=== PATIENT | male | born 1930 | race Caucasian/White ===

== ENCOUNTER 2017-02-07 21:19 | Inpatient (IN) | payer MEDICARE, OTHER ==
[2017-02-07] MEDS ORDERED: Acetaminophen 500 MG TAB PO ONE (22:30)
[2017-02-07] MEDS ORDERED: Guaifenesin DM 10 ML UDC PO ONE (22:31)
[2017-02-07 22:38] LABS: % BASOPHILS 0.2 % (0.0-2.0); % EOSINOPHILS 4.2 % (0.0-5.0); % LYMPHOCYTES 17.1 % (20.0-50.0); % MONOCYTES 4.8 % (2.0-10.0); % NEUTROPHILS 73.7 % (40.0-80.0); HEMATOCRIT 37.6 % (41.0-60); HEMOGLOBIN 12.7 gm/dL (12-16); MEAN CELL VOLUME 88.1 fl (80-99); MEAN CORPUSCULAR HEMOGLOBIN 29.8 pg (27.0-31.0); MEAN CORPUSCULAR HGB CONC 33.8 pg (28.0-36.0); MEAN PLATELET VOLUME 7.7 fl; NEUTROPHILE ABSOLUTE 7.4 Th/cmm (1.8-8.0); PLATELET COUNT 286 Th/cmm (150-400); RED BLOOD COUNT 4.27 Mil/cmm (3.80-5.80)
[2017-02-07] MEDS ORDERED: Piperacillin Sodium/Tazobact 3.375 gm Vial IV ONE (22:38)
[2017-02-07 22:51] LABS: ANION GAP 10.8 (7.0-16.0); BUN - UREA NITROGEN 28 mg/dL (7-25); BUN/CREATININE RATIO 23.3; CALCIUM SERUM 9.8 mg/dL (8.6-10.3); CARBON DIOXIDE 24.8 mEq/L (21.0-31.0); CHLORIDE 103 mEq/L (98-107); CREATININE - SERUM 1.2 mg/dL (0.7-1.3); GLUCOSE 102 mg/dL (70-105); POTASSIUM SERUM 4.6 mEq/L (3.5-5.1); SODIUM SERUM 134 mEq/L (136-145)
[2017-02-07] MEDS ORDERED: Acetaminophen 500 MG TAB ONE (23:05)
[2017-02-07] MEDS ORDERED: Guaifenesin DM 10 ML UDC ONE (23:06)
[2017-02-07 23:10] LABS: URINE BILIRUBIN NEGATIVE (NEGATIVE); URINE BLOOD NEGATIVE (NEGATIVE); URINE GLUCOSE (UA) NEGATIVE (NEGATIVE); URINE KETONE NEGATIVE (NEGATIVE); URINE PROTEIN TRACE mg/dL (NEGATIVE); URINE UROBILINOGEN 0.2 E.U./dL (0.2 - 1.0)
[2017-02-07 23:18] LABS: URINE COLOR YELLOW
[2017-02-07 23:19] LABS: URINE BACTERIA NONE SEEN /hpf (NONE SEEN); URINE EPITHELIAL CELLS NONE SEEN /lpf (FEW); URINE RBC NONE SEEN /hpf (0-5); URINE WBC NONE SEEN /hpf (0-5)
[2017-02-08 00:57] VITALS: BP 137/82
--- NOTE | 2017-02-08 12:23 | Internal Medicine Prog Note ---
Internal Medicine Subjective - Subjective Service Date: 02/08/17 ([id number]) Internal Medicine Objective - Results Result Diagrams: 02/07/17 22:30 02/07/17 22:30 Recent Labs: Laboratory Last Values WBC 10.0 Th/cmm (4.8-10.8) 02/07/17 22:30 RBC 4.27 Mil/cmm (3.80-5.80) 02/07/17 22:30 Hgb 12.7 gm/dL (12-16) 02/07/17 22:30 Hct 37.6 % (41.0-60) L 02/07/17 22:30 MCV 88.1 fl (80-99) 02/07/17 22:30 MCH 29.8 pg (27.0-31.0) 02/07/17 22:30 MCHC Differential 33.8 pg (28.0-36.0) 02/07/17 22:30 RDW 14.0 % (11.5-20.0) 02/07/17 22:30 Plt Count 286 Th/cmm (150-400) 02/07/17 22:30 MPV 7.7 fl 02/07/17 22:30 Neutrophils % 73.7 % (40.0-80.0) 02/07/17 22:30 Lymphocytes % 17.1 % (20.0-50.0) L 02/07/17 22:30 Monocytes % 4.8 % (2.0-10.0) 02/07/17 22:30 Eosinophils % 4.2 % (0.0-5.0) 02/07/17 22: Basophils % 0.2 % (0.0-2.0) 02/07/17 22:30 Sodium 134 mEq/L (136-145) L 02/07/17 22:30 Potassium 4.6 mEq/L (3.5-5.1) 02/07/17 22:30 Chloride 103 mEq/L (98-107) 02/07/17 22:30 Carbon Dioxide 24.8 mEq/L (21.0-31.0) 02/07/17 22:30 Anion Gap 10.8 (7.0-16.0) 02/07/17 22:30 BUN 28 mg/dL (7-25) H 02/07/17 22:30 Creatinine 1.2 mg/dL (0.7-1.3) 02/07/17 22:30 Est GFR ( Amer) TNP 02/07/17 22:30 Est GFR (Non-Af Amer) TNP 02/07/17 22:30 BUN/Creatinine Ratio 23.3 02/07/17 22:30 Glucose 102 mg/dL (70-105) 02/07/17 22:30 Calcium 9.8 mg/dL (8.6-10.3) 02/07/17 22:30 B-Natriuretic Peptide 133.0 pg/mL (5.0-100.0) H 02/07/17 22:30 Urine Source RANDOM 02/07/17 22:30 Urine Color YELLOW 02/07/17 22:30 Urine Clarity CLEAR (CLEAR) 02/07/17 22:30 Urine pH 6.0 (4.6 - 8.0) 02/07/17 22:30 Ur Specific [place] 1.015 (1.005-1.030) 02/07/17 22:30 Urine Protein TRACE mg/dL (NEGATIVE) 02/07/17 22:30 Urine Glucose (UA) NEGATIVE mg/dL (NEGATIVE) 02/07/17 22:30 Urine Ketones NEGATIVE mg/dL (NEGATIVE) 02/07/17 22:30 Urine Blood NEGATIVE (NEGATIVE) 02/07/17 22:30 Urine Nitrate NEGATIVE (NEGATIVE) 02/07/17 22:30 Urine Bilirubin NEGATIVE (NEGATIVE) 02/07/17 22:30 Urine Urobilinogen 0.2 E.U./dL (0.2 - 1.0) 02/07/17 22:30 Ur Leukocyte Esterase NEGATIVE (NEGATIVE) 02/07/17 22:30 Urine RBC NONE SEEN /hpf (0-5) 02/07/17 22:30 Urine WBC NONE SEEN /hpf (0-5) 02/07/17 22:30 Ur Epithelial Cells NONE SEEN /lpf (FEW) 02/07/17 22:30 Urine Bacteria NONE SEEN /hpf (NONE SEEN) 02/07/17 22:30 - Physical Exam Vitals and I&O: Vital Signs Temp 96.9 F 02/08/17 06:43 Pulse 78 02/08/17 06:43 Resp 20 02/08/17 06:43 BP 151/80 02/08/17 06:43 Pulse Ox 98 10/14/17 06:43 Intake & Output 02/07/17 02/08/17 02/08/17 18:59 06:59 18:59 Intake Total 120 Balance 120 Intake: Oral 120 Other: # Voids 1 Active Medications: Current Medications Acetaminophen (Tylenol) 650 mg PO Q6H PRN PRN Reason: Mild Pain/Headache/T above 101 Stop: 04/09/17 01:11 Lorazepam (Ativan) 1 mg PO Q6H PRN; Protocol PRN Reason: Anxiety/Agitation Stop: 04/09/17 01:11 Magnesium Hydroxide (Milk Of Magnesia) 30 ml PO HS PRN PRN Reason: Constipation Stop: 04/09/17 01:11 Temazepam (Restoril) 15 mg PO HS PRN; Protocol PRN Reason: Insomnia Stop: 04/08/17 22:32 Internal Medicine Assmt/Plan - Assessment Assessment: HYPONATREMIA PSYCHOSIS
--- NOTE | 2017-02-08 13:27 | History & Physical ---
ADMIT DATE: 02/08/2017 CHIEF COMPLAINT: Agitation. HISTORY OF PRESENT ILLNESS: This is an 86-year-old male, who is a resident of [facility], was brought here to [facility] for increase of agitation. The patient is now admitted to the Geropsych Unit. PAST MEDICAL HISTORY: Per medical records, the patient has no medical history, just psychosis. PAST SURGICAL HISTORY: None per patient. ALLERGIES: No known allergies. SOCIAL HISTORY: The patient is a skilled nursing resident, requiring 24- hour nursing care. FAMILY HISTORY: Noncontributory. REVIEW OF SYSTEMS: GENERAL: Denies fevers or chills. CARDIOVASCULAR: Denies chest pain. RESPIRATORY: Denies shortness of breath. GASTROINTESTINAL: Denies nausea, vomiting, or abdominal pain. GENITOURINARY: Denies dysuria. All other systems are reviewed by and are negative. PHYSICAL EXAMINATION: GENERAL: The patient is well developed, well nourished, no acute distress. VITAL SIGNS: Temperature 96.9, heart rate 70, blood pressure 151/80, and O2 98%. HEENT: Head; normocephalic and atraumatic. NECK: Supple. No mass. LUNGS: Clear bilaterally. HEART: Regular rate and rhythm. ABDOMEN: Soft and nontender. LABORATORY DATA: WBC 10.0, hemoglobin 12.7, hematocrit 37.6, and platelet of 286. Sodium 134, potassium 4.6, chloride 103, BUN 20, and creatinine 1.2. ASSESSMENT: 1. Psychosis. 2. Hyponatremia. PLAN: The patient will be admitted to the Geropsych Unit. We will continue to follow this patient. JOB# [id number]
--- NOTE | 2017-02-09 01:20 | Psychosocial Evaluation ---
DATE OF SERVICE: 02/08/2017 The patient was seen and evaluated. The patient's chart reviewed. This is initial psychiatric Evaluation. CHIEF COMPLAINT: Agitation. HISTORY OF PRESENT ILLNESS: This 86-year-old male who was brought in here from [facility] for severe agitation and aggressive behavior. Since the admission, the patient was becoming very aggressive, irritable and almost assaulted and required emergent Ativan medication. Today on [id number]-rh-[id number] evaluation, the patient presents a few very irritable, easily agitated, required emergent medications and is unable to give much more information beyond that. He presents very disorganized and psychotic. PAST MEDICAL HISTORY: Unknown. PAST SURGICAL HISTORY: None per patient. ALLERGIES TO MEDICATION: NKDA. SOCIAL HISTORY: Currently lives in a halfway and requires assistance. Denies any alcohol or drug use. Denies illicit drug use. FAMILY PSYCHIATRIC HISTORY: Noncontributory. LEGAL HISTORY: None. PREVIOUS INPATIENT OR OUTPATIENT PSYCHIATRIC HOSPITALIZATIONS: None. CURRENT MEDICATIONS: He is on Ativan 6 hours as needed, Restoril 15 at bedtime right now. He is also on Bactrim and vancomycin. MENTAL STATUS EXAMINATION: Disheveled, malodorous, paranoid, suspicious, aggressive, assaultive, poor insight, judgment and impulse control. PRIMARY DIAGNOSIS: Unspecified psychotic disorder. SECONDARY DIAGNOSES: Rule out neurocognitive impairment, behavior disturbance and psychosis, rule out schizophrenia. Medical diagnosis as noted above. ASSESSMENT AND PLAN: The patient is an 86-year-old male who was brought in here by his daughter, brought in from [place] very agitated and aggressive. He required emergent medications, very poor historian, further collateral baseline information is needed. Due to the patient's still aggressive and psychotic symptoms, we will add a low dose of Seroquel and to be obtained more collateral and baseline information in the medical records from the outside hospital. Labs from the outside hospital, labs from the [facility] have been unremarkable. 1.Admit the patient. 2.We will add Seroquel 12.5 mg p.o. b.i.d. 3.We will obtain more collateral baseline information. 4.We will start both individual and group therapy, ____ milieu and obtain more collateral baseline information. ESTIMATED LENGTH OF STAY: Between 5-10 days. DISCHARGE CRITERIA: The patient demonstrates euthymic mood, no suicidal or homicidal, ideation, good psychiatric followup, and good ldso-ko-dokm interaction. JOB# [id number]
--- NOTE | 2017-02-09 15:02 | Internal Medicine Prog Note ---
Internal Medicine Subjective - Subjective Service Date: 02/09/17 Patient seen and examined:: with staff Patient is:: awake Internal Medicine Objective - Results Result Diagrams: 02/07/17 22:30 02/07/17 22:30 Recent Labs: Laboratory Last Values WBC 10.0 Th/cmm (4.8-10.8) 02/07/17 22:30 RBC 4.27 Mil/cmm (3.80-5.80) 02/07/17 22:30 Hgb 12.7 gm/dL (12-16) 02/07/17 22:30 Hct 37.6 % (41.0-60) L 02/07/17:30 MCV 88.1 fl (80-99) 02/07/17 22: MCH 29.8 pg (27.0-31.0) 02/07/17: MCHC Differential 33.8 pg (28.0-36.0) 02/07/17: RDW 14.0 % (11.5-20.0) 02/07/17: Plt Count 286 Th/cmm (150-400) 02/07/17 22:30 MPV 7.7 fl 02/07/17 22:30 Neutrophils % 73.7 % (40.0-80.0) 02/07/17:30 Lymphocytes % 17.1 % (20.0-50.0) L 02/07/17: Monocytes % 4.8 % (2.0-10.0) 02/07/17: Eosinophils % 4.2 % (0.0-5.0) 02/07/17: Basophils % 0.2 % (0.0-2.0) 02/07/17 22:30 Sodium 134 mEq/L (136-145) L 02/07/17 22:30 Potassium 4.6 mEq/L (3.5-5.1) 02/07/17 22:30 Chloride 103 mEq/L (98-107) 02/07/17 22:30 Carbon Dioxide 24.8 mEq/L (21.0-31.0) 02/07/17 22:30 Anion Gap 10.8 (7.0-16.0) 02/07/17 22:30 BUN 28 mg/dL (7-25) H 10/13/17 22:30 Creatinine 1.2 mg/dL (0.7-1.3) 02/07/17 22:30 Est GFR ( Amer) TNP 02/07/17 22:30 Est GFR (Non-Af Amer) TNP 02/07/17 22:30 BUN/Creatinine Ratio 23.3 02/07/17 22:30 Glucose 102 mg/dL (70-105) 02/07/17 22:30 Calcium 9.8 mg/dL (8.6-10.3) 02/07/17 22:30 B-Natriuretic Peptide 133.0 pg/mL (5.0-100.0) H 02/07/17 22:30 Urine Source RANDOM 02/07/17 22:30 Urine Color YELLOW 02/07/17 22:30 Urine Clarity CLEAR (CLEAR) 02/07/17 22:30 Urine pH 6.0 (4.6 - 8.0) 02/07/17 22:30 Ur Specific [place] 1.015 (1.005-1.030) 02/07/17 22:30 Urine Protein TRACE mg/dL (NEGATIVE) 02/07/17 22:30 Urine Glucose (UA) NEGATIVE mg/dL (NEGATIVE) 02/07/17 22:30 Urine Ketones NEGATIVE mg/dL (NEGATIVE) 02/07/17 22:30 Urine Blood NEGATIVE (NEGATIVE) 02/07/17 22:30 Urine Nitrate NEGATIVE (NEGATIVE) 02/07/17 22:30 Urine Bilirubin NEGATIVE (NEGATIVE) 02/07/17 22:30 Urine Urobilinogen 0.2 E.U./dL (0.2 - 1.0) 02/07/17 22:30 Ur Leukocyte Esterase NEGATIVE (NEGATIVE) 02/07/17 22:30 Urine RBC NONE SEEN /hpf (0-5) 02/07/17 22:30 Urine WBC NONE SEEN /hpf (0-5) 02/07/17 22:30 Ur Epithelial Cells NONE SEEN /lpf (FEW) 02/07/17 22:30 Urine Bacteria NONE SEEN /hpf (NONE SEEN) 02/07/17 22:30 - Physical Exam Vitals and I&O: Vital Signs Temp 98.1 F 02/09/17 06:51 Pulse 85 02/09/17 06:51 Resp 20 02/09/17 06:51 BP 170/85 02/09/17 06:51 Pulse Ox 97 02/09/17 06:51 Intake & Output 02/08/17 02/09/17 02/09/17 18:59 06:59 18:59 Intake Total 900 360 Balance 900 360 Intake: Oral 900 360 Other: # Voids 4 1 # Bowel Movements 1 Active Medications: Current Medications Acetaminophen (Tylenol) 650 mg PO Q6H PRN PRN Reason: Mild Pain/Headache/T above 101 Stop: 04/09/17 01:11 Last Admin: 02/08/17 16:26 Dose: 650 mg Lorazepam (Ativan) 1 mg PO Q6H PRN; Protocol PRN Reason: Anxiety/Agitation Stop: 04/09/17 01:11 Last Admin: 02/09/17 10:00 Dose: 1 mg Magnesium Hydroxide (Milk Of Magnesia) 30 ml PO HS PRN PRN Reason: Constipation Stop: 04/09/17 01:11 Quetiapine Fumarate (Seroquel) 25 mg PO BID MIKI PRN Reason: Protocol Stop: 04/10/17 16:59 Temazepam (Restoril) 15 mg PO HS PRN; Protocol PRN Reason: Insomnia Stop: 04/08/17 22:32 General: alert HEENT: NC/AT, PERRLA Neck: Supple Lungs: CTAB Cardiovascular: RRR, Normal S1, Normal S2, without murmur Abdomen: soft, non-tender, non-distended Extremities: clear Neurological: no change Internal Medicine Assmt/Plan - Assessment Assessment: HYPONATREMIA PSYCHOSIS - Plan Plan: SAFETY PRECAUTIONS A1C/LIPID PANEL IN AM CONTINUE CURRENT PLAN OF CARE
--- NOTE | 2017-02-09 20:16 | Progress Notes ---
DATE: 02/09/2017 SUBJECTIVE: The patient was seen and evaluated. The patient's chart was reviewed. OBJECTIVE: VITAL SIGNS: Stable. Overnight nursing staff reported the patient is still very irritable easily, needing a lot of redirection and disorganized. Today on [id number] evaluation, the patient is very disorganized, easily derails. He finds himself in his chair and tries to hurt himself. MENTAL STATUS EXAMINATION: Still trying to hurt himself, easily irritable, agitated, and unable to formulate a safe plan. ASSESSMENT AND PLAN: The patient is an 86-year-old male who continues to present very psychotic, disorganized, and trying to hurt himself in the chair. We will continue increasing Seroquel. to target the patient's severe psychotic symptoms. JOB# [id number] MTDD
[2017-02-10 07:26] LABS: CHOLESTEROL 174 mg/dL (<200); TRIGLYCERIDES 109 mg/dL (<150)
--- NOTE | 2017-02-10 14:43 | Internal Medicine Prog Note ---
Internal Medicine Subjective - Subjective Service Date: 02/10/17 Patient is:: awake Internal Medicine Objective - Results Result Diagrams: 02/07/17 22:30 02/07/17 22:30 Recent Labs: Laboratory Last Values WBC 10.0 Th/cmm (4.8-10.8) 02/07/17 22:30 RBC 4.27 Mil/cmm (3.80-5.80) 02/07/17 22:30 Hgb 12.7 gm/dL (12-16) 02/07/17 22:30 Hct 37.6 % (41.0-60) L 02/07/17 22:30 MCV 88.1 fl (80-99) 02/07/17 22:30 MCH 29.8 pg (27.0-31.0) 02/07/17: MCHC Differential 33.8 pg (28.0-36.0) 02/07/17 22:30 RDW 14.0 % (11.5-20.0) 02/07/17 22:30 Plt Count 286 Th/cmm (150-400) 02/07/17 22:30 MPV 7.7 fl 02/07/17 22:30 Neutrophils % 73.7 % (40.0-80.0) 02/07/17 22:30 Lymphocytes % 17.1 % (20.0-50.0) L 02/07/17:30 Monocytes % 4.8 % (2.0-10.0) 02/07/17 22:30 Eosinophils % 4.2 % (0.0-5.0) 02/07/17: Basophils % 0.2 % (0.0-2.0) 02/07/17 22:30 Sodium 134 mEq/L (136-145) L 02/07/17 22:30 Potassium 4.6 mEq/L (3.5-5.1) 02/07/17 22:30 Chloride 103 mEq/L (98-107) 02/07/17 22:30 Carbon Dioxide 24.8 mEq/L (21.0-31.0) 02/07/17 22:30 Anion Gap 10.8 (7.0-16.0) 02/07/17 22:30 BUN 28 mg/dL (7-25) H 02/07/17 22:30 Creatinine 1.2 mg/dL (0.7-1.3) 02/07/17 22:30 Est GFR ( Amer) TNP 02/07/17 22:30 Est GFR (Non-Af Amer) TNP 02/07/17 22:30 BUN/Creatinine Ratio 23.3 02/07/17 22:30 Glucose 102 mg/dL (70-105) 02/07/17 22:30 Hemoglobin A1c % 5.9 % (4.0-6.0) 02/10/17 06:40 Calcium 9.8 mg/dL (8.6-10.3) 02/07/17 22:30 B-Natriuretic Peptide 133.0 pg/mL (5.0-100.0) H 02/07/17 22:30 Triglycerides 109 mg/dL (<150) 02/10/17 06:40 Cholesterol 174 mg/dL (<200) 02/10/17 06:40 LDL Cholesterol Direct 73 mg/dL (75-193) L 02/10/17 06:40 HDL Cholesterol 74 mg/dL (23-92) 02/10/17 06:40 Urine Source RANDOM 02/07/17 22:30 Urine Color YELLOW 02/07/17 22:30 Urine Clarity CLEAR (CLEAR) 02/07/17 22:30 Urine pH 6.0 (4.6 - 8.0) 02/07/17 22:30 Ur Specific [place] 1.015 (1.005-1.030) 02/07/17 22:30 Urine Protein TRACE mg/dL (NEGATIVE) 02/07/17 22:30 Urine Glucose (UA) NEGATIVE mg/dL (NEGATIVE) 02/07/17 22:30 Urine Ketones NEGATIVE mg/dL (NEGATIVE) 02/07/17 22:30 Urine Blood NEGATIVE (NEGATIVE) 02/07/17 22:30 Urine Nitrate NEGATIVE (NEGATIVE) 02/07/17 22:30 Urine Bilirubin NEGATIVE (NEGATIVE) 02/07/17 22:30 Urine Urobilinogen 0.2 E.U./dL (0.2 - 1.0) 02/07/17 22:30 Ur Leukocyte Esterase NEGATIVE (NEGATIVE) 02/07/17 22:30 Urine RBC NONE SEEN /hpf (0-5) 02/07/17 22:30 Urine WBC NONE SEEN /hpf (0-5) 02/07/17 22:30 Ur Epithelial Cells NONE SEEN /lpf (FEW) 02/07/17 22:30 Urine Bacteria NONE SEEN /hpf (NONE SEEN) 02/07/17 22:30 - Physical Exam Vitals and I&O: Vital Signs Temp 98.6 F 02/10/17 06:50 Pulse 75 02/10/17 06:50 Resp 19 02/10/17 06:50 BP 133/76 02/10/17 06:50 Pulse Ox 96 02/10/17 06:50 Intake & Output 02/09/17 02/10/17 02/10/17 18:59 06:59 18:59 Intake Total 850 240 Balance 850 240 Intake: Oral 850 240 Other: # Voids 4 3 # Bowel Movements 0 0 Active Medications: Current Medications Acetaminophen (Tylenol) 650 mg PO Q6H PRN PRN Reason: Mild Pain/Headache/T above 101 Stop: 04/09/17 01:11 Last Admin: 02/10/17 07:05 Dose: 650 mg Donepezil HCl (Aricept) 5 mg PO HS MIKI Stop: 04/11/17 20:59 Lorazepam (Ativan) 1 mg PO Q6H PRN; Protocol PRN Reason: Anxiety/Agitation Stop: 04/09/17 01:11 Last Admin: 02/10/17 08:02 Dose: 1 mg Magnesium Hydroxide (Milk Of Magnesia) 30 ml PO HS PRN PRN Reason: Constipation Stop: 04/09/17 01:11 Quetiapine Fumarate (Seroquel) 25 mg PO BID MIKI PRN Reason: Protocol Stop: 04/10/17 16:59 Last Admin: 02/10/17 08:01 Dose: 25 mg Temazepam (Restoril) 15 mg PO HS PRN; Protocol PRN Reason: Insomnia Stop: 04/08/17 22:32 Last Admin: 02/09/17 21:13 Dose: 15 mg General: alert HEENT: NC/AT, PERRLA Neck: Supple Lungs: CTAB Cardiovascular: RRR, Normal S1, Normal S2, without murmur Abdomen: soft, non-tender, non-distended Extremities: clear Neurological: no change Internal Medicine Assmt/Plan - Assessment Assessment: HYPONATREMIA PSYCHOSIS - Plan Plan: SAFETY PRECAUTIONS A1C/LIPID PANEL IN AM CONTINUE CURRENT PLAN OF CARE
--- NOTE | 2017-02-11 02:38 | Progress Notes ---
DATE: 02/10/2017 Case was discussed with staff of the patient, reviewed records. This is an 86-year-old male who was admitted on 02/08/2017 from [facility] for severe agitation and aggressive behavior. The patient's mood was impulsive requiring emergency medications. The patient continues to be irritable, confused, unable to make safe plan for self-care. He is on Seroquel 25 mg twice a day. I will be adding Aricept to his medication to help with his memory and so far no side effects, no sedation, no nausea, and no extrapyramidal symptoms. We will continue to work with the patient in group therapy, milieu therapy, and adjust medications as needed. JOB# [id number]
--- NOTE | 2017-02-11 12:37 | Internal Medicine Prog Note ---
Internal Medicine Subjective - Subjective Service Date: 02/11/17 ( CAME AND HAS GIVEN MEDICAL HX OF PT) Patient seen and examined:: without staff Patient is:: awake Per staff patient has:: tolerating meds Internal Medicine Objective - Results Result Diagrams: 02/07/17 22:30 02/07/17 22:30 Recent Labs: Laboratory Last Values WBC 10.0 Th/cmm (4.8-10.8) 02/07/17 22:30 RBC 4.27 Mil/cmm (3.80-5.80) 02/07/17 22:30 Hgb 12.7 gm/dL (12-16) 02/07/17: Hct 37.6 % (41.0-60) L 02/07/17: MCV 88.1 fl (80-99) 02/07/17 22:30 MCH 29.8 pg (27.0-31.0) 02/07/17: MCHC Differential 33.8 pg (28.0-36.0) 02/07/17: RDW 14.0 % (11.5-20.0) 02/07/17:30 Plt Count 286 Th/cmm (150-400) 02/07/17 22:30 MPV 7.7 fl 02/07/17 22:30 Neutrophils % 73.7 % (40.0-80.0) 02/07/17 22:30 Lymphocytes % 17.1 % (20.0-50.0) L 02/07/17: Monocytes % 4.8 % (2.0-10.0) 02/07/17: Eosinophils % 4.2 % (0.0-5.0) 02/07/17: Basophils % 0.2 % (0.0-2.0) 02/07/17 22:30 Sodium 134 mEq/L (136-145) L 02/07/17 22:30 Potassium 4.6 mEq/L (3.5-5.1) 02/07/17 22:30 Chloride 103 mEq/L (98-107) 02/07/17 22:30 Carbon Dioxide 24.8 mEq/L (21.0-31.0) 02/07/17 22: Anion Gap 10.8 (7.0-16.0) 02/07/17 22:30 BUN 28 mg/dL (7-25) H 02/07/17 22:30 Creatinine 1.2 mg/dL (0.7-1.3) 02/07/17 22:30 Est GFR ( Amer) TNP 02/07/17 22:30 Est GFR (Non-Af Amer) TNP 02/07/17 22:30 BUN/Creatinine Ratio 23.3 02/07/17 22:30 Glucose 102 mg/dL (70-105) 02/07/17 22:30 Hemoglobin A1c % 5.9 % (4.0-6.0) 02/10/17 06:40 Calcium 9.8 mg/dL (8.6-10.3) 02/07/17 22:30 B-Natriuretic Peptide 133.0 pg/mL (5.0-100.0) H 02/07/17 22:30 Triglycerides 109 mg/dL (<150) 02/10/17 06:40 Cholesterol 174 mg/dL (<200) 02/10/17 06:40 LDL Cholesterol Direct 73 mg/dL (75-193) L 02/10/17 06:40 HDL Cholesterol 74 mg/dL (23-92) 02/10/17 06:40 Urine Source RANDOM 02/07/17 22:30 Urine Color YELLOW 02/07/17 22:30 Urine Clarity CLEAR (CLEAR) 02/07/17 22:30 Urine pH 6.0 (4.6 - 8.0) 02/07/17 22:30 Ur Specific [place] 1.015 (1.005-1.030) 02/07/17 22:30 Urine Protein TRACE mg/dL (NEGATIVE) 02/07/17 22:30 Urine Glucose (UA) NEGATIVE mg/dL (NEGATIVE) 02/07/17 22:30 Urine Ketones NEGATIVE mg/dL (NEGATIVE) 02/07/17 22:30 Urine Blood NEGATIVE (NEGATIVE) 02/07/17 22:30 Urine Nitrate NEGATIVE (NEGATIVE) 02/07/17 22:30 Urine Bilirubin NEGATIVE (NEGATIVE) 02/07/17 22:30 Urine Urobilinogen 0.2 E.U./dL (0.2 - 1.0) 02/07/17 22:30 Ur Leukocyte Esterase NEGATIVE (NEGATIVE) 02/07/17 22:30 Urine RBC NONE SEEN /hpf (0-5) 02/07/17 22:30 Urine WBC NONE SEEN /hpf (0-5) 02/07/17 22:30 Ur Epithelial Cells NONE SEEN /lpf (FEW) 02/07/17 22:30 Urine Bacteria NONE SEEN /hpf (NONE SEEN) 02/07/17 22:30 - Physical Exam Vitals and I&O: Vital Signs Temp 97 F 02/11/17 06:38 Pulse 87 02/11/17 06:38 Resp 19 02/11/17 06:38 BP 150/81 02/11/17 06:38 Pulse Ox 96 02/11/17 06:29 Intake & Output 02/10/17 02/11/17 02/11/17 18:59 06:59 18:59 Intake Total 1800 480 Balance 1800 480 Intake: Oral 1800 480 Other: # Voids 4 1 # Bowel Movements 0 Active Medications: Current Medications Acetaminophen (Tylenol) 650 mg PO Q6H PRN PRN Reason: Mild Pain/Headache/T above 101 Stop: 04/09/17 01:11 Last Admin: 02/11/17 09:04 Dose: 650 mg Donepezil HCl (Aricept) 5 mg PO HS MIKI Stop: 04/11/17 20:59 Last Admin: 02/10/17 20:55 Dose: Not Given Lorazepam (Ativan) 1 mg PO Q6H PRN; Protocol PRN Reason: Anxiety/Agitation Stop: 04/09/17 01:11 Last Admin: 02/11/17 09:04 Dose: 1 mg Magnesium Hydroxide (Milk Of Magnesia) 30 ml PO HS PRN PRN Reason: Constipation Stop: 04/09/17 01:11 Quetiapine Fumarate (Seroquel) 25 mg PO BID MIKI PRN Reason: Protocol Stop: 04/10/17 16:59 Last Admin: 02/11/17 09:04 Dose: 25 mg Temazepam (Restoril) 15 mg PO HS PRN; Protocol PRN Reason: Insomnia Stop: 04/08/17 22:32 Last Admin: 02/09/17 21:13 Dose: 15 mg General: alert HEENT: NC/AT, PERRLA Neck: Supple Lungs: CTAB Cardiovascular: RRR, Normal S1, Normal S2, without murmur Abdomen: soft, non-tender, non-distended Extremities: clear Neurological: no change Internal Medicine Assmt/Plan - Assessment Assessment: HYPONATREMIA PSYCHOSIS HTN - Plan Plan: MONITOR BP SAFETY PRECAUTIONS CONTINUE CURRENT PLAN OF CARE
[2017-02-11 13:33] LABS: % BASOPHILS 3.2 % (0.0-2.0); % EOSINOPHILS 2.5 % (0.0-5.0); % LYMPHOCYTES 11.4 % (20.0-50.0); % MONOCYTES 1.6 % (2.0-10.0); % NEUTROPHILS 81.3 % (40.0-80.0); HEMATOCRIT 38.7 % (41.0-60); MEAN CORPUSCULAR HEMOGLOBIN 29.5 pg (27.0-31.0); MEAN CORPUSCULAR HGB CONC 33.6 pg (28.0-36.0); MEAN PLATELET VOLUME 7.8 fl; NEUTROPHILE ABSOLUTE 8.2 Th/cmm (1.8-8.0); PLATELET COUNT 260 Th/cmm (150-400); RED CELL DISTRIBUTION WIDTH 13.8 % (11.5-20.0)
[2017-02-11 13:47] LABS: ANION GAP 9.7 (7.0-16.0); BUN - UREA NITROGEN 39 mg/dL (7-25); BUN/CREATININE RATIO 32.5; CALCIUM SERUM 9.6 mg/dL (8.6-10.3); CARBON DIOXIDE 23.8 mEq/L (21.0-31.0); CHLORIDE 100 mEq/L (98-107); CREATININE - SERUM 1.2 mg/dL (0.7-1.3); GLUCOSE 154 mg/dL (70-105); POTASSIUM SERUM 4.5 mEq/L (3.5-5.1); SODIUM SERUM 129 mEq/L (136-145)
--- NOTE | 2017-02-11 13:50 | Diagnostic Imaging Report ---
Portable chest x-ray HISTORY: Shortness of breath The heart appears enlarged. Atherosclerotic calcification seen in the aorta. Increased density noted in the left paratracheal region most likely related to brachiocephalic vessels. No definite acute focal pulmonary parenchymal processes are seen. IMPRESSION: 1. No definite acute focal pulmonary processes 2. Cardiomegaly with atherosclerotic vascular changes
[2017-02-11] MEDS ORDERED: Fleet Enema 135 mL RC ONE (14:00)
--- NOTE | 2017-02-11 14:36 | ER Physician Documentation ---
DATE OF SERVICE: HISTORY OF PRESENT ILLNESS: He is an 86-year-old male patient. The patient's history was taken partly from the nurse, partly from the patient's daughter and the patient himself who is 86, did speak some Colombian and said some symptoms. According to the nurse, the patient was referred by his physician to this institution for cough and shortness of breath and some hot feeling in the legs and for a lockdown unit and the patient also has hypertension and other symptoms as would be mentioned below. The patient's chief complaint is cough with lots of greenish yellowish expectoration, short of breath, difficulty in breathing. Swelling in the legs. The patient also has weakness. The patient has a psychiatric problem, the details of which is not known to me. The patient does not take his medication. He has a diagnosis of aggressive behavior. He lives in an assisted living setting. He has diagnosis of psychosis. He was at [facility] before and his insurance was verified. Psychiatrist is Dr. Wynne and medical doctor is Dr. Garcia, they both have been taking care of this patient. The patient is a very poor historian. The daughter says the patient does not take his medication for his hypertension. He was supposed to take his lisinopril 10 mg, but he is not taking. He was also supposed to take some other medication, he is not taking. PAST SURGICAL HISTORY: As far as the surgical history, I was told that the patient had hemorrhoidectomy and appendectomy surgery done. As far as the leg symptoms are concerned, he feels very hot in the leg and pain in both the calf area. The patient denies any history of diabetes mellitus. History of hypertension is present. There is no history of myocardial infarction, rheumatic fever, valvular disease, pericarditis. No history of any chest pain. No history of any heart catheterization, open heart surgery. PAST MEDICAL HISTORY: Essentially the same as mentioned above. For his admission in this hospital, is the first admission, he was never admitted in this hospital before. PERSONAL HISTORY: His daughter is taking care of him. He has 1 son also. ALLERGIES: Not mentioned here. REVIEW OF SYSTEMS: CONSTITUTIONAL: Not very reliable, but patient denies any stroke, CVA, TIA. Denies any history of myocardial infarction. ENDOCRINE: No history of diabetes, hypo or hyperthyroidism. HEART: The patient has a history of hypertension. No history of cardiac arrhythmia. GENITOURINARY: The patient did not have any prostate problems or any surgery for the prostate. BONES AND JOINTS: No apparent complaints. The patient has generalized weakness. PSYCHIATRIC: The patient has psychosis. He is in a lockdown unit. PHYSICAL EXAMINATION: GENERAL: The patient appears to be awake, he is alert. He appears to be of the stated age, not in any acute cardiorespiratory distress. He has cough. He is short of breath. ENT: Appears to be normal. NECK: Veins are not distended. Carotids are normal. Normal ____ without any bruit heard over the carotid artery. EXTREMITIES: There is no cyanosis, no petechia, no ecchymosis. Legs: The patient has tenderness in both calf muscles area. May need ultrasound of both lower extremities to find out any DVT present. PULMONARY: Examination reveals emphysematous chest wall, AP diameter of the chest is increased and the patient has bilateral scattered rales and rhonchi heard in both lungs malave. There is no definite bronchial breathing. HEART: Reveals normal heart sounds. Soft fourth heart sound. Third heart sound is absent. Second heart sound is physiologically split. ABDOMEN: Soft, benign and negative. CENTRAL NERVOUS SYSTEM: Normal. Appendix scar is noted. GENITOURINARY: Otherwise, benign and negative. VITAL SIGNS: Shows temperature to be 98.2, pulse of 78, respirations 20, blood pressure initial was 167/85, height of 5 feet, weight of 118 pounds. The patient has taken lisinopril. Allergies were not known. Pain threshold according to the nurse is 2/10 is present. CLINICAL IMPRESSION: The patient was sent here from the assisted living setting for aggressive behavior. The patient's other diagnosis includes psychosis. The psychiatrist name is Dr. Wynne. The patient's medical doctor's name is our chief specialist leed, Dr. Garcia. Other diagnosis includes the patient has severe bronchitis. One needs to rule out if the patient has any pneumonia present. We will treat the patient for severe acute tracheobronchitis, rule out pneumonia. We will get an EKG done. The patient will be treated for his lung condition and for psych facility the patient will be admitted. The patient's other medications will be given. Hypertension will be treated as needed. We will get an ultrasound of the legs to rule out any deep vein thrombophlebitis or not present in this patient. The patient needs some hygienic care. The patient seems to be malnourished. His serum albumin level, I believe, might be much lower. We do not have any other lab workup available at the present moment. I will admit the patient and the patient will be treated by Dr. Garcia and by the psychiatrist. JOB# [id number]
--- NOTE | 2017-02-11 22:06 | Progress Notes ---
DATE: 02/11/2017 Case was discussed with staff of the patient, reviewed records. The patient continues to be confused, demented and responding to internal stimuli, easily irritable, agitated. He was started on Seroquel 2 days ago, so I will give him more time before adjusting the dose because of his age and so far, no side effects with the medication, no sedation, no nausea, and no extrapyramidal symptoms. I did initiate him on Aricept yesterday. We will continue to work with the patient in group therapy, milieu therapy, and adjust medication as needed. JOB# [id number]
--- NOTE | 2017-02-12 13:23 | Internal Medicine Prog Note ---
Internal Medicine Subjective - Subjective Patient seen and examined:: with staff, chart reviewed Patient is:: awake, verbal, interactive, ambulating, confused Per staff patient has:: no adverse event, no episodes of fall, eating well, tolerating meds Internal Medicine Objective - Results Result Diagrams: 02/11/17 13:25 02/11/17 13:25 Recent Labs: Laboratory Last Values WBC 10.0 Th/cmm (4.8-10.8) 02/11/17 13:25 RBC 4.40 Mil/cmm (3.80-5.80) 02/11/17 13:25 Hgb 13.0 gm/dL (12-16) 02/11/17 13:25 Hct 38.7 % (41.0-60) L 02/11/17 13:25 MCV 88.0 fl (80-99) 02/11/17 13:25 MCH 29.5 pg (27.0-31.0) 02/11/17 13:25 MCHC Differential 33.6 pg (28.0-36.0) 02/11/17 13:25 RDW 13.8 % (11.5-20.0) 02/11/17 13:25 Plt Count 260 Th/cmm (150-400) 02/11/17 13:25 MPV 7.8 fl 02/11/17 13:25 Neutrophils % 81.3 % (40.0-80.0) H 02/11/17 13:25 Lymphocytes % 11.4 % (20.0-50.0) L 02/11/17 13:25 Monocytes % 1.6 % (2.0-10.0) L 02/11/17 13:25 Eosinophils % 2.5 % (0.0-5.0) 02/11/17 13:25 Basophils % 3.2 % (0.0-2.0) H 02/11/17 13:25 Sodium 129 mEq/L (136-145) L 02/11/17 13:25 Potassium 4.5 mEq/L (3.5-5.1) 02/11/17 13:25 Chloride 100 mEq/L (98-107) 02/11/17 13:25 Carbon Dioxide 23.8 mEq/L (21.0-31.0) 02/11/17 13:25 Anion Gap 9.7 (7.0-16.0) 02/11/17 13:25 BUN 39 mg/dL (7-25) H 02/11/17 13:25 Creatinine 1.2 mg/dL (0.7-1.3) 02/11/17 13:25 Est GFR ( Amer) TNP 02/11/17 13:25 Est GFR (Non-Af Amer) TNP 02/11/17 13:25 BUN/Creatinine Ratio 32.5 02/11/17 13:25 Glucose 154 mg/dL (70-105) H 02/11/17 13:25 Hemoglobin A1c % 5.9 % (4.0-6.0) 02/10/17 06:40 Calcium 9.6 mg/dL (8.6-10.3) 02/11/17 13:25 Ammonia 35 umol/L (16-53) 02/11/17 13:25 B-Natriuretic Peptide 133.0 pg/mL (5.0-100.0) H 02/07/17 22:30 Triglycerides 109 mg/dL (<150) 02/10/17 06:40 Cholesterol 174 mg/dL (<200) 02/10/17 06:40 LDL Cholesterol Direct 73 mg/dL (75-193) L 02/10/17 06:40 HDL Cholesterol 74 mg/dL (23-92) 02/10/17 06:40 Urine Source RANDOM 02/07/17 22:30 Urine Color YELLOW 02/07/17 22:30 Urine Clarity CLEAR (CLEAR) 02/07/17 22:30 Urine pH 6.0 (4.6 - 8.0) 02/07/17 22:30 Ur Specific [place] 1.015 (1.005-1.030) 02/07/17 22:30 Urine Protein TRACE mg/dL (NEGATIVE) 02/07/17 22:30 Urine Glucose (UA) NEGATIVE mg/dL (NEGATIVE) 02/07/17 22:30 Urine Ketones NEGATIVE mg/dL (NEGATIVE) 02/07/17 22:30 Urine Blood NEGATIVE (NEGATIVE) 02/07/17 22:30 Urine Nitrate NEGATIVE (NEGATIVE) 02/07/17 22:30 Urine Bilirubin NEGATIVE (NEGATIVE) 02/07/17 22:30 Urine Urobilinogen 0.2 E.U./dL (0.2 - 1.0) 02/07/17 22:30 Ur Leukocyte Esterase NEGATIVE (NEGATIVE) 02/07/17 22:30 Urine RBC NONE SEEN /hpf (0-5) 02/07/17 22:30 Urine WBC NONE SEEN /hpf (0-5) 02/07/17 22:30 Ur Epithelial Cells NONE SEEN /lpf (FEW) 02/07/17 22:30 Urine Bacteria NONE SEEN /hpf (NONE SEEN) 02/07/17 22:30 - Physical Exam Vitals and I&O: Vital Signs Temp 97.9 F 02/12/17 05:38 Pulse 89 02/12/17 05:38 Resp 20 02/12/17 05:38 BP 144/86 02/12/17 05:38 Pulse Ox 95 02/12/17 05:38 Intake & Output 02/11/17 02/12/17 02/12/17 18:59 06:59 18:59 Intake Total 700 120 Balance 700 120 Intake: Oral 700 120 Other: # Voids 3 3 # Bowel Movements 0 0 Active Medications: Current Medications Acetaminophen (Tylenol) 650 mg PO Q6H PRN PRN Reason: Mild Pain/Headache/T above 101 Stop: 04/09/17 01:11 Last Admin: 02/12/17 13:07 Dose: 650 mg Acetaminophen/Hydrocodone Bitart ([place] 5mg/325mg) 1 tab PO Q6H PRN PRN Reason: Pain (Moderate) Stop: 04/12/17 12:40 Docusate Sodium (Colace) 100 mg PO BID [facility] Stop: 04/12/17 16:59 Last Admin: 02/12/17 09:10 Dose: 100 mg Donepezil HCl (Aricept) 5 mg PO HS [facility] Stop: 04/11/17 20:59 Last Admin: 02/11/17 22:23 Dose: Not Given Lorazepam (Ativan) 1 mg PO Q6H PRN; Protocol PRN Reason: Anxiety/Agitation Stop: 04/09/17 01:11 Last Admin: 02/11/17 09:04 Dose: 1 mg Magnesium Hydroxide (Milk Of Magnesia) 30 ml PO HS PRN PRN Reason: Constipation Stop: 04/09/17 01:11 Quetiapine Fumarate (Seroquel) 25 mg PO TID MIKI PRN Reason: Protocol Stop: 04/13/17 08:59 Last Admin: 02/12/17 13:07 Dose: 25 mg Temazepam (Restoril) 15 mg PO HS PRN; Protocol PRN Reason: Insomnia Stop: 04/08/17 22:32 Last Admin: 02/09/17 21:13 Dose: 15 mg General: demented HEENT: NC/AT, PERRLA Neck: Supple Lungs: CTAB Cardiovascular: RRR, Normal S1, Normal S2, without murmur Abdomen: soft, non-tender, non-distended Extremities: clear Neurological: no change, disorganized Internal Medicine Assmt/Plan - Assessment Assessment: HYPONATREMIA PSYCHOSIS HTN cardiomegaly - Plan Plan: - Plan Plan: MONITOR BP SAFETY PRECAUTIONS CONTINUE CURRENT PLAN OF CARE
--- NOTE | 2017-02-12 17:18 | Progress Notes ---
DATE: 02/12/2017 Case was discussed with staff of the patient, reviewed records. The patient continues to be labile, continues to be confused, unpredictable, impulsive ____. He was keith, irritable, with poor insight. Unable to participate in meaningful conversation or make safe plan for self-care. He is compliant with the medication with no side effects, no sedation, no nausea, no extrapyramidal symptoms. I will be increasing his Seroquel to 25 mg 3 times a day. We will continue to work with the patient in group therapy, milieu therapy, adjust medication as needed. JOB# [id number]
--- NOTE | 2017-02-13 13:56 | Internal Medicine Prog Note ---
Internal Medicine Subjective - Subjective Service Date: 02/13/17 (patient c/o abdominal pain) Patient is:: awake, verbal, interactive, confused Patient Complaints of:: other (abd pain) Per staff patient has:: no adverse event, no episodes of fall, eating well, tolerating meds Internal Medicine Objective - Results Result Diagrams: 02/11/17 13:25 02/11/17 13:25 Recent Labs: Laboratory Last Values WBC 10.0 Th/cmm (4.8-10.8) 02/11/17 13:25 RBC 4.40 Mil/cmm (3.80-5.80) 02/11/17 13:25 Hgb 13.0 gm/dL (12-16) 02/11/17 13:25 Hct 38.7 % (41.0-60) L 02/11/17 13:25 MCV 88.0 fl (80-99) 02/11/17 13:25 MCH 29.5 pg (27.0-31.0) 02/11/17 13:25 MCHC Differential 33.6 pg (28.0-36.0) 02/11/17 13:25 RDW 13.8 % (11.5-20.0) 02/11/17 13:25 Plt Count 260 Th/cmm (150-400) 02/11/17 13:25 MPV 7.8 fl 02/11/17 13:25 Neutrophils % 81.3 % (40.0-80.0) H 02/11/17 13:25 Lymphocytes % 11.4 % (20.0-50.0) L 02/11/17 13:25 Monocytes % 1.6 % (2.0-10.0) L 02/11/17 13:25 Eosinophils % 2.5 % (0.0-5.0) 02/11/17 13:25 Basophils % 3.2 % (0.0-2.0) H 02/11/17 13:25 Sodium 129 mEq/L (136-145) L 02/11/17 13:25 Potassium 4.5 mEq/L (3.5-5.1) 02/11/17 13:25 Chloride 100 mEq/L (98-107) 02/11/17 13:25 Carbon Dioxide 23.8 mEq/L (21.0-31.0) 02/11/17 13:25 Anion Gap 9.7 (7.0-16.0) 02/11/17 13:25 BUN 39 mg/dL (7-25) H 02/11/17 13:25 Creatinine 1.2 mg/dL (0.7-1.3) 02/11/17 13:25 Est GFR ( Amer) TNP 02/11/17 13:25 Est GFR (Non-Af Amer) TNP 02/11/17 13:25 BUN/Creatinine Ratio 32.5 02/11/17 13:25 Glucose 154 mg/dL (70-105) H 02/11/17 13:25 Hemoglobin A1c % 5.9 % (4.0-6.0) 02/10/17 06:40 Calcium 9.6 mg/dL (8.6-10.3) 02/11/17 13:25 Ammonia 35 umol/L (16-53) 02/11/17 13:25 B-Natriuretic Peptide 133.0 pg/mL (5.0-100.0) H 02/07/17 22:30 Triglycerides 109 mg/dL (<150) 02/10/17 06:40 Cholesterol 174 mg/dL (<200) 02/10/17 06:40 LDL Cholesterol Direct 73 mg/dL (75-193) L 02/10/17 06:40 HDL Cholesterol 74 mg/dL (23-92) 02/10/17 06:40 Urine Source RANDOM 02/07/17 22:30 Urine Color YELLOW 02/07/17 22:30 Urine Clarity CLEAR (CLEAR) 02/07/17 22:30 Urine pH 6.0 (4.6 - 8.0) 02/07/17 22:30 Ur Specific [place] 1.015 (1.005-1.030) 02/07/17 22:30 Urine Protein TRACE mg/dL (NEGATIVE) 02/07/17 22:30 Urine Glucose (UA) NEGATIVE mg/dL (NEGATIVE) 02/07/17 22:30 Urine Ketones NEGATIVE mg/dL (NEGATIVE) 02/07/17 22:30 Urine Blood NEGATIVE (NEGATIVE) 02/07/17 22:30 Urine Nitrate NEGATIVE (NEGATIVE) 02/07/17 22:30 Urine Bilirubin NEGATIVE (NEGATIVE) 02/07/17 22:30 Urine Urobilinogen 0.2 E.U./dL (0.2 - 1.0) 02/07/17 22:30 Ur Leukocyte Esterase NEGATIVE (NEGATIVE) 02/07/17 22:30 Urine RBC NONE SEEN /hpf (0-5) 02/07/17 22:30 Urine WBC NONE SEEN /hpf (0-5) 02/07/17 22:30 Ur Epithelial Cells NONE SEEN /lpf (FEW) 02/07/17 22:30 Urine Bacteria NONE SEEN /hpf (NONE SEEN) 02/07/17 22:30 - Physical Exam Vitals and I&O: Vital Signs Temp 96.9 F 02/13/17 06:45 Pulse 87 02/13/17 06:45 Resp 19 02/13/17 06:45 BP 153/79 02/13/17 06:45 Pulse Ox 96 02/13/17 06:45 Intake & Output 02/12/17 02/13/17 02/13/17 18:59 06:59 18:59 Intake Total 1200 120 Balance 1200 120 Intake: Oral 1200 120 Other: # Voids 3 # Bowel Movements 1 Active Medications: Current Medications Acetaminophen (Tylenol) 650 mg PO Q6H PRN PRN Reason: Mild Pain/Headache/T above 101 Stop: 04/09/17 01:11 Last Admin: 02/12/17 13:07 Dose: 650 mg Acetaminophen/Hydrocodone Bitart ([place] 5mg/325mg) 1 tab PO Q6H PRN PRN Reason: Pain (Moderate) Stop: 04/12/17 12:40 Docusate Sodium (Colace) 100 mg PO BID [facility] Stop: 04/12/17 16:59 Last Admin: 02/13/17 08:07 Dose: 100 mg Donepezil HCl (Aricept) 5 mg PO HS [facility] Stop: 04/11/17 20:59 Last Admin: 02/12/17 21:39 Dose: 5 mg Lorazepam (Ativan) 1 mg PO Q6H PRN; Protocol PRN Reason: Anxiety/Agitation Stop: 04/09/17 01:11 Last Admin: 02/13/17 08:07 Dose: 1 mg Magnesium Hydroxide (Milk Of Magnesia) 30 ml PO HS PRN PRN Reason: Constipation Stop: 04/09/17 01:11 Quetiapine Fumarate (Seroquel) 25 mg PO TID MIKI PRN Reason: Protocol Stop: 04/13/17 08:59 Last Admin: 02/13/17 13:39 Dose: 25 mg Temazepam (Restoril) 15 mg PO HS PRN; Protocol PRN Reason: Insomnia Stop: 04/08/17 22:32 Last Admin: 02/09/17 21:13 Dose: 15 mg General: demented HEENT: NC/AT, PERRLA Neck: Supple Lungs: CTAB Cardiovascular: RRR, Normal S1, Normal S2, without murmur Abdomen: soft, non-tender, non-distended Extremities: clear Neurological: no change, disorganized Internal Medicine Assmt/Plan - Assessment Assessment: HYPONATREMIA PSYCHOSIS HTN - Plan Plan: kub today MONITOR BP SAFETY PRECAUTIONS CONTINUE CURRENT PLAN OF CARE
--- NOTE | 2017-02-13 15:13 | Diagnostic Imaging Report ---
KUB single view HISTORY: Abdominal pain. COMPARISON: None FINDINGS: Moderate amount of stool is noted. Overall the bowel gas pattern is nonspecific. Atherosclerosis is noted. Degenerative changes of the spine are noted. Calcifications of the mid abdomen are noted. IMPRESSION: Moderate amount of stool. Overall the bowel gas pattern is nonspecific Calcifications of the mid abdomen which may be due to pancreatic calcifications and chronic pancreatitis. Please correlate with clinical history Atherosclerotic vascular disease.
--- NOTE | 2017-02-14 03:31 | Progress Notes ---
DATE: Case was discussed with staff of the patient, reviewed records. The patient continues to be confused, unpredictable, impulsive, needing redirection. Continues to have poor insight. Continues to be unable to make safe plan for self-care. I did increase his Seroquel dose yesterday, so far no side effects, no sedation, no nausea, no extrapyramidal symptoms, still unpredictable, impulsive, demented, confused. We will continue outpatient group therapy, milieu therapy, adjust medication as needed. JOB# [id number]
--- NOTE | 2017-02-14 19:48 | Internal Medicine Prog Note ---
Internal Medicine Subjective - Subjective Service Date: 02/14/17 Patient is:: awake, verbal, interactive, confused Patient Complaints of:: other (abd pain) Per staff patient has:: no adverse event, no episodes of fall, eating well, tolerating meds Internal Medicine Objective - Results Result Diagrams: 02/11/17 13:25 02/11/17 13:25 Recent Labs: Laboratory Last Values WBC 10.0 Th/cmm (4.8-10.8) 02/11/17 13:25 RBC 4.40 Mil/cmm (3.80-5.80) 02/11/17 13:25 Hgb 13.0 gm/dL (12-16) 02/11/17 13:25 Hct 38.7 % (41.0-60) L 02/11/17 13:25 MCV 88.0 fl (80-99) 02/11/17 13:25 MCH 29.5 pg (27.0-31.0) 02/11/17 13:25 MCHC Differential 33.6 pg (28.0-36.0) 02/11/17 13:25 RDW 13.8 % (11.5-20.0) 02/11/17 13:25 Plt Count 260 Th/cmm (150-400) 02/11/17 13:25 MPV 7.8 fl 02/11/17 13:25 Neutrophils % 81.3 % (40.0-80.0) H 02/11/17 13:25 Lymphocytes % 11.4 % (20.0-50.0) L 02/11/17 13:25 Monocytes % 1.6 % (2.0-10.0) L 02/11/17 13:25 Eosinophils % 2.5 % (0.0-5.0) 02/11/17 13:25 Basophils % 3.2 % (0.0-2.0) H 02/11/17 13:25 Sodium 129 mEq/L (136-145) L 02/11/17 13:25 Potassium 4.5 mEq/L (3.5-5.1) 02/11/17 13:25 Chloride 100 mEq/L (98-107) 02/11/17 13:25 Carbon Dioxide 23.8 mEq/L (21.0-31.0) 02/11/17 13:25 Anion Gap 9.7 (7.0-16.0) 02/11/17 13:25 BUN 39 mg/dL (7-25) H 02/11/17 13:25 Creatinine 1.2 mg/dL (0.7-1.3) 02/11/17 13:25 Est GFR ( Amer) TNP 02/11/17 13:25 Est GFR (Non-Af Amer) TNP 02/11/17 13:25 BUN/Creatinine Ratio 32.5 02/11/17 13:25 Glucose 154 mg/dL (70-105) H 02/11/17 13:25 Hemoglobin A1c % 5.9 % (4.0-6.0) 02/10/17 06:40 Calcium 9.6 mg/dL (8.6-10.3) 02/11/17 13:25 Ammonia 35 umol/L (16-53) 02/11/17 13:25 B-Natriuretic Peptide 133.0 pg/mL (5.0-100.0) H 02/07/17 22:30 Triglycerides 109 mg/dL (<150) 02/10/17 06:40 Cholesterol 174 mg/dL (<200) 02/10/17 06:40 LDL Cholesterol Direct 73 mg/dL (75-193) L 02/10/17 06:40 HDL Cholesterol 74 mg/dL (23-92) 02/10/17 06:40 Urine Source RANDOM 02/07/17 22:30 Urine Color YELLOW 02/07/17 22:30 Urine Clarity CLEAR (CLEAR) 02/07/17 22:30 Urine pH 6.0 (4.6 - 8.0) 02/07/17 22:30 Ur Specific [place] 1.015 (1.005-1.030) 02/07/17 22:30 Urine Protein TRACE mg/dL (NEGATIVE) 02/07/17 22:30 Urine Glucose (UA) NEGATIVE mg/dL (NEGATIVE) 02/07/17 22:30 Urine Ketones NEGATIVE mg/dL (NEGATIVE) 02/07/17 22:30 Urine Blood NEGATIVE (NEGATIVE) 02/07/17 22:30 Urine Nitrate NEGATIVE (NEGATIVE) 02/07/17 22:30 Urine Bilirubin NEGATIVE (NEGATIVE) 02/07/17 22:30 Urine Urobilinogen 0.2 E.U./dL (0.2 - 1.0) 02/07/17 22:30 Ur Leukocyte Esterase NEGATIVE (NEGATIVE) 02/07/17 22:30 Urine RBC NONE SEEN /hpf (0-5) 02/07/17 22:30 Urine WBC NONE SEEN /hpf (0-5) 02/07/17 22:30 Ur Epithelial Cells NONE SEEN /lpf (FEW) 02/07/17 22:30 Urine Bacteria NONE SEEN /hpf (NONE SEEN) 02/07/17 22:30 - Physical Exam Vitals and I&O: Vital Signs Temp 98.3 F 02/14/17 16:05 Pulse 87 02/14/17 16:05 Resp 19 02/14/17 16:05 BP 136/84 02/14/17 16:05 Pulse Ox 98 02/14/17 16:05 Intake & Output 02/14/17 02/14/17 02/15/17 06:59 18:59 06:59 Intake Total 850 Balance 850 Intake: Oral 850 Other: # Voids 4 # Bowel Movements 1 Active Medications: Current Medications Acetaminophen (Tylenol) 650 mg PO Q6H PRN PRN Reason: Mild Pain/Headache/T above 101 Stop: 04/09/17 01:11 Last Admin: 02/14/17 14:21 Dose: 650 mg Acetaminophen/Hydrocodone Bitart ([place] 5mg/325mg) 1 tab PO Q6H PRN PRN Reason: Pain (Moderate) Stop: 04/12/17 12:40 Docusate Sodium (Colace) 100 mg PO BID [facility] Stop: 04/12/17 16:59 Last Admin: 02/14/17 16:23 Dose: Not Given Donepezil HCl (Aricept) 5 mg PO HS [facility] Stop: 04/11/17 20:59 Last Admin: 02/13/17 21:43 Dose: 5 mg Lorazepam (Ativan) 1 mg PO Q6H PRN; Protocol PRN Reason: Anxiety/Agitation Stop: 04/09/17 01:11 Last Admin: 02/13/17 08:07 Dose: 1 mg Magnesium Hydroxide (Milk Of Magnesia) 30 ml PO HS PRN PRN Reason: Constipation Stop: 04/09/17 01:11 Quetiapine Fumarate (Seroquel) 25 mg PO TID MIKI PRN Reason: Protocol Stop: 04/13/17 08:59 Last Admin: 02/14/17 14:21 Dose: 25 mg Temazepam (Restoril) 15 mg PO HS PRN; Protocol PRN Reason: Insomnia Stop: 04/08/17 22:32 Last Admin: 02/09/17 21:13 Dose: 15 mg General: demented HEENT: NC/AT, PERRLA Neck: Supple Lungs: CTAB Cardiovascular: RRR, Normal S1, Normal S2, without murmur Abdomen: soft, non-tender, non-distended Extremities: clear Neurological: no change, disorganized Internal Medicine Assmt/Plan - Assessment Assessment: HYPONATREMIA PSYCHOSIS HTN - Plan Plan: prn laxatives MONITOR BP SAFETY PRECAUTIONS CONTINUE CURRENT PLAN OF CARE
--- NOTE | 2017-02-15 01:32 | Progress Notes ---
DATE: 02/14/2017 Case was discussed with staff of the patient, reviewed records. The patient continues to be unpredictable, impulsive, internally preoccupied. He is sleeping better, eating better. I did increase his Seroquel to two times a day 25 mg. So, far no side effects, no sedation, no nausea, no extrapyramidal symptoms. We will continue to work with the patient in group therapy, milieu therapy, and adjust the medication as needed. JOB# [id number]
--- NOTE | 2017-02-15 13:44 | Internal Medicine Prog Note ---
Internal Medicine Subjective - Subjective Patient seen and examined:: with staff, chart reviewed Patient is:: awake, verbal, interactive, confused Patient Complaints of:: other (abd pain) Per staff patient has:: no adverse event, no episodes of fall, eating well, tolerating meds Internal Medicine Objective - Results Result Diagrams: 02/11/17 13:25 02/11/17 13:25 Recent Labs: Laboratory Last Values WBC 10.0 Th/cmm (4.8-10.8) 02/11/17 13:25 RBC 4.40 Mil/cmm (3.80-5.80) 02/11/17 13:25 Hgb 13.0 gm/dL (12-16) 02/11/17 13:25 Hct 38.7 % (41.0-60) L 02/11/17 13:25 MCV 88.0 fl (80-99) 02/11/17 13:25 MCH 29.5 pg (27.0-31.0) 02/11/17 13:25 MCHC Differential 33.6 pg (28.0-36.0) 02/11/17 13:25 RDW 13.8 % (11.5-20.0) 02/11/17 13:25 Plt Count 260 Th/cmm (150-400) 02/11/17 13:25 MPV 7.8 fl 02/11/17 13:25 Neutrophils % 81.3 % (40.0-80.0) H 02/11/17 13:25 Lymphocytes % 11.4 % (20.0-50.0) L 02/11/17 13:25 Monocytes % 1.6 % (2.0-10.0) L 02/11/17 13:25 Eosinophils % 2.5 % (0.0-5.0) 02/11/17 13:25 Basophils % 3.2 % (0.0-2.0) H 02/11/17 13:25 Sodium 129 mEq/L (136-145) L 02/11/17 13:25 Potassium 4.5 mEq/L (3.5-5.1) 02/11/17 13:25 Chloride 100 mEq/L (98-107) 02/11/17 13:25 Carbon Dioxide 23.8 mEq/L (21.0-31.0) 02/11/17 13:25 Anion Gap 9.7 (7.0-16.0) 02/11/17 13:25 BUN 39 mg/dL (7-25) H 02/11/17 13:25 Creatinine 1.2 mg/dL (0.7-1.3) 02/11/17 13:25 Est GFR ( Amer) TNP 02/11/17 13:25 Est GFR (Non-Af Amer) TNP 02/11/17 13:25 BUN/Creatinine Ratio 32.5 02/11/17 13:25 Glucose 154 mg/dL (70-105) H 02/11/17 13:25 Hemoglobin A1c % 5.9 % (4.0-6.0) 02/10/17 06:40 Calcium 9.6 mg/dL (8.6-10.3) 02/11/17 13:25 Ammonia 35 umol/L (16-53) 02/11/17 13:25 B-Natriuretic Peptide 133.0 pg/mL (5.0-100.0) H 02/07/17 22:30 Triglycerides 109 mg/dL (<150) 02/10/17 06:40 Cholesterol 174 mg/dL (<200) 02/10/17 06:40 LDL Cholesterol Direct 73 mg/dL (75-193) L 02/10/17 06:40 HDL Cholesterol 74 mg/dL (23-92) 02/10/17 06:40 Urine Source RANDOM 02/07/17 22:30 Urine Color YELLOW 02/07/17 22:30 Urine Clarity CLEAR (CLEAR) 02/07/17 22:30 Urine pH 6.0 (4.6 - 8.0) 02/07/17 22:30 Ur Specific [place] 1.015 (1.005-1.030) 02/07/17 22:30 Urine Protein TRACE mg/dL (NEGATIVE) 02/07/17 22:30 Urine Glucose (UA) NEGATIVE mg/dL (NEGATIVE) 02/07/17 22:30 Urine Ketones NEGATIVE mg/dL (NEGATIVE) 02/07/17 22:30 Urine Blood NEGATIVE (NEGATIVE) 02/07/17 22:30 Urine Nitrate NEGATIVE (NEGATIVE) 02/07/17 22:30 Urine Bilirubin NEGATIVE (NEGATIVE) 02/07/17 22:30 Urine Urobilinogen 0.2 E.U./dL (0.2 - 1.0) 02/07/17 22:30 Ur Leukocyte Esterase NEGATIVE (NEGATIVE) 02/07/17 22:30 Urine RBC NONE SEEN /hpf (0-5) 02/07/17 22:30 Urine WBC NONE SEEN /hpf (0-5) 02/07/17 22:30 Ur Epithelial Cells NONE SEEN /lpf (FEW) 02/07/17 22:30 Urine Bacteria NONE SEEN /hpf (NONE SEEN) 02/07/17 22:30 - Physical Exam Vitals and I&O: Vital Signs Temp 98.9 F 02/15/17 06:52 Pulse 70 02/15/17 06:52 Resp 17 02/15/17 06:52 BP 142/72 02/15/17 06:52 Pulse Ox 97 02/15/17 06:52 Intake & Output 02/14/17 02/15/17 02/15/17 18:59 06:59 18:59 Intake Total 850 Balance 850 Intake: Oral 850 Other: # Voids 4 # Bowel Movements 1 Active Medications: Current Medications Acetaminophen (Tylenol) 650 mg PO Q6H PRN PRN Reason: Mild Pain/Headache/T above 101 Stop: 04/09/17 01:11 Last Admin: 02/15/17 13:19 Dose: 650 mg Acetaminophen/Hydrocodone Bitart ([place] 5mg/325mg) 1 tab PO Q6H PRN PRN Reason: Pain (Moderate) Stop: 04/12/17 12:40 Bisacodyl (Dulcolax 10 Mg Supp) 10 mg RC DAILY PRN PRN Reason: Constipation Stop: 04/15/17 19:47 Docusate Sodium (Colace) 100 mg PO BID MIKI Stop: 04/12/17 16:59 Last Admin: 02/15/17 08:58 Dose: 100 mg Donepezil HCl (Aricept) 5 mg PO HS MIKI Stop: 04/11/17 20:59 Last Admin: 02/14/17 21:08 Dose: 5 mg Lorazepam (Ativan) 1 mg PO Q6H PRN; Protocol PRN Reason: Anxiety/Agitation Stop: 04/09/17 01:11 Last Admin: 02/13/17 08:07 Dose: 1 mg Magnesium Hydroxide (Milk Of Magnesia) 30 ml PO HS PRN PRN Reason: Constipation Stop: 04/09/17 01:11 Quetiapine Fumarate (Seroquel) 25 mg PO TID MIKI PRN Reason: Protocol Stop: 04/13/17 08:59 Last Admin: 02/15/17 13:20 Dose: 25 mg Temazepam (Restoril) 15 mg PO HS PRN; Protocol PRN Reason: Insomnia Stop: 04/08/17 22:32 Last Admin: 02/09/17 21:13 Dose: 15 mg General: demented HEENT: NC/AT, PERRLA Neck: Supple Lungs: CTAB Cardiovascular: RRR, Normal S1, Normal S2, without murmur Abdomen: soft, non-tender, non-distended Extremities: clear Neurological: no change, disorganized Internal Medicine Assmt/Plan - Assessment Assessment: HYPONATREMIA PSYCHOSIS HTN cardiomegaly - Plan Plan: - Plan Plan: MONITOR BP SAFETY PRECAUTIONS CONTINUE CURRENT PLAN OF CARE Nutritional Asmnt/Malnutr-PDOC - Dietary Evaluation Malnutrition Findings (Please click <Entered> for more info): Nutritional Asmnt/Malnutrition Start: 02/08/17 08: 31 Text: Status: Active Freq: Document 02/15/17 11:37 MMULHERN (Rec: 02/15/17 11:45 MMULHERN [facility]OM[facility]) Nutritional Asmnt/Malnutrition Patient General Information Diagnosis Psychosis NOS Pertinent Medical Hx/Surgical Hx Psychosis Subjective Information 86 year old male from [facility] with increased agitiation. Per nusing notes, refusing to take some medications. Current Diet Order/ Nutrition Support Mechanical Soft Ground Patient / S.O Not Indicated Pertinent Medications dulcolax, colace, MOM Pertinent Labs (02/11) Na 129 Nutritional Hx/Data Height 1.52 m Height (Calculated Centimeters) 152.4 Current Weight (lbs) 53.524 kg Weight (Calculated Kilograms) 53.5 Weight (Calculated Grams) 55471.9 [place] Body Weight 106 % [place] Body Weight 111 Weight Status Approriate GI Symptoms GI Symptoms None Food Allergies No Cultural/Ethnic/Orthodox Belief None indicated Skin Integrity/Comment: Vick 20, intact Current %PO Good (75-100%) Estimated Nutritional Goals BEE in Kcals: Using Current wt Calories/Kcals/Kg 25-30 kcal/kg (using current body weight 53.6kg) Kcals Calculated 5179-4611 kcal/day Protein: Using Current wt Protein g/k gm/kg Protein Calculated 55gm/day Fluid: ml 6633-5275 ml/day Nutritional Problem 1. Problem Problem Altered nutrition related lab values related to Etiology electrolye imbalance aeb Signs/Symptoms: Na 129 Intervention/Recommendation Comments 1. Continue Mechanical Soft ground diet as tolerated by patient as oral intake is adequate. 2. MD to replace lytes as needed; may consider fluid restriction due to hyponatremia. Expected Outcomes/Goals Expected Outcomes/Goals Oral intake to meet >75% of esimtated nutrient needs, Na normalizes, weight remains stable.
--- NOTE | 2017-02-15 17:03 | Progress Notes ---
DATE: SUBJECTIVE: The patient was seen, chart reviewed, discussed with staff, under the care of Dr. Christensen. The patient brought in from [place] with agitation, aggressive behaviors, irritable, assaultive, requiring emergency medications. On [id number], the patient is not a very good historian, not really able to give me much information, needs a lot of limit setting, did not sleep very well. Remains internally preoccupied, impulsive, unpredictable, restless. Medications reviewed. No side effects. The patient currently considered gravely disabled, unable to care for his basic needs, basic food, clothing and long-term. ASSESSMENT: The patient remains symptomatic, unable to make a safe plan for self-care. Still with mood swings, lability. PLAN: We will continue to monitor. Continue medications at current dose. The patient calm this morning. Medications were reviewed in detail. [facility]# [id number]
[2017-02-15] MEDS ORDERED: Magnesium Citrate 1.75 GM/300 mL Bottle PO ONE (17:08)
[2017-02-15] MEDS ORDERED: Magnesium Citrate 1.75 GM/300 mL Bottle ONE (17:30)
[2017-02-15] MEDS: Magnesium Hydroxide (MOM) 30 mL UDC PO PRN (23:42)
--- NOTE | 2017-02-16 10:12 | Progress Notes ---
DATE: SUBJECTIVE: The patient brought in from [facility], severe agitation, aggressive behaviors, irritable, noted to be very upset, confused, wandering in the hallway, refusing medications at times, wanting to leave, but it is unclear where he is going to go, concerns for grave disability. Medications were noted. ASSESSMENT: The patient remains symptomatic, poor sleep, only slept about 4 hours, still responding to internal stimuli, mumbling. PLAN: We will continue to monitor, given ongoing symptoms, he is not safe for discharge. JOB# [id number]
--- NOTE | 2017-02-16 11:41 | Internal Medicine Prog Note ---
Internal Medicine Subjective - Subjective Patient seen and examined:: with staff, chart reviewed Patient is:: awake, verbal, interactive, confused Patient Complaints of:: other (abd pain) Per staff patient has:: no adverse event, no episodes of fall, eating well, tolerating meds Internal Medicine Objective - Results Result Diagrams: 02/11/17 13:25 02/11/17 13:25 Recent Labs: Laboratory Last Values WBC 10.0 Th/cmm (4.8-10.8) 02/11/17 13:25 RBC 4.40 Mil/cmm (3.80-5.80) 02/11/17 13:25 Hgb 13.0 gm/dL (12-16) 02/11/17 13:25 Hct 38.7 % (41.0-60) L 02/11/17 13:25 MCV 88.0 fl (80-99) 02/11/17 13:25 MCH 29.5 pg (27.0-31.0) 02/11/17 13:25 MCHC Differential 33.6 pg (28.0-36.0) 02/11/17 13:25 RDW 13.8 % (11.5-20.0) 02/11/17 13:25 Plt Count 260 Th/cmm (150-400) 02/11/17 13:25 MPV 7.8 fl 02/11/17 13:25 Neutrophils % 81.3 % (40.0-80.0) H 02/11/17 13:25 Lymphocytes % 11.4 % (20.0-50.0) L 02/11/17 13:25 Monocytes % 1.6 % (2.0-10.0) L 02/11/17 13:25 Eosinophils % 2.5 % (0.0-5.0) 02/11/17 13:25 Basophils % 3.2 % (0.0-2.0) H 02/11/17 13:25 Sodium 129 mEq/L (136-145) L 02/11/17 13:25 Potassium 4.5 mEq/L (3.5-5.1) 02/11/17 13:25 Chloride 100 mEq/L (98-107) 02/11/17 13:25 Carbon Dioxide 23.8 mEq/L (21.0-31.0) 02/11/17 13:25 Anion Gap 9.7 (7.0-16.0) 02/11/17 13:25 BUN 39 mg/dL (7-25) H 02/11/17 13:25 Creatinine 1.2 mg/dL (0.7-1.3) 02/11/17 13:25 Est GFR ( Amer) TNP 02/11/17 13:25 Est GFR (Non-Af Amer) TNP 02/11/17 13:25 BUN/Creatinine Ratio 32.5 02/11/17 13:25 Glucose 154 mg/dL (70-105) H 02/11/17 13:25 Hemoglobin A1c % 5.9 % (4.0-6.0) 02/10/17 06:40 Calcium 9.6 mg/dL (8.6-10.3) 02/11/17 13:25 Ammonia 35 umol/L (16-53) 02/11/17 13:25 B-Natriuretic Peptide 133.0 pg/mL (5.0-100.0) H 02/07/17 22:30 Triglycerides 109 mg/dL (<150) 02/10/17 06:40 Cholesterol 174 mg/dL (<200) 02/10/17 06:40 LDL Cholesterol Direct 73 mg/dL (75-193) L 02/10/17 06:40 HDL Cholesterol 74 mg/dL (23-92) 02/10/17 06:40 Urine Source RANDOM 02/07/17 22:30 Urine Color YELLOW 02/07/17 22:30 Urine Clarity CLEAR (CLEAR) 02/07/17 22:30 Urine pH 6.0 (4.6 - 8.0) 02/07/17 22:30 Ur Specific [place] 1.015 (1.005-1.030) 02/07/17 22:30 Urine Protein TRACE mg/dL (NEGATIVE) 02/07/17 22:30 Urine Glucose (UA) NEGATIVE mg/dL (NEGATIVE) 02/07/17 22:30 Urine Ketones NEGATIVE mg/dL (NEGATIVE) 02/07/17 22:30 Urine Blood NEGATIVE (NEGATIVE) 02/07/17 22:30 Urine Nitrate NEGATIVE (NEGATIVE) 02/07/17 22:30 Urine Bilirubin NEGATIVE (NEGATIVE) 02/07/17 22:30 Urine Urobilinogen 0.2 E.U./dL (0.2 - 1.0) 02/07/17 22:30 Ur Leukocyte Esterase NEGATIVE (NEGATIVE) 02/07/17 22:30 Urine RBC NONE SEEN /hpf (0-5) 02/07/17 22:30 Urine WBC NONE SEEN /hpf (0-5) 02/07/17 22:30 Ur Epithelial Cells NONE SEEN /lpf (FEW) 02/07/17 22:30 Urine Bacteria NONE SEEN /hpf (NONE SEEN) 02/07/17 22:30 - Physical Exam Vitals and I&O: Vital Signs Temp 97.0 F 02/15/17 21:42 Pulse 75 02/16/17 05:00 Resp 18 02/16/17 05:00 BP 159/79 02/16/17 05:00 Pulse Ox 96 02/16/17 05:00 Intake & Output 02/15/17 02/16/17 02/16/17 18:59 06:59 18:59 Intake Total 800 Balance 800 Intake: Oral 800 Other: # Voids 3 # Bowel Movements 1 Active Medications: Current Medications Acetaminophen (Tylenol) 650 mg PO Q6H PRN PRN Reason: Mild Pain/Headache/T above 101 Stop: 04/09/17 01:11 Last Admin: 02/16/17 06:02 Dose: 650 mg Acetaminophen/Hydrocodone Bitart ([place] 5mg/325mg) 1 tab PO Q6H PRN PRN Reason: Pain (Moderate) Stop: 04/12/17 12:40 Bisacodyl (Dulcolax 10 Mg Supp) 10 mg RC DAILY PRN PRN Reason: Constipation Stop: 04/15/17 19:47 Docusate Sodium (Colace) 100 mg PO BID MIKI Stop: 04/12/17 16:59 Last Admin: 02/16/17 08:47 Dose: 100 mg Donepezil HCl (Aricept) 5 mg PO HS MIKI Stop: 04/11/17 20:59 Last Admin: 02/15/17 21:59 Dose: Not Given Lorazepam (Ativan) 1 mg PO Q6H PRN; Protocol PRN Reason: Anxiety/Agitation Stop: 04/09/17 01:11 Last Admin: 02/13/17 08:07 Dose: 1 mg Magnesium Hydroxide (Milk Of Magnesia) 30 ml PO HS PRN PRN Reason: Constipation Stop: 04/09/17 01:11 Last Admin: 02/15/17 23:42 Dose: 30 ml Quetiapine Fumarate (Seroquel) 25 mg PO TID MIKI PRN Reason: Protocol Stop: 04/13/17 08:59 Last Admin: 02/16/17 08:47 Dose: 25 mg Temazepam (Restoril) 15 mg PO HS PRN; Protocol PRN Reason: Insomnia Stop: 04/08/17 22:32 Last Admin: 02/09/17 21:13 Dose: 15 mg General: demented HEENT: NC/AT, PERRLA Neck: Supple Lungs: CTAB Cardiovascular: RRR, Normal S1, Normal S2, without murmur Abdomen: soft, non-tender, non-distended Extremities: clear Neurological: no change, disorganized Internal Medicine Assmt/Plan - Assessment Assessment: constipation HYPONATREMIA PSYCHOSIS HTN cardiomegaly - Plan Plan: - Plan Plan: MONITOR BP SAFETY PRECAUTIONS CONTINUE CURRENT PLAN OF CARE laxative added Nutritional Asmnt/Malnutr-PDOC - Dietary Evaluation Malnutrition Findings (Please click <Entered> for more info): Nutritional Asmnt/Malnutrition Start: 02/08/17 08: 31 Text: Status: Active Freq: Document 02/15/17 11:37 MMULHERN (Rec: 02/15/17 11:45 [facility] Nutritional Asmnt/Malnutrition Patient General Information Diagnosis Psychosis NOS Pertinent Medical Hx/Surgical Hx Psychosis Subjective Information 86 year old male from [facility] with increased agitiation. Per nusing notes, refusing to take some medications. Patient asleep at time of visit. Per nursing notes, oral intake is adequate. Current Diet Order/ Nutrition Support Mechanical Soft Ground Patient / S.O Not Indicated Pertinent Medications dulcolax, colace, MOM Pertinent Labs (02/11) Na 129 Nutritional Hx/Data Height 1.52 m Height (Calculated Centimeters) 152.4 Current Weight (lbs) 53.524 kg Weight (Calculated Kilograms) 53.5 Weight (Calculated Grams) 75769.9 [place] Body Weight 106 % [place] Body Weight 111 Weight Status Approriate GI Symptoms GI Symptoms None Food Allergies No Cultural/Ethnic/Zoroastrianism Belief None indicated Skin Integrity/Comment: Vick 20, intact Current %PO Good (75-100%) Estimated Nutritional Goals BEE in Kcals: Using Current wt Calories/Kcals/Kg 25-30 kcal/kg (using current body weight 53.6kg) Kcals Calculated 4596-7148 kcal/day Protein: Using Current wt Protein g/k gm/kg Protein Calculated 55gm/day Fluid: ml 4152-7568 ml/day Nutritional Problem 1. Problem Problem Altered nutrition related lab values related to Etiology electrolye imbalance aeb Signs/Symptoms: Na 129 Intervention/Recommendation Comments 1. Continue Mechanical Soft ground diet as tolerated by patient as oral intake is adequate. 2. MD to replace lytes as needed; may consider fluid restriction due to hyponatremia. Expected Outcomes/Goals Expected Outcomes/Goals Oral intake to meet >75% of esimtated nutrient needs, Na normalizes, weight remains stable.
--- NOTE | 2017-02-17 13:02 | Internal Medicine Prog Note ---
Internal Medicine Subjective - Subjective Patient seen and examined:: with staff, chart reviewed Patient is:: awake, verbal, interactive, confused Patient Complaints of:: other (abd pain) Per staff patient has:: no adverse event, no episodes of fall, eating well, tolerating meds Internal Medicine Objective - Results Result Diagrams: 02/11/17 13:25 02/11/17 13:25 Recent Labs: Laboratory Last Values WBC 10.0 Th/cmm (4.8-10.8) 02/11/17 13:25 RBC 4.40 Mil/cmm (3.80-5.80) 02/11/17 13:25 Hgb 13.0 gm/dL (12-16) 02/11/17 13:25 Hct 38.7 % (41.0-60) L 02/11/17 13:25 MCV 88.0 fl (80-99) 02/11/17 13:25 MCH 29.5 pg (27.0-31.0) 02/11/17 13:25 MCHC Differential 33.6 pg (28.0-36.0) 02/11/17 13:25 RDW 13.8 % (11.5-20.0) 02/11/17 13:25 Plt Count 260 Th/cmm (150-400) 02/11/17 13:25 MPV 7.8 fl 02/11/17 13:25 Neutrophils % 81.3 % (40.0-80.0) H 02/11/17 13:25 Lymphocytes % 11.4 % (20.0-50.0) L 02/11/17 13:25 Monocytes % 1.6 % (2.0-10.0) L 02/11/17 13:25 Eosinophils % 2.5 % (0.0-5.0) 02/11/17 13:25 Basophils % 3.2 % (0.0-2.0) H 02/11/17 13:25 Sodium 129 mEq/L (136-145) L 02/11/17 13:25 Potassium 4.5 mEq/L (3.5-5.1) 02/11/17 13:25 Chloride 100 mEq/L (98-107) 02/11/17 13:25 Carbon Dioxide 23.8 mEq/L (21.0-31.0) 02/11/17 13:25 Anion Gap 9.7 (7.0-16.0) 02/11/17 13:25 BUN 39 mg/dL (7-25) H 02/11/17 13:25 Creatinine 1.2 mg/dL (0.7-1.3) 02/11/17 13:25 Est GFR ( Amer) TNP 02/11/17 13:25 Est GFR (Non-Af Amer) TNP 02/11/17 13:25 BUN/Creatinine Ratio 32.5 02/11/17 13:25 Glucose 154 mg/dL (70-105) H 02/11/17 13:25 Hemoglobin A1c % 5.9 % (4.0-6.0) 02/10/17 06:40 Calcium 9.6 mg/dL (8.6-10.3) 02/11/17 13:25 Ammonia 35 umol/L (16-53) 02/11/17 13:25 B-Natriuretic Peptide 133.0 pg/mL (5.0-100.0) H 02/07/17 22:30 Triglycerides 109 mg/dL (<150) 02/10/17 06:40 Cholesterol 174 mg/dL (<200) 02/10/17 06:40 LDL Cholesterol Direct 73 mg/dL (75-193) L 02/10/17 06:40 HDL Cholesterol 74 mg/dL (23-92) 02/10/17 06:40 Urine Source RANDOM 02/07/17 22:30 Urine Color YELLOW 02/07/17 22:30 Urine Clarity CLEAR (CLEAR) 02/07/17 22:30 Urine pH 6.0 (4.6 - 8.0) 02/07/17 22:30 Ur Specific [place] 1.015 (1.005-1.030) 02/07/17 22:30 Urine Protein TRACE mg/dL (NEGATIVE) 02/07/17 22:30 Urine Glucose (UA) NEGATIVE mg/dL (NEGATIVE) 02/07/17 22:30 Urine Ketones NEGATIVE mg/dL (NEGATIVE) 02/07/17 22:30 Urine Blood NEGATIVE (NEGATIVE) 02/07/17 22:30 Urine Nitrate NEGATIVE (NEGATIVE) 02/07/17 22:30 Urine Bilirubin NEGATIVE (NEGATIVE) 02/07/17 22:30 Urine Urobilinogen 0.2 E.U./dL (0.2 - 1.0) 02/07/17 22:30 Ur Leukocyte Esterase NEGATIVE (NEGATIVE) 02/07/17 22:30 Urine RBC NONE SEEN /hpf (0-5) 02/07/17 22:30 Urine WBC NONE SEEN /hpf (0-5) 02/07/17 22:30 Ur Epithelial Cells NONE SEEN /lpf (FEW) 02/07/17 22:30 Urine Bacteria NONE SEEN /hpf (NONE SEEN) 02/07/17 22:30 - Physical Exam Vitals and I&O: Vital Signs Temp 97.3 F 02/17/17 06:15 Pulse 72 02/17/17 06:15 Resp 19 02/17/17 06:15 BP 140/78 02/17/17 06:15 Pulse Ox 97 02/17/17 06:15 Intake & Output 02/16/17 02/17/17 02/17/17 18:59 06:59 18:59 Intake Total 800 120 Balance 800 120 Intake: Oral 800 120 Other: # Voids 3 3 # Bowel Movements 1 Active Medications: Current Medications Acetaminophen (Tylenol) 650 mg PO Q6H PRN PRN Reason: Mild Pain/Headache/T above 101 Stop: 04/09/17 01:11 Last Admin: 02/17/17 05:51 Dose: 650 mg Acetaminophen/Hydrocodone Bitart ([place] 5mg/325mg) 1 tab PO Q6H PRN PRN Reason: Pain (Moderate) Stop: 04/12/17 12:40 Bisacodyl (Dulcolax 10 Mg Supp) 10 mg RC DAILY PRN PRN Reason: Constipation Stop: 04/15/17 19:47 Docusate Sodium (Colace) 100 mg PO BID MIKI Stop: 04/12/17 16:59 Last Admin: 02/17/17 08:26 Dose: 100 mg Donepezil HCl (Aricept) 5 mg PO HS MIKI Stop: 04/11/17 20:59 Last Admin: 02/16/17 21:10 Dose: Not Given Lorazepam (Ativan) 1 mg PO Q6H PRN; Protocol PRN Reason: Anxiety/Agitation Stop: 04/09/17 01:11 Last Admin: 02/17/17 10:42 Dose: 1 mg Magnesium Hydroxide (Milk Of Magnesia) 30 ml PO HS PRN PRN Reason: Constipation Stop: 04/09/17 01:11 Last Admin: 02/15/17 23:42 Dose: 30 ml Quetiapine Fumarate (Seroquel) 25 mg PO TID MIKI PRN Reason: Protocol Stop: 04/13/17 08:59 Last Admin: 02/17/17 10:42 Dose: Not Given Temazepam (Restoril) 15 mg PO HS PRN; Protocol PRN Reason: Insomnia Stop: 04/08/17 22:32 Last Admin: 02/09/17 21:13 Dose: 15 mg General: demented HEENT: NC/AT, PERRLA Neck: Supple Lungs: CTAB Cardiovascular: RRR, Normal S1, Normal S2, without murmur Abdomen: soft, non-tender, non-distended Extremities: clear Neurological: no change, disorganized Internal Medicine Assmt/Plan - Assessment Assessment: constipation HYPONATREMIA PSYCHOSIS HTN cardiomegaly - Plan Plan: - Plan Plan: MONITOR BP SAFETY PRECAUTIONS CONTINUE CURRENT PLAN OF CARE laxative added Nutritional Asmnt/Malnutr-PDOC - Dietary Evaluation Malnutrition Findings (Please click <Entered> for more info): Nutritional Asmnt/Malnutrition Start: 02/08/17 08: 31 Text: Status: Active Freq: Document 02/15/17 11:37 MMULHERN (Rec: 02/15/17 11:45 [facility]) Nutritional Asmnt/Malnutrition Patient General Information Diagnosis Psychosis NOS Pertinent Medical Hx/Surgical Hx Psychosis Subjective Information 86 year old male from [facility] with increased agitiation. Per nusing notes, refusing to take some medications. Patient asleep at time of visit. Per nursing notes, oral intake is adequate. Current Diet Order/ Nutrition Support Mechanical Soft Ground Patient / S.O Not Indicated Pertinent Medications dulcolax, colace, MOM Pertinent Labs (02/11) Na 129 Nutritional Hx/Data Height 1.52 m Height (Calculated Centimeters) 152.4 Current Weight (lbs) 53.524 kg Weight (Calculated Kilograms) 53.5 Weight (Calculated Grams) 57975.9 [place] Body Weight 106 % [place] Body Weight 111 Weight Status Approriate GI Symptoms GI Symptoms None Food Allergies No Cultural/Ethnic/Gnosticism Belief None indicated Skin Integrity/Comment: Vick 20, intact Current %PO Good (75-100%) Estimated Nutritional Goals BEE in Kcals: Using Current wt Calories/Kcals/Kg 25-30 kcal/kg (using current body weight 53.6kg) Kcals Calculated 0406-4559 kcal/day Protein: Using Current wt Protein g/k gm/kg Protein Calculated 55gm/day Fluid: ml 0897-9273 ml/day Nutritional Problem 1. Problem Problem Altered nutrition related lab values related to Etiology electrolye imbalance aeb Signs/Symptoms: Na 129 Intervention/Recommendation Comments 1. Continue Mechanical Soft ground diet as tolerated by patient as oral intake is adequate. 2. MD to replace lytes as needed; may consider fluid restriction due to hyponatremia. Expected Outcomes/Goals Expected Outcomes/Goals Oral intake to meet >75% of esimtated nutrient needs, Na normalizes, weight remains stable.
[2017-02-17] MEDS ORDERED: Ipratropium Neb 0.5 mg/2.5 mL UD HHN SCH (19:00)
--- NOTE | 2017-02-18 00:50 | Progress Notes ---
DATE: 02/17/2017 Case was discussed with staff of the patient. The patient continues to be confused, easily agitated, demented, confused, unable to make safe plan for self-care. Continues to be unpredictable, impulsive, needing redirection. He is on Aricept and Seroquel that was increased to 25 mg 3 times a day and we will continue I will continue the patient in therapy, adjust medication as needed. [facility]# [id number]
--- NOTE | 2017-02-18 14:11 | Internal Medicine Prog Note ---
Internal Medicine Subjective - Subjective Service Date: 02/18/17 Patient is:: awake, verbal, interactive, confused Patient Complaints of:: other (abd pain) Per staff patient has:: no adverse event, no episodes of fall, eating well, tolerating meds Internal Medicine Objective - Results Result Diagrams: 02/11/17 13:25 02/11/17 13:25 Recent Labs: Laboratory Last Values WBC 10.0 Th/cmm (4.8-10.8) 02/11/17 13:25 RBC 4.40 Mil/cmm (3.80-5.80) 02/11/17 13:25 Hgb 13.0 gm/dL (12-16) 02/11/17 13:25 Hct 38.7 % (41.0-60) L 02/11/17 13:25 MCV 88.0 fl (80-99) 02/11/17 13:25 MCH 29.5 pg (27.0-31.0) 02/11/17 13:25 MCHC Differential 33.6 pg (28.0-36.0) 02/11/17 13:25 RDW 13.8 % (11.5-20.0) 02/11/17 13:25 Plt Count 260 Th/cmm (150-400) 02/11/17 13:25 MPV 7.8 fl 02/11/17 13:25 Neutrophils % 81.3 % (40.0-80.0) H 02/11/17 13:25 Lymphocytes % 11.4 % (20.0-50.0) L 02/11/17 13:25 Monocytes % 1.6 % (2.0-10.0) L 02/11/17 13:25 Eosinophils % 2.5 % (0.0-5.0) 02/11/17 13:25 Basophils % 3.2 % (0.0-2.0) H 02/11/17 13:25 Sodium 129 mEq/L (136-145) L 02/11/17 13:25 Potassium 4.5 mEq/L (3.5-5.1) 02/11/17 13:25 Chloride 100 mEq/L (98-107) 02/11/17 13:25 Carbon Dioxide 23.8 mEq/L (21.0-31.0) 02/11/17 13:25 Anion Gap 9.7 (7.0-16.0) 02/11/17 13:25 BUN 39 mg/dL (7-25) H 02/11/17 13:25 Creatinine 1.2 mg/dL (0.7-1.3) 02/11/17 13:25 Est GFR ( Amer) TNP 02/11/17 13:25 Est GFR (Non-Af Amer) TNP 02/11/17 13:25 BUN/Creatinine Ratio 32.5 02/11/17 13:25 Glucose 154 mg/dL (70-105) H 02/11/17 13:25 Hemoglobin A1c % 5.9 % (4.0-6.0) 02/10/17 06:40 Calcium 9.6 mg/dL (8.6-10.3) 02/11/17 13:25 Ammonia 35 umol/L (16-53) 02/11/17 13:25 B-Natriuretic Peptide 133.0 pg/mL (5.0-100.0) H 02/07/17 22:30 Triglycerides 109 mg/dL (<150) 02/10/17 06:40 Cholesterol 174 mg/dL (<200) 02/10/17 06:40 LDL Cholesterol Direct 73 mg/dL (75-193) L 02/10/17 06:40 HDL Cholesterol 74 mg/dL (23-92) 02/10/17 06:40 Urine Source RANDOM 02/07/17 22:30 Urine Color YELLOW 02/07/17 22:30 Urine Clarity CLEAR (CLEAR) 02/07/17 22:30 Urine pH 6.0 (4.6 - 8.0) 02/07/17 22:30 Ur Specific [place] 1.015 (1.005-1.030) 02/07/17 22:30 Urine Protein TRACE mg/dL (NEGATIVE) 02/07/17 22:30 Urine Glucose (UA) NEGATIVE mg/dL (NEGATIVE) 02/07/17 22:30 Urine Ketones NEGATIVE mg/dL (NEGATIVE) 02/07/17 22:30 Urine Blood NEGATIVE (NEGATIVE) 02/07/17 22:30 Urine Nitrate NEGATIVE (NEGATIVE) 02/07/17 22:30 Urine Bilirubin NEGATIVE (NEGATIVE) 02/07/17 22:30 Urine Urobilinogen 0.2 E.U./dL (0.2 - 1.0) 02/07/17 22:30 Ur Leukocyte Esterase NEGATIVE (NEGATIVE) 02/07/17 22:30 Urine RBC NONE SEEN /hpf (0-5) 02/07/17 22:30 Urine WBC NONE SEEN /hpf (0-5) 02/07/17 22:30 Ur Epithelial Cells NONE SEEN /lpf (FEW) 02/07/17 22:30 Urine Bacteria NONE SEEN /hpf (NONE SEEN) 02/07/17 22:30 - Physical Exam Vitals and I&O: Vital Signs Temp 98.0 F 02/18/17 06:34 Pulse 73 02/18/17 08:43 Resp 20 02/18/17 08:43 BP 133/76 02/18/17 06:34 Pulse Ox 93 02/18/17 08:43 Intake & Output 02/17/17 02/18/17 02/18/17 18:59 06:59 18:59 Intake Total 600 300 Balance 600 300 Intake: Oral 600 300 Other: # Voids 3 1 # Bowel Movements 1 0 Active Medications: Current Medications Acetaminophen (Tylenol) 650 mg PO Q6H PRN PRN Reason: Mild Pain/Headache/T above 101 Stop: 04/09/17 01:11 Last Admin: 02/18/17 09:14 Dose: 650 mg Acetaminophen/Hydrocodone Bitart ([place] 5mg/325mg) 1 tab PO Q6H PRN PRN Reason: Pain (Moderate) Stop: 04/12/17 12:40 Albuterol Sulfate (Albuterol 2.5mg/3ml Neb Ud) 2.5 mg HHN Q6HRT PRN PRN Reason: Shortness of Breath Stop: 04/18/17 17:54 Bisacodyl (Dulcolax 10 Mg Supp) 10 mg RC DAILY PRN PRN Reason: Constipation Stop: 04/15/17 19:47 Docusate Sodium (Colace) 100 mg PO BID MIKI Stop: 04/12/17 16:59 Last Admin: 02/18/17 09:15 Dose: Not Given Donepezil HCl (Aricept) 5 mg PO HS MIKI Stop: 04/11/17 20:59 Last Admin: 02/17/17 21:01 Dose: Not Given Ipratropium [place] (Atrovent Neb 0.5mg/2.5ml) 0.5 mg HHN Q6HRT PRN PRN Reason: Shortness of Breath Stop: 04/18/17 18:59 Lorazepam (Ativan) 1 mg PO Q6H PRN; Protocol PRN Reason: Anxiety/Agitation Stop: 04/09/17 01:11 Last Admin: 02/17/17 10:42 Dose: 1 mg Magnesium Hydroxide (Milk Of Magnesia) 30 ml PO HS PRN PRN Reason: Constipation Stop: 04/09/17 01:11 Last Admin: 02/15/17 23:42 Dose: 30 ml Quetiapine Fumarate (Seroquel) 25 mg PO TID MIKI PRN Reason: Protocol Stop: 04/13/17 08:59 Last Admin: 02/18/17 09:15 Dose: Not Given Temazepam (Restoril) 15 mg PO HS PRN; Protocol PRN Reason: Insomnia Stop: 04/08/17 22:32 Last Admin: 02/09/17 21:13 Dose: 15 mg General: demented HEENT: NC/AT, PERRLA Neck: Supple Lungs: CTAB Cardiovascular: RRR, Normal S1, Normal S2, without murmur Abdomen: soft, non-tender, non-distended Extremities: clear Neurological: no change, disorganized Internal Medicine Assmt/Plan - Assessment Assessment: HYPONATREMIA PSYCHOSIS HTN - Plan Plan: prn laxatives MONITOR BP SAFETY PRECAUTIONS CONTINUE CURRENT PLAN OF CARE Nutritional Asmnt/Malnutr-PDOC - Dietary Evaluation Malnutrition Findings (Please click <Entered> for more info): Nutritional Asmnt/Malnutrition Start: 02/08/17 08: 31 Text: Status: Active Freq: Document 02/15/17 11:37 MMULHERN (Rec: 02/15/17 11:45 [facility]) Nutritional Asmnt/Malnutrition Patient General Information Diagnosis Psychosis NOS Pertinent Medical Hx/Surgical Hx Psychosis Subjective Information 86 year old male from [facility] with increased agitiation. Per nusing notes, refusing to take some medications. Patient asleep at time of visit. Per nursing notes, oral intake is adequate. Current Diet Order/ Nutrition Support Mechanical Soft Ground Patient / S.O Not Indicated Pertinent Medications dulcolax, colace, MOM Pertinent Labs (02/11) Na 129 Nutritional Hx/Data Height 5 ft Height (Calculated Centimeters) 152.4 Current Weight (lbs) 118 lb Weight (Calculated Kilograms) 53.5 Weight (Calculated Grams) 34724.9 [place] Body Weight 106 % [place] Body Weight 111 Weight Status Approriate GI Symptoms GI Symptoms None Food Allergies No Cultural/Ethnic/Roman [employer] Belief None indicated Skin Integrity/Comment: Vick 20, intact Current %PO Good (75-100%) Estimated Nutritional Goals BEE in Kcals: Using Current wt Calories/Kcals/Kg 25-30 kcal/kg (using current body weight 53.6kg) Kcals Calculated 5521-3232 kcal/day Protein: Using Current wt Protein g/k gm/kg Protein Calculated 55gm/day Fluid: ml 1917-3945 ml/day Nutritional Problem 1. Problem Problem Altered nutrition related lab values related to Etiology electrolye imbalance aeb Signs/Symptoms: Na 129 Intervention/Recommendation Comments 1. Continue Mechanical Soft ground diet as tolerated by patient as oral intake is adequate. 2. MD to replace lytes as needed; may consider fluid restriction due to hyponatremia. Expected Outcomes/Goals Expected Outcomes/Goals Oral intake to meet >75% of esimtated nutrient needs, Na normalizes, weight remains stable.
--- NOTE | 2017-02-19 00:09 | Progress Notes ---
DATE: 02/18/2017 Case was discussed with staff of the patient, reviewed records. Also discussed the care with his daughter yesterday. His daughter reported when she talked to him, he was literally clear. However, when I talked to him and the staff talked to him, he tend to be confused, unable to answer questions appropriately at times. He continues to be internally preoccupied. He continues to be unpredictable, impulsive, needing redirection. He is sleeping well, eating well. No side effects of the medication, no sedation, no nausea and we will continue outpatient group therapy, milieu therapy, adjust medication as needed. JOB# [id number]
--- NOTE | 2017-02-19 11:39 | Internal Medicine Prog Note ---
Internal Medicine Subjective - Subjective Service Date: 02/19/17 Patient is:: awake, verbal, interactive, confused Patient Complaints of:: other (abd pain) Per staff patient has:: no adverse event, no episodes of fall, eating well, tolerating meds Internal Medicine Objective - Results Result Diagrams: 02/11/17 13:25 02/11/17 13:25 Recent Labs: Laboratory Last Values WBC 10.0 Th/cmm (4.8-10.8) 02/11/17 13:25 RBC 4.40 Mil/cmm (3.80-5.80) 02/11/17 13:25 Hgb 13.0 gm/dL (12-16) 02/11/17 13:25 Hct 38.7 % (41.0-60) L 02/11/17 13:25 MCV 88.0 fl (80-99) 02/11/17 13:25 MCH 29.5 pg (27.0-31.0) 02/11/17 13:25 MCHC Differential 33.6 pg (28.0-36.0) 02/11/17 13:25 RDW 13.8 % (11.5-20.0) 02/11/17 13:25 Plt Count 260 Th/cmm (150-400) 02/11/17 13:25 MPV 7.8 fl 02/11/17 13:25 Neutrophils % 81.3 % (40.0-80.0) H 02/11/17 13:25 Lymphocytes % 11.4 % (20.0-50.0) L 02/11/17 13:25 Monocytes % 1.6 % (2.0-10.0) L 02/11/17 13:25 Eosinophils % 2.5 % (0.0-5.0) 02/11/17 13:25 Basophils % 3.2 % (0.0-2.0) H 02/11/17 13:25 Sodium 129 mEq/L (136-145) L 02/11/17 13:25 Potassium 4.5 mEq/L (3.5-5.1) 02/11/17 13:25 Chloride 100 mEq/L (98-107) 02/11/17 13:25 Carbon Dioxide 23.8 mEq/L (21.0-31.0) 02/11/17 13:25 Anion Gap 9.7 (7.0-16.0) 02/11/17 13:25 BUN 39 mg/dL (7-25) H 02/11/17 13:25 Creatinine 1.2 mg/dL (0.7-1.3) 02/11/17 13:25 Est GFR ( Amer) TNP 02/11/17 13:25 Est GFR (Non-Af Amer) TNP 02/11/17 13:25 BUN/Creatinine Ratio 32.5 02/11/17 13:25 Glucose 154 mg/dL (70-105) H 02/11/17 13:25 Hemoglobin A1c % 5.9 % (4.0-6.0) 02/10/17 06:40 Calcium 9.6 mg/dL (8.6-10.3) 02/11/17 13:25 Ammonia 35 umol/L (16-53) 02/11/17 13:25 B-Natriuretic Peptide 133.0 pg/mL (5.0-100.0) H 02/07/17 22:30 Triglycerides 109 mg/dL (<150) 02/10/17 06:40 Cholesterol 174 mg/dL (<200) 02/10/17 06:40 LDL Cholesterol Direct 73 mg/dL (75-193) L 02/10/17 06:40 HDL Cholesterol 74 mg/dL (23-92) 02/10/17 06:40 Urine Source RANDOM 02/07/17 22:30 Urine Color YELLOW 02/07/17 22:30 Urine Clarity CLEAR (CLEAR) 02/07/17 22:30 Urine pH 6.0 (4.6 - 8.0) 02/07/17 22:30 Ur Specific [place] 1.015 (1.005-1.030) 02/07/17 22:30 Urine Protein TRACE mg/dL (NEGATIVE) 02/07/17 22:30 Urine Glucose (UA) NEGATIVE mg/dL (NEGATIVE) 02/07/17 22:30 Urine Ketones NEGATIVE mg/dL (NEGATIVE) 02/07/17 22:30 Urine Blood NEGATIVE (NEGATIVE) 02/07/17 22:30 Urine Nitrate NEGATIVE (NEGATIVE) 02/07/17 22:30 Urine Bilirubin NEGATIVE (NEGATIVE) 02/07/17 22:30 Urine Urobilinogen 0.2 E.U./dL (0.2 - 1.0) 02/07/17 22:30 Ur Leukocyte Esterase NEGATIVE (NEGATIVE) 02/07/17 22:30 Urine RBC NONE SEEN /hpf (0-5) 02/07/17 22:30 Urine WBC NONE SEEN /hpf (0-5) 02/07/17 22:30 Ur Epithelial Cells NONE SEEN /lpf (FEW) 02/07/17 22:30 Urine Bacteria NONE SEEN /hpf (NONE SEEN) 02/07/17 22:30 - Physical Exam Vitals and I&O: Vital Signs Temp 98.6 F 02/19/17 06:59 Pulse 73 02/19/17 08:34 Resp 20 02/19/17 08:34 BP 144/85 02/19/17 06:59 Pulse Ox 99 02/19/17 08:34 Intake & Output 02/18/17 02/19/17 02/19/17 18:59 06:59 18:59 Intake Total 900 240 Balance 900 240 Intake: Oral 900 240 Other: # Voids 4 3 # Bowel Movements 1 0 Active Medications: Current Medications Acetaminophen (Tylenol) 650 mg PO Q6H PRN PRN Reason: Mild Pain/Headache/T above 101 Stop: 04/09/17 01:11 Last Admin: 02/18/17 22:01 Dose: 650 mg Acetaminophen/Hydrocodone Bitart ([place] 5mg/325mg) 1 tab PO Q6H PRN PRN Reason: Pain (Moderate) Stop: 04/12/17 12:40 Albuterol Sulfate (Albuterol 2.5mg/3ml Neb Ud) 2.5 mg HHN Q6HRT PRN PRN Reason: Shortness of Breath Stop: 04/18/17 17:54 Bisacodyl (Dulcolax 10 Mg Supp) 10 mg RC DAILY PRN PRN Reason: Constipation Stop: 04/15/17 19:47 Docusate Sodium (Colace) 100 mg PO BID MIKI Stop: 04/12/17 16:59 Last Admin: 02/19/17 09:32 Dose: Not Given Donepezil HCl (Aricept) 5 mg PO HS MIKI Stop: 04/11/17 20:59 Last Admin: 02/18/17 21:23 Dose: Not Given Ipratropium [place] (Atrovent Neb 0.5mg/2.5ml) 0.5 mg HHN Q6HRT PRN PRN Reason: Shortness of Breath Stop: 04/18/17 18:59 Lorazepam (Ativan) 1 mg PO Q6H PRN; Protocol PRN Reason: Anxiety/Agitation Stop: 04/09/17 01:11 Last Admin: 02/18/17 15:01 Dose: 1 mg Magnesium Hydroxide (Milk Of Magnesia) 30 ml PO HS PRN PRN Reason: Constipation Stop: 04/09/17 01:11 Last Admin: 02/15/17 23:42 Dose: 30 ml Quetiapine Fumarate (Seroquel) 25 mg PO TID MIKI PRN Reason: Protocol Stop: 04/13/17 08:59 Last Admin: 02/19/17 09:28 Dose: Not Given Temazepam (Restoril) 15 mg PO HS PRN; Protocol PRN Reason: Insomnia Stop: 04/08/17 22:32 Last Admin: 02/09/17 21:13 Dose: 15 mg General: demented HEENT: NC/AT, PERRLA Neck: Supple Lungs: CTAB Cardiovascular: RRR, Normal S1, Normal S2, without murmur Abdomen: soft, non-tender, non-distended Extremities: clear Neurological: no change, disorganized Internal Medicine Assmt/Plan - Assessment Assessment: abdominal pain cbc/bmp in am HYPONATREMIA PSYCHOSIS HTN - Plan Plan: abdominal us MONITOR BP SAFETY PRECAUTIONS CONTINUE CURRENT PLAN OF CARE Nutritional Asmnt/Malnutr-PDOC - Dietary Evaluation Malnutrition Findings (Please click <Entered> for more info): Nutritional Asmnt/Malnutrition Start: 02/08/17 08: 31 Text: Status: Active Freq: Document 02/15/17 11:37 MMULHERN (Rec: 02/15/17 11:45 MMULHERN NOMI- FN) Nutritional Asmnt/Malnutrition Patient General Information Diagnosis Psychosis NOS Pertinent Medical Hx/Surgical Hx Psychosis Subjective Information 86 year old male from [facility] with increased agitiation. Per nusing notes, refusing to take some medications. Patient asleep at time of visit. Per nursing notes, oral intake is adequate. Current Diet Order/ Nutrition Support Mechanical Soft Ground Patient / S.O Not Indicated Pertinent Medications dulcolax, colace, MOM Pertinent Labs (02/11) Na 129 Nutritional Hx/Data Height 5 ft Height (Calculated Centimeters) 152.4 Current Weight (lbs) 118 lb Weight (Calculated Kilograms) 53.5 Weight (Calculated Grams) 29373.9 [place] Body Weight 106 % [place] Body Weight 111 Weight Status Approriate GI Symptoms GI Symptoms None Food Allergies No Cultural/Ethnic/Baptism Belief None indicated Skin Integrity/Comment: Vick 20, intact Current %PO Good (75-100%) Estimated Nutritional Goals BEE in Kcals: Using Current wt Calories/Kcals/Kg 25-30 kcal/kg (using current body weight 53.6kg) Kcals Calculated 2257-1281 kcal/day Protein: Using Current wt Protein g/k gm/kg Protein Calculated 55gm/day Fluid: ml 5872-4568 ml/day Nutritional Problem 1. Problem Problem Altered nutrition related lab values related to Etiology electrolye imbalance aeb Signs/Symptoms: Na 129 Intervention/Recommendation Comments 1. Continue Mechanical Soft ground diet as tolerated by patient as oral intake is adequate. 2. MD to replace lytes as needed; may consider fluid restriction due to hyponatremia. Expected Outcomes/Goals Expected Outcomes/Goals Oral intake to meet >75% of esimtated nutrient needs, Na normalizes, weight remains stable.
[2017-02-19] MEDS: Hydrocodone/APAP 5mg/325mg Tab PO PRN (14:19)
--- NOTE | 2017-02-19 17:11 | Progress Notes ---
DATE: Case was discussed with staff of the patient, reviewed records. The patient continues to be unpredictable. He is also confused. His memory is not great. His daughter reports that he thinks is here; however, observing his behavior according to the staff and interaction with others, his memory is not ____ with it and so far, I did initiate on him Aricept. He is on Seroquel 25 mg increased dose to 3 times a day with no side effects, no sedation, no nausea, no extrapyramidal symptoms. I will continue outpatient group therapy, milieu therapy, and adjust medications as needed. JOB# [id number]
[2017-02-19] MEDS: Albuterol Nebulizer 2.5mg/3mL HHN PRN (19:51)
[2017-02-19] MEDS: Ipratropium Neb 0.5 mg/2.5 mL UD HHN PRN (19:51)
[2017-02-20 08:49] LABS: % BASOPHILS 0.4 % (0.0-2.0); % EOSINOPHILS 3.5 % (0.0-5.0); % LYMPHOCYTES 20.6 % (20.0-50.0); % MONOCYTES 5.3 % (2.0-10.0); % NEUTROPHILS 70.2 % (40.0-80.0); HEMATOCRIT 39.3 % (41.0-60); HEMOGLOBIN 13.1 gm/dL (12-16); MEAN CELL VOLUME 87.7 fl (80-99); MEAN CORPUSCULAR HEMOGLOBIN 29.3 pg (27.0-31.0); MEAN CORPUSCULAR HGB CONC 33.4 pg (28.0-36.0); NEUTROPHILE ABSOLUTE 6.5 Th/cmm (1.8-8.0); RED BLOOD COUNT 4.48 Mil/cmm (3.80-5.80); RED CELL DISTRIBUTION WIDTH 13.1 % (11.5-20.0); WHITE BLOOD COUNT 9.2 Th/cmm (4.8-10.8)
[2017-02-20 08:52] LABS: PLATELET COUNT 316 Th/cmm (150-400)
[2017-02-20 09:21] LABS: ANION GAP 10.9 (7.0-16.0); BUN - UREA NITROGEN 24 mg/dL (7-25); BUN/CREATININE RATIO 18.5; CALCIUM SERUM 9.9 mg/dL (8.6-10.3); CARBON DIOXIDE 24.7 mEq/L (21.0-31.0); CHLORIDE 96 mEq/L (98-107); CREATININE - SERUM 1.3 mg/dL (0.7-1.3); GLUCOSE 107 mg/dL (70-105); POTASSIUM SERUM 4.6 mEq/L (3.5-5.1); SODIUM SERUM 127 mEq/L (136-145)
[2017-02-20] MEDS: Hydrocodone/APAP 5mg/325mg Tab PO PRN ×2 (13:27→19:47)
--- NOTE | 2017-02-20 13:30 | Internal Medicine Prog Note ---
Internal Medicine Subjective - Subjective Patient seen and examined:: with staff, chart reviewed, other (had episode of fall, ?black out per staff) Patient is:: awake, verbal, interactive, in bed, ambulating, confused Patient Complaints of:: other (abd pain) Per staff patient has:: eating well, confused, tolerating meds Internal Medicine Objective - Results Result Diagrams: 02/20/17 08:35 02/20/17 08:35 Recent Labs: Laboratory Last Values WBC 9.2 Th/cmm (4.8-10.8) 02/20/17 08:35 RBC 4.48 Mil/cmm (3.80-5.80) 02/20/17 08:35 Hgb 13.1 gm/dL (12-16) 02/20/17 08:35 Hct 39.3 % (41.0-60) L 02/20/17 08:35 MCV 87.7 fl (80-99) 02/20/17 08:35 MCH 29.3 pg (27.0-31.0) 02/20/17 08:35 MCHC Differential 33.4 pg (28.0-36.0) 02/20/17 08:35 RDW 13.1 % (11.5-20.0) 02/20/17 08:35 Plt Count 316 Th/cmm (150-400) D 02/20/17 08:35 MPV 8.0 fl 02/20/17 08:35 Neutrophils % 70.2 % (40.0-80.0) 02/20/17 08:35 Lymphocytes % 20.6 % (20.0-50.0) 02/20/17 08:35 Monocytes % 5.3 % (2.0-10.0) 02/20/17 08:35 Eosinophils % 3.5 % (0.0-5.0) 02/20/17 08:35 Basophils % 0.4 % (0.0-2.0) 02/20/17 08:35 Sodium 127 mEq/L (136-145) L 02/20/17 08:35 Potassium 4.6 mEq/L (3.5-5.1) 02/20/17 08:35 Chloride 96 mEq/L (98-107) L 02/20/17 08:35 Carbon Dioxide 24.7 mEq/L (21.0-31.0) 02/20/17 08:35 Anion Gap 10.9 (7.0-16.0) 02/20/17 08:35 BUN 24 mg/dL (7-25) 02/20/17 08:35 Creatinine 1.3 mg/dL (0.7-1.3) 02/20/17 08:35 Est GFR ( Amer) TNP 02/20/17 08:35 Est GFR (Non-Af Amer) TNP 02/20/17 08:35 BUN/Creatinine Ratio 18.5 02/20/17 08:35 Glucose 107 mg/dL (70-105) H 02/20/17 08:35 POC Glucose 110 MG/DL (70 - 105) H 02/20/17 12:59 Hemoglobin A1c % 5.9 % (4.0-6.0) 02/10/17 06:40 Calcium 9.9 mg/dL (8.6-10.3) 02/20/17 08:35 Ammonia 35 umol/L (16-53) 02/11/17 13:25 B-Natriuretic Peptide 133.0 pg/mL (5.0-100.0) H 02/07/17 22:30 Triglycerides 109 mg/dL (<150) 02/10/17 06:40 Cholesterol 174 mg/dL (<200) 02/10/17 06:40 LDL Cholesterol Direct 73 mg/dL (75-193) L 02/10/17 06:40 HDL Cholesterol 74 mg/dL (23-92) 02/10/17 06:40 Urine Source RANDOM 02/07/17 22:30 Urine Color YELLOW 02/07/17 22:30 Urine Clarity CLEAR (CLEAR) 02/07/17 22:30 Urine pH 6.0 (4.6 - 8.0) 02/07/17 22:30 Ur Specific [place] 1.015 (1.005-1.030) 02/07/17 22:30 Urine Protein TRACE mg/dL (NEGATIVE) 02/07/17 22:30 Urine Glucose (UA) NEGATIVE mg/dL (NEGATIVE) 02/07/17 22:30 Urine Ketones NEGATIVE mg/dL (NEGATIVE) 02/07/17 22:30 Urine Blood NEGATIVE (NEGATIVE) 02/07/17 22:30 Urine Nitrate NEGATIVE (NEGATIVE) 02/07/17 22:30 Urine Bilirubin NEGATIVE (NEGATIVE) 02/07/17 22:30 Urine Urobilinogen 0.2 E.U./dL (0.2 - 1.0) 02/07/17 22:30 Ur Leukocyte Esterase NEGATIVE (NEGATIVE) 02/07/17 22:30 Urine RBC NONE SEEN /hpf (0-5) 02/07/17 22:30 Urine WBC NONE SEEN /hpf (0-5) 02/07/17 22:30 Ur Epithelial Cells NONE SEEN /lpf (FEW) 02/07/17 22:30 Urine Bacteria NONE SEEN /hpf (NONE SEEN) 02/07/17 22:30 - Physical Exam Vitals and I&O: Vital Signs Temp 97.9 F 02/20/17 06:49 Pulse 70 02/20/17 10:17 Resp 20 02/20/17 10:17 BP 110/81 02/20/17 06:49 Pulse Ox 96 02/20/17 10:17 Intake & Output 02/19/17 02/20/17 02/20/17 18:59 06:59 18:59 Intake Total 1000 120 Balance 1000 120 Intake: Oral 1000 120 Other: # Voids 4 3 # Bowel Movements 0 Active Medications: Current Medications Acetaminophen (Tylenol) 650 mg PO Q6H PRN PRN Reason: Mild Pain/Headache/T above 101 Stop: 04/09/17 01:11 Last Admin: 02/20/17 11:20 Dose: 650 mg Acetaminophen/Hydrocodone Bitart ([place] 5mg/325mg) 1 tab PO Q6H PRN PRN Reason: Pain (Moderate) Stop: 04/12/17 12:40 Last Admin: 02/19/17 14:19 Dose: 1 tab Albuterol Sulfate (Albuterol 2.5mg/3ml Neb Ud) 2.5 mg HHN Q6HRT PRN PRN Reason: Shortness of Breath Stop: 04/18/17 17:54 Last Admin: 02/19/17 19:51 Dose: 2.5 mg Bisacodyl (Dulcolax 10 Mg Supp) 10 mg RC DAILY PRN PRN Reason: Constipation Stop: 04/15/17 19:47 Donepezil HCl (Aricept) 5 mg PO HS MIKI Stop: 04/11/17 20:59 Last Admin: 02/19/17 21:03 Dose: 5 mg Ipratropium [place] (Atrovent [place] 0.5mg/2.5ml) 0.5 mg HHN Q6HRT PRN PRN Reason: Shortness of Breath Stop: 04/18/17 18:59 Last Admin: 02/19/17 19:51 Dose: 0.5 mg Lorazepam (Ativan) 1 mg PO Q6H PRN; Protocol PRN Reason: Anxiety/Agitation Stop: 04/09/17 01:11 Last Admin: 02/18/17 15:01 Dose: 1 mg Magnesium Hydroxide (Milk Of Magnesia) 30 ml PO HS PRN PRN Reason: Constipation Stop: 04/09/17 01:11 Last Admin: 02/15/17 23:42 Dose: 30 ml Quetiapine Fumarate (Seroquel) 50 mg PO BID MIKI PRN Reason: Protocol Stop: 04/21/17 16:59 Temazepam (Restoril) 15 mg PO HS PRN; Protocol PRN Reason: Insomnia Stop: 04/08/17 22:32 Last Admin: 02/09/17 21:13 Dose: 15 mg General: demented HEENT: NC/AT, PERRLA Neck: Supple Lungs: CTAB Cardiovascular: RRR, Normal S1, Normal S2, without murmur Abdomen: soft, non-tender, non-distended Extremities: clear Neurological: no change, disorganized Internal Medicine Assmt/Plan - Assessment Assessment: sp fall, ? syncope constipation HYPONATREMIA PSYCHOSIS HTN cardiomegaly - Plan Plan: - Plan Plan: MONITOR BP SAFETY PRECAUTIONS CONTINUE CURRENT PLAN OF CARE laxative added will order head ct and abd us, also xrays Nutritional Asmnt/Malnutr-PDOC - Dietary Evaluation Malnutrition Findings (Please click <Entered> for more info): Nutritional Asmnt/Malnutrition Start: 02/08/17 08: 31 Text: Status: Active Freq: Document 02/15/17 11:37 MMULN (Rec: 02/15/17 11:45 MMULHERN NOMI- FN) Nutritional Asmnt/Malnutrition Patient General Information Diagnosis Psychosis NOS Pertinent Medical Hx/Surgical Hx Psychosis Subjective Information 86 year old male from [facility] with increased agitiation. Per nusing notes, refusing to take some medications. Patient asleep at time of visit. Per nursing notes, oral intake is adequate. Current Diet Order/ Nutrition Support Mechanical Soft Ground Patient / S.O Not Indicated Pertinent Medications dulcolax, colace, MOM Pertinent Labs (02/11) Na 129 Nutritional Hx/Data Height 1.52 m Height (Calculated Centimeters) 152.4 Current Weight (lbs) 53.524 kg Weight (Calculated Kilograms) 53.5 Weight (Calculated Grams) 28824.9 [place] Body Weight 106 % [place] Body Weight 111 Weight Status Approriate GI Symptoms GI Symptoms None Food Allergies No Cultural/Ethnic/Jain Belief None indicated Skin Integrity/Comment: Vick 20, intact Current %PO Good (75-100%) Estimated Nutritional Goals BEE in Kcals: Using Current wt Calories/Kcals/Kg 25-30 kcal/kg (using current body weight 53.6kg) Kcals Calculated 9328-3361 kcal/day Protein: Using Current wt Protein g/k gm/kg Protein Calculated 55gm/day Fluid: ml 6344-0092 ml/day Nutritional Problem 1. Problem Problem Altered nutrition related lab values related to Etiology electrolye imbalance aeb Signs/Symptoms: Na 129 Intervention/Recommendation Comments 1. Continue Mechanical Soft ground diet as tolerated by patient as oral intake is adequate. 2. MD to replace lytes as needed; may consider fluid restriction due to hyponatremia. Expected Outcomes/Goals Expected Outcomes/Goals Oral intake to meet >75% of esimtated nutrient needs, Na normalizes, weight remains stable.
--- NOTE | 2017-02-20 15:26 | Diagnostic Imaging Report ---
Head CT without intravenous contrast Indication: Trauma Comparison: None Technique: Axial images were obtained from the vertex to the skull base without IV contrast. Coronal reconstructions were made. Total DLP: [id number], [id number] FINDINGS: Images of the brain obtained without contrast demonstrate no evidence of an acute hemorrhage. Diffuse atrophy is noted. Left parieto-occipital lobe encephalomalacia is noted. Diffuse white matter disease is noted. The ventricles and basal cisterns are patent. No mass effect or midline shift. Atherosclerotic vascular disease is noted. No evidence of the skull fracture or focal soft tissue swelling. Mucous retention cyst versus polyp of the left maxillary sinus is noted. 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 Atrophy Aspect of the left maxillary sinus mucus retention cyst versus polyp.
--- NOTE | 2017-02-20 15:29 | Diagnostic Imaging Report ---
Pelvis 2 views Indication: Fall Comparison: none Findings: Osteopenia is noted. No evidence of an acute fracture or dislocation. The bilateral hip joints are preserved. Degenerative changes of lower lumbar spine are noted. Atherosclerosis is noted. Impression: No evidence of an acute fracture. Osteopenia. Mild degenerative changes. In the setting of trauma, if clinical symptoms persist and there is continued concern for an occult fracture, follow up exams in 5-7 days is suggested.
[2017-02-21] MEDS: Magnesium Hydroxide (MOM) 30 mL UDC PO PRN ×2 (00:06→21:26)
--- NOTE | 2017-02-21 00:16 | Progress Notes ---
DATE: 02/20/2017 Case discussed with staff of the patient, reviewed records. The patient continues to be irritable, keith, labile, demanding. He will not take his medications unless ____. He is unpredictable, impulsive, needing redirection. I will be increasing his Seroquel to 50 mg twice a day instead of 25 three times a day because of his agitation, acting out behavior and so far no side effects, no sedation, no nausea, no extrapyramidal symptoms. We will continue to work with the patient in group therapy, milieu therapy, adjust the medication as needed. JOB# [id number]
[2017-02-21] MEDS: Hydrocodone/APAP 5mg/325mg Tab PO PRN ×3 (02:36→21:26)
[2017-02-21] MEDS: Albuterol Nebulizer 2.5mg/3mL HHN PRN ×2 (06:50→19:49)
[2017-02-21] MEDS: Ipratropium Neb 0.5 mg/2.5 mL UD HHN PRN ×2 (06:50→19:49)
--- NOTE | 2017-02-21 08:14 | Diagnostic Imaging Report ---
Ultrasound abdomen HISTORY: Abdominal pain COMPARISON: None Technique: Sonography of the abdomen was performed in multiple planes. FINDINGS: Exam is limited due to bowel gas. The liver demonstrates mild increased echogenicity measures 12.9 cm. No evidence of focal lesions. Nonmobile echoes are seen within the gallbladder adjacent to gallbladder wall measuring up to 5 mm. No evidence of gallbladder wall thickening or pericholecystic fluid. The common bile duct measures 4 mm. Evaluation of the pancreas is limited due to bowel gas. The right kidney measures 9.5 cm. Multiple sonolucent right renal lesions are seen the largest measuring 3.0 x 2.5 cm. Internal echoes are seen within some of these lesions with what appears to be a small septation within the lesion located in the upper pole. This lesion measures 1.3 x 0.95 cm. No hydronephrosis. The left kidney measures 9.0 x 4.6 cm demonstrating sonolucent lesions the largest measuring 2.4 x 2.2 centers compatible with cysts. No hydronephrosis. The spleen measures 8.1 cm. IMPRESSION: Subcentimeter echogenic foci along the gallbladder wall likely represent small gallbladder wall polyps. Small gallstones are considered less likely. No evidence of gallbladder wall thickening or common bile duct dilatation. Bilateral renal cysts. There is a septation within the right renal cyst at the superior pole. As such, a follow-up ultrasound or CT surveillance exam in 2-3 months is recommended for further assessment/monitoring. No evidence of hydronephrosis. Mild increased echogenicity of the liver which may be due to fatty infiltration.
[2017-02-21] MEDS: POLYETHYLENE GLYCOL 3350 17 GM PACK PO SCH (08:45)
--- NOTE | 2017-02-21 12:49 | Internal Medicine Prog Note ---
Internal Medicine Subjective - Subjective Patient seen and examined:: with staff, chart reviewed Patient is:: awake, verbal, interactive, in bed, ambulating, confused Patient Complaints of:: other (abd pain better) Per staff patient has:: eating well, confused, tolerating meds Internal Medicine Objective - Results Result Diagrams: 02/20/17 08:35 02/20/17 08:35 Recent Labs: Laboratory Last Values WBC 9.2 Th/cmm (4.8-10.8) 02/20/17 08:35 RBC 4.48 Mil/cmm (3.80-5.80) 02/20/17 08:35 Hgb 13.1 gm/dL (12-16) 02/20/17 08:35 Hct 39.3 % (41.0-60) L 02/20/17 08:35 MCV 87.7 fl (80-99) 02/20/17 08:35 MCH 29.3 pg (27.0-31.0) 02/20/17 08:35 MCHC Differential 33.4 pg (28.0-36.0) 02/20/17 08:35 RDW 13.1 % (11.5-20.0) 02/20/17 08:35 Plt Count 316 Th/cmm (150-400) D 02/20/17 08:35 MPV 8.0 fl 02/20/17 08:35 Neutrophils % 70.2 % (40.0-80.0) 02/20/17 08:35 Lymphocytes % 20.6 % (20.0-50.0) 02/20/17 08:35 Monocytes % 5.3 % (2.0-10.0) 02/20/17 08:35 Eosinophils % 3.5 % (0.0-5.0) 02/20/17 08:35 Basophils % 0.4 % (0.0-2.0) 02/20/17 08:35 Sodium 127 mEq/L (136-145) L 02/20/17 08:35 Potassium 4.6 mEq/L (3.5-5.1) 02/20/17 08:35 Chloride 96 mEq/L (98-107) L 02/20/17 08:35 Carbon Dioxide 24.7 mEq/L (21.0-31.0) 02/20/17 08:35 Anion Gap 10.9 (7.0-16.0) 02/20/17 08:35 BUN 24 mg/dL (7-25) 02/20/17 08:35 Creatinine 1.3 mg/dL (0.7-1.3) 02/20/17 08:35 Est GFR ( Amer) TNP 02/20/17 08:35 Est GFR (Non-Af Amer) TNP 02/20/17 08:35 BUN/Creatinine Ratio 18.5 02/20/17 08:35 Glucose 107 mg/dL (70-105) H 02/20/17 08:35 POC Glucose 110 MG/DL (70 - 105) H 02/20/17 12:59 Hemoglobin A1c % 5.9 % (4.0-6.0) 02/10/17 06:40 Calcium 9.9 mg/dL (8.6-10.3) 02/20/17 08:35 Ammonia 35 umol/L (16-53) 02/11/17 13:25 B-Natriuretic Peptide 133.0 pg/mL (5.0-100.0) H 02/07/17 22:30 Triglycerides 109 mg/dL (<150) 02/10/17 06:40 Cholesterol 174 mg/dL (<200) 02/10/17 06:40 LDL Cholesterol Direct 73 mg/dL (75-193) L 02/10/17 06:40 HDL Cholesterol 74 mg/dL (23-92) 02/10/17 06:40 Urine Source RANDOM 02/07/17 22:30 Urine Color YELLOW 02/07/17 22:30 Urine Clarity CLEAR (CLEAR) 02/07/17 22:30 Urine pH 6.0 (4.6 - 8.0) 02/07/17 22:30 Ur Specific [place] 1.015 (1.005-1.030) 02/07/17 22:30 Urine Protein TRACE mg/dL (NEGATIVE) 02/07/17 22:30 Urine Glucose (UA) NEGATIVE mg/dL (NEGATIVE) 02/07/17 22:30 Urine Ketones NEGATIVE mg/dL (NEGATIVE) 02/07/17 22:30 Urine Blood NEGATIVE (NEGATIVE) 02/07/17 22:30 Urine Nitrate NEGATIVE (NEGATIVE) 02/07/17 22:30 Urine Bilirubin NEGATIVE (NEGATIVE) 02/07/17 22:30 Urine Urobilinogen 0.2 E.U./dL (0.2 - 1.0) 02/07/17 22:30 Ur Leukocyte Esterase NEGATIVE (NEGATIVE) 02/07/17 22:30 Urine RBC NONE SEEN /hpf (0-5) 02/07/17 22:30 Urine WBC NONE SEEN /hpf (0-5) 02/07/17 22:30 Ur Epithelial Cells NONE SEEN /lpf (FEW) 02/07/17 22:30 Urine Bacteria NONE SEEN /hpf (NONE SEEN) 02/07/17 22:30 - Physical Exam Vitals and I&O: Vital Signs Temp 97.2 F 02/21/17 07:09 Pulse 86 02/21/17 07:09 Resp 18 02/21/17 07:09 BP 144/86 02/21/17 07:09 Pulse Ox 97 02/21/17 07:09 Intake & Output 02/20/17 02/21/17 02/21/17 18:59 06:59 18:59 Intake Total 680 120 Balance 680 120 Intake: Oral 680 120 Other: # Voids 3 3 # Bowel Movements 0 Active Medications: Current Medications Acetaminophen (Tylenol) 650 mg PO Q6H PRN PRN Reason: Mild Pain/Headache/T above 101 Stop: 04/09/17 01:11 Last Admin: 02/20/17 17:27 Dose: 650 mg Acetaminophen/Hydrocodone Bitart ([place] 5mg/325mg) 1 tab PO Q6H PRN PRN Reason: Pain (Moderate) Stop: 04/12/17 12:40 Last Admin: 02/21/17 02:36 Dose: 1 tab Albuterol Sulfate (Albuterol 2.5mg/3ml Neb Ud) 2.5 mg HHN Q6HRT PRN PRN Reason: Shortness of Breath Stop: 04/18/17 17:54 Last Admin: 02/21/17 06:50 Dose: 2.5 mg Bisacodyl (Dulcolax 10 Mg Supp) 10 mg RC DAILY PRN PRN Reason: Constipation Stop: 04/15/17 19:47 Docusate Sodium (Colace) 250 mg PO BID MIKI Stop: 04/12/17 13:44 Last Admin: 02/21/17 08:45 Dose: 250 mg Donepezil HCl (Aricept) 5 mg PO HS MIKI Stop: 04/11/17 20:59 Last Admin: 02/20/17 20:37 Dose: 5 mg Ipratropium [place] (Atrovent Neb 0.5mg/2.5ml) 0.5 mg HHN Q6HRT PRN PRN Reason: Shortness of Breath Stop: 04/18/17 18:59 Last Admin: 02/21/17 06:50 Dose: 0.5 mg Lorazepam (Ativan) 1 mg PO Q6H PRN; Protocol PRN Reason: Anxiety/Agitation Stop: 04/09/17 01:11 Last Admin: 02/18/17 15:01 Dose: 1 mg Magnesium Hydroxide (Milk Of Magnesia) 30 ml PO HS PRN PRN Reason: Constipation Stop: 04/09/17 01:11 Last Admin: 02/21/17 00:06 Dose: 30 ml Polyethylene Glycol (Miralax) 17 gm PO DAILY MIKI Stop: 04/22/17 08:59 Last Admin: 02/21/17 08:45 Dose: 17 gm Quetiapine Fumarate (Seroquel) 50 mg PO BID MIKI PRN Reason: Protocol Stop: 04/21/17 16:59 Last Admin: 02/21/17 08:46 Dose: 50 mg Temazepam (Restoril) 15 mg PO HS PRN; Protocol PRN Reason: Insomnia Stop: 04/08/17 22:32 Last Admin: 02/09/17 21:13 Dose: 15 mg General: demented HEENT: NC/AT, PERRLA Neck: Supple Lungs: CTAB Cardiovascular: RRR, Normal S1, Normal S2, without murmur Abdomen: soft, non-tender, non-distended Extremities: clear Neurological: no change, disorganized Internal Medicine Assmt/Plan - Assessment Assessment: sp fall, ? syncope constipation HYPONATREMIA PSYCHOSIS HTN cardiomegaly - Plan Plan: - Plan Plan: MONITOR BP SAFETY PRECAUTIONS CONTINUE CURRENT PLAN OF CARE laxative added will order head ct and abd us, also xrays Nutritional Asmnt/Malnutr-PDOC - Dietary Evaluation Malnutrition Findings (Please click <Entered> for more info): Nutritional Asmnt/Malnutrition Start: 02/08/17 08: 31 Text: Status: Complete Freq: Document 02/15/17 11:37 MMULHERN (Rec: 02/15/17 11:45 MMULHERN NOMI- FNS1) Nutritional Asmnt/Malnutrition Patient General Information Diagnosis Psychosis NOS Pertinent Medical Hx/Surgical Hx Psychosis Subjective Information 86 year old male from [facility] with increased agitiation. Per nusing notes, refusing to take some medications. Patient asleep at time of visit. Per nursing notes, oral intake is adequate. Current Diet Order/ Nutrition Support Mechanical Soft Ground Patient / S.O Not Indicated Pertinent Medications dulcolax, colace, MOM Pertinent Labs (02/11) Na 129 Nutritional Hx/Data Height 1.52 m Height (Calculated Centimeters) 152.4 Current Weight (lbs) 53.524 kg Weight (Calculated Kilograms) 53.5 Weight (Calculated Grams) 59852.9 [place] Body Weight 106 % [place] Body Weight 111 Weight Status Approriate GI Symptoms GI Symptoms None Food Allergies No Cultural/Ethnic/[employer] Belief None indicated Skin Integrity/Comment: Vick 20, intact Current %PO Good (75-100%) Estimated Nutritional Goals BEE in Kcals: Using Current wt Calories/Kcals/Kg 25-30 kcal/kg (using current body weight 53.6kg) Kcals Calculated 9889-9111 kcal/day Protein: Using Current wt Protein g/k gm/kg Protein Calculated 55gm/day Fluid: ml 2974-9676 ml/day Nutritional Problem 1. Problem Problem Altered nutrition related lab values related to Etiology electrolye imbalance aeb Signs/Symptoms: Na 129 Intervention/Recommendation Comments 1. Continue Mechanical Soft ground diet as tolerated by patient as oral intake is adequate. 2. MD to replace lytes as needed; may consider fluid restriction due to hyponatremia. Expected Outcomes/Goals Expected Outcomes/Goals Oral intake to meet >75% of esimtated nutrient needs, Na normalizes, weight remains stable.
--- NOTE | 2017-02-21 23:01 | Progress Notes ---
DATE: 02/21/2017 Case was discussed with staff of patient and reviewed records. The patient continues to be unpredictable, irritable, impulsive, labile, needing redirection. He is compliant with the medication with no side effects, sleeping well, eating well. No side effects of the medication, no sedation and no nausea. He is tolerating increase in I did increase his Seroquel to two times a day to help decrease his agitation and labile mood. We will continue patient in group therapy, milieu therapy, and adjusting medication as needed. The patient has ammonia level within normal range. He has a KUB that shows moderate amount of stool, ___ gas pattern nonspecific, calcification in the mid abdomen which maybe due to pancreatic calcification, chronic pancreatitis, atherosclerotic vascular disease. His CBC showed low hematocrit but his hemoglobin was within normal range. He has low lymphocytes and high neutrophils. There is no increase in white cell count and low monocytes, high basophils. His chemistry panel showed low sodium, high blood sugar, high BUN. Lipid panel within normal range. Hemoglobin A1c was within normal range. We will continue to work with the patient in group therapy, milieu therapy, and adjust medications as needed. JOB# [id number]
[2017-02-22] MEDS: POLYETHYLENE GLYCOL 3350 17 GM PACK PO SCH (08:22)
--- NOTE | 2017-02-22 15:25 | Internal Medicine Prog Note ---
Internal Medicine Subjective - Subjective Service Date: 02/22/17 Patient is:: awake, verbal, interactive, in bed, ambulating, confused Patient Complaints of:: other (abd pain better) Per staff patient has:: eating well, confused, tolerating meds Internal Medicine Objective - Results Result Diagrams: 02/20/17 08:35 02/20/17 08:35 Recent Labs: Laboratory Last Values WBC 9.2 Th/cmm (4.8-10.8) 02/20/17 08:35 RBC 4.48 Mil/cmm (3.80-5.80) 02/20/17 08:35 Hgb 13.1 gm/dL (12-16) 02/20/17 08:35 Hct 39.3 % (41.0-60) L 02/20/17 08:35 MCV 87.7 fl (80-99) 02/20/17 08:35 MCH 29.3 pg (27.0-31.0) 02/20/17 08:35 MCHC Differential 33.4 pg (28.0-36.0) 02/20/17 08:35 RDW 13.1 % (11.5-20.0) 02/20/17 08:35 Plt Count 316 Th/cmm (150-400) D 02/20/17 08:35 MPV 8.0 fl 02/20/17 08:35 Neutrophils % 70.2 % (40.0-80.0) 02/20/17 08:35 Lymphocytes % 20.6 % (20.0-50.0) 02/20/17 08:35 Monocytes % 5.3 % (2.0-10.0) 02/20/17 08:35 Eosinophils % 3.5 % (0.0-5.0) 02/20/17 08:35 Basophils % 0.4 % (0.0-2.0) 02/20/17 08:35 Sodium 127 mEq/L (136-145) L 02/20/17 08:35 Potassium 4.6 mEq/L (3.5-5.1) 02/20/17 08:35 Chloride 96 mEq/L (98-107) L 02/20/17 08:35 Carbon Dioxide 24.7 mEq/L (21.0-31.0) 02/20/17 08:35 Anion Gap 10.9 (7.0-16.0) 02/20/17 08:35 BUN 24 mg/dL (7-25) 02/20/17 08:35 Creatinine 1.3 mg/dL (0.7-1.3) 02/20/17 08:35 Est GFR ( Amer) TNP 02/20/17 08:35 Est GFR (Non-Af Amer) TNP 02/20/17 08:35 BUN/Creatinine Ratio 18.5 02/20/17 08:35 Glucose 107 mg/dL (70-105) H 02/20/17 08:35 POC Glucose 110 MG/DL (70 - 105) H 02/20/17 12:59 Hemoglobin A1c % 5.9 % (4.0-6.0) 02/10/17 06:40 Calcium 9.9 mg/dL (8.6-10.3) 02/20/17 08:35 Ammonia 35 umol/L (16-53) 02/11/17 13:25 B-Natriuretic Peptide 133.0 pg/mL (5.0-100.0) H 02/07/17 22:30 Triglycerides 109 mg/dL (<150) 02/10/17 06:40 Cholesterol 174 mg/dL (<200) 02/10/17 06:40 LDL Cholesterol Direct 73 mg/dL (75-193) L 02/10/17 06:40 HDL Cholesterol 74 mg/dL (23-92) 02/10/17 06:40 Urine Source RANDOM 02/07/17 22:30 Urine Color YELLOW 02/07/17 22:30 Urine Clarity CLEAR (CLEAR) 02/07/17 22:30 Urine pH 6.0 (4.6 - 8.0) 02/07/17 22:30 Ur Specific [place] 1.015 (1.005-1.030) 02/07/17 22:30 Urine Protein TRACE mg/dL (NEGATIVE) 02/07/17 22:30 Urine Glucose (UA) NEGATIVE mg/dL (NEGATIVE) 02/07/17 22:30 Urine Ketones NEGATIVE mg/dL (NEGATIVE) 02/07/17 22:30 Urine Blood NEGATIVE (NEGATIVE) 02/07/17 22:30 Urine Nitrate NEGATIVE (NEGATIVE) 02/07/17 22:30 Urine Bilirubin NEGATIVE (NEGATIVE) 02/07/17 22:30 Urine Urobilinogen 0.2 E.U./dL (0.2 - 1.0) 02/07/17 22:30 Ur Leukocyte Esterase NEGATIVE (NEGATIVE) 02/07/17 22:30 Urine RBC NONE SEEN /hpf (0-5) 02/07/17 22:30 Urine WBC NONE SEEN /hpf (0-5) 02/07/17 22:30 Ur Epithelial Cells NONE SEEN /lpf (FEW) 02/07/17 22:30 Urine Bacteria NONE SEEN /hpf (NONE SEEN) 02/07/17 22:30 - Physical Exam Vitals and I&O: Vital Signs Temp 98 F 02/22/17 14:00 Pulse 94 02/22/17 14:00 Resp 20 02/22/17 14:00 BP 145/97 02/22/17 14:00 Pulse Ox 95 02/22/17 14:00 Intake & Output 02/21/17 02/22/17 02/22/17 18:59 06:59 18:59 Intake Total 120 Balance 120 Intake: Oral 120 Other: # Voids 3 Active Medications: Current Medications Acetaminophen (Tylenol) 650 mg PO Q6H PRN PRN Reason: Mild Pain/Headache/T above 101 Stop: 04/09/17 01:11 Last Admin: 02/22/17 14:28 Dose: 650 mg Acetaminophen/Hydrocodone Bitart ([place] 5mg/325mg) 1 tab PO Q6H PRN PRN Reason: Pain (Moderate) Stop: 04/12/17 12:40 Last Admin: 02/21/17 21:26 Dose: 1 tab Albuterol Sulfate (Albuterol 2.5mg/3ml Neb Ud) 2.5 mg HHN Q6HRT PRN PRN Reason: Shortness of Breath Stop: 04/18/17 17:54 Last Admin: 02/21/17 19:49 Dose: 2.5 mg Bisacodyl (Dulcolax 10 Mg Supp) 10 mg RC DAILY PRN PRN Reason: Constipation Stop: 04/15/17 19:47 Docusate Sodium (Colace) 250 mg PO BID MIKI Stop: 04/12/17 13:44 Last Admin: 02/22/17 08:22 Dose: 250 mg Donepezil HCl (Aricept) 5 mg PO HS MIKI Stop: 04/11/17 20:59 Last Admin: 02/21/17 21:26 Dose: 5 mg Ipratropium [place] (Atrovent Neb 0.5mg/2.5ml) 0.5 mg HHN Q6HRT PRN PRN Reason: Shortness of Breath Stop: 04/18/17 18:59 Last Admin: 02/21/17 19:49 Dose: 0.5 mg Lorazepam (Ativan) 1 mg PO Q6H PRN; Protocol PRN Reason: Anxiety/Agitation Stop: 04/09/17 01:11 Last Admin: 02/18/17 15:01 Dose: 1 mg Magnesium Hydroxide (Milk Of Magnesia) 30 ml PO HS PRN PRN Reason: Constipation Stop: 04/09/17 01:11 Last Admin: 02/21/17 21:26 Dose: 30 ml Polyethylene Glycol (Miralax) 17 gm PO DAILY MIKI Stop: 04/22/17 08:59 Last Admin: 02/22/17 08:22 Dose: 17 gm Quetiapine Fumarate (Seroquel) 50 mg PO BID MIKI PRN Reason: Protocol Stop: 04/21/17 16:59 Last Admin: 02/22/17 08:22 Dose: 50 mg Temazepam (Restoril) 15 mg PO HS PRN; Protocol PRN Reason: Insomnia Stop: 04/08/17 22:32 Last Admin: 02/09/17 21:13 Dose: 15 mg General: demented HEENT: NC/AT, PERRLA Neck: Supple Lungs: CTAB Cardiovascular: RRR, Normal S1, Normal S2, without murmur Abdomen: soft, non-tender, non-distended Extremities: clear Neurological: no change, disorganized Internal Medicine Assmt/Plan - Assessment Assessment: abdominal pain cbc/bmp in am HYPONATREMIA PSYCHOSIS HTN - Plan Plan: MONITOR BP SAFETY PRECAUTIONS CONTINUE CURRENT PLAN OF CARE Nutritional Asmnt/Malnutr-PDOC - Dietary Evaluation Malnutrition Findings (Please click <Entered> for more info): Nutritional Asmnt/Malnutrition Start: 02/08/17 08: 31 Text: Status: Complete Freq: Document 02/15/17 11:37 MMULHERN (Rec: 02/15/17 11:45 MMULHERN NOMI- FNS1) Nutritional Asmnt/Malnutrition Patient General Information Diagnosis Psychosis NOS Pertinent Medical Hx/Surgical Hx Psychosis Subjective Information 86 year old male from [facility] with increased agitiation. Per nusing notes, refusing to take some medications. Patient asleep at time of visit. Per nursing notes, oral intake is adequate. Current Diet Order/ Nutrition Support Mechanical Soft Ground Patient / S.O Not Indicated Pertinent Medications dulcolax, colace, MOM Pertinent Labs (02/11) Na 129 Nutritional Hx/Data Height 5 ft Height (Calculated Centimeters) 152.4 Current Weight (lbs) 118 lb Weight (Calculated Kilograms) 53.5 Weight (Calculated Grams) 70505.9 [place] Body Weight 106 % [place] Body Weight 111 Weight Status Approriate GI Symptoms GI Symptoms None Food Allergies No Cultural/Ethnic/[employer] Belief None indicated Skin Integrity/Comment: Vick 20, intact Current %PO Good (75-100%) Estimated Nutritional Goals BEE in Kcals: Using Current wt Calories/Kcals/Kg 25-30 kcal/kg (using current body weight 53.6kg) Kcals Calculated 1527-0126 kcal/day Protein: Using Current wt Protein g/k gm/kg Protein Calculated 55gm/day Fluid: ml 7485-1364 ml/day Nutritional Problem 1. Problem Problem Altered nutrition related lab values related to Etiology electrolye imbalance aeb Signs/Symptoms: Na 129 Intervention/Recommendation Comments 1. Continue Mechanical Soft ground diet as tolerated by patient as oral intake is adequate. 2. MD to replace lytes as needed; may consider fluid restriction due to hyponatremia. Expected Outcomes/Goals Expected Outcomes/Goals Oral intake to meet >75% of esimtated nutrient needs, Na normalizes, weight remains stable.
[2017-02-22] MEDS: Hydrocodone/APAP 5mg/325mg Tab PO PRN (22:46)
--- NOTE | 2017-02-23 03:08 | Progress Notes ---
DATE: SUBJECTIVE: The patient was seen, chart reviewed, discussed with staff. The patient remains symptomatic, still confused, argumentative, stating "nothing is better." The patient is currently here because of severe agitation, aggressive behaviors, becoming aggressive, assaultive. The patient has gotten emergency medications in the hospital. Medications were reviewed. No side effects. The patient remains isolative. ASSESSMENT: The patient remains impulsive, unpredictable, argumentative, concerns for his ability to care for his basic needs, still attesting to depression. PLAN: We will continue to monitor. Given his ongoing symptoms, he is not currently safe for discharge. [facility]# [id number]
[2017-02-23] MEDS: Hydrocodone/APAP 5mg/325mg Tab PO PRN (06:33)
[2017-02-23] MEDS: POLYETHYLENE GLYCOL 3350 17 GM PACK PO SCH (09:16)
--- NOTE | 2017-02-23 13:10 | Internal Medicine Prog Note ---
Internal Medicine Subjective - Subjective Service Date: 02/23/17 Patient is:: awake, verbal, interactive, in bed, ambulating, confused Patient Complaints of:: other (abd pain better) Per staff patient has:: eating well, confused, tolerating meds Internal Medicine Objective - Results Result Diagrams: 02/20/17 08:35 02/20/17 08:35 Recent Labs: Laboratory Last Values WBC 9.2 Th/cmm (4.8-10.8) 02/20/17 08:35 RBC 4.48 Mil/cmm (3.80-5.80) 02/20/17 08:35 Hgb 13.1 gm/dL (12-16) 02/20/17 08:35 Hct 39.3 % (41.0-60) L 02/20/17 08:35 MCV 87.7 fl (80-99) 02/20/17 08:35 MCH 29.3 pg (27.0-31.0) 02/20/17 08:35 MCHC Differential 33.4 pg (28.0-36.0) 02/20/17 08:35 RDW 13.1 % (11.5-20.0) 02/20/17 08:35 Plt Count 316 Th/cmm (150-400) D 02/20/17 08:35 MPV 8.0 fl 02/20/17 08:35 Neutrophils % 70.2 % (40.0-80.0) 02/20/17 08:35 Lymphocytes % 20.6 % (20.0-50.0) 02/20/17 08:35 Monocytes % 5.3 % (2.0-10.0) 02/20/17 08:35 Eosinophils % 3.5 % (0.0-5.0) 02/20/17 08:35 Basophils % 0.4 % (0.0-2.0) 02/20/17 08:35 Sodium 127 mEq/L (136-145) L 02/20/17 08:35 Potassium 4.6 mEq/L (3.5-5.1) 02/20/17 08:35 Chloride 96 mEq/L (98-107) L 02/20/17 08:35 Carbon Dioxide 24.7 mEq/L (21.0-31.0) 02/20/17 08:35 Anion Gap 10.9 (7.0-16.0) 02/20/17 08:35 BUN 24 mg/dL (7-25) 02/20/17 08:35 Creatinine 1.3 mg/dL (0.7-1.3) 02/20/17 08:35 Est GFR ( Amer) TNP 02/20/17 08:35 Est GFR (Non-Af Amer) TNP 02/20/17 08:35 BUN/Creatinine Ratio 18.5 02/20/17 08:35 Glucose 107 mg/dL (70-105) H 02/20/17 08:35 POC Glucose 110 MG/DL (70 - 105) H 02/20/17 12:59 Hemoglobin A1c % 5.9 % (4.0-6.0) 02/10/17 06:40 Calcium 9.9 mg/dL (8.6-10.3) 02/20/17 08:35 Ammonia 35 umol/L (16-53) 02/11/17 13:25 B-Natriuretic Peptide 133.0 pg/mL (5.0-100.0) H 02/07/17 22:30 Triglycerides 109 mg/dL (<150) 02/10/17 06:40 Cholesterol 174 mg/dL (<200) 02/10/17 06:40 LDL Cholesterol Direct 73 mg/dL (75-193) L 02/10/17 06:40 HDL Cholesterol 74 mg/dL (23-92) 02/10/17 06:40 Urine Source RANDOM 02/07/17 22:30 Urine Color YELLOW 02/07/17 22:30 Urine Clarity CLEAR (CLEAR) 02/07/17 22:30 Urine pH 6.0 (4.6 - 8.0) 02/07/17 22:30 Ur Specific [place] 1.015 (1.005-1.030) 02/07/17 22:30 Urine Protein TRACE mg/dL (NEGATIVE) 02/07/17 22:30 Urine Glucose (UA) NEGATIVE mg/dL (NEGATIVE) 02/07/17 22:30 Urine Ketones NEGATIVE mg/dL (NEGATIVE) 02/07/17 22:30 Urine Blood NEGATIVE (NEGATIVE) 02/07/17 22:30 Urine Nitrate NEGATIVE (NEGATIVE) 02/07/17 22:30 Urine Bilirubin NEGATIVE (NEGATIVE) 02/07/17 22:30 Urine Urobilinogen 0.2 E.U./dL (0.2 - 1.0) 02/07/17 22:30 Ur Leukocyte Esterase NEGATIVE (NEGATIVE) 02/07/17 22:30 Urine RBC NONE SEEN /hpf (0-5) 02/07/17 22:30 Urine WBC NONE SEEN /hpf (0-5) 02/07/17 22:30 Ur Epithelial Cells NONE SEEN /lpf (FEW) 02/07/17 22:30 Urine Bacteria NONE SEEN /hpf (NONE SEEN) 02/07/17 22:30 - Physical Exam Vitals and I&O: Vital Signs Temp 98.5 F 02/23/17 06:48 Pulse 77 02/23/17 06:48 Resp 19 02/23/17 06:48 BP 151/78 02/23/17 06:48 Pulse Ox 94 02/23/17 06:48 Intake & Output 02/22/17 02/23/17 02/23/17 18:59 06:59 18:59 Intake Total 1200 240 Balance 1200 240 Intake: Oral 1200 240 Other: # Voids 1 # Bowel Movements 1 Active Medications: Current Medications Acetaminophen (Tylenol) 650 mg PO Q6H PRN PRN Reason: Mild Pain/Headache/T above 101 Stop: 04/09/17 01:11 Last Admin: 02/23/17 09:16 Dose: 650 mg Acetaminophen/Hydrocodone Bitart ([place] 5mg/325mg) 1 tab PO Q6H PRN PRN Reason: Pain (Moderate) Stop: 04/12/17 12:40 Last Admin: 02/23/17 06:33 Dose: 1 tab Albuterol Sulfate (Albuterol 2.5mg/3ml Neb Ud) 2.5 mg HHN Q6HRT PRN PRN Reason: Shortness of Breath Stop: 04/18/17 17:54 Last Admin: 02/21/17 19:49 Dose: 2.5 mg Bisacodyl (Dulcolax 10 Mg Supp) 10 mg RC DAILY PRN PRN Reason: Constipation Stop: 04/15/17 19:47 Docusate Sodium (Colace) 250 mg PO BID MIKI Stop: 04/12/17 13:44 Last Admin: 02/23/17 09:17 Dose: 250 mg Donepezil HCl (Aricept) 5 mg PO HS MIKI Stop: 04/11/17 20:59 Last Admin: 02/22/17 22:20 Dose: Not Given Ipratropium [place] (Atrovent Neb 0.5mg/2.5ml) 0.5 mg HHN Q6HRT PRN PRN Reason: Shortness of Breath Stop: 04/18/17 18:59 Last Admin: 02/21/17 19:49 Dose: 0.5 mg Lorazepam (Ativan) 1 mg PO Q6H PRN; Protocol PRN Reason: Anxiety/Agitation Stop: 04/09/17 01:11 Last Admin: 02/18/17 15:01 Dose: 1 mg Magnesium Hydroxide (Milk Of Magnesia) 30 ml PO HS PRN PRN Reason: Constipation Stop: 04/09/17 01:11 Last Admin: 02/21/17 21:26 Dose: 30 ml Polyethylene Glycol (Miralax) 17 gm PO DAILY MIKI Stop: 04/22/17 08:59 Last Admin: 02/23/17 09:16 Dose: 17 gm Quetiapine Fumarate (Seroquel) 50 mg PO BID MKII PRN Reason: Protocol Stop: 04/21/17 16:59 Last Admin: 02/23/17 09:16 Dose: 50 mg Temazepam (Restoril) 15 mg PO HS PRN; Protocol PRN Reason: Insomnia Stop: 04/08/17 22:32 Last Admin: 02/09/17 21:13 Dose: 15 mg General: demented HEENT: NC/AT, PERRLA Neck: Supple Lungs: CTAB Cardiovascular: RRR, Normal S1, Normal S2, without murmur Abdomen: soft, non-tender, non-distended Extremities: clear Neurological: no change, disorganized Internal Medicine Assmt/Plan - Assessment Assessment: abdominal pain cbc/bmp in am HYPONATREMIA PSYCHOSIS HTN - Plan Plan: MONITOR BP SAFETY PRECAUTIONS CONTINUE CURRENT PLAN OF CARE Nutritional Asmnt/Malnutr-PDOC - Dietary Evaluation Malnutrition Findings (Please click <Entered> for more info): Nutritional Asmnt/Malnutrition Start: 02/08/17 08: 31 Text: Status: Complete Freq: Document 02/15/17 11:37 MMULHERN (Rec: 02/15/17 11:45 MMULHERN NOMI- FNS1) Nutritional Asmnt/Malnutrition Patient General Information Diagnosis Psychosis NOS Pertinent Medical Hx/Surgical Hx Psychosis Subjective Information 86 year old male from [facility] with increased agitiation. Per nusing notes, refusing to take some medications. Patient asleep at time of visit. Per nursing notes, oral intake is adequate. Current Diet Order/ Nutrition Support Mechanical Soft Ground Patient / S.O Not Indicated Pertinent Medications dulcolax, colace, MOM Pertinent Labs (02/11) Na 129 Nutritional Hx/Data Height 5 ft Height (Calculated Centimeters) 152.4 Current Weight (lbs) 118 lb Weight (Calculated Kilograms) 53.5 Weight (Calculated Grams) 45664.9 [place] Body Weight 106 % [place] Body Weight 111 Weight Status Approriate GI Symptoms GI Symptoms None Food Allergies No Cultural/Ethnic/Spiritism Belief None indicated Skin Integrity/Comment: Vick 20, intact Current %PO Good (75-100%) Estimated Nutritional Goals BEE in Kcals: Using Current wt Calories/Kcals/Kg 25-30 kcal/kg (using current body weight 53.6kg) Kcals Calculated 0139-7730 kcal/day Protein: Using Current wt Protein g/k gm/kg Protein Calculated 55gm/day Fluid: ml 4789-3088 ml/day Nutritional Problem 1. Problem Problem Altered nutrition related lab values related to Etiology electrolye imbalance aeb Signs/Symptoms: Na 129 Intervention/Recommendation Comments 1. Continue Mechanical Soft ground diet as tolerated by patient as oral intake is adequate. 2. MD to replace lytes as needed; may consider fluid restriction due to hyponatremia. Expected Outcomes/Goals Expected Outcomes/Goals Oral intake to meet >75% of esimtated nutrient needs, Na normalizes, weight remains stable.
[2017-02-24] MEDS: POLYETHYLENE GLYCOL 3350 17 GM PACK PO SCH (08:22)
--- NOTE | 2017-02-24 12:09 | Progress Notes ---
DATE: 02/23/2017 SUBJECTIVE: The patient was seen, chart reviewed, discussed with staff. The patient remains symptomatic, confused and argumentative, still irritable. He is calm this morning. He has been at times getting emergency medications. He remains isolative and withdrawn. ASSESSMENT: The patient remains impulsive, unpredictable, continued symptoms of irritability, difficult to redirect. PLAN: We will continue to monitor given his ongoing and persistent symptoms. He is not safe for discharge. JOB# [id number]
--- NOTE | 2017-02-24 12:52 | Internal Medicine Prog Note ---
Internal Medicine Subjective - Subjective Service Date: 02/24/17 Patient is:: awake, verbal, interactive, in bed, ambulating, confused Patient Complaints of:: other (abd pain better) Per staff patient has:: eating well, confused, tolerating meds Internal Medicine Objective - Results Result Diagrams: 02/20/17 08:35 02/20/17 08:35 Recent Labs: Laboratory Last Values WBC 9.2 Th/cmm (4.8-10.8) 02/20/17 08:35 RBC 4.48 Mil/cmm (3.80-5.80) 02/20/17 08:35 Hgb 13.1 gm/dL (12-16) 02/20/17 08:35 Hct 39.3 % (41.0-60) L 02/20/17 08:35 MCV 87.7 fl (80-99) 02/20/17 08:35 MCH 29.3 pg (27.0-31.0) 02/20/17 08:35 MCHC Differential 33.4 pg (28.0-36.0) 02/20/17 08:35 RDW 13.1 % (11.5-20.0) 02/20/17 08:35 Plt Count 316 Th/cmm (150-400) D 02/20/17 08:35 MPV 8.0 fl 02/20/17 08:35 Neutrophils % 70.2 % (40.0-80.0) 02/20/17 08:35 Lymphocytes % 20.6 % (20.0-50.0) 02/20/17 08:35 Monocytes % 5.3 % (2.0-10.0) 02/20/17 08:35 Eosinophils % 3.5 % (0.0-5.0) 02/20/17 08:35 Basophils % 0.4 % (0.0-2.0) 02/20/17 08:35 Sodium 127 mEq/L (136-145) L 02/20/17 08:35 Potassium 4.6 mEq/L (3.5-5.1) 02/20/17 08:35 Chloride 96 mEq/L (98-107) L 02/20/17 08:35 Carbon Dioxide 24.7 mEq/L (21.0-31.0) 02/20/17 08:35 Anion Gap 10.9 (7.0-16.0) 02/20/17 08:35 BUN 24 mg/dL (7-25) 02/20/17 08:35 Creatinine 1.3 mg/dL (0.7-1.3) 02/20/17 08:35 Est GFR ( Amer) TNP 02/20/17 08:35 Est GFR (Non-Af Amer) TNP 02/20/17 08:35 BUN/Creatinine Ratio 18.5 02/20/17 08:35 Glucose 107 mg/dL (70-105) H 02/20/17 08:35 POC Glucose 110 MG/DL (70 - 105) H 02/20/17 12:59 Hemoglobin A1c % 5.9 % (4.0-6.0) 02/10/17 06:40 Calcium 9.9 mg/dL (8.6-10.3) 02/20/17 08:35 Ammonia 35 umol/L (16-53) 02/11/17 13:25 B-Natriuretic Peptide 133.0 pg/mL (5.0-100.0) H 02/07/17 22:30 Triglycerides 109 mg/dL (<150) 02/10/17 06:40 Cholesterol 174 mg/dL (<200) 02/10/17 06:40 LDL Cholesterol Direct 73 mg/dL (75-193) L 02/10/17 06:40 HDL Cholesterol 74 mg/dL (23-92) 02/10/17 06:40 Urine Source RANDOM 02/07/17 22:30 Urine Color YELLOW 02/07/17 22:30 Urine Clarity CLEAR (CLEAR) 02/07/17 22:30 Urine pH 6.0 (4.6 - 8.0) 02/07/17 22:30 Ur Specific [place] 1.015 (1.005-1.030) 02/07/17 22:30 Urine Protein TRACE mg/dL (NEGATIVE) 02/07/17 22:30 Urine Glucose (UA) NEGATIVE mg/dL (NEGATIVE) 02/07/17 22:30 Urine Ketones NEGATIVE mg/dL (NEGATIVE) 02/07/17 22:30 Urine Blood NEGATIVE (NEGATIVE) 02/07/17 22:30 Urine Nitrate NEGATIVE (NEGATIVE) 02/07/17 22:30 Urine Bilirubin NEGATIVE (NEGATIVE) 02/07/17 22:30 Urine Urobilinogen 0.2 E.U./dL (0.2 - 1.0) 02/07/17 22:30 Ur Leukocyte Esterase NEGATIVE (NEGATIVE) 02/07/17 22:30 Urine RBC NONE SEEN /hpf (0-5) 02/07/17 22:30 Urine WBC NONE SEEN /hpf (0-5) 02/07/17 22:30 Ur Epithelial Cells NONE SEEN /lpf (FEW) 02/07/17 22:30 Urine Bacteria NONE SEEN /hpf (NONE SEEN) 02/07/17 22:30 - Physical Exam Vitals and I&O: Vital Signs Temp 98.2 F 02/24/17 06:20 Pulse 72 02/24/17 07:06 Resp 16 02/24/17 07:06 BP 159/78 02/24/17 06:20 Pulse Ox 94 02/24/17 07:06 Intake & Output 02/23/17 02/24/17 02/24/17 18:59 06:59 18:59 Intake Total 1200 300 Balance 1200 300 Intake: Oral 1200 300 Other: # Voids 1 # Bowel Movements 1 0 Active Medications: Current Medications Acetaminophen (Tylenol) 650 mg PO Q6H PRN PRN Reason: Mild Pain/Headache/T above 101 Stop: 04/09/17 01:11 Last Admin: 02/24/17 06:47 Dose: 650 mg Acetaminophen/Hydrocodone Bitart ([place] 5mg/325mg) 1 tab PO Q6H PRN PRN Reason: Pain (Moderate) Stop: 04/12/17 12:40 Last Admin: 02/23/17 06:33 Dose: 1 tab Albuterol Sulfate (Albuterol 2.5mg/3ml Neb Ud) 2.5 mg HHN Q6HRT PRN PRN Reason: Shortness of Breath Stop: 04/18/17 17:54 Last Admin: 02/21/17 19:49 Dose: 2.5 mg Bisacodyl (Dulcolax 10 Mg Supp) 10 mg RC DAILY PRN PRN Reason: Constipation Stop: 04/15/17 19:47 Docusate Sodium (Colace) 250 mg PO BID MIKI Stop: 04/12/17 13:44 Last Admin: 02/24/17 08:21 Dose: 250 mg Donepezil HCl (Aricept) 5 mg PO HS MIKI Stop: 04/11/17 20:59 Last Admin: 02/23/17 21:56 Dose: 5 mg Ipratropium [place] (Atrovent Neb 0.5mg/2.5ml) 0.5 mg HHN Q6HRT PRN PRN Reason: Shortness of Breath Stop: 04/18/17 18:59 Last Admin: 02/21/17 19:49 Dose: 0.5 mg Lorazepam (Ativan) 1 mg PO Q6H PRN; Protocol PRN Reason: Anxiety/Agitation Stop: 04/09/17 01:11 Last Admin: 02/18/17 15:01 Dose: 1 mg Magnesium Hydroxide (Milk Of Magnesia) 30 ml PO HS PRN PRN Reason: Constipation Stop: 04/09/17 01:11 Last Admin: 02/21/17 21:26 Dose: 30 ml Polyethylene Glycol (Miralax) 17 gm PO DAILY MIKI Stop: 04/22/17 08:59 Last Admin: 02/24/17 08:22 Dose: 17 gm Quetiapine Fumarate (Seroquel) 50 mg PO TID MIKI PRN Reason: Protocol Stop: 04/25/17 13:59 Temazepam (Restoril) 15 mg PO HS PRN; Protocol PRN Reason: Insomnia Stop: 04/08/17 22:32 Last Admin: 02/23/17 21:56 Dose: 15 mg General: demented HEENT: NC/AT, PERRLA Neck: Supple Lungs: CTAB Cardiovascular: RRR, Normal S1, Normal S2, without murmur Abdomen: soft, non-tender, non-distended Extremities: clear Neurological: no change, disorganized Internal Medicine Assmt/Plan - Assessment Assessment: abdominal pain cbc/bmp in am HYPONATREMIA PSYCHOSIS HTN - Plan Plan: MONITOR BP SAFETY PRECAUTIONS CONTINUE CURRENT PLAN OF CARE Nutritional Asmnt/Malnutr-PDOC - Dietary Evaluation Malnutrition Findings (Please click <Entered> for more info): Nutritional Asmnt/Malnutrition Start: 02/08/17 08: 31 Text: Status: Complete Freq: Document 02/15/17 11:37 MMULHERN (Rec: 02/15/17 11:45 MMULHERN NOMI- FNS1) Nutritional Asmnt/Malnutrition Patient General Information Diagnosis Psychosis NOS Pertinent Medical Hx/Surgical Hx Psychosis Subjective Information 86 year old male from [facility] with increased agitiation. Per nusing notes, refusing to take some medications. Patient asleep at time of visit. Per nursing notes, oral intake is adequate. Current Diet Order/ Nutrition Support Mechanical Soft Ground Patient / S.O Not Indicated Pertinent Medications dulcolax, colace, MOM Pertinent Labs (02/11) Na 129 Nutritional Hx/Data Height 5 ft Height (Calculated Centimeters) 152.4 Current Weight (lbs) 118 lb Weight (Calculated Kilograms) 53.5 Weight (Calculated Grams) 36039.9 [place] Body Weight 106 % [place] Body Weight 111 Weight Status Approriate GI Symptoms GI Symptoms None Food Allergies No Cultural/Ethnic/Synagogue Belief None indicated Skin Integrity/Comment: Vick 20, intact Current %PO Good (75-100%) Estimated Nutritional Goals BEE in Kcals: Using Current wt Calories/Kcals/Kg 25-30 kcal/kg (using current body weight 53.6kg) Kcals Calculated 1172-5798 kcal/day Protein: Using Current wt Protein g/k gm/kg Protein Calculated 55gm/day Fluid: ml 3904-9492 ml/day Nutritional Problem 1. Problem Problem Altered nutrition related lab values related to Etiology electrolye imbalance aeb Signs/Symptoms: Na 129 Intervention/Recommendation Comments 1. Continue Mechanical Soft ground diet as tolerated by patient as oral intake is adequate. 2. MD to replace lytes as needed; may consider fluid restriction due to hyponatremia. Expected Outcomes/Goals Expected Outcomes/Goals Oral intake to meet >75% of esimtated nutrient needs, Na normalizes, weight remains stable.
--- NOTE | 2017-02-24 22:36 | Progress Notes ---
DATE: 02/24/2017 Case was discussed with staff of the patient, reviewed records. The patient continues to be unpredictable, impulsive, angry. He was very angry when I talked to him today. The staff report the same. He is unpredictable and impulsive. I will be increasing his Seroquel dose to three times a day and so far, no side effects, no sedation, no nausea ____ from the symptoms. We will continue to work with the patient in group therapy, milieu therapy, adjusting medications as needed. His lab work showed low sodium and high blood sugar, the rest within normal range. His CBC showed low hematocrit. The rest within normal range. We will continue to work with the patient in group therapy, milieu therapy, adjust medication as needed. JOB# [id number]
[2017-02-25] MEDS: Hydrocodone/APAP 5mg/325mg Tab PO PRN (02:13)
[2017-02-25] MEDS: POLYETHYLENE GLYCOL 3350 17 GM PACK PO SCH (09:24)
--- NOTE | 2017-02-25 12:42 | Discharge Summary ---
DATE OF DISCHARGE: 02/25/2017 IDENTIFYING INFORMATION: This patient is an 86-year-old male. REASON FOR THE ADMISSION: The patient was referred from [facility] because of agitation and aggressive behavior. CHIEF COMPLAINT: The patient was becoming very aggressive after admission, irritable, almost assaulted staff and required emergency medication. The patient presented irritable, easily agitated, required emergency medication, unable to give much information. He is demented and confused. I did talk to his daughter, who believes that his mind is clear, though he obviously according to different staff dealt with him felt that he was confused with memory problems. The patient is unable to make safe plan for self-care. COURSE IN THE HOSPITAL: The patient was started on Seroquel by Dr. Reid. I increased the dose over the course of her stay to 50 mg 3 times a day. Also, I had him on Aricept 5 mg at bedtime. The patient also was given hydrocodone for pain, and the patient progressively got better. He was sleeping well, eating well. He was no longer acting in anyway dangerous. He improved. No longer acting out. It was felt he could be discharged to a lesser level of care. CONDITION UPON DISCHARGE: The patient was appropriately dressed and groomed. No suicidal ideation, no homicidal ideation, no paranoia. FINAL DIAGNOSES: AXIS I: Psychosis, not otherwise specified. MEDICAL DIAGNOSES: Deferred to the medical doctor. The patient will be going back to [place]. I will follow up with the patient there as well as Dr. Garcia. EXPECTED OUTCOME: Stable if the patient complies with the above. JOB# [id number]
--- NOTE | 2017-02-25 12:56 | Internal Medicine Prog Note ---
Internal Medicine Subjective - Subjective Service Date: 02/25/17 Patient is:: awake, verbal, interactive, in bed, ambulating, confused Patient Complaints of:: other (abd pain better) Per staff patient has:: eating well, confused, tolerating meds Internal Medicine Objective - Results Result Diagrams: 02/20/17 08:35 02/20/17 08:35 Recent Labs: Laboratory Last Values WBC 9.2 Th/cmm (4.8-10.8) 02/20/17 08:35 RBC 4.48 Mil/cmm (3.80-5.80) 02/20/17 08:35 Hgb 13.1 gm/dL (12-16) 02/20/17 08:35 Hct 39.3 % (41.0-60) L 02/20/17 08:35 MCV 87.7 fl (80-99) 02/20/17 08:35 MCH 29.3 pg (27.0-31.0) 02/20/17 08:35 MCHC Differential 33.4 pg (28.0-36.0) 02/20/17 08:35 RDW 13.1 % (11.5-20.0) 02/20/17 08:35 Plt Count 316 Th/cmm (150-400) D 02/20/17 08:35 MPV 8.0 fl 02/20/17 08:35 Neutrophils % 70.2 % (40.0-80.0) 02/20/17 08:35 Lymphocytes % 20.6 % (20.0-50.0) 02/20/17 08:35 Monocytes % 5.3 % (2.0-10.0) 02/20/17 08:35 Eosinophils % 3.5 % (0.0-5.0) 02/20/17 08:35 Basophils % 0.4 % (0.0-2.0) 02/20/17 08:35 Sodium 127 mEq/L (136-145) L 02/20/17 08:35 Potassium 4.6 mEq/L (3.5-5.1) 02/20/17 08:35 Chloride 96 mEq/L (98-107) L 02/20/17 08:35 Carbon Dioxide 24.7 mEq/L (21.0-31.0) 02/20/17 08:35 Anion Gap 10.9 (7.0-16.0) 02/20/17 08:35 BUN 24 mg/dL (7-25) 02/20/17 08:35 Creatinine 1.3 mg/dL (0.7-1.3) 02/20/17 08:35 Est GFR ( Amer) TNP 02/20/17 08:35 Est GFR (Non-Af Amer) TNP 02/20/17 08:35 BUN/Creatinine Ratio 18.5 02/20/17 08:35 Glucose 107 mg/dL (70-105) H 02/20/17 08:35 POC Glucose 110 MG/DL (70 - 105) H 02/20/17 12:59 Hemoglobin A1c % 5.9 % (4.0-6.0) 02/10/17 06:40 Calcium 9.9 mg/dL (8.6-10.3) 02/20/17 08:35 Ammonia 35 umol/L (16-53) 02/11/17 13:25 B-Natriuretic Peptide 133.0 pg/mL (5.0-100.0) H 02/07/17 22:30 Triglycerides 109 mg/dL (<150) 02/10/17 06:40 Cholesterol 174 mg/dL (<200) 02/10/17 06:40 LDL Cholesterol Direct 73 mg/dL (75-193) L 02/10/17 06:40 HDL Cholesterol 74 mg/dL (23-92) 02/10/17 06:40 Urine Source RANDOM 02/07/17 22:30 Urine Color YELLOW 02/07/17 22:30 Urine Clarity CLEAR (CLEAR) 02/07/17 22:30 Urine pH 6.0 (4.6 - 8.0) 02/07/17 22:30 Ur Specific [place] 1.015 (1.005-1.030) 02/07/17 22:30 Urine Protein TRACE mg/dL (NEGATIVE) 02/07/17 22:30 Urine Glucose (UA) NEGATIVE mg/dL (NEGATIVE) 02/07/17 22:30 Urine Ketones NEGATIVE mg/dL (NEGATIVE) 02/07/17 22:30 Urine Blood NEGATIVE (NEGATIVE) 02/07/17 22:30 Urine Nitrate NEGATIVE (NEGATIVE) 02/07/17 22:30 Urine Bilirubin NEGATIVE (NEGATIVE) 02/07/17 22:30 Urine Urobilinogen 0.2 E.U./dL (0.2 - 1.0) 02/07/17 22:30 Ur Leukocyte Esterase NEGATIVE (NEGATIVE) 02/07/17 22:30 Urine RBC NONE SEEN /hpf (0-5) 02/07/17 22:30 Urine WBC NONE SEEN /hpf (0-5) 02/07/17 22:30 Ur Epithelial Cells NONE SEEN /lpf (FEW) 02/07/17 22:30 Urine Bacteria NONE SEEN /hpf (NONE SEEN) 02/07/17 22:30 - Physical Exam Vitals and I&O: Vital Signs Temp 98.2 F 02/25/17 05:56 Pulse 84 02/25/17 08:08 Resp 18 02/25/17 08:08 BP 140/69 02/25/17 05:56 Pulse Ox 95 02/25/17 08:08 Intake & Output 02/24/17 02/25/17 02/25/17 18:59 06:59 18:59 Intake Total 300 Balance 300 Intake: Oral 300 Other: # Voids 1 # Bowel Movements 0 Active Medications: Current Medications Acetaminophen (Tylenol) 650 mg PO Q6H PRN PRN Reason: Mild Pain/Headache/T above 101 Stop: 04/09/17 01:11 Last Admin: 02/25/17 06:29 Dose: 650 mg Acetaminophen/Hydrocodone Bitart ([place] 5mg/325mg) 1 tab PO Q6H PRN PRN Reason: Pain (Moderate) Stop: 04/12/17 12:40 Last Admin: 02/25/17 02:13 Dose: 1 tab Albuterol Sulfate (Albuterol 2.5mg/3ml Neb Ud) 2.5 mg HHN Q6HRT PRN PRN Reason: Shortness of Breath Stop: 04/18/17 17:54 Last Admin: 02/21/17 19:49 Dose: 2.5 mg Bisacodyl (Dulcolax 10 Mg Supp) 10 mg RC DAILY PRN PRN Reason: Constipation Stop: 04/15/17 19:47 Docusate Sodium (Colace) 250 mg PO BID MIKI Stop: 04/12/17 13:44 Last Admin: 02/25/17 09:23 Dose: 250 mg Donepezil HCl (Aricept) 5 mg PO HS MIKI Stop: 04/11/17 20:59 Last Admin: 02/24/17 21:00 Dose: Not Given Ipratropium [place] (Atrovent Neb 0.5mg/2.5ml) 0.5 mg HHN Q6HRT PRN PRN Reason: Shortness of Breath Stop: 04/18/17 18:59 Last Admin: 02/21/17 19:49 Dose: 0.5 mg Lorazepam (Ativan) 1 mg PO Q6H PRN; Protocol PRN Reason: Anxiety/Agitation Stop: 04/09/17 01:11 Last Admin: 02/18/17 15:01 Dose: 1 mg Magnesium Hydroxide (Milk Of Magnesia) 30 ml PO HS PRN PRN Reason: Constipation Stop: 04/09/17 01:11 Last Admin: 02/21/17 21:26 Dose: 30 ml Polyethylene Glycol (Miralax) 17 gm PO DAILY MIKI Stop: 04/22/17 08:59 Last Admin: 02/25/17 09:24 Dose: 17 gm Quetiapine Fumarate (Seroquel) 50 mg PO TID MIKI PRN Reason: Protocol Stop: 04/25/17 13:59 Last Admin: 02/25/17 09:22 Dose: 50 mg Temazepam (Restoril) 15 mg PO HS PRN; Protocol PRN Reason: Insomnia Stop: 04/08/17 22:32 Last Admin: 02/23/17 21:56 Dose: 15 mg General: demented HEENT: NC/AT, PERRLA Neck: Supple Lungs: CTAB Cardiovascular: RRR, Normal S1, Normal S2, without murmur Abdomen: soft, non-tender, non-distended Extremities: clear Neurological: no change, disorganized Internal Medicine Assmt/Plan - Assessment Assessment: abdominal pain cbc/bmp in am HYPONATREMIA PSYCHOSIS HTN - Plan Plan: MONITOR BP SAFETY PRECAUTIONS CONTINUE CURRENT PLAN OF CARE Nutritional Asmnt/Malnutr-PDOC - Dietary Evaluation Malnutrition Findings (Please click <Entered> for more info): Nutritional Asmnt/Malnutrition Start: 02/08/17 08: 31 Text: Status: Complete Freq: Document 02/15/17 11:37 MMULHERN (Rec: 02/15/17 11:45 MMULHERN NOMI- FNS1) Nutritional Asmnt/Malnutrition Patient General Information Diagnosis Psychosis NOS Pertinent Medical Hx/Surgical Hx Psychosis Subjective Information 86 year old male from [facility] with increased agitiation. Per nusing notes, refusing to take some medications. Patient asleep at time of visit. Per nursing notes, oral intake is adequate. Current Diet Order/ Nutrition Support Mechanical Soft Ground Patient / S.O Not Indicated Pertinent Medications dulcolax, colace, MOM Pertinent Labs (02/11) Na 129 Nutritional Hx/Data Height 5 ft Height (Calculated Centimeters) 152.4 Current Weight (lbs) 118 lb Weight (Calculated Kilograms) 53.5 Weight (Calculated Grams) 98211.9 [place] Body Weight 106 % [place] Body Weight 111 Weight Status Approriate GI Symptoms GI Symptoms None Food Allergies No Cultural/Ethnic/Mormon Belief None indicated Skin Integrity/Comment: Vick 20, intact Current %PO Good (75-100%) Estimated Nutritional Goals BEE in Kcals: Using Current wt Calories/Kcals/Kg 25-30 kcal/kg (using current body weight 53.6kg) Kcals Calculated 3623-0554 kcal/day Protein: Using Current wt Protein g/k gm/kg Protein Calculated 55gm/day Fluid: ml 9924-6602 ml/day Nutritional Problem 1. Problem Problem Altered nutrition related lab values related to Etiology electrolye imbalance aeb Signs/Symptoms: Na 129 Intervention/Recommendation Comments 1. Continue Mechanical Soft ground diet as tolerated by patient as oral intake is adequate. 2. MD to replace lytes as needed; may consider fluid restriction due to hyponatremia. Expected Outcomes/Goals Expected Outcomes/Goals Oral intake to meet >75% of esimtated nutrient needs, Na normalizes, weight remains stable.
== END 2017-02-25 19:19 | disposition home or self-care (01) | DRG 885 ==
LOC: ER 21:19 → GERO 02-08 00:05
PROVIDERS: ADMIT Psychiatry & Neurology Psychiatry; ATTEND Psychiatry & Neurology Psychiatry
DX: F29 Unspecified psychosis not due to a substance or known physiological condition (principal); E87.1 Hypo-osmolality and hyponatremia; I11.9 Hypertensive heart disease without heart failure; G31.84 Mild cognitive impairment of uncertain or unknown etiology; J20.9 Acute bronchitis, unspecified; K59.00 Constipation, unspecified; Z90.49 Acquired absence of other specified parts of digestive tract
CPT/HCPCS: 36415-UA; 70450-TC; 71010-TC; 73521; 74000-TC; 76700-TC; 80048-TC; 80061-TC; 81001-TC; 82140-TC; 82948-90; 83036-90; 83880-TC; 85025-TC; 87070; 90779; 90899; 93005; 94640; 94760; G0410; J2060; J2543; J3370; J7613; Z7610

== ENCOUNTER 2018-01-06 22:10 | Inpatient (IN) | payer MEDICARE, OTHER ==
[2018-01-06] MEDS ORDERED: Haloperidol Lactate 5 mg/mL 1mL Vial IM STA (22:40)
[2018-01-06] MEDS ORDERED: Haloperidol Lactate 5 mg/mL 1mL Vial ONE (22:44)
[2018-01-06] MEDS ORDERED: Albuterol/Ipratropium Neb 3 ML AERS HHN ONE ×2 (22:50→23:01)
[2018-01-06 22:52] LABS: HEMATOCRIT 34.4 % (41.0-60); HEMOGLOBIN 11.7 gm/dL (12-16); MEAN CELL VOLUME 87.1 fl (80-99); MEAN CORPUSCULAR HEMOGLOBIN 29.6 pg (27.0-31.0); MEAN PLATELET VOLUME 7.6 fl; PLATELET COUNT 295 Th/cmm (150-400); RED BLOOD COUNT 3.95 Mil/cmm (3.80-5.80); RED CELL DISTRIBUTION WIDTH 13.5 % (11.5-20.0); WHITE BLOOD COUNT 9.8 Th/cmm (4.8-10.8)
--- NOTE | 2018-01-06 22:52 | ED Physician Chart ---
ED Chief Complaint/HPI - Patient Information Date Seen:: 01/06/18 Time Seen:: 22:52 Chief Complaint:: Cough and congestion History of Present Illness:: 87 yo male was brought from [facility] to ER for evaluation of congestion, cough productive of sputum, wheezing, shortness of breath and generalized weakness. Patient also stated that he had constipation and his last bowel movement was 5 days ago. Patient was very agitated upon arrival. Allergies:: Allergies Allergy/AdvReac Type Severity Reaction Status Date / Time No Known Allergies Allergy Verified 02/07/17 22:31 Vitals:: Vital Signs - 8 hr 01/06/18 22:14 Temp 98.3 F HR 78 RR 18 BP 152/80 O2 Sat % 98 ED Review of Systems - Review of Systems General/Constitutional: No fever, Weakness Skin: Skin lesions Head: No headache Eyes: No pain ENT: No nasal drainage Neck: No neck pain Cardio Vascular: No chest pain Pulmonary: SOB, Cough, Sputum, Wheezing GI: No nausea, No vomiting Musculoskeletal: No bone or joint pain Psychiatric: Prior psych history Neurological: Weakness ED Past Medical History - Past Medical History Past Medical History: HTN, Asthma/COPD, CVA/TIA, Dyslipidemia, Dementia, Other ( MUSCLE WEAKNESS, DIFFICULTY WALKING, DYSPHAGIA, OSTEOPOROSIS) Social History: Non Smoker, No Alcohol, No Drug Use Psychiatricy History: Depression Family Medical History - Family Member Mother History Unknown: Yes ED Physical Exam - Physical Examination General/Constitutional: Awake Head: Atraumatic Eyes: PERRL Other Skin comments:: right elbow abration, right forearm skin tear ENMT: Nasal exam nl Neck: No nuchal rigidity Other Respiratory comments:: Rhonchi and crackles Cardio Vascular: RRR, No murmur, gallop, rubs, NL S1 S2 GI: No tenderness/rebounding/guarding Extremities: No edema Other Neuro/Psych comments:: Agitated ED Labs/Radiology/EKG Results - Lab Results Results: Lab - Result Diagrams 01/06/18 22:35 01/06/18 22:35 - Radiology Results Results: CXR: right lung infiltrates ED Assessment - Assessment General Assessment: Pneumonia COPD exacerbation Dehydration Hypertension Assessment/Comments:: CBC, CMP, CXR Benadryl 25mg IM DuoNeb Rocephin 1g IV Azithromycin 500mg IV NS 1L IV bolus Admit to med surg for further evaluation and management ED Septic Shock - . Is Septic Shock (SBP<90, OR Lactate>4 mmol\L) present?: No - <6hrs of presentation: Vital Signs: Vital Signs - 8 hr 01/06/18 22:14 Temp 98.3 F HR 78 RR 18 BP 152/80 O2 Sat % 98 ED Reassessment (Disposition) - Reassessment Reassessment Condition:: Improved - Patient Disposition Discharge/Transfer:: Acute Care w/in this hosp Admitting Medical Physician:: Román Milligan
[2018-01-06 23:05] LABS: ALKALINE PHOSPHATASE 44 U/L (34-104); ANION GAP 12.2 (7.0-16.0); BILIRUBIN,TOTAL 0.2 mg/dL (0.3-1.0); BUN - UREA NITROGEN 30 mg/dL (7-25); CALCIUM SERUM 9.7 mg/dL (8.6-10.3); CHLORIDE 105 mEq/L (98-107); CREATININE - SERUM 1.4 mg/dL (0.7-1.3); GLUCOSE 103 mg/dL (70-105); POTASSIUM SERUM 4.2 mEq/L (3.5-5.1); SGOT 12 U/L (13-39); SGPT/ALT 12 U/L (7-52); SODIUM SERUM 139 mEq/L (136-145)
[2018-01-06 23:08] LABS: % LYMPHOCYTES 10.5 % (20.0-50.0)
[2018-01-06 23:09] LABS: % BASOPHILS 0.9 % (0.0-2.0); % EOSINOPHILS 1.2 % (0.0-5.0); % MONOCYTES 5.2 % (2.0-10.0); LYMPHOCYTE ABSOLUTE 0.6 Th/cmm (1.5-3.0); MONOCYTE ABSOLUTE 0.3 Th/cmm (0.3-1.0); NEUTROPHILE ABSOLUTE 4.6 Th/cmm (1.8-8.0)
[2018-01-06 23:10] LABS: % NEUTROPHILS 82.2 % (40.0-80.0); BASOPHILE ABSOLUTE 0.1 Th/cumm (0-0.2); EOSINOPHILE ABSOLUTE 0.1 Th/cmm (0.1-0.4)
[2018-01-06] MEDS ORDERED: cefTRIAXone 1 GM in Sodium Chloride 0.9% 50 ML IV ONE (23:20)
[2018-01-06] MEDS ORDERED: Sodium Chloride 0.9% 1,000 ML IV ONE (23:22)
[2018-01-07] MEDS: D5-0.45NS w/20 mEq KCL 1,000 ML IV SCH (01:33)
[2018-01-07] MEDS: Azithromycin 500 MG in Sodium Chloride 0.9% 250 ML IV SCH (02:05)
[2018-01-07 06:58] LABS: HEMATOCRIT 30.7 % (41.0-60); HEMOGLOBIN 10.2 gm/dL (12-16); MEAN CELL VOLUME 87.6 fl (80-99); MEAN CORPUSCULAR HEMOGLOBIN 29.2 pg (27.0-31.0); MEAN CORPUSCULAR HGB CONC 33.3 pg (28.0-36.0); MEAN PLATELET VOLUME 7.8 fl; PLATELET COUNT 262 Th/cmm (150-400); RED BLOOD COUNT 3.51 Mil/cmm (3.80-5.80); RED CELL DISTRIBUTION WIDTH 13.4 % (11.5-20.0); WHITE BLOOD COUNT 10.3 Th/cmm (4.8-10.8)
[2018-01-07 07:07] LABS: ALB/GLOB RATIO 2.4 (1.0-1.8); ALBUMIN 3.6 gm/dL (4.2-5.5); ALKALINE PHOSPHATASE 34 U/L (34-104); ANION GAP 9.3 (7.0-16.0); BILIRUBIN,TOTAL 0.2 mg/dL (0.3-1.0); BUN - UREA NITROGEN 23 mg/dL (7-25); CALCIUM SERUM 8.9 mg/dL (8.6-10.3); CHLORIDE 109 mEq/L (98-107); CREATININE - SERUM 1.2 mg/dL (0.7-1.3); GLUCOSE 91 mg/dL (70-105); POTASSIUM SERUM 4.3 mEq/L (3.5-5.1); SGOT 20 U/L (13-39); SGPT/ALT 22 U/L (7-52); SODIUM SERUM 139 mEq/L (136-145); TOTAL PROTEIN,SERUM 5.1 gm/dL (6.0-8.3)
[2018-01-07] MEDS: Albuterol/Ipratropium Neb 3 ML AERS HHN SCH ×5 (07:10→22:22)
[2018-01-07 07:51] LABS: BAND NEUTROPHILE 1 % (0-10); BASOPHIL 0 % (0-3); EOSINOPHIL 1 % (0-5); LYMPHOCYTE 20 % (20-50); MONOCYTE 4 % (2-10); NEUTROPHILS 74 % (40-80); PLATELET ESTIMATE ADEQUATE (NORMAL)
[2018-01-07] MEDS ORDERED: Haloperidol Lactate 5 mg/mL 1mL Vial IM ONE (08:57)
--- NOTE | 2018-01-07 10:44 | Diagnostic Imaging Report ---
Portable chest x-ray HISTORY: Shortness of breath The patient is rotated. The heart appears somewhat enlarged. Atherosclerotic calcination seen in the aorta. Calcifications project over the left chest that appear related to the costochondral cartilage. Severe degenerative changes throughout the spine with suggestion of a scoliosis. No significant change since a prior exam of February 11, 2017. IMPRESSION: 1. No significant change since a prior exam of February 11, 2017. 2. No acute focal pulmonary processes 3. Cardiomegaly with atherosclerotic vascular change
--- NOTE | 2018-01-07 10:45 | Consultation ---
DATE OF CONSULTATION: 01/07/2018 HISTORY OF PRESENT ILLNESS: An 87-year-old male brought in from a detention facility. I am familiar with this patient from detention facility. I have been following him for about a year. Evaluation of congestion, cough productive of sputum, wheezing, shortness of breath, weakness, also constipation. The patient recognizes why he is in the hospital. He states he has been constipated for about 6 days. He also believes he may have pneumonia. He believes the year is 1987, the month is February. He does not know where he lives. He attests to fair sleep, fair appetite. He is pretty restless, demanding to leave. States that he was not brought here with his inhaler and is pretty anxious about this around the nursing station pacing back and forth somewhat intrusive. He had been agitated upon arrival. Denies any depression, but is anxious. PAST PSYCHIATRIC HISTORY: Mood disorder, possibly dementia. FAMILY HISTORY: Noncontributory. SOCIAL HISTORY: Born in [facility], from , states he has 2 daughters. No current drugs, alcohol or tobacco. MENTAL STATUS EXAMINATION: Small statured male, stated age, loud, somewhat disoriented, able to verbalize his needs. Mood "okay." I want to go home now. Affect flat. Thought processes were somewhat disoriented. No SI, no HI, no overt psychotic symptoms. Insight and judgment seemingly diminished. Impulse control questionable. PROVISIONAL DIAGNOSES: Mood, unspecified, rule out dementia, anxiety, unspecified. Under medical please see full H and P. RECOMMENDATIONS AND PLAN: The patient may need p.r.n. medications. He is very angry, escalates very quickly, yelling, required emergency medications. We will initiate p.r.n. medications given his behaviors, he may benefit from Aricept or Namenda. [facility]# [id number]
[2018-01-07] MEDS ORDERED: Magnesium Hydroxide (MOM) 30 mL UDC PO PRN (13:12)
[2018-01-07] MEDS: Lactulose 10 Gm/15 mL 30mL UDC PO PRN (13:59)
--- NOTE | 2018-01-07 14:25 | History & Physical ---
ADMIT DATE: 01/07/2018 CHIEF COMPLAINT: Cough, shortness of breath, confusion. HISTORY OF PRESENT ILLNESS: The patient is an 87-year-old male with long history of advanced COPD, paroxysmal atrial fibrillation, dementia, and psychosis, presented to the Emergency Room with cough, shortness of breath, agitation, evaluated by the ER physician. Initial workup significant for pneumonia, acute exacerbation of COPD. The patient admitted to the medical floor, started on IV fluid, antibiotic, breathing treatment, resumed his medication. PAST MEDICAL HISTORY: Significant for COPD, paroxysmal atrial fibrillation, dementia, and psychosis. PAST SURGICAL HISTORY: No recent surgery. ALLERGIES: None. MEDICATIONS: Follow admission reconciliation. SOCIAL HISTORY: Chronic smoker. No alcohol or drug. FAMILY HISTORY: Noncontributory. REVIEW OF SYSTEMS: RENAL SYSTEM: No history of chronic renal disorder. CARDIOVASCULAR SYSTEM: He has history of paroxysmal atrial fibrillation. ENDOCRINE SYSTEM: No diabetes or thyroid problem. GASTROINTESTINAL SYSTEM: No upper or lower gastrointestinal bleed. NEUROLOGICAL SYSTEM: Seizure disorder. MUSCULOSKELETAL SYSTEM: No muscular dystrophy. HEMATOLOGICAL SYSTEM: No bleeding tendency. RESPIRATORY SYSTEM: History of advanced COPD. GENITOURINARY SYSTEM: No dysuria or hematuria. PHYSICAL EXAMINATION: GENERAL: He is awake, mildly confused. VITAL SIGNS: Temperature is 98, heart rate 79, blood pressure 136/70. HEENT: Normocephalic. Pupils reacting to light and accommodation. Sclerae clear. NECK: Supple. Negative for lymphadenopathy, JVD or bruit. CHEST: Entry of air bilaterally mildly diminished associated with some rhonchi. HEART: S1, S2, ____. ABDOMEN: Soft, bowel sounds positive. EXTREMITIES: No edema. NEUROLOGIC: He is awake, alert, mildly confused. LABORATORY DATA: White blood 10.3, hemoglobin 10.2, hematocrit 30.7, platelet is 262. Sodium 139, potassium 4.3, BUN 23, creatinine 0.2, albumin 2.4. ASSESSMENT: 1. Pneumonia. 2. Acute exacerbation of chronic obstructive pulmonary disease. 3. History of paroxysmal atrial fibrillation. 4. Severe malnutrition. 5. Mild dementia. 6. Psychosis. PLAN: The patient admitted to the hospital under Dr. Milligan's service. Start him on IV fluid, IV antibiotic, breathing treatment. Dr. Shelley consulted on the case. The patient is a full code. JOB# [id number]
[2018-01-07] MEDS ORDERED: chlorproMAZINE 25 mg/mL 2mL Amp IM STA (15:08)
[2018-01-07] MEDS ORDERED: Non-Formulary Item 1 EA (Melatonin [Melatonin] 6 MG) PO SCH (21:00)
[2018-01-07] MEDS: cefTRIAXone 1 GM in Sodium Chloride 0.9% 50 ML IV SCH (21:57)
[2018-01-08] MEDS: Hydrocodone/APAP 5mg/325mg Tab PO PRN ×4 (00:39→17:23)
[2018-01-08] MEDS: Azithromycin 500 MG in Sodium Chloride 0.9% 250 ML IV SCH (01:56)
[2018-01-08] MEDS: Albuterol/Ipratropium Neb 3 ML AERS HHN SCH ×6 (02:49→23:47)
[2018-01-08] MEDS: NIFEdipine 30 mg ER Tab PO SCH ×2 (09:39→10:23)
[2018-01-08] MEDS: Aspirin 81mg Chewable Tab PO SCH ×2 (09:40→10:22)
[2018-01-08] MEDS: Multivitamin Tab PO SCH ×2 (09:40→10:23)
[2018-01-08] MEDS: Lactulose 10 Gm/15 mL 30mL UDC PO PRN (09:47)
--- NOTE | 2018-01-08 18:02 | Consultation ---
DATE OF CONSULTATION: 01/08/2018 HISTORY OF PRESENT ILLNESS: The patient combative, agitated, unruly yesterday, multiple cocktails such as Haldol, also Thorazine. The patient required staff to get involved to redirect him because he was so aggressive, yelling, screaming, posturing towards staff. The patient manipulative on exam, stating that he feels he is going to be in the hospital until he dies of the hospital, still intrusive, wandering, disoriented. Denying that he was aggressive, "I never hurt anybody." The patient slept fairly well, calmer this morning. ASSESSMENT: The patient awake, alert, somewhat confused, disoriented, highly impulsive, unpredictable, multiple rounds of emergency medications for agitation, psychotic agitation. PLAN: Initiate a 5150 hold for danger to others. Transferred to [facility]. [facility]. JOB# [id number]
[2018-01-08] MEDS: cefTRIAXone 1 GM in Sodium Chloride 0.9% 50 ML IV SCH (20:23)
--- NOTE | 2018-01-08 22:49 | Internal Medicine Prog Note ---
Internal Medicine Subjective - Subjective Service Date: 01/08/18 Patient seen and examined:: with staff Patient is:: awake, verbal, in bed, talking, confused Per staff patient has:: no adverse event Internal Medicine Objective - Results Result Diagrams: 01/07/18 06:10 01/07/18 06:10 Recent Labs: Laboratory Last Values WBC 10.3 Th/cmm (4.8-10.8) 01/07/18 06:10 RBC 3.51 Mil/cmm (3.80-5.80) L 01/07/18 06:10 Hgb 10.2 gm/dL (12-16) L 01/07/18 06:10 Hct 30.7 % (41.0-60) L 01/07/18 06:10 MCV 87.6 fl (80-99) 01/07/18 06:10 MCH 29.2 pg (27.0-31.0) 01/07/18 06:10 MCHC Differential 33.3 pg (28.0-36.0) 01/07/18 06:10 RDW 13.4 % (11.5-20.0) 01/07/18 06:10 Plt Count 262 Th/cmm (150-400) 01/07/18 06:10 MPV 7.8 fl 01/07/18 06:10 Add Manual Diff YES 01/07/18 06:10 Neutrophils % 82.2 % (40.0-80.0) H 01/06/18 22:35 Band Neutrophils % 1 % (0-10) 01/07/18 06:10 Lymphocytes % 10.5 % (20.0-50.0) L 01/06/18 22:35 Monocytes % 5.2 % (2.0-10.0) 01/06/18 22:35 Eosinophils % 1.2 % (0.0-5.0) 01/06/18 22:35 Basophils % 0.9 % (0.0-2.0) 01/06/18 22:35 Neutrophils (Manual) 74 % (40-80) 01/07/18 06:10 Lymphocytes 20 % (20-50) 01/07/18 06:10 Monocytes 4 % (2-10) 01/07/18 06:10 Eosinophils 1 % (0-5) 01/07/18 06:10 Basophils 0 % (0-3) 01/07/18 06:10 Platelet Estimate ADEQUATE (NORMAL) 01/07/18 06:10 Sodium 139 mEq/L (136-145) 01/07/18 06:10 Potassium 4.3 mEq/L (3.5-5.1) 01/07/18 06:10 Chloride 109 mEq/L (98-107) H 01/07/18 06:10 Carbon Dioxide 25.0 mEq/L (21.0-31.0) 01/07/18 06:10 Anion Gap 9.3 (7.0-16.0) 01/07/18 06:10 BUN 23 mg/dL (7-25) 01/07/18 06:10 Creatinine 1.2 mg/dL (0.7-1.3) 01/07/18 06:10 Est GFR ( Amer) TNP 01/07/18 06:10 Est GFR (Non-Af Amer) TNP 01/07/18 06:10 BUN/Creatinine Ratio 19.2 01/07/18 06:10 Glucose 91 mg/dL (70-105) 01/07/18 06:10 Calcium 8.9 mg/dL (8.6-10.3) 01/07/18 06:10 Total Bilirubin 0.2 mg/dL (0.3-1.0) L 01/07/18 06:10 AST 20 U/L (13-39) 01/07/18 06:10 ALT 22 U/L (7-52) 01/07/18 06:10 Alkaline Phosphatase 34 U/L (34-104) 01/07/18 06:10 Troponin I 0.02 ng/mL (0.01-0.05) 01/06/18 22:35 B-Natriuretic Peptide 204.0 pg/mL (5.0-100.0) H 01/06/18 22:35 Total Protein 5.1 gm/dL (6.0-8.3) L 01/07/18 06:10 Albumin 3.6 gm/dL (4.2-5.5) L 01/07/18 06:10 Globulin 1.5 gm/dL 01/07/18 06:10 Albumin/Globulin Ratio 2.4 (1.0-1.8) H 01/07/18 06:10 - Physical Exam Vitals and I&O: Vital Signs Temp 98.0 F 01/08/18 19:00 Pulse 94 01/08/18 19:09 Resp 20 01/08/18 19:09 BP 141/85 01/08/18 19:00 Pulse Ox 95 01/08/18 19:09 Intake & Output 01/08/18 01/08/18 01/09/18 06:59 18:59 06:59 Intake Total 250 700 Balance 250 700 Weight (lbs) 45.359 kg 45.359 kg Intake: Intake, IV Amount 50 cefTRIAXone 1 gm In 50 Sodium Chloride 0.9% 50 ml @ 100 mls/hr IV Q24HR [facility] Rx#:[id number] Oral 200 700 Other: # Voids 2 3 # Bowel Movements 0 Weight Source Bedscale Bedscale Active Medications: Current Medications Acetaminophen (Tylenol) 650 mg PO Q6H PRN PRN Reason: Mild-Mod. pain or fever >101 Acetaminophen/Hydrocodone Bitart ([place] 5mg/325mg) 1 tab PO Q4H PRN PRN Reason: Pain (Severe) Stop: 03/08/18 13:11 Last Admin: 01/08/18 17:23 Dose: 1 tab Albuterol/Ipratropium (Duoneb Neb) 3 ml HHN Q4HRT [facility] Stop: 03/08/18 03:59 Last Admin: 01/08/18 19:09 Dose: 3 ml Ascorbic Acid (Vitamin C) 500 mg PO DAILY [facility] Stop: 03/09/18 08:59 Last Admin: 01/08/18 10:22 Dose: Not Given Aspirin (Aspirin Chewable) 81 mg PO DAILY [facility] Stop: 03/09/18 08:59 Last Admin: 01/08/18 10:22 Dose: Not Given Atorvastatin Calcium (Lipitor) 40 mg PO HS [facility] Stop: 03/08/18 20:59 Last Admin: 01/08/18 20:27 Dose: Not Given Divalproex Sodium (Depakote Dr) 125 mg PO TID [facility]; Protocol Stop: 03/08/18 13:59 Last Admin: 01/08/18 20:27 Dose: Not Given Docusate Sodium (Colace) 100 mg PO BID [facility] Stop: 03/08/18 16:59 Last Admin: 01/08/18 17:24 Dose: Not Given Donepezil HCl (Aricept) 5 mg PO HS MIKI Stop: 03/08/18 20:59 Last Admin: 01/08/18 20:24 Dose: 5 mg Guaifenesin (Robitussin) 200 mg PO Q4HR PRN PRN Reason: Cough or Congestion Stop: 03/09/18 18:16 Azithromycin 500 mg/ Sodium (Chloride) 250 mls @ 250 mls/hr IV Q24HR MIKI Stop: 03/08/18 01:29 Last Admin: 01/08/18 01:56 Dose: 250 mls/hr Ceftriaxone Sodium 1 gm/ (Sodium Chloride) 50 mls @ 100 mls/hr IV Q24HR MIKI Stop: 03/08/18 20:59 Last Admin: 01/08/18 20:23 Dose: 100 mls/hr Potassium Chloride/Dextrose/Sod Cl (D5-0.45ns W/20 Meq Kcl) 1,000 mls @ 75 mls/ hr IV .[id number] MIKI Stop: 03/08/18 00:59 Last Admin: 01/07/18 01:33 Dose: 75 mls/hr Lactulose (Cephulac) 20 gm PO Q6H PRN PRN Reason: Constipation Stop: 03/08/18 13:11 Last Admin: 01/08/18 09:47 Dose: 20 gm Lorazepam (Ativan) 0.5 mg PO Q6HR PRN; Protocol PRN Reason: Agitation Stop: 03/08/18 10:12 Last Admin: 01/08/18 16:38 Dose: 0.5 mg Magnesium Hydroxide (Milk Of Magnesia) 30 ml PO HS PRN PRN Reason: Constipation Stop: 03/08/18 13:11 Memantine (Namenda) 5 mg PO DAILY MIKI Stop: 03/09/18 08:59 Last Admin: 01/08/18 10:22 Dose: Not Given Multivitamins/Vitamin C (Theragran) 1 tab PO DAILY MIKI Stop: 03/09/18 08:59 Last Admin: 01/08/18 10:23 Dose: Not Given Mupirocin (Bactroban Oint) 1 appl NS BID [facility]KI Stop: 01/13/18 17:01 Nifedipine (Procardia Xl) 60 mg PO DAILY [facility]KI Stop: 03/09/18 08:59 Last Admin: 01/08/18 10:23 Dose: Not Given Prednisone (Deltasone) 40 mg PO DAILY [facility] Stop: 03/09/18 08:59 Last Admin: 01/08/18 10:23 Dose: Not Given Quetiapine Fumarate (Seroquel) 25 mg PO BID [facility]; Protocol Stop: 03/08/18 16:59 Last Admin: 01/08/18 16:29 Dose: 25 mg Trazodone HCl (Desyrel) 50 mg PO HS [facility]; Protocol Stop: 03/08/18 20:59 Last Admin: 01/08/18 20:24 Dose: 50 mg General: alert, demented HEENT: NC/AT, PERRLA, EOMI, anicteric sclerae, throat clear Neck: Supple, No JVD, No thyromegaly, +2 carotid pulse wo bruit, No LAD Lungs: CTAB Cardiovascular: RRR, Normal S1, Normal S2, without murmur Abdomen: non-tender, non-distended Extremities: clear Neurological: no change Internal Medicine Assmt/Plan - Assessment Assessment: 1.PNEUMONIA. 2.COPD. 3.PSYCHOSIS. 4.DEMENTIA. - Plan Plan: CONTINUE ON CURRENT MEDICATION AND DIET.
[2018-01-09] MEDS: Albuterol/Ipratropium Neb 3 ML AERS HHN SCH ×6 (02:28→22:35)
[2018-01-09] MEDS: Azithromycin 500 MG in Sodium Chloride 0.9% 250 ML IV SCH (02:35)
[2018-01-09] MEDS: guaiFENesin 200 MG/10 ML UDC PO PRN ×3 (05:12→20:36)
[2018-01-09] MEDS: Multivitamin Tab PO SCH (08:46)
[2018-01-09] MEDS: Aspirin 81mg Chewable Tab PO SCH (08:46)
[2018-01-09] MEDS: NIFEdipine 30 mg ER Tab PO SCH (08:48)
[2018-01-09] MEDS: Lactulose 10 Gm/15 mL 30mL UDC PO PRN (08:59)
[2018-01-09] MEDS: Hydrocodone/APAP 5mg/325mg Tab PO PRN ×3 (09:00→20:32)
--- NOTE | 2018-01-09 18:26 | Progress Notes ---
DATE: 01/09/2018 SUBJECTIVE: Remains somewhat confused, disoriented, still impulsive, unpredictable calm at this time, resting comfortably, sleeping, but arousable. No agitation this morning following unit rules and directions, slept fairly well last night. MENTAL STATUS EXAMINATION: Small statured male. Fair eye contact. Speech, decreased content. Mood "okay." Disoriented on exam. No SI, no HI. No overt psychotic symptoms. Poor impulse control. Insight and judgment diminished. DIAGNOSES: Unchanged. RECOMMENDATIONS AND PLAN: Continue 5150 hold. Transfer to [facility] upon medical clearance. JOB# [id number]
--- NOTE | 2018-01-09 21:35 | Internal Medicine Prog Note ---
Internal Medicine Subjective - Subjective Service Date: 01/09/18 Patient seen and examined:: with staff (HE FEELS BETTER,LESS SOB.) Patient is:: awake, verbal, in bed, talking, confused Per staff patient has:: no adverse event Internal Medicine Objective - Results Result Diagrams: 01/07/18 06:10 01/07/18 06:10 Recent Labs: Laboratory Last Values WBC 10.3 Th/cmm (4.8-10.8) 01/07/18 06:10 RBC 3.51 Mil/cmm (3.80-5.80) L 01/07/18 06:10 Hgb 10.2 gm/dL (12-16) L 01/07/18 06:10 Hct 30.7 % (41.0-60) L 01/07/18 06:10 MCV 87.6 fl (80-99) 01/07/18 06:10 MCH 29.2 pg (27.0-31.0) 01/07/18 06:10 MCHC Differential 33.3 pg (28.0-36.0) 01/07/18 06:10 RDW 13.4 % (11.5-20.0) 01/07/18 06:10 Plt Count 262 Th/cmm (150-400) 01/07/18 06:10 MPV 7.8 fl 01/07/18 06:10 Add Manual Diff YES 01/07/18 06:10 Neutrophils % 82.2 % (40.0-80.0) H 01/06/18 22:35 Band Neutrophils % 1 % (0-10) 01/07/18 06:10 Lymphocytes % 10.5 % (20.0-50.0) L 01/06/18 22:35 Monocytes % 5.2 % (2.0-10.0) 01/06/18 22:35 Eosinophils % 1.2 % (0.0-5.0) 01/06/18 22:35 Basophils % 0.9 % (0.0-2.0) 01/06/18 22:35 Neutrophils (Manual) 74 % (40-80) 01/07/18 06:10 Lymphocytes 20 % (20-50) 01/07/18 06:10 Monocytes 4 % (2-10) 01/07/18 06:10 Eosinophils 1 % (0-5) 01/07/18 06:10 Basophils 0 % (0-3) 01/07/18 06:10 Platelet Estimate ADEQUATE (NORMAL) 01/07/18 06:10 Sodium 139 mEq/L (136-145) 01/07/18 06:10 Potassium 4.3 mEq/L (3.5-5.1) 01/07/18 06:10 Chloride 109 mEq/L (98-107) H 01/07/18 06:10 Carbon Dioxide 25.0 mEq/L (21.0-31.0) 01/07/18 06:10 Anion Gap 9.3 (7.0-16.0) 01/07/18 06:10 BUN 23 mg/dL (7-25) 01/07/18 06:10 Creatinine 1.2 mg/dL (0.7-1.3) 01/07/18 06:10 Est GFR ( Amer) TNP 01/07/18 06:10 Est GFR (Non-Af Amer) TNP 01/07/18 06:10 BUN/Creatinine Ratio 19.2 01/07/18 06:10 Glucose 91 mg/dL (70-105) 01/07/18 06:10 Calcium 8.9 mg/dL (8.6-10.3) 01/07/18 06:10 Total Bilirubin 0.2 mg/dL (0.3-1.0) L 01/07/18 06:10 AST 20 U/L (13-39) 01/07/18 06:10 ALT 22 U/L (7-52) 01/07/18 06:10 Alkaline Phosphatase 34 U/L (34-104) 01/07/18 06:10 Troponin I 0.02 ng/mL (0.01-0.05) 01/06/18 22:35 B-Natriuretic Peptide 204.0 pg/mL (5.0-100.0) H 01/06/18 22:35 Total Protein 5.1 gm/dL (6.0-8.3) L 01/07/18 06:10 Albumin 3.6 gm/dL (4.2-5.5) L 01/07/18 06:10 Globulin 1.5 gm/dL 01/07/18 06:10 Albumin/Globulin Ratio 2.4 (1.0-1.8) H 01/07/18 06:10 - Physical Exam Vitals and I&O: Vital Signs Temp 98.2 F 01/09/18 20:00 Pulse 98 01/09/18 20:00 Resp 18 01/09/18 20:00 BP 145/74 01/09/18 20:00 Pulse Ox 96 01/09/18 20:00 Intake & Output 01/09/18 01/09/18 01/10/18 06:59 18:59 06:59 Intake Total 390 400 Balance 390 400 Weight (lbs) 46.72 kg 46.72 kg Intake: Intake, IV Amount 50 cefTRIAXone 1 gm In 50 Sodium Chloride 0.9% 50 ml @ 100 mls/hr IV Q24HR [facility] Rx#:[id number] Oral 340 400 Other: # Voids 3 3 # Bowel Movements 0 2 Stool Characteristics Formed Weight Source Bedscale Bedscale Active Medications: Current Medications Acetaminophen (Tylenol) 650 mg PO Q6H PRN PRN Reason: Mild-Mod. pain or fever >101 Acetaminophen/Hydrocodone Bitart ([place] 5mg/325mg) 1 tab PO Q4H PRN PRN Reason: Pain (Severe) Stop: 03/08/18 13:11 Last Admin: 01/09/18 20:32 Dose: 1 tab Albuterol/Ipratropium (Duoneb Neb) 3 ml HHN Q4HRT [facility] Stop: 03/08/18 03:59 Last Admin: 01/09/18 19:02 Dose: 3 ml Ascorbic Acid (Vitamin C) 500 mg PO DAILY [facility] Stop: 03/09/18 08:59 Last Admin: 01/09/18 08:46 Dose: Not Given Aspirin (Aspirin Chewable) 81 mg PO DAILY [facility] Stop: 03/09/18 08:59 Last Admin: 01/09/18 08:46 Dose: Not Given Atorvastatin Calcium (Lipitor) 40 mg PO HS [facility] Stop: 03/08/18 20:59 Last Admin: 01/09/18 20:30 Dose: 40 mg Divalproex Sodium (Depakote Dr) 125 mg PO TID [facility]; Protocol Stop: 03/08/18 13:59 Last Admin: 01/09/18 14:33 Dose: 125 mg Docusate Sodium (Colace) 100 mg PO BID [facility] Stop: 03/08/18 16:59 Last Admin: 01/09/18 08:46 Dose: Not Given Donepezil HCl (Aricept) 5 mg PO HS [facility] Stop: 03/08/18 20:59 Last Admin: 01/09/18 20:28 Dose: 5 mg Guaifenesin (Robitussin) 200 mg PO Q4HR PRN PRN Reason: Cough or Congestion Stop: 03/09/18 18:16 Last Admin: 01/09/18 20:36 Dose: 200 mg Azithromycin 500 mg/ Sodium (Chloride) 250 mls @ 250 mls/hr IV Q24HR [facility] Stop: 03/08/18 01:29 Last Admin: 01/09/18 02:35 Dose: 250 mls/hr Ceftriaxone Sodium 1 gm/ (Sodium Chloride) 50 mls @ 100 mls/hr IV Q24HR [facility] Stop: 03/08/18 20:59 Last Infusion: 01/08/18 23:30 Dose: Infused Potassium Chloride/Dextrose/Sod Cl (D5-0.45ns W/20 Meq Kcl) 1,000 mls @ 75 mls/ hr IV .[id number] [facility] Stop: 03/08/18 00:59 Last Admin: 01/07/18 01:33 Dose: 75 mls/hr Lactulose (Cephulac) 20 gm PO Q6H PRN PRN Reason: Constipation Stop: 03/08/18 13:11 Last Admin: 01/09/18 08:59 Dose: 20 gm Lorazepam (Ativan) 0.5 mg PO Q6HR PRN; Protocol PRN Reason: Agitation Stop: 03/08/18 10:12 Last Admin: 01/09/18 20:28 Dose: 0.5 mg Magnesium Hydroxide (Milk Of Magnesia) 30 ml PO HS PRN PRN Reason: Constipation Stop: 03/08/18 13:11 Last Admin: 01/09/18 21:20 Dose: 30 ml Memantine (Namenda) 5 mg PO DAILY [facility] Stop: 03/09/18 08:59 Last Admin: 01/09/18 08:44 Dose: 5 mg Multivitamins/Vitamin C (Theragran) 1 tab PO DAILY [facility] Stop: 03/09/18 08:59 Last Admin: 01/09/18 08:46 Dose: Not Given Mupirocin (Bactroban Oint) 1 appl NS BID [facility] Stop: 01/13/18 17:01 Last Admin: 01/09/18 17:13 Dose: Not Given Nifedipine (Procardia Xl) 60 mg PO DAILY [facility] Stop: 03/09/18 08:59 Last Admin: 01/09/18 08:48 Dose: Not Given Prednisone (Deltasone) 40 mg PO DAILY [facility] Stop: 03/09/18 08:59 Last Admin: 01/09/18 08:48 Dose: Not Given Quetiapine Fumarate (Seroquel) 25 mg PO BID [facility]; Protocol Stop: 03/08/18 16:59 Last Admin: 01/09/18 17:13 Dose: 25 mg Trazodone HCl (Desyrel) 50 mg PO HS [facility]; Protocol Stop: 03/08/18 20:59 Last Admin: 01/09/18 20:28 Dose: 50 mg General: alert, demented HEENT: NC/AT, PERRLA, EOMI, anicteric sclerae, throat clear Neck: Supple, No JVD, No thyromegaly, +2 carotid pulse wo bruit, No LAD Lungs: CTAB Cardiovascular: RRR, Normal S1, Normal S2, without murmur Abdomen: non-tender, non-distended Extremities: clear Neurological: no change Internal Medicine Assmt/Plan - Assessment Assessment: 1.PNEUMONIA. 2.COPD. 3.PSYCHOSIS. 4.DEMENTIA. - Plan Plan: CONTINUE ON CURRENT MEDICATION AND DIET.
[2018-01-10] MEDS: Albuterol/Ipratropium Neb 3 ML AERS HHN SCH ×6 (03:05→23:12)
[2018-01-10] MEDS: Azithromycin 500 MG in Sodium Chloride 0.9% 250 ML IV SCH (04:04)
[2018-01-10] MEDS: cefTRIAXone 1 GM in Sodium Chloride 0.9% 50 ML IV SCH ×2 (04:41→21:12)
[2018-01-10] MEDS: NIFEdipine 30 mg ER Tab PO SCH (09:07)
[2018-01-10] MEDS: Aspirin 81mg Chewable Tab PO SCH (09:08)
[2018-01-10] MEDS: Multivitamin Tab PO SCH (09:08)
[2018-01-10] MEDS: Hydrocodone/APAP 5mg/325mg Tab PO PRN (09:57)
[2018-01-10] MEDS: Lactulose 10 Gm/15 mL 30mL UDC PO PRN (10:02)
--- NOTE | 2018-01-10 16:37 | General Progress Note ---
Subjective - Review of Systems Service Date: 01/10/18 Subjective: awake and alert no distress Objective - Results Result Diagrams: 01/07/18 06:10 01/07/18 06:10 Recent Labs: Laboratory Last Values WBC 10.3 Th/cmm (4.8-10.8) 01/07/18 06:10 RBC 3.51 Mil/cmm (3.80-5.80) L 01/07/18 06:10 Hgb 10.2 gm/dL (12-16) L 01/07/18 06:10 Hct 30.7 % (41.0-60) L 01/07/18 06:10 MCV 87.6 fl (80-99) 01/07/18 06:10 MCH 29.2 pg (27.0-31.0) 01/07/18 06:10 MCHC Differential 33.3 pg (28.0-36.0) 01/07/18 06:10 RDW 13.4 % (11.5-20.0) 01/07/18 06:10 Plt Count 262 Th/cmm (150-400) 01/07/18 06:10 MPV 7.8 fl 01/07/18 06:10 Add Manual Diff YES 01/07/18 06:10 Neutrophils % 82.2 % (40.0-80.0) H 01/06/18 22:35 Band Neutrophils % 1 % (0-10) 01/07/18 06:10 Lymphocytes % 10.5 % (20.0-50.0) L 01/06/18 22:35 Monocytes % 5.2 % (2.0-10.0) 01/06/18 22:35 Eosinophils % 1.2 % (0.0-5.0) 01/06/18 22:35 Basophils % 0.9 % (0.0-2.0) 01/06/18 22:35 Neutrophils (Manual) 74 % (40-80) 01/07/18 06:10 Lymphocytes 20 % (20-50) 01/07/18 06:10 Monocytes 4 % (2-10) 01/07/18 06:10 Eosinophils 1 % (0-5) 01/07/18 06:10 Basophils 0 % (0-3) 01/07/18 06:10 Platelet Estimate ADEQUATE (NORMAL) 01/07/18 06:10 Sodium 139 mEq/L (136-145) 01/07/18 06:10 Potassium 4.3 mEq/L (3.5-5.1) 01/07/18 06:10 Chloride 109 mEq/L (98-107) H 01/07/18 06:10 Carbon Dioxide 25.0 mEq/L (21.0-31.0) 01/07/18 06:10 Anion Gap 9.3 (7.0-16.0) 01/07/18 06:10 BUN 23 mg/dL (7-25) 01/07/18 06:10 Creatinine 1.2 mg/dL (0.7-1.3) 01/07/18 06:10 Est GFR ( Amer) TNP 01/07/18 06:10 Est GFR (Non-Af Amer) TNP 01/07/18 06:10 BUN/Creatinine Ratio 19.2 01/07/18 06:10 Glucose 91 mg/dL (70-105) 01/07/18 06:10 Calcium 8.9 mg/dL (8.6-10.3) 01/07/18 06:10 Total Bilirubin 0.2 mg/dL (0.3-1.0) L 01/07/18 06:10 AST 20 U/L (13-39) 01/07/18 06:10 ALT 22 U/L (7-52) 01/07/18 06:10 Alkaline Phosphatase 34 U/L (34-104) 01/07/18 06:10 Troponin I 0.02 ng/mL (0.01-0.05) 01/06/18 22:35 B-Natriuretic Peptide 204.0 pg/mL (5.0-100.0) H 01/06/18 22:35 Total Protein 5.1 gm/dL (6.0-8.3) L 01/07/18 06:10 Albumin 3.6 gm/dL (4.2-5.5) L 01/07/18 06:10 Globulin 1.5 gm/dL 01/07/18 06:10 Albumin/Globulin Ratio 2.4 (1.0-1.8) H 01/07/18 06:10 - Physical Exam Vitals and I&O: Vital Signs Temp 97.7 F 01/10/18 16:00 Pulse 62 01/10/18 16:00 Resp 18 01/10/18 16:00 BP 109/51 01/10/18 16:00 Pulse Ox 96 01/10/18 16:00 Intake & Output 01/09/18 01/10/18 01/10/18 18:59 06:59 18:59 Intake Total 400 575 Balance 400 575 Weight (lbs) 46.72 kg 46.72 kg Intake: Oral 400 450 Tube Feeding 125 Other: # Voids 3 # Bowel Movements 2 Stool Characteristics Formed Soft Weight Source Bedscale Estimated Active Medications: Current Medications Acetaminophen (Tylenol) 650 mg PO Q6H PRN PRN Reason: Mild-Mod. pain or fever >101 Acetaminophen/Hydrocodone Bitart ([place] 5mg/325mg) 1 tab PO Q4H PRN PRN Reason: Pain (Severe) Stop: 03/08/18 13:11 Last Admin: 01/10/18 09:57 Dose: 1 tab Albuterol/Ipratropium (Duoneb Neb) 3 ml HHN Q4HRT [facility] Stop: 03/08/18 03:59 Last Admin: 01/10/18 15:00 Dose: 3 ml Ascorbic Acid (Vitamin C) 500 mg PO DAILY [facility] Stop: 03/09/18 08:59 Last Admin: 01/10/18 09:07 Dose: Not Given Aspirin (Aspirin Chewable) 81 mg PO DAILY [facility] Stop: 03/09/18 08:59 Last Admin: 01/10/18 09:08 Dose: Not Given Atorvastatin Calcium (Lipitor) 40 mg PO [facility] Stop: 03/08/18 20:59 Last Admin: 01/09/18 20:30 Dose: 40 mg Divalproex Sodium (Depakote Dr) 125 mg PO TID [facility]; Protocol Stop: 03/08/18 13:59 Last Admin: 01/10/18 15:08 Dose: Not Given Docusate Sodium (Colace) 100 mg PO BID [facility] Stop: 03/08/18 16:59 Last Admin: 01/10/18 09:07 Dose: 100 mg Donepezil HCl (Aricept) 5 mg PO HS [facility] Stop: 03/08/18 20:59 Last Admin: 01/09/18 20:28 Dose: 5 mg Guaifenesin (Robitussin) 200 mg PO Q4HR PRN PRN Reason: Cough or Congestion Stop: 03/09/18 18:16 Last Admin: 01/09/18 20:36 Dose: 200 mg Azithromycin 500 mg/ Sodium (Chloride) 250 mls @ 250 mls/hr IV Q24HR [facility] Stop: 03/08/18 01:29 Last Admin: 01/10/18 04:04 Dose: 250 mls/hr Ceftriaxone Sodium 1 gm/ (Sodium Chloride) 50 mls @ 100 mls/hr IV Q24HR [facility] Stop: 03/08/18 20:59 Last Admin: 01/10/18 04:41 Dose: 100 mls/hr Potassium Chloride/Dextrose/Sod Cl (D5-0.45ns W/20 Meq Kcl) 1,000 mls @ 75 mls/ hr IV .[id number] [facility] Stop: 03/08/18 00:59 Last Admin: 01/07/18 01:33 Dose: 75 mls/hr Lactulose (Cephulac) 20 gm PO Q6H PRN PRN Reason: Constipation Stop: 03/08/18 13:11 Last Admin: 01/10/18 10:02 Dose: 20 gm Lorazepam (Ativan) 0.5 mg PO Q6HR PRN; Protocol PRN Reason: Agitation Stop: 03/08/18 10:12 Last Admin: 01/10/18 15:04 Dose: 0.5 mg Magnesium Hydroxide (Milk Of Magnesia) 30 ml PO HS PRN PRN Reason: Constipation Stop: 03/08/18 13:11 Last Admin: 01/09/18 21:20 Dose: 30 ml Memantine (Namenda) 5 mg PO DAILY [facility] Stop: 03/09/18 08:59 Last Admin: 01/10/18 09:07 Dose: Not Given Multivitamins/Vitamin C (Theragran) 1 tab PO DAILY [facility] Stop: 03/09/18 08:59 Last Admin: 01/10/18 09:08 Dose: Not Given Mupirocin (Bactroban Oint) 1 appl NS BID [facility] Stop: 01/13/18 17:01 Last Admin: 01/10/18 09:19 Dose: 1 appl Nifedipine (Procardia Xl) 60 mg PO DAILY [facility] Stop: 03/09/18 08:59 Last Admin: 01/10/18 09:07 Dose: 60 mg Prednisone (Deltasone) 40 mg PO DAILY [facility] Stop: 03/09/18 08:59 Last Admin: 01/10/18 09:06 Dose: Not Given Quetiapine Fumarate (Seroquel) 25 mg PO BID [facility]; Protocol Stop: 03/08/18 16:59 Last Admin: 01/10/18 09:07 Dose: Not Given Trazodone HCl (Desyrel) 50 mg PO HS [facility]; Protocol Stop: 03/08/18 20:59 Last Admin: 01/09/18 20:28 Dose: 50 mg General: Alert, Oriented x3 HEENT: Atraumatic, PERRLA Neck: Supple, JVD Cardiovascular: Regular rate, Normal S1, Normal S2 Lungs: Clear to auscultation Abdomen: Bowel sounds, Soft Assessment/Plan - Assessment Assessment: pneumonia COPD exacerbation dementia psychosis - Plan Plan: continue current treatment Nutritional Asmnt/Malnutr-PDOC - Dietary Evaluation Malnutrition Findings (Please click <Entered> for more info): Nutritional Asmnt/Malnutrition Start: 01/10/18 14: 14 Text: Status: Complete Freq: Protocol: Document 01/10/18 14:15 MMULBOOGIE (Rec: 01/10/18 14:25 MMULBOOGIE MOSHER- [id number]) Nutritional Asmnt/Malnutrition Patient General Information Nutritional Screening Moderate Risk Diagnosis Pneumonia, COPD Pertinent Medical Hx/Surgical Hx COPD, paroxysmal atrial fibrillation, dementia, psychosis Subjective Information Per nursing notes, patient with aggressive behavior. Tolerating current diet order without difficulty. Current Diet Order/ Nutrition Support Regular Patient / S.O Not Indicated Pertinent Medications Vitamin C, lipitor, Abx, colace, lactulose, MOM, Theragran, D5-0.45NS w/20 meq Kcl @ 75 ml/hr, Prednisone Pertinent Labs (01/07) Albumin 3.6 (decreasing ) Nutritional Hx/Data Height 1.5 m Height (Calculated Centimeters) 149.9 Current Weight (lbs) 46.72 kg Weight (Calculated Kilograms) 46.7 Weight (Calculated Grams) 43106.0 [place] Body Weight 103 % [place] Body Weight 100 Body Mass Index (BMI) 20.7 Recent Weight Change No Weight Status Approriate GI Symptoms GI Symptoms None Last BM 01/09 x 2 Difficult in: None Food Allergies No Cultural/Ethnic/Mormonism Belief None indicated Usual diet at home Unknown Skin Integrity/Comment: Vick 20, Intact Current %PO Fair (50-74%) Estimated Nutritional Goals BEE in Kcals: Using Current wt Calories/Kcals/Kg 25-30 kcal/kg Using CBW 46.8kg Kcals Calculated ~2967-5117 kcal/day Protein: Using Current wt Protein g/k gm/kg Protein Calculated ~45 gm/day Fluid: ml ~3165-9230 ml/day (1 ml/kcal) Nutritional Problem 1. Problem Problem No nutrition diagnosis at this time Intervention/Recommendation Comments 1. Continue Regular diet as tolerated by patient. 2. Provided assistance with meals as needed. Expected Outcomes/Goals Expected Outcomes/Goals Oral intake >75% of meals, weight stable, nutrition related labs WNL F/U in 7 days as LR 01/17
[2018-01-10] MEDS: guaiFENesin 200 MG/10 ML UDC PO PRN (21:07)
[2018-01-10] MEDS: D5-0.45NS w/20 mEq KCL 1,000 ML IV SCH (23:18)
[2018-01-11] MEDS: Azithromycin 500 MG in Sodium Chloride 0.9% 250 ML IV SCH (00:59)
[2018-01-11] MEDS: Albuterol/Ipratropium Neb 3 ML AERS HHN SCH ×6 (02:05→22:42)
[2018-01-11] MEDS: guaiFENesin 200 MG/10 ML UDC PO PRN ×2 (06:20→12:55)
[2018-01-11] MEDS: Aspirin 81mg Chewable Tab PO SCH (08:49)
[2018-01-11] MEDS: Multivitamin Tab PO SCH (08:49)
[2018-01-11] MEDS: NIFEdipine 30 mg ER Tab PO SCH (08:50)
[2018-01-11] MEDS: cefTRIAXone 1 GM in Sodium Chloride 0.9% 50 ML IV SCH (20:29)
--- NOTE | 2018-01-11 20:31 | General Progress Note ---
Subjective - Review of Systems Service Date: 01/11/18 Subjective: awake and alert no distress Objective - Results Result Diagrams: 01/07/18 06:10 01/07/18 06:10 Recent Labs: Laboratory Last Values WBC 10.3 Th/cmm (4.8-10.8) 01/07/18 06:10 RBC 3.51 Mil/cmm (3.80-5.80) L 01/07/18 06:10 Hgb 10.2 gm/dL (12-16) L 01/07/18 06:10 Hct 30.7 % (41.0-60) L 01/07/18 06:10 MCV 87.6 fl (80-99) 01/07/18 06:10 MCH 29.2 pg (27.0-31.0) 01/07/18 06:10 MCHC Differential 33.3 pg (28.0-36.0) 01/07/18 06:10 RDW 13.4 % (11.5-20.0) 01/07/18 06:10 Plt Count 262 Th/cmm (150-400) 01/07/18 06:10 MPV 7.8 fl 01/07/18 06:10 Add Manual Diff YES 01/07/18 06:10 Neutrophils % 82.2 % (40.0-80.0) H 01/06/18 22:35 Band Neutrophils % 1 % (0-10) 01/07/18 06:10 Lymphocytes % 10.5 % (20.0-50.0) L 01/06/18 22:35 Monocytes % 5.2 % (2.0-10.0) 01/06/18 22:35 Eosinophils % 1.2 % (0.0-5.0) 01/06/18 22:35 Basophils % 0.9 % (0.0-2.0) 01/06/18 22:35 Neutrophils (Manual) 74 % (40-80) 01/07/18 06:10 Lymphocytes 20 % (20-50) 01/07/18 06:10 Monocytes 4 % (2-10) 01/07/18 06:10 Eosinophils 1 % (0-5) 01/07/18 06:10 Basophils 0 % (0-3) 01/07/18 06:10 Platelet Estimate ADEQUATE (NORMAL) 01/07/18 06:10 Sodium 139 mEq/L (136-145) 01/07/18 06:10 Potassium 4.3 mEq/L (3.5-5.1) 01/07/18 06:10 Chloride 109 mEq/L (98-107) H 01/07/18 06:10 Carbon Dioxide 25.0 mEq/L (21.0-31.0) 01/07/18 06:10 Anion Gap 9.3 (7.0-16.0) 01/07/18 06:10 BUN 23 mg/dL (7-25) 01/07/18 06:10 Creatinine 1.2 mg/dL (0.7-1.3) 01/07/18 06:10 Est GFR ( Amer) TNP 01/07/18 06:10 Est GFR (Non-Af Amer) TNP 01/07/18 06:10 BUN/Creatinine Ratio 19.2 01/07/18 06:10 Glucose 91 mg/dL (70-105) 01/07/18 06:10 Calcium 8.9 mg/dL (8.6-10.3) 01/07/18 06:10 Total Bilirubin 0.2 mg/dL (0.3-1.0) L 01/07/18 06:10 AST 20 U/L (13-39) 01/07/18 06:10 ALT 22 U/L (7-52) 01/07/18 06:10 Alkaline Phosphatase 34 U/L (34-104) 01/07/18 06:10 Troponin I 0.02 ng/mL (0.01-0.05) 01/06/18 22:35 B-Natriuretic Peptide 204.0 pg/mL (5.0-100.0) H 01/06/18 22:35 Total Protein 5.1 gm/dL (6.0-8.3) L 01/07/18 06:10 Albumin 3.6 gm/dL (4.2-5.5) L 01/07/18 06:10 Globulin 1.5 gm/dL 01/07/18 06:10 Albumin/Globulin Ratio 2.4 (1.0-1.8) H 01/07/18 06:10 - Physical Exam Vitals and I&O: Vital Signs Temp 97.4 F 01/11/18 16:00 Pulse 78 01/11/18 19:58 Resp 16 01/11/18 19:58 BP 148/77 01/11/18 16:00 Pulse Ox 97 01/11/18 19:58 Intake & Output 01/11/18 01/11/18 01/12/18 06:59 18:59 06:59 Intake Total 750 Balance 750 Weight (lbs) 44.271 kg 44.271 kg Intake: Intake, IV Amount 300 Azithromycin 500 mg In 250 Sodium Chloride 0.9% 250 ml @ 250 mls/hr IV Q24HR [facility] Rx#:[id number] cefTRIAXone 1 gm In 50 Sodium Chloride 0.9% 50 ml @ 100 mls/hr IV Q24HR [facility] Rx#:[id number] Oral 450 Other: # Voids 3 Weight Source Bedscale Bedscale Active Medications: Current Medications Acetaminophen (Tylenol) 650 mg PO Q6H PRN PRN Reason: Mild-Mod. pain or fever >101 Acetaminophen/Hydrocodone Bitart ([place] 5mg/325mg) 1 tab PO Q4H PRN PRN Reason: Pain (Severe) Stop: 03/08/18 13:11 Last Admin: 01/10/18 09:57 Dose: 1 tab Albuterol/Ipratropium (Duoneb Neb) 3 ml HHN Q4HRT [facility] Stop: 03/08/18 03:59 Last Admin: 01/11/18 19:58 Dose: Not Given Ascorbic Acid (Vitamin C) 500 mg PO DAILY [facility] Stop: 03/09/18 08:59 Last Admin: 01/11/18 08:49 Dose: 500 mg Aspirin (Aspirin Chewable) 81 mg PO DAILY [facility] Stop: 03/09/18 08:59 Last Admin: 01/11/18 08:49 Dose: 81 mg Atorvastatin Calcium (Lipitor) 40 mg PO HS [facility] Stop: 03/08/18 20:59 Last Admin: 01/11/18 20:00 Dose: 40 mg Divalproex Sodium (Depakote Dr) 125 mg PO TID [facility]; Protocol Stop: 03/08/18 13:59 Last Admin: 01/11/18 20:00 Dose: 125 mg Docusate Sodium (Colace) 100 mg PO BID [facility] Stop: 03/08/18 16:59 Last Admin: 01/11/18 16:44 Dose: Not Given Donepezil HCl (Aricept) 5 mg PO HS [facility] Stop: 03/08/18 20:59 Last Admin: 01/11/18 20:01 Dose: 5 mg Guaifenesin (Robitussin) 200 mg PO Q4HR PRN PRN Reason: Cough or Congestion Stop: 03/09/18 18:16 Last Admin: 01/11/18 12:55 Dose: 200 mg Azithromycin 500 mg/ Sodium (Chloride) 250 mls @ 250 mls/hr IV Q24HR [facility] Stop: 03/08/18 01:29 Last Infusion: 01/11/18 01:59 Dose: Infused Ceftriaxone Sodium 1 gm/ (Sodium Chloride) 50 mls @ 100 mls/hr IV Q24HR [facility] Stop: 03/08/18 20:59 Last Infusion: 01/10/18 21:52 Dose: Infused Potassium Chloride/Dextrose/Sod Cl (D5-0.45ns W/20 Meq Kcl) 1,000 mls @ 75 mls/ hr IV .[id number] [facility] Stop: 03/08/18 00:59 Last Admin: 01/10/18 23:18 Dose: 75 mls/hr Lactulose (Cephulac) 20 gm PO Q6H PRN PRN Reason: Constipation Stop: 03/08/18 13:11 Last Admin: 01/10/18 10:02 Dose: 20 gm Lorazepam (Ativan) 0.5 mg PO Q6HR PRN; Protocol PRN Reason: Agitation Stop: 03/08/18 10:12 Last Admin: 01/11/18 20:00 Dose: 0.5 mg Magnesium Hydroxide (Milk Of Magnesia) 30 ml PO HS PRN PRN Reason: Constipation Stop: 03/08/18 13:11 Last Admin: 01/09/18 21:20 Dose: 30 ml Memantine (Namenda) 5 mg PO DAILY [facility] Stop: 03/09/18 08:59 Last Admin: 01/11/18 08:49 Dose: 5 mg Multivitamins/Vitamin C (Theragran) 1 tab PO DAILY [facility] Stop: 03/09/18 08:59 Last Admin: 01/11/18 08:49 Dose: 1 tab Mupirocin (Bactroban Oint) 1 appl NS BID [facility] Stop: 01/13/18 17:01 Last Admin: 01/11/18 16:44 Dose: Not Given Nifedipine (Procardia Xl) 60 mg PO DAILY [facility] Stop: 03/09/18 08:59 Last Admin: 01/11/18 08:50 Dose: 60 mg Prednisone (Deltasone) 40 mg PO DAILY [facility] Stop: 03/09/18 08:59 Last Admin: 01/11/18 08:52 Dose: 40 mg Quetiapine Fumarate (Seroquel) 25 mg PO BID [facility]; Protocol Stop: 03/08/18 16:59 Last Admin: 01/11/18 16:44 Dose: Not Given Trazodone HCl (Desyrel) 50 mg PO HS [facility]; Protocol Stop: 03/08/18 20:59 Last Admin: 01/11/18 20:01 Dose: 50 mg General: Alert, Oriented x3 HEENT: Atraumatic, PERRLA Neck: Supple, JVD Cardiovascular: Regular rate, Normal S1, Normal S2 Lungs: Clear to auscultation Abdomen: Bowel sounds, Soft Assessment/Plan - Assessment Assessment: pneumonia COPD exacerbation dementia psychosis - Plan Plan: continue current treatment Nutritional Asmnt/Malnutr-PDOC - Dietary Evaluation Malnutrition Findings (Please click <Entered> for more info): Nutritional Asmnt/Malnutrition Start: 01/10/18 14: 14 Text: Status: Complete Freq: Protocol: Document 01/10/18 14:15 RACHEL (Rec: 01/10/18 14:25 MMRACHEAL MOSHER- [id number]) Nutritional Asmnt/Malnutrition Patient General Information Nutritional Screening Moderate Risk Diagnosis Pneumonia, COPD Pertinent Medical Hx/Surgical Hx COPD, paroxysmal atrial fibrillation, dementia, psychosis Subjective Information Per nursing notes, patient with aggressive behavior. Tolerating current diet order without difficulty. Current Diet Order/ Nutrition Support Regular Patient / S.O Not Indicated Pertinent Medications Vitamin C, lipitor, Abx, colace, lactulose, MOM, Theragran, D5-0.45NS w/20 meq Kcl @ 75 ml/hr, Prednisone Pertinent Labs (01/07) Albumin 3.6 (decreasing ) Nutritional Hx/Data Height 1.5 m Height (Calculated Centimeters) 149.9 Current Weight (lbs) 46.72 kg Weight (Calculated Kilograms) 46.7 Weight (Calculated Grams) 19486.0 Starks Body Weight 103 % Starks Body Weight 100 Body Mass Index (BMI) 20.7 Recent Weight Change No Weight Status Approriate GI Symptoms GI Symptoms None Last BM 9/14 x 2 Difficult in: None Food Allergies No Cultural/Ethnic/Buddhist Belief None indicated Usual diet at home Unknown Skin Integrity/Comment: Vick 20, Intact Current %PO Fair (50-74%) Estimated Nutritional Goals BEE in Kcals: Using Current wt Calories/Kcals/Kg 25-30 kcal/kg Using CBW 46.8kg Kcals Calculated ~7167-5104 kcal/day Protein: Using Current wt Protein g/k gm/kg Protein Calculated ~45 gm/day Fluid: ml ~2409-2431 ml/day (1 ml/kcal) Nutritional Problem 1. Problem Problem No nutrition diagnosis at this time Intervention/Recommendation Comments 1. Continue Regular diet as tolerated by patient. 2. Provided assistance with meals as needed. Expected Outcomes/Goals Expected Outcomes/Goals Oral intake >75% of meals, weight stable, nutrition related labs WNL F/U in 7 days as LR 01/17
[2018-01-12] MEDS: Albuterol/Ipratropium Neb 3 ML AERS HHN SCH ×7 (03:01→23:12)
[2018-01-12] MEDS: NIFEdipine 30 mg ER Tab PO SCH ×2 (09:12→09:25)
[2018-01-12] MEDS: Hydrocodone/APAP 5mg/325mg Tab PO PRN ×2 (09:13→17:08)
[2018-01-12] MEDS: Multivitamin Tab PO SCH ×2 (09:13→09:25)
[2018-01-12] MEDS: Aspirin 81mg Chewable Tab PO SCH ×2 (09:13→09:24)
[2018-01-12] MEDS ORDERED: Probiotic Screen MC PRN (12:23)
--- NOTE | 2018-01-12 19:26 | Internal Medicine Prog Note ---
Internal Medicine Subjective - Subjective Service Date: 01/12/18 Patient seen and examined:: with staff Patient is:: awake, verbal, in bed, talking, confused Per staff patient has:: no adverse event Internal Medicine Objective - Results Result Diagrams: 01/07/18 06:10 01/07/18 06:10 Recent Labs: Laboratory Last Values WBC 10.3 Th/cmm (4.8-10.8) 01/07/18 06:10 RBC 3.51 Mil/cmm (3.80-5.80) L 01/07/18 06:10 Hgb 10.2 gm/dL (12-16) L 01/07/18 06:10 Hct 30.7 % (41.0-60) L 01/07/18 06:10 MCV 87.6 fl (80-99) 01/07/18 06:10 MCH 29.2 pg (27.0-31.0) 01/07/18 06:10 MCHC Differential 33.3 pg (28.0-36.0) 01/07/18 06:10 RDW 13.4 % (11.5-20.0) 01/07/18 06:10 Plt Count 262 Th/cmm (150-400) 01/07/18 06:10 MPV 7.8 fl 01/07/18 06:10 Add Manual Diff YES 01/07/18 06:10 Neutrophils % 82.2 % (40.0-80.0) H 01/06/18 22:35 Band Neutrophils % 1 % (0-10) 01/07/18 06:10 Lymphocytes % 10.5 % (20.0-50.0) L 01/06/18 22:35 Monocytes % 5.2 % (2.0-10.0) 01/06/18 22:35 Eosinophils % 1.2 % (0.0-5.0) 01/06/18 22:35 Basophils % 0.9 % (0.0-2.0) 01/06/18 22:35 Neutrophils (Manual) 74 % (40-80) 01/07/18 06:10 Lymphocytes 20 % (20-50) 01/07/18 06:10 Monocytes 4 % (2-10) 01/07/18 06:10 Eosinophils 1 % (0-5) 01/07/18 06:10 Basophils 0 % (0-3) 01/07/18 06:10 Platelet Estimate ADEQUATE (NORMAL) 01/07/18 06:10 Sodium 139 mEq/L (136-145) 01/07/18 06:10 Potassium 4.3 mEq/L (3.5-5.1) 01/07/18 06:10 Chloride 109 mEq/L (98-107) H 01/07/18 06:10 Carbon Dioxide 25.0 mEq/L (21.0-31.0) 01/07/18 06:10 Anion Gap 9.3 (7.0-16.0) 01/07/18 06:10 BUN 23 mg/dL (7-25) 01/07/18 06:10 Creatinine 1.2 mg/dL (0.7-1.3) 01/07/18 06:10 Est GFR ( Amer) TNP 01/07/18 06:10 Est GFR (Non-Af Amer) TNP 01/07/18 06:10 BUN/Creatinine Ratio 19.2 01/07/18 06:10 Glucose 91 mg/dL (70-105) 01/07/18 06:10 Calcium 8.9 mg/dL (8.6-10.3) 01/07/18 06:10 Total Bilirubin 0.2 mg/dL (0.3-1.0) L 01/07/18 06:10 AST 20 U/L (13-39) 01/07/18 06:10 ALT 22 U/L (7-52) 01/07/18 06:10 Alkaline Phosphatase 34 U/L (34-104) 01/07/18 06:10 Troponin I 0.02 ng/mL (0.01-0.05) 01/06/18 22:35 B-Natriuretic Peptide 204.0 pg/mL (5.0-100.0) H 01/06/18 22:35 Total Protein 5.1 gm/dL (6.0-8.3) L 01/07/18 06:10 Albumin 3.6 gm/dL (4.2-5.5) L 01/07/18 06:10 Globulin 1.5 gm/dL 01/07/18 06:10 Albumin/Globulin Ratio 2.4 (1.0-1.8) H 01/07/18 06:10 - Physical Exam Vitals and I&O: Vital Signs Temp 98.1 F 01/12/18 13:09 Pulse 72 01/12/18 14:35 Resp 16 01/12/18 14:35 BP 144/108 01/12/18 13:09 Pulse Ox 97 01/12/18 14:35 Intake & Output 01/12/18 01/12/18 01/13/18 06:59 18:59 06:59 Intake Total 300 1200 Balance 300 1200 Weight (lbs) 43.998 kg 43.998 kg Intake: Oral 300 1200 Other: # Voids 3 4 # Bowel Movements 0 Weight Source Estimated Estimated Active Medications: Current Medications Acetaminophen (Tylenol) 650 mg PO Q6H PRN PRN Reason: Mild-Mod. pain or fever >101 Acetaminophen/Hydrocodone Bitart ([place] 5mg/325mg) 1 tab PO Q4H PRN PRN Reason: Pain (Severe) Stop: 03/08/18 13:11 Last Admin: 01/12/18 17:08 Dose: 1 tab Albuterol/Ipratropium (Duoneb Neb) 3 ml HHN Q4HRT [facility] Stop: 03/08/18 03:59 Last Admin: 01/12/18 19:23 Dose: 3 ml Ascorbic Acid (Vitamin C) 500 mg PO DAILY [facility] Stop: 03/09/18 08:59 Last Admin: 01/12/18 09:24 Dose: Not Given Aspirin (Aspirin Chewable) 81 mg PO DAILY [facility] Stop: 03/09/18 08:59 Last Admin: 01/12/18 09:24 Dose: Not Given Atorvastatin Calcium (Lipitor) 40 mg PO [facility] Stop: 03/08/18 20:59 Last Admin: 01/11/18 20:00 Dose: 40 mg Divalproex Sodium (Depakote Dr) 125 mg PO TID [facility]; Protocol Stop: 03/08/18 13:59 Last Admin: 01/12/18 14:20 Dose: Not Given Docusate Sodium (Colace) 100 mg PO BID [facility] Stop: 03/08/18 16:59 Last Admin: 01/12/18 17:11 Dose: Not Given Donepezil HCl (Aricept) 5 mg PO HS [facility] Stop: 03/08/18 20:59 Last Admin: 01/11/18 20:01 Dose: 5 mg Guaifenesin (Robitussin) 200 mg PO Q4HR PRN PRN Reason: Cough or Congestion Stop: 03/09/18 18:16 Last Admin: 01/11/18 12:55 Dose: 200 mg Azithromycin 500 mg/ Sodium (Chloride) 250 mls @ 250 mls/hr IV Q24HR [facility] Stop: 03/08/18 01:29 Last Infusion: 01/11/18 01:59 Dose: Infused Ceftriaxone Sodium 1 gm/ (Sodium Chloride) 50 mls @ 100 mls/hr IV Q24HR [facility] Stop: 03/08/18 20:59 Last Admin: 01/11/18 20:29 Dose: 100 mls/hr Potassium Chloride/Dextrose/Sod Cl (D5-0.45ns W/20 Meq Kcl) 1,000 mls @ 75 mls/ hr IV .[id number] [facility] Stop: 03/08/18 00:59 Last Admin: 01/10/18 23:18 Dose: 75 mls/hr Lactulose (Cephulac) 20 gm PO Q6H PRN PRN Reason: Constipation Stop: 03/08/18 13:11 Last Admin: 01/10/18 10:02 Dose: 20 gm Lorazepam (Ativan) 0.5 mg PO Q6HR PRN; Protocol PRN Reason: Agitation Stop: 03/08/18 10:12 Last Admin: 01/11/18 20:00 Dose: 0.5 mg Magnesium Hydroxide (Milk Of Magnesia) 30 ml PO HS PRN PRN Reason: Constipation Stop: 03/08/18 13:11 Last Admin: 01/09/18 21:20 Dose: 30 ml Memantine (Namenda) 5 mg PO DAILY [facility] Stop: 03/09/18 08:59 Last Admin: 01/12/18 09:24 Dose: Not Given Miscellaneous (Probiotic Screen) 1 ea MC PRN PRN PRN Reason: PROTOCOL Stop: 03/13/18 12:22 Multivitamins/Vitamin C (Theragran) 1 tab PO DAILY [facility] Stop: 03/09/18 08:59 Last Admin: 01/12/18 09:25 Dose: Not Given Mupirocin (Bactroban Oint) 1 appl NS BID [facility] Stop: 01/13/18 17:01 Last Admin: 01/12/18 17:09 Dose: 1 appl Nifedipine (Procardia Xl) 60 mg PO DAILY [facility] Stop: 03/09/18 08:59 Last Admin: 01/12/18 09:25 Dose: Not Given Prednisone (Deltasone) 40 mg PO DAILY [facility] Stop: 03/09/18 08:59 Last Admin: 01/12/18 09:26 Dose: Not Given Quetiapine Fumarate (Seroquel) 25 mg PO BID [facility]; Protocol Stop: 03/08/18 16:59 Last Admin: 01/12/18 17:08 Dose: 25 mg Trazodone HCl (Desyrel) 50 mg PO HS [facility]; Protocol Stop: 03/08/18 20:59 Last Admin: 01/11/18 20:01 Dose: 50 mg General: alert, demented HEENT: NC/AT, PERRLA, EOMI, anicteric sclerae, throat clear Neck: Supple, No JVD, No thyromegaly, +2 carotid pulse wo bruit, No LAD Lungs: CTAB Cardiovascular: RRR, Normal S1, Normal S2, without murmur Abdomen: non-tender, non-distended Extremities: clear Neurological: no change Internal Medicine Assmt/Plan - Assessment Assessment: 1.PNEUMONIA. 2.COPD. 3.PSYCHOSIS. 4.ENCEPHALOPATHY - Plan Plan: CONTINUE ON CURRENT MEDICATION AND DIET. Nutritional Asmnt/Malnutr-PDOC - Dietary Evaluation Malnutrition Findings (Please click <Entered> for more info): Nutritional Asmnt/Malnutrition Start: 01/10/18 14: 14 Text: Status: Complete Freq: Protocol: Document 01/10/18 14:15 RACHEL (Rec: 01/10/18 14:25 MMRACHEAL MOSHER- FNS1) Nutritional Asmnt/Malnutrition Patient General Information Nutritional Screening Moderate Risk Diagnosis Pneumonia, COPD Pertinent Medical Hx/Surgical Hx COPD, paroxysmal atrial fibrillation, dementia, psychosis Subjective Information Per nursing notes, patient with aggressive behavior. Tolerating current diet order without difficulty. Current Diet Order/ Nutrition Support Regular Patient / S.O Not Indicated Pertinent Medications Vitamin C, lipitor, Abx, colace, lactulose, MOM, Theragran, D5-0.45NS w/20 meq Kcl @ 75 ml/hr, Prednisone Pertinent Labs (01/07) Albumin 3.6 (decreasing ) Nutritional Hx/Data Height 1.5 m Height (Calculated Centimeters) 149.9 Current Weight (lbs) 46.72 kg Weight (Calculated Kilograms) 46.7 Weight (Calculated Grams) 08531.0 [place] Body Weight 103 % [place] Body Weight 100 Body Mass Index (BMI) 20.7 Recent Weight Change No Weight Status Approriate GI Symptoms GI Symptoms None Last BM 01/09 x 2 Difficult in: None Food Allergies No Cultural/Ethnic/Evangelical Belief None indicated Usual diet at home Unknown Skin Integrity/Comment: Vick 20, Intact Current %PO Fair (50-74%) Estimated Nutritional Goals BEE in Kcals: Using Current wt Calories/Kcals/Kg 25-30 kcal/kg Using CBW 46.8kg Kcals Calculated ~7883-0486 kcal/day Protein: Using Current wt Protein g/k gm/kg Protein Calculated ~45 gm/day Fluid: ml ~2169-2773 ml/day (1 ml/kcal) Nutritional Problem 1. Problem Problem No nutrition diagnosis at this time Intervention/Recommendation Comments 1. Continue Regular diet as tolerated by patient. 2. Provided assistance with meals as needed. Expected Outcomes/Goals Expected Outcomes/Goals Oral intake >75% of meals, weight stable, nutrition related labs WNL F/U in 7 days as LR 01/17
--- NOTE | 2018-01-12 20:34 | Progress Notes ---
DATE: 01/12/2018 SUBJECTIVE: The patient is intrusive, gets agitated, refusing medications, gets aggressive. The patient required emergency medications a few days prior, needs a lot of redirection, remains confused. We tried to talk to him, but he changes topics. Does not know where he is or what is going on. The patient got really upset and combative last week, wandering in the unit, very impulsive, unpredictable, demanding to leave. ASSESSMENT: The patient remains symptomatic, still concerns about aggressive behaviors, agitation, ongoing confusion. MEDICATIONS: Reviewed. PLAN: We will continue to monitor. We will titrate and adjust medications. Place a 14-day hold. Transfer to [facility]. JOB# [id number]
[2018-01-12] MEDS: cefTRIAXone 1 GM in Sodium Chloride 0.9% 50 ML IV SCH (21:26)
[2018-01-13] MEDS: Albuterol/Ipratropium Neb 3 ML AERS HHN SCH ×5 (02:52→15:34)
[2018-01-13] MEDS: Hydrocodone/APAP 5mg/325mg Tab PO PRN ×2 (08:04→13:20)
[2018-01-13] MEDS: Aspirin 81mg Chewable Tab PO SCH (08:51)
[2018-01-13] MEDS: Multivitamin Tab PO SCH (08:52)
[2018-01-13] MEDS: NIFEdipine 30 mg ER Tab PO SCH (08:52)
[2018-01-13] MEDS: guaiFENesin 200 MG/10 ML UDC PO PRN (11:35)
--- NOTE | 2018-01-13 13:34 | Internal Medicine Prog Note ---
Internal Medicine Subjective - Subjective Service Date: 01/13/18 Patient seen and examined:: with staff Patient is:: awake, verbal, in bed, talking, confused Per staff patient has:: no adverse event Internal Medicine Objective - Results Result Diagrams: 01/07/18 06:10 01/07/18 06:10 Recent Labs: Laboratory Last Values WBC 10.3 Th/cmm (4.8-10.8) 01/07/18 06:10 RBC 3.51 Mil/cmm (3.80-5.80) L 01/07/18 06:10 Hgb 10.2 gm/dL (12-16) L 01/07/18 06:10 Hct 30.7 % (41.0-60) L 01/07/18 06:10 MCV 87.6 fl (80-99) 01/07/18 06:10 MCH 29.2 pg (27.0-31.0) 01/07/18 06:10 MCHC Differential 33.3 pg (28.0-36.0) 01/07/18 06:10 RDW 13.4 % (11.5-20.0) 01/07/18 06:10 Plt Count 262 Th/cmm (150-400) 01/07/18 06:10 MPV 7.8 fl 01/07/18 06:10 Add Manual Diff YES 01/07/18 06:10 Neutrophils % 82.2 % (40.0-80.0) H 01/06/18 22:35 Band Neutrophils % 1 % (0-10) 01/07/18 06:10 Lymphocytes % 10.5 % (20.0-50.0) L 01/06/18 22:35 Monocytes % 5.2 % (2.0-10.0) 01/06/18 22:35 Eosinophils % 1.2 % (0.0-5.0) 01/06/18 22:35 Basophils % 0.9 % (0.0-2.0) 01/06/18 22:35 Neutrophils (Manual) 74 % (40-80) 01/07/18 06:10 Lymphocytes 20 % (20-50) 01/07/18 06:10 Monocytes 4 % (2-10) 01/07/18 06:10 Eosinophils 1 % (0-5) 01/07/18 06:10 Basophils 0 % (0-3) 01/07/18 06:10 Platelet Estimate ADEQUATE (NORMAL) 01/07/18 06:10 Sodium 139 mEq/L (136-145) 01/07/18 06:10 Potassium 4.3 mEq/L (3.5-5.1) 01/07/18 06:10 Chloride 109 mEq/L (98-107) H 01/07/18 06:10 Carbon Dioxide 25.0 mEq/L (21.0-31.0) 01/07/18 06:10 Anion Gap 9.3 (7.0-16.0) 01/07/18 06:10 BUN 23 mg/dL (7-25) 01/07/18 06:10 Creatinine 1.2 mg/dL (0.7-1.3) 01/07/18 06:10 Est GFR ( Amer) TNP 01/07/18 06:10 Est GFR (Non-Af Amer) TNP 01/07/18 06:10 BUN/Creatinine Ratio 19.2 01/07/18 06:10 Glucose 91 mg/dL (70-105) 01/07/18 06:10 Calcium 8.9 mg/dL (8.6-10.3) 01/07/18 06:10 Total Bilirubin 0.2 mg/dL (0.3-1.0) L 01/07/18 06:10 AST 20 U/L (13-39) 01/07/18 06:10 ALT 22 U/L (7-52) 01/07/18 06:10 Alkaline Phosphatase 34 U/L (34-104) 01/07/18 06:10 Troponin I 0.02 ng/mL (0.01-0.05) 01/06/18 22:35 B-Natriuretic Peptide 204.0 pg/mL (5.0-100.0) H 01/06/18 22:35 Total Protein 5.1 gm/dL (6.0-8.3) L 01/07/18 06:10 Albumin 3.6 gm/dL (4.2-5.5) L 01/07/18 06:10 Globulin 1.5 gm/dL 01/07/18 06:10 Albumin/Globulin Ratio 2.4 (1.0-1.8) H 01/07/18 06:10 - Physical Exam Vitals and I&O: Vital Signs Temp 98.9 F 01/13/18 00:45 Pulse 86 01/13/18 11:25 Resp 18 01/13/18 11:28 BP 159/80 01/13/18 00:45 Pulse Ox 97 01/13/18 11:25 Intake & Output 01/12/18 01/13/18 01/13/18 18:59 06:59 18:59 Intake Total 1200 Balance 1200 Weight (lbs) 43.998 kg Intake: Oral 1200 Other: # Voids 4 # Bowel Movements 0 Weight Source Estimated Active Medications: Current Medications Acetaminophen (Tylenol) 650 mg PO Q6H PRN PRN Reason: Mild-Mod. pain or fever >101 Acetaminophen/Hydrocodone Bitart ([place] 5mg/325mg) 1 tab PO Q4H PRN PRN Reason: Pain (Severe) Stop: 03/08/18 13:11 Last Admin: 01/13/18 08:04 Dose: 1 tab Albuterol/Ipratropium (Duoneb Neb) 3 ml HHN Q4HRT [facility] Stop: 03/08/18 03:59 Last Admin: 01/13/18 11:22 Dose: 3 ml Ascorbic Acid (Vitamin C) 500 mg PO DAILY [facility] Stop: 03/09/18 08:59 Last Admin: 01/13/18 08:51 Dose: Not Given Aspirin (Aspirin Chewable) 81 mg PO DAILY [facility] Stop: 03/09/18 08:59 Last Admin: 01/13/18 08:51 Dose: Not Given Atorvastatin Calcium (Lipitor) 40 mg PO [facility] Stop: 03/08/18 20:59 Last Admin: 01/12/18 21:26 Dose: Not Given Divalproex Sodium (Depakote Dr) 125 mg PO TID [facility]; Protocol Stop: 03/08/18 13:59 Last Admin: 01/13/18 08:05 Dose: 125 mg Docusate Sodium (Colace) 100 mg PO BID [facility] Stop: 03/08/18 16:59 Last Admin: 01/13/18 08:51 Dose: Not Given Donepezil HCl (Aricept) 5 mg PO HS [facility] Stop: 03/08/18 20:59 Last Admin: 01/12/18 21:27 Dose: Not Given Guaifenesin (Robitussin) 200 mg PO Q4HR PRN PRN Reason: Cough or Congestion Stop: 03/09/18 18:16 Last Admin: 01/13/18 11:35 Dose: 200 mg Azithromycin 500 mg/ Sodium (Chloride) 250 mls @ 250 mls/hr IV Q24HR [facility] Stop: 03/08/18 01:29 Last Infusion: 01/11/18 01:59 Dose: Infused Ceftriaxone Sodium 1 gm/ (Sodium Chloride) 50 mls @ 100 mls/hr IV Q24HR [facility] Stop: 03/08/18 20:59 Last Admin: 01/12/18 21:26 Dose: Not Given Potassium Chloride/Dextrose/Sod Cl (D5-0.45ns W/20 Meq Kcl) 1,000 mls @ 75 mls/ hr IV .[id number] [facility] Stop: 03/08/18 00:59 Last Admin: 01/10/18 23:18 Dose: 75 mls/hr Lactulose (Cephulac) 20 gm PO Q6H PRN PRN Reason: Constipation Stop: 03/08/18 13:11 Last Admin: 01/10/18 10:02 Dose: 20 gm Lorazepam (Ativan) 0.5 mg PO Q6HR PRN; Protocol PRN Reason: Agitation Stop: 03/08/18 10:12 Last Admin: 01/13/18 08:05 Dose: 0.5 mg Magnesium Hydroxide (Milk Of Magnesia) 30 ml PO HS PRN PRN Reason: Constipation Stop: 03/08/18 13:11 Last Admin: 01/09/18 21:20 Dose: 30 ml Memantine (Namenda) 5 mg PO DAILY [facility] Stop: 03/09/18 08:59 Last Admin: 01/13/18 08:51 Dose: Not Given Miscellaneous (Probiotic Screen) 1 ea MC PRN PRN PRN Reason: PROTOCOL Stop: 03/13/18 12:22 Multivitamins/Vitamin C (Theragran) 1 tab PO DAILY [facility] Stop: 03/09/18 08:59 Last Admin: 01/13/18 08:52 Dose: Not Given Mupirocin (Bactroban Oint) 1 appl NS BID [facility] Stop: 01/13/18 17:01 Last Admin: 01/12/18 17:09 Dose: 1 appl Nifedipine (Procardia Xl) 60 mg PO DAILY [facility] Stop: 03/09/18 08:59 Last Admin: 01/13/18 08:52 Dose: Not Given Prednisone (Deltasone) 40 mg PO DAILY [facility] Stop: 03/09/18 08:59 Last Admin: 01/13/18 08:04 Dose: 40 mg Quetiapine Fumarate (Seroquel) 25 mg PO BID [facility]; Protocol Stop: 03/08/18 16:59 Last Admin: 01/13/18 08:05 Dose: 25 mg Trazodone HCl (Desyrel) 50 mg PO HS [facility]; Protocol Stop: 03/08/18 20:59 Last Admin: 01/12/18 21:27 Dose: Not Given General: alert, demented HEENT: NC/AT, PERRLA, EOMI, anicteric sclerae, throat clear Neck: Supple, No JVD, No thyromegaly, +2 carotid pulse wo bruit, No LAD Lungs: CTAB Cardiovascular: RRR, Normal S1, Normal S2, without murmur Abdomen: non-tender, non-distended Extremities: clear Neurological: no change Internal Medicine Assmt/Plan - Assessment Assessment: 1.PNEUMONIA. 2.COPD. 3.PSYCHOSIS. 4.ENCEPHALOPATHY - Plan Plan: CONTINUE ON CURRENT MEDICATION AND DIET. Nutritional Asmnt/Malnutr-PDOC - Dietary Evaluation Malnutrition Findings (Please click <Entered> for more info): Nutritional Asmnt/Malnutrition Start: 01/10/18 14: 14 Text: Status: Complete Freq: Protocol: Document 01/10/18 14:15 MMRACHEAL (Rec: 01/10/18 14:25 MMRACHEAL MOSHER- FNS1) Nutritional Asmnt/Malnutrition Patient General Information Nutritional Screening Moderate Risk Diagnosis Pneumonia, COPD Pertinent Medical Hx/Surgical Hx COPD, paroxysmal atrial fibrillation, dementia, psychosis Subjective Information Per nursing notes, patient with aggressive behavior. Tolerating current diet order without difficulty. Current Diet Order/ Nutrition Support Regular Patient / S.O Not Indicated Pertinent Medications Vitamin C, lipitor, Abx, colace, lactulose, MOM, Theragran, D5-0.45NS w/20 meq Kcl @ 75 ml/hr, Prednisone Pertinent Labs (01/07) Albumin 3.6 (decreasing ) Nutritional Hx/Data Height 1.5 m Height (Calculated Centimeters) 149.9 Current Weight (lbs) 46.72 kg Weight (Calculated Kilograms) 46.7 Weight (Calculated Grams) 20169.0 [place] Body Weight 103 % [place] Body Weight 100 Body Mass Index (BMI) 20.7 Recent Weight Change No Weight Status Approriate GI Symptoms GI Symptoms None Last BM 01/09 x 2 Difficult in: None Food Allergies No Cultural/Ethnic/Yazidi Belief None indicated Usual diet at home Unknown Skin Integrity/Comment: Vick 20, Intact Current %PO Fair (50-74%) Estimated Nutritional Goals BEE in Kcals: Using Current wt Calories/Kcals/Kg 25-30 kcal/kg Using CBW 46.8kg Kcals Calculated ~9277-1891 kcal/day Protein: Using Current wt Protein g/k gm/kg Protein Calculated ~45 gm/day Fluid: ml ~6326-8783 ml/day (1 ml/kcal) Nutritional Problem 1. Problem Problem No nutrition diagnosis at this time Intervention/Recommendation Comments 1. Continue Regular diet as tolerated by patient. 2. Provided assistance with meals as needed. Expected Outcomes/Goals Expected Outcomes/Goals Oral intake >75% of meals, weight stable, nutrition related labs WNL F/U in 7 days as LR 01/17
--- NOTE | 2018-01-14 01:57 | Progress Notes ---
DATE: 01/13/2018 FOLLOWUP NOTE SUBJECTIVE: The patient remains confused. He knows where he is. He has no idea why he is here. He does not know the year or the month, believing it sometime in the , believing it is March, remains agitated per nursing staff, needing redirection, very irritable, upset, highly impulsive, unpredictable, requiring emergency Ativan over the past 24 hours, needs transfer to [facility], refusing all medications, remains unstable, aggressive. ASSESSMENT: The patient agitated, aggressive, requiring emergency medications, refusing medications, gets very mad very quickly, escalates very fast, has been violent last week. PLAN: We will continue to monitor, transferred to [facility]. JOB# [id number]
--- NOTE | 2018-02-16 21:03 | Discharge Summary ---
DATE OF DISCHARGE: 01/13/2018 FINAL DIAGNOSES: 1. Gram-negative bilateral pneumonia. 2. Acute exacerbation of chronic obstructive pulmonary disease. 3. Paroxysmal atrial fibrillation. 4. Hypercoagulability state. 5. Dementia. 6. Psychosis. REVIEW OF HISTORY: The patient is an 87-year-old male with long history of advanced COPD, paroxysmal atrial fibrillation, and dementia, presented to the Emergency Room with cough, shortness of breath, and confusion, evaluated by the ER physician. Initial workup significant for possible gram-negative bilateral pneumonia, acute exacerbation of COPD, admitted to the hospital, started him on IV fluid, antibiotic. PHYSICAL EXAMINATION: VITAL SIGNS: Temperature 98, heart rate 79, and blood pressure 136/70. CHEST: Diminished breathing sound. HEART: S1, S2 normal. ABDOMEN: Soft, bowel sounds positive. LABORATORY DATA: White blood cell 10.3, hemoglobin 10.2, and hematocrit 30.7. Sodium 139, potassium 4.3. COURSE OF HOSPITALIZATION: During his hospitalization, the patient improved clinically and was seen by psychiatrist, Dr. Shelley and he suggested to stabilize clinically and transferring to the [facility] on the 01/10/2018. The patient was doing better, less shortness of breath, no chest pain, no nausea, no vomiting. On 01/12/2018, the patient was afebrile. Chest, good entry of air. Heart: S1, S2 normal. Abdomen soft, bowel sounds positive. DISPOSITION: On the 01/13/2018, the patient transferred to the [facility] Department under Dr. Shelley's service to continue his medication and diet. CONDITION ON DISCHARGE: Stable. MEDICATIONS: Follow discharge reconciliation. [facility]# [id number]
== END 2018-01-13 18:49 | DRG 177 ==
LOC: ER 22:10 → MSI 01-07 00:45
PROVIDERS: ADMIT Family Medicine; ATTEND Family Medicine
DX: J15.6 Pneumonia due to other Gram-negative bacteria (principal); E43 Unspecified severe protein-calorie malnutrition; G93.40 Encephalopathy, unspecified; J44.1 Chronic obstructive pulmonary disease with (acute) exacerbation; J44.0 Chronic obstructive pulmonary disease with (acute) lower respiratory infection; I48.0 Paroxysmal atrial fibrillation; F03.90 Unspecified dementia, unspecified severity, without behavioral disturbance, psychotic disturbance, mood disturbance, and anxiety; F29 Unspecified psychosis not due to a substance or known physiological condition; K59.00 Constipation, unspecified; I10 Essential (primary) hypertension; E78.5 Hyperlipidemia, unspecified; M81.0 Age-related osteoporosis without current pathological fracture; F32.9 Major depressive disorder, single episode, unspecified; E86.0 Dehydration; F41.9 Anxiety disorder, unspecified; Z86.73 Personal history of transient ischemic attack (TIA), and cerebral infarction without residual deficits
CPT/HCPCS: 36415-UA; 71045-TC; 80053-TC; 83880-TC; 84484-TC; 85007-TC; 85025-TC; 90784; 94640; 94760; 96375; J0456; J0696; J1200; J1630; J2060; J3230; Z7610

== ENCOUNTER 2018-01-13 18:57 | Inpatient (IN) | payer MEDICARE, OTHER ==
[2018-01-13 20:23] VITALS: BP 158/85
[2018-01-13] MEDS ORDERED: Lactulose 10 Gm/15 mL 30mL UDC PO PRN (21:32)
[2018-01-13] MEDS ORDERED: ALBUTEROL SULFATE 0.63 MG IH PRN (21:32)
[2018-01-14] MEDS: Albuterol Nebulizer 2.5mg/3mL HHN PRN ×4 (01:08→19:11)
[2018-01-14] MEDS: Hydrocodone/APAP 5mg/325mg Tab PO PRN ×4 (04:57→23:02)
[2018-01-14] MEDS ORDERED: PREDNISONE 40 MG PO SCH (09:00)
[2018-01-14] MEDS ORDERED: Non-Formulary Item 1 EA (Nifedipine [Nifedipine Er] 60 MG) PO SCH (09:00)
[2018-01-14] MEDS ORDERED: Non-Formulary Item 1 EA (Multivitamin [Multivitamins] 1 TAB) PO SCH (09:00)
[2018-01-14] MEDS: NIFEdipine 30 mg ER Tab PO SCH (09:06)
[2018-01-14] MEDS: Multivitamin Tab PO SCH (09:06)
[2018-01-14] MEDS: Aspirin 81mg Chewable Tab PO SCH (09:06)
[2018-01-14] MEDS: Maalox 30 mL Cup PO PRN (12:05)
[2018-01-14] MEDS ORDERED: Non-Formulary Item 1 EA (Melatonin [Melatonin] 6 MG) PO SCH (21:00)
[2018-01-14] MEDS ORDERED: Non-Formulary Item 1 EA (Atorvastatin Calcium [Lipitor] 40 MG) PO SCH (21:00)
[2018-01-14] MEDS: Magnesium Hydroxide (MOM) 30 mL UDC PO PRN (21:23)
--- NOTE | 2018-01-14 21:53 | Progress Notes ---
DATE: 01/14/2018 SUBJECTIVE: The patient had been quite combative, unruly, agitated and required emergency medications when he had originally been to the hospital, now on the Gerops[facility] Unit, calmer, more cooperative, stating that he promises that he will be calmer, erratic medication compliance, remains impulsive, unpredictable, but seemingly calmer. Certainly remains confused and disoriented. He knows where he is. He knows that he is in the hospital. He is not quite sure about the year, the month or the day of the week, does not know why he is here, selective with medications, refusing most medications, remains forgetful. ASSESSMENT: The patient remains symptomatic, impulsive, very unpredictable. We will continue to encourage medication compliance. The patient with history of dementia, we will monitor and follow up. JOB# [id number]
[2018-01-14] MEDS ORDERED: Non-Formulary Item 1 EA (Acetaminophen [Tylenol] 650 MG) PO PRN (22:22)
--- NOTE | 2018-01-14 23:32 | History & Physical ---
ADMIT DATE: 01/13/2018 HISTORY OF PRESENT ILLNESS: The patient is an 87-year-old male with long history of hypertension, COPD, hyperlipidemia, dementia, and degenerative joint disease; admitted to [facility] medical floor with pneumonia and acute exacerbation of COPD. The patient transferred to the [facility] for more advanced treatment. Apparently, the patient has been very agitated and refusing medication. The patient was evaluated by Dr. Shelley and he decided to admit him to [facility]. The patient is a very poor historian. PAST MEDICAL HISTORY: Significant for hypertension, COPD, hyperlipidemia, and dementia. PAST SURGICAL HISTORY: No recent surgery. ALLERGIES: None. MEDICATIONS: Follow admission reconciliation. SOCIAL HISTORY: Chronic smoker. No alcohol, no drugs. FAMILY HISTORY: Noncontributory. REVIEW OF SYSTEMS: RENAL SYSTEM: No history of chronic renal disorder. CARDIOVASCULAR SYSTEM: Has history of hypertension. ENDOCRINE SYSTEM: No diabetes or thyroid problem. GASTROINTESTINAL SYSTEM: No upper or lower gastrointestinal bleed. NEUROLOGICAL SYSTEM: No seizure disorder. MUSCULOSKELETAL SYSTEM: No muscular dystrophy. HEMATOLOGICAL SYSTEM: No bleeding tendencies. RESPIRATORY SYSTEM: History of COPD. GENITOURINARY SYSTEM: No dysuria or hematuria. PHYSICAL EXAMINATION: GENERAL: He is awake, alert, mildly confused. VITAL SIGNS: Temperature is 98.1, heart rate 83, and blood pressure 162/72. HEENT: Normocephalic. Pupils are reactive to light and accommodation. Sclerae clear. NECK: Supple. Negative for lymphadenopathy, JVD, or bruit. CHEST: Entry of air bilaterally diminished. HEART: S1, S2 normal. ABDOMEN: Soft, bowel sounds positive. EXTREMITIES: No edema. NEUROLOGIC: He is awake, alert, mildly confused. No focal motor or sensory deficit. ASSESSMENT: 1. Hypertension. 2. Chronic obstructive pulmonary disease. 3. Hyperlipidemia. 4. Dementia. PLAN: The patient was admitted to the hospital under Dr. Shelley's service. Medical problems addressed during hospitalization dementia. Medical problem to be addressed at discharge are hypertension and COPD. The patient is medically stable for activity. Thank you, Dr. Shelley for asking me to see your patient. JOB# [id number]
[2018-01-15] MEDS: Albuterol Nebulizer 2.5mg/3mL HHN PRN ×6 (01:43→23:25)
[2018-01-15] MEDS: Aspirin 81mg Chewable Tab PO SCH (10:11)
[2018-01-15] MEDS: Multivitamin Tab PO SCH (10:12)
[2018-01-15] MEDS: NIFEdipine 30 mg ER Tab PO SCH (10:12)
--- NOTE | 2018-01-15 16:06 | Progress Notes ---
DATE: 01/15/2018 SUBJECTIVE: The patient is currently in the hospital, had been a pretty aggressive, agitated, remains impulsive, unpredictable, very confused, forgetful, pretty irritable on exam, requiring constant redirection, prompting. He is calm at this time and is very selective with medications, not wanting to take some medications, eating fairly well, sleeping well. He remains pretty confused. ASSESSMENT: The patient remains symptomatic, ongoing confusion, disorientation, impulsivity, anger. PLAN: We will continue to monitor, as of right now the patient has nowhere to go, considered gravely disabled. We will attempt to secure a safe disposition plan. [facility]# [id number]
[2018-01-15] MEDS: Lactulose 10 Gm/15 mL 30mL UDC PO SCH (21:07)
--- NOTE | 2018-01-15 23:43 | Internal Medicine Prog Note ---
Internal Medicine Subjective - Subjective Service Date: 01/15/18 Patient seen and examined:: with staff Patient is:: awake, ambulating, talking, confused Per staff patient has:: no adverse event Internal Medicine Objective - Physical Exam Vitals and I&O: Vital Signs Temp 97.4 F 01/15/18 14:00 Pulse 89 01/15/18 23:27 Resp 22 01/15/18 23:27 BP 150/86 01/15/18 14:00 Pulse Ox 98 01/15/18 23:27 Intake & Output 01/15/18 01/15/18 01/16/18 06:59 18:59 06:59 Intake Total 120 1200 Balance 120 1200 Intake: Oral 120 1200 Other: # Voids 3 # Bowel Movements 1 Active Medications: Current Medications Acetaminophen (Tylenol) 650 mg PO Q4HR PRN PRN Reason: Mild Pain / Temp above 100 Stop: 03/14/18 20:23 Acetaminophen/Hydrocodone Bitart ([place] 5mg/325mg) 1 tab PO Q4H PRN PRN Reason: Pain (Severe) (LEVEL 1-3) Stop: 03/14/18 21:31 Last Admin: 01/14/18 23:02 Dose: 1 tab Al Hydrox/Mg Hydrox/Simethicone (Maalox) 30 ml PO Q4HR PRN PRN Reason: GI DISTRESS Stop: 03/14/18 20:23 Last Admin: 01/14/18 12:05 Dose: 30 ml Albuterol (Ventolin) mg PO Q4H PRN PRN Reason: COPD Stop: 03/14/18 21:31 Albuterol Sulfate (Albuterol 2.5mg/3ml Neb Ud) 2.5 mg HHN Q4HRT PRN PRN Reason: Shortness of Breath Stop: 03/14/18 22:49 Last Admin: 01/15/18 23:25 Dose: 2.5 mg Ascorbic Acid (Vitamin C) 500 mg PO DAILY [facility] Stop: 03/15/18 08:59 Last Admin: 01/15/18 10:11 Dose: Not Given Aspirin (Aspirin Chewable) 81 mg PO DAILY [facility] Stop: 03/15/18 08:59 Last Admin: 01/15/18 10:11 Dose: Not Given Atorvastatin Calcium (Lipitor) 40 mg PO HS [facility]; Protocol Stop: 03/15/18 20:59 Last Admin: 01/15/18 21:06 Dose: Not Given Divalproex Sodium (Depakote Dr) 125 mg PO TID [facility]; Protocol Stop: 03/15/18 00:00 Last Admin: 01/15/18 21:06 Dose: Not Given Docusate Sodium (Colace) 100 mg PO BID [facility] Stop: 03/15/18 08:59 Last Admin: 01/15/18 16:36 Dose: Not Given Donepezil HCl (Aricept) 5 mg PO HS [facility] Stop: 03/15/18 20:59 Last Admin: 01/15/18 21:06 Dose: Not Given Lactulose (Cephulac) 20 gm PO HS [facility] Stop: 03/16/18 20:59 Last Admin: 01/15/18 21:07 Dose: 20 gm Lorazepam (Ativan) 0.5 mg PO Q4HR PRN; Protocol PRN Reason: Anxiety Stop: 02/12/18 20:23 Magnesium Hydroxide (Milk Of Magnesia) 30 ml PO HS PRN PRN Reason: Constipation Stop: 03/14/18 21:31 Last Admin: 01/14/18 21:23 Dose: 30 ml Memantine (Namenda) 5 mg PO DAILY [facility] Stop: 03/15/18 08:59 Last Admin: 01/15/18 10:11 Dose: Not Given Multivitamins/Vitamin C (Theragran) 1 tab PO DAILY [facility] Stop: 03/15/18 08:59 Last Admin: 01/15/18 10:12 Dose: Not Given Nifedipine (Procardia Xl) 60 mg PO DAILY [facility] Stop: 03/15/18 08:59 Last Admin: 01/15/18 10:12 Dose: Not Given Prednisone (Deltasone) 40 mg PO DAILY [facility] Stop: 03/15/18 08:59 Last Admin: 01/15/18 10:12 Dose: Not Given Trazodone HCl (Desyrel) 50 mg PO HS [facility]; Protocol Stop: 03/15/18 20:59 Last Admin: 01/15/18 21:07 Dose: Not Given Zolpidem Tartrate (Ambien) 5 mg PO HS PRN PRN Reason: Insomnia Stop: 03/14/18 20:23 General: alert, thin HEENT: NC/AT, PERRLA, EOMI, anicteric sclerae, throat clear Neck: Supple, No JVD, No thyromegaly, +2 carotid pulse wo bruit, No LAD Cardiovascular: Normal S1, Normal S2, without murmur Abdomen: non-tender, non-distended Neurological: no change Internal Medicine Assmt/Plan - Assessment Assessment: 1.COPD. 2.HTN. 3.DJD. 4.DEMENTIA. - Plan Plan: CONTINUE ON CURRENT MEDICATION AND DIET.
[2018-01-16] MEDS: Hydrocodone/APAP 5mg/325mg Tab PO PRN ×3 (00:07→16:29)
[2018-01-16] MEDS: Albuterol Nebulizer 2.5mg/3mL HHN PRN ×6 (04:14→22:54)
[2018-01-16] MEDS: Aspirin 81mg Chewable Tab PO SCH (09:06)
[2018-01-16] MEDS: NIFEdipine 30 mg ER Tab PO SCH (09:07)
[2018-01-16] MEDS: Multivitamin Tab PO SCH (09:07)
[2018-01-16] MEDS: Lactulose 10 Gm/15 mL 30mL UDC PO SCH (20:51)
--- NOTE | 2018-01-16 21:47 | Progress Notes ---
DATE: 01/16/2018 SUBJECTIVE: The patient remains somewhat intrusive, having some difficulty breathing, getting breathing treatment, gets agitated at times requiring a lot of redirection, selective with medications. No combative behaviors, but can escalate very quickly, focused on smoking. The patient remains confused, disoriented, really has no idea why he is here, complaining of some constipation. I did address this with staff, very forgetful, irritable, restless. ASSESSMENT: The patient's ongoing symptoms indicative of dangerousness, agitated, irritable, cannot escalate very quickly, sometimes does not want to take medicine. The patient talking about [place], disability, I am not really sure and I am not really quite understanding what he means by this. PLAN: We will continue to monitor, titrate and adjust medications. Encourage better med compliance. JOB# [id number]
--- NOTE | 2018-01-16 22:33 | Internal Medicine Prog Note ---
Internal Medicine Subjective - Subjective Service Date: 01/16/18 Patient seen and examined:: with staff Patient is:: awake, ambulating, talking, confused Per staff patient has:: no adverse event Internal Medicine Objective - Physical Exam Vitals and I&O: Vital Signs Temp 99.3 F 01/16/18 14:00 Pulse 86 01/16/18 18:55 Resp 22 01/16/18 18:55 BP 149/77 01/16/18 14:00 Pulse Ox 97 01/16/18 18:55 Intake & Output 01/16/18 01/16/18 01/17/18 06:59 18:59 06:59 Intake Total 1200 Balance 1200 Intake: Oral 1200 Other: # Bowel Movements 1 Active Medications: Current Medications Acetaminophen (Tylenol) 650 mg PO Q4HR PRN PRN Reason: Mild Pain / Temp above 100 Stop: 03/14/18 20:23 Acetaminophen/Hydrocodone Bitart ([place] 5mg/325mg) 1 tab PO Q4H PRN PRN Reason: Pain (Severe) (LEVEL 1-3) Stop: 03/14/18 21:31 Last Admin: 01/16/18 16:29 Dose: 1 tab Al Hydrox/Mg Hydrox/Simethicone (Maalox) 30 ml PO Q4HR PRN PRN Reason: GI DISTRESS Stop: 03/14/18 20:23 Last Admin: 01/14/18 12:05 Dose: 30 ml Albuterol Sulfate (Albuterol 2.5mg/3ml Neb Ud) 2.5 mg HHN Q4HRT PRN PRN Reason: Shortness of Breath Stop: 03/14/18 22:49 Last Admin: 01/16/18 18:55 Dose: 2.5 mg Ascorbic Acid (Vitamin C) 500 mg PO DAILY [facility] Stop: 03/15/18 08:59 Last Admin: 01/16/18 09:06 Dose: Not Given Aspirin (Aspirin Chewable) 81 mg PO DAILY [facility] Stop: 03/15/18 08:59 Last Admin: 01/16/18 09:06 Dose: Not Given Atorvastatin Calcium (Lipitor) 40 mg PO HS [facility]; Protocol Stop: 03/15/18 20:59 Last Admin: 01/16/18 20:49 Dose: Not Given Divalproex Sodium (Depakote Dr) 125 mg PO TID [facility]; Protocol Stop: 03/15/18 00:00 Last Admin: 01/16/18 20:49 Dose: Not Given Docusate Sodium (Colace) 100 mg PO BID [facility] Stop: 03/15/18 08:59 Last Admin: 01/16/18 16:44 Dose: Not Given Donepezil HCl (Aricept) 5 mg PO HS [facility] Stop: 03/15/18 20:59 Last Admin: 01/16/18 20:50 Dose: Not Given Lactulose (Cephulac) 20 gm PO HS [facility] Stop: 03/16/18 20:59 Last Admin: 01/16/18 20:51 Dose: Not Given Lorazepam (Ativan) 0.5 mg PO Q4HR PRN; Protocol PRN Reason: Anxiety Stop: 02/12/18 20:23 Magnesium Hydroxide (Milk Of Magnesia) 30 ml PO HS PRN PRN Reason: Constipation Stop: 03/14/18 21:31 Last Admin: 01/14/18 21:23 Dose: 30 ml Memantine (Namenda) 5 mg PO DAILY [facility] Stop: 03/15/18 08:59 Last Admin: 01/16/18 09:07 Dose: Not Given Multivitamins/Vitamin C (Theragran) 1 tab PO DAILY [facility] Stop: 03/15/18 08:59 Last Admin: 01/16/18 09:07 Dose: Not Given Nifedipine (Procardia Xl) 60 mg PO DAILY [facility] Stop: 03/15/18 08:59 Last Admin: 01/16/18 09:07 Dose: Not Given Prednisone (Deltasone) 40 mg PO DAILY [facility] Stop: 03/15/18 08:59 Last Admin: 01/16/18 09:08 Dose: Not Given Trazodone HCl (Desyrel) 50 mg PO HS [facility]; Protocol Stop: 03/15/18 20:59 Last Admin: 01/16/18 20:51 Dose: Not Given Zolpidem Tartrate (Ambien) 5 mg PO HS PRN PRN Reason: Insomnia Stop: 03/14/18 20:23 General: alert, thin HEENT: NC/AT, PERRLA, EOMI, anicteric sclerae, throat clear Neck: Supple, No JVD, No thyromegaly, +2 carotid pulse wo bruit, No LAD Cardiovascular: Normal S1, Normal S2, without murmur Abdomen: non-tender, non-distended Neurological: no change Internal Medicine Assmt/Plan - Assessment Assessment: 1.COPD. 2.HTN. 3.DJD. 4.DEMENTIA. - Plan Plan: CONTINUE ON CURRENT MEDICATION AND DIET.
[2018-01-17] MEDS: Albuterol Nebulizer 2.5mg/3mL HHN PRN ×4 (02:54→14:30)
--- NOTE | 2018-01-17 06:49 | Progress Notes ---
DATE: 01/17/2018 SUBJECTIVE: The patient slept about 4 hours last only, does not want to take medications, irritable, disruptive, impulsive, sometimes gets upset, increased agitation. He is redirectable, but curses, uses profanity words, demanding to leave, does not know where he is or why he is here, does not know the day of the week, forgetful. ASSESSMENT: The patient is agitated, uncooperative, refusing medications, becomes unruly, posturing at times, argumentative, cursing at staff. PLAN: We will continue to monitor, encourage better medication compliance. We will continue to monitor, titrate and adjust medications. JOB# [id number]
[2018-01-17] MEDS: Aspirin 81mg Chewable Tab PO SCH (08:38)
[2018-01-17] MEDS: Multivitamin Tab PO SCH (08:39)
[2018-01-17] MEDS: NIFEdipine 30 mg ER Tab PO SCH (08:39)
--- NOTE | 2018-01-17 18:05 | Internal Medicine Prog Note ---
Internal Medicine Subjective - Subjective Service Date: 01/17/18 Patient seen and examined:: with staff Patient is:: awake, ambulating, talking, confused Per staff patient has:: no adverse event Internal Medicine Objective - Physical Exam Vitals and I&O: Vital Signs Temp 98.5 F 01/17/18 14:00 Pulse 86 01/17/18 14:32 Resp 20 01/17/18 14:32 BP 144/69 01/17/18 14:00 Pulse Ox 98 01/17/18 14:32 Intake & Output 01/16/18 01/17/18 01/17/18 18:59 06:59 18:59 Intake Total 1200 Balance 1200 Intake: Oral 1200 Other: # Bowel Movements 1 Active Medications: Current Medications Acetaminophen (Tylenol) 650 mg PO Q4HR PRN PRN Reason: Mild Pain / Temp above 100 Stop: 03/14/18 20:23 Acetaminophen/Hydrocodone Bitart ([place] 5mg/325mg) 1 tab PO Q4H PRN PRN Reason: Pain (Severe) (LEVEL 1-3) Stop: 03/14/18 21:31 Last Admin: 01/16/18 16:29 Dose: 1 tab Al Hydrox/Mg Hydrox/Simethicone (Maalox) 30 ml PO Q4HR PRN PRN Reason: GI DISTRESS Stop: 03/14/18 20:23 Last Admin: 01/14/18 12:05 Dose: 30 ml Albuterol Sulfate (Albuterol 2.5mg/3ml Neb Ud) 2.5 mg HHN Q4HRT [facility] Stop: 03/18/18 14:59 Ascorbic Acid (Vitamin C) 500 mg PO DAILY [facility] Stop: 03/15/18 08:59 Last Admin: 01/17/18 08:38 Dose: Not Given Aspirin (Aspirin Chewable) 81 mg PO DAILY [facility] Stop: 03/15/18 08:59 Last Admin: 01/17/18 08:38 Dose: Not Given Atorvastatin Calcium (Lipitor) 40 mg PO HS [facility]; Protocol Stop: 03/15/18 20:59 Last Admin: 01/16/18 20:49 Dose: Not Given Divalproex Sodium (Depakote Dr) 125 mg PO TID [facility]; Protocol Stop: 03/15/18 00:00 Last Admin: 01/17/18 14:55 Dose: Not Given Docusate Sodium (Colace) 100 mg PO BID [facility] Stop: 03/15/18 08:59 Last Admin: 01/17/18 16:22 Dose: Not Given Donepezil HCl (Aricept) 5 mg PO HS [facility] Stop: 03/15/18 20:59 Last Admin: 01/16/18 20:50 Dose: Not Given Lactulose (Cephulac) 20 gm PO HS [facility] Stop: 03/16/18 20:59 Last Admin: 01/16/18 20:51 Dose: Not Given Lorazepam (Ativan) 0.5 mg PO Q4HR PRN; Protocol PRN Reason: Anxiety Stop: 02/12/18 20:23 Magnesium Hydroxide (Milk Of Magnesia) 30 ml PO HS PRN PRN Reason: Constipation Stop: 03/14/18 21:31 Last Admin: 01/14/18 21:23 Dose: 30 ml Memantine (Namenda) 5 mg PO DAILY [facility] Stop: 03/15/18 08:59 Last Admin: 01/17/18 08:39 Dose: Not Given Multivitamins/Vitamin C (Theragran) 1 tab PO DAILY [facility] Stop: 03/15/18 08:59 Last Admin: 01/17/18 08:39 Dose: Not Given Nifedipine (Procardia Xl) 60 mg PO DAILY [facility] Stop: 03/15/18 08:59 Last Admin: 01/17/18 08:39 Dose: Not Given Prednisone (Deltasone) 40 mg PO DAILY [facility] Stop: 03/15/18 08:59 Last Admin: 01/17/18 08:39 Dose: Not Given Trazodone HCl (Desyrel) 50 mg PO HS [facility]; Protocol Stop: 03/15/18 20:59 Last Admin: 01/16/18 20:51 Dose: Not Given Zolpidem Tartrate (Ambien) 5 mg PO HS PRN PRN Reason: Insomnia Stop: 03/14/18 20:23 General: alert, thin HEENT: NC/AT, PERRLA, EOMI, anicteric sclerae, throat clear Neck: Supple, No JVD, No thyromegaly, +2 carotid pulse wo bruit, No LAD Cardiovascular: Normal S1, Normal S2, without murmur Abdomen: non-tender, non-distended Neurological: no change Internal Medicine Assmt/Plan - Assessment Assessment: 1.COPD. 2.HTN. 3.DJD. 4.DEMENTIA. - Plan Plan: CONTINUE ON CURRENT MEDICATION AND DIET. Nutritional Asmnt/Malnutr-PDOC - Dietary Evaluation Malnutrition Findings (Please click <Entered> for more info): Nutritional Asmnt/Malnutrition Start: 01/17/18 09: 47 Text: Status: Complete Freq: Protocol: Document 01/17/18 09:47 NICOL (Rec: 01/17/18 09:51 NICOL MANUELN- [id number]) Nutritional Asmnt/Malnutrition Patient General Information Diagnosis psychosis Pertinent Medical Hx/Surgical Hx HTN, COPD, hyperlipidemia, dementia, DJD Subjective Information pt sitting rec room at time of visit would not speak to RD at time of visit. Current Diet Order/ Nutrition Support regular pureed Pertinent Medications maalox, kale lipitor, colace, lactulose, MOM, theragran, deltasone Pertinent Labs reviewed Nutritional Hx/Data Height 1.5 m Height (Calculated Centimeters) 149.9 Current Weight (lbs) 43.998 kg Weight (Calculated Kilograms) 44.0 Weight (Calculated Grams) 91199.5 Body Mass Index (BMI) 19.5 Weight Status Approriate GI Symptoms GI Symptoms None Last BM 01/16 Cultural/Ethnic/Roman Catholic Belief unknown Usual diet at home pureed Skin Integrity/Comment: phylicia score 16, intact Current %PO Fair (50-74%) Estimated Nutritional Goals BEE in Kcals: Using Current wt Calories/Kcals/Kg 25-30kcals/day Kcals Calculated 1100-1320kcals/day Protein: Using Current wt Protein g/kg: ~1g/kg Protein Calculated ~44g/day Fluid: ml 1100-1320ml/day (1ml/kcal) Nutritional Problem 1. 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
[2018-01-17] MEDS: Albuterol Nebulizer 2.5mg/3mL HHN SCH ×2 (19:38→22:55)
[2018-01-17] MEDS: Lactulose 10 Gm/15 mL 30mL UDC PO SCH (21:19)
[2018-01-18] MEDS: Albuterol Nebulizer 2.5mg/3mL HHN SCH ×6 (03:27→22:39)
--- NOTE | 2018-01-18 08:11 | Progress Notes ---
DATE: 01/18/2018 SUBJECTIVE: The patient was seen today, 01/18/2018. The patient is loud, at times belligerent and upset. The patient wandering and poorly oriented to name, place. The patient refusing to take medication and is somewhat paranoid, only wants medications that the daughter brings in. The patient with angry outbursts, hostile towards staff, yelling loudly. The patient telling me "This is not the hospital" and at some point telling me "go away, go away, go away" refusing to speak with me. ASSESSMENT: The patient refusing treatment, angry, hostile, verbal. We will continue to monitor, titrate and adjust medications. Encourage better med compliance. JOB# [id number]
[2018-01-18] MEDS: Multivitamin Tab PO SCH (09:14)
[2018-01-18] MEDS: Aspirin 81mg Chewable Tab PO SCH (09:14)
[2018-01-18] MEDS: NIFEdipine 30 mg ER Tab PO SCH (09:16)
[2018-01-18] MEDS: Lactulose 10 Gm/15 mL 30mL UDC PO SCH (20:57)
[2018-01-19] MEDS: Albuterol Nebulizer 2.5mg/3mL HHN SCH ×6 (02:19→22:24)
[2018-01-19] MEDS: Aspirin 81mg Chewable Tab PO SCH (09:52)
[2018-01-19] MEDS: Multivitamin Tab PO SCH (09:53)
[2018-01-19] MEDS: NIFEdipine 30 mg ER Tab PO SCH (09:53)
[2018-01-19] MEDS: Lactulose 10 Gm/15 mL 30mL UDC PO SCH (20:51)
--- NOTE | 2018-01-19 22:24 | Internal Medicine Prog Note ---
Internal Medicine Subjective - Subjective Service Date: 01/19/18 Patient seen and examined:: with staff Patient is:: awake, ambulating, talking, confused Per staff patient has:: no adverse event Internal Medicine Objective - Physical Exam Vitals and I&O: Vital Signs Temp 97.9 F 01/19/18 20:34 Pulse 88 01/19/18 20:34 Resp 20 01/19/18 20:34 BP 153/84 01/19/18 20:34 Pulse Ox 97 01/19/18 20:34 Intake & Output 01/19/18 01/19/18 01/20/18 06:59 18:59 06:59 Intake Total 240 800 240 Balance 240 800 240 Intake: Oral 240 800 240 Other: # Voids 1 3 1 # Bowel Movements 0 1 Active Medications: Current Medications Acetaminophen (Tylenol) 650 mg PO Q4HR PRN PRN Reason: Mild Pain / Temp above 100 Stop: 03/14/18 20:23 Last Admin: 01/19/18 11:41 Dose: 650 mg Acetaminophen/Hydrocodone Bitart ([place] 5mg/325mg) 1 tab PO Q4H PRN PRN Reason: Pain (Severe) (LEVEL 1-3) Stop: 03/14/18 21:31 Last Admin: 01/16/18 16:29 Dose: 1 tab Al Hydrox/Mg Hydrox/Simethicone (Maalox) 30 ml PO Q4HR PRN PRN Reason: GI DISTRESS Stop: 03/14/18 20:23 Last Admin: 01/14/18 12:05 Dose: 30 ml Albuterol Sulfate (Albuterol 2.5mg/3ml Neb Ud) 2.5 mg HHN Q4HRT [facility] Stop: 03/18/18 14:59 Last Admin: 01/19/18 19:02 Dose: 2.5 mg Ascorbic Acid (Vitamin C) 500 mg PO DAILY [facility] Stop: 03/15/18 08:59 Last Admin: 01/19/18 09:52 Dose: Not Given Aspirin (Aspirin Chewable) 81 mg PO DAILY [facility] Stop: 03/15/18 08:59 Last Admin: 01/19/18 09:52 Dose: Not Given Atorvastatin Calcium (Lipitor) 40 mg PO HS [facility]; Protocol Stop: 03/15/18 20:59 Last Admin: 01/19/18 20:51 Dose: Not Given Divalproex Sodium (Depakote Dr) 125 mg PO TID [facility]; Protocol Stop: 03/15/18 00:00 Last Admin: 01/19/18 20:51 Dose: Not Given Docusate Sodium (Colace) 100 mg PO BID [facility] Stop: 03/15/18 08:59 Last Admin: 01/19/18 17:31 Dose: Not Given Donepezil HCl (Aricept) 5 mg PO HS [facility] Stop: 03/15/18 20:59 Last Admin: 01/19/18 20:51 Dose: Not Given Lactulose (Cephulac) 20 gm PO HS [facility] Stop: 03/16/18 20:59 Last Admin: 01/19/18 20:51 Dose: Not Given Lorazepam (Ativan) 0.5 mg PO Q4HR PRN; Protocol PRN Reason: Anxiety Stop: 02/12/18 20:23 Last Admin: 01/19/18 11:41 Dose: 0.5 mg Magnesium Hydroxide (Milk Of Magnesia) 30 ml PO HS PRN PRN Reason: Constipation Stop: 03/14/18 21:31 Last Admin: 01/14/18 21:23 Dose: 30 ml Memantine (Namenda) 5 mg PO DAILY [facility] Stop: 03/15/18 08:59 Last Admin: 01/19/18 09:53 Dose: Not Given Multivitamins/Vitamin C (Theragran) 1 tab PO DAILY [facility] Stop: 03/15/18 08:59 Last Admin: 01/19/18 09:53 Dose: Not Given Nifedipine (Procardia Xl) 60 mg PO DAILY [facility] Stop: 03/15/18 08:59 Last Admin: 01/19/18 09:53 Dose: Not Given Prednisone (Deltasone) 40 mg PO DAILY [facility] Stop: 03/15/18 08:59 Last Admin: 01/19/18 09:53 Dose: Not Given Trazodone HCl (Desyrel) 50 mg PO HS [facility]; Protocol Stop: 03/15/18 20:59 Last Admin: 01/19/18 20:51 Dose: Not Given Zolpidem Tartrate (Ambien) 5 mg PO HS PRN PRN Reason: Insomnia Stop: 03/14/18 20:23 General: alert, thin HEENT: NC/AT, PERRLA, EOMI, anicteric sclerae, throat clear Neck: Supple, No JVD, No thyromegaly, +2 carotid pulse wo bruit, No LAD Cardiovascular: Normal S1, Normal S2, without murmur Abdomen: non-tender, non-distended Neurological: no change Internal Medicine Assmt/Plan - Assessment Assessment: 1.COPD. 2.HTN. 3.DJD. 4.DEMENTIA. - Plan Plan: CONTINUE ON CURRENT MEDICATION AND DIET. Nutritional Asmnt/Malnutr-PDOC - Dietary Evaluation Malnutrition Findings (Please click <Entered> for more info): Nutritional Asmnt/Malnutrition Start: 01/17/18 09: 47 Text: Status: Complete Freq: Protocol: Document 01/17/18 09:47 NICOL (Rec: 01/17/18 09:51 NICOL MOSHER- [email or web address]) Nutritional Asmnt/Malnutrition Patient General Information Diagnosis psychosis Pertinent Medical Hx/Surgical Hx HTN, COPD, hyperlipidemia, dementia, DJD Subjective Information pt sitting rec room at time of visit would not speak to RD at time of visit. Current Diet Order/ Nutrition Support regular pureed Pertinent Medications maalox, kale lipitor, colace, lactulose, MOM, theragran, deltasone Pertinent Labs reviewed Nutritional Hx/Data Height 1.5 m Height (Calculated Centimeters) 149.9 Current Weight (lbs) 43.998 kg Weight (Calculated Kilograms) 44.0 Weight (Calculated Grams) 36464.5 Body Mass Index (BMI) 19.5 Weight Status Approriate GI Symptoms GI Symptoms None Last BM 01/16 Cultural/Ethnic/Alevism Belief unknown Usual diet at home pureed Skin Integrity/Comment: phylicia score 16, intact Current %PO Fair (50-74%) Estimated Nutritional Goals BEE in Kcals: Using Current wt Calories/Kcals/Kg 25-30kcals/day Kcals Calculated 1100-1320kcals/day Protein: Using Current wt Protein g/kg: ~1g/kg Protein Calculated ~44g/day Fluid: ml 1100-1320ml/day (1ml/kcal) Nutritional Problem 1. Problem Problem No nutrition diagnosis at this time Intervention/Recommendation Comments Recommend continuing regular diet with texture per POWER SHOVEL OPERATOR HELPER Expected Outcomes/Goals Expected Outcomes/Goals PO intake >75% of meals
[2018-01-20] MEDS: Albuterol Nebulizer 2.5mg/3mL HHN SCH ×6 (02:03→23:09)
[2018-01-20] MEDS: Hydrocodone/APAP 5mg/325mg Tab PO PRN ×2 (16:00→20:42)
[2018-01-20] MEDS: Aspirin 81mg Chewable Tab PO SCH (17:48)
[2018-01-20] MEDS: Multivitamin Tab PO SCH (17:49)
[2018-01-20] MEDS: NIFEdipine 30 mg ER Tab PO SCH (17:50)
--- NOTE | 2018-01-20 18:33 | Internal Medicine Prog Note ---
Internal Medicine Subjective - Subjective Service Date: 01/20/18 Patient seen and examined:: with staff Patient is:: awake, ambulating, talking, confused Per staff patient has:: no adverse event Internal Medicine Objective - Physical Exam Vitals and I&O: Vital Signs Temp 97.2 F 01/20/18 14:00 Pulse 77 01/20/18 14:07 Resp 18 01/20/18 14:07 BP 150/85 01/20/18 14:00 Pulse Ox 98 01/20/18 14:07 Intake & Output 01/19/18 01/20/18 01/20/18 18:59 06:59 18:59 Intake Total 800 300 900 Balance 800 300 900 Intake: Oral 800 300 900 Other: # Voids 3 1 3 # Bowel Movements 1 0 1 Active Medications: Current Medications Acetaminophen (Tylenol) 650 mg PO Q4HR PRN PRN Reason: Mild Pain / Temp above 100 Stop: 03/14/18 20:23 Last Admin: 01/19/18 11:41 Dose: 650 mg Acetaminophen/Hydrocodone Bitart ([place] 5mg/325mg) 1 tab PO Q4H PRN PRN Reason: Pain (Severe) (LEVEL 1-3) Stop: 03/14/18 21:31 Last Admin: 01/20/18 16:00 Dose: 1 tab Al Hydrox/Mg Hydrox/Simethicone (Maalox) 30 ml PO Q4HR PRN PRN Reason: GI DISTRESS Stop: 03/14/18 20:23 Last Admin: 01/14/18 12:05 Dose: 30 ml Albuterol Sulfate (Albuterol 2.5mg/3ml Neb Ud) 2.5 mg HHN Q4HRT [facility] Stop: 03/18/18 14:59 Last Admin: 01/20/18 14:07 Dose: 2.5 mg Ascorbic Acid (Vitamin C) 500 mg PO DAILY [facility] Stop: 03/15/18 08:59 Last Admin: 01/20/18 17:48 Dose: Not Given Aspirin (Aspirin Chewable) 81 mg PO DAILY [facility] Stop: 03/15/18 08:59 Last Admin: 01/20/18 17:48 Dose: Not Given Atorvastatin Calcium (Lipitor) 40 mg PO HS [facility]; Protocol Stop: 03/15/18 20:59 Last Admin: 01/19/18 20:51 Dose: Not Given Diphenhydramine HCl (Benadryl) 25 mg PO BID [facility] Stop: 03/21/18 08:59 Last Admin: 01/20/18 17:49 Dose: Not Given Divalproex Sodium (Depakote Dr) 125 mg PO TID [facility]; Protocol Stop: 03/15/18 00:00 Last Admin: 01/20/18 17:49 Dose: Not Given Docusate Sodium (Colace) 100 mg PO BID [facility] Stop: 03/15/18 08:59 Last Admin: 01/20/18 17:49 Dose: Not Given Donepezil HCl (Aricept) 5 mg PO HS [facility] Stop: 03/15/18 20:59 Last Admin: 01/19/18 20:51 Dose: Not Given Lactulose (Cephulac) 20 gm PO HS [facility] Stop: 03/16/18 20:59 Last Admin: 01/19/18 20:51 Dose: Not Given Lorazepam (Ativan) 0.5 mg PO Q4HR PRN; Protocol PRN Reason: Anxiety Stop: 02/12/18 20:23 Last Admin: 01/19/18 11:41 Dose: 0.5 mg Magnesium Hydroxide (Milk Of Magnesia) 30 ml PO HS PRN PRN Reason: Constipation Stop: 03/14/18 21:31 Last Admin: 01/14/18 21:23 Dose: 30 ml Memantine (Namenda) 5 mg PO DAILY [facility] Stop: 03/15/18 08:59 Last Admin: 01/20/18 17:49 Dose: Not Given Multivitamins/Vitamin C (Theragran) 1 tab PO DAILY [facility] Stop: 03/15/18 08:59 Last Admin: 01/20/18 17:49 Dose: Not Given Nifedipine (Procardia Xl) 60 mg PO DAILY [facility] Stop: 03/15/18 08:59 Last Admin: 01/20/18 17:50 Dose: Not Given Prednisone (Deltasone) 40 mg PO DAILY [facility] Stop: 03/15/18 08:59 Last Admin: 01/20/18 17:50 Dose: Not Given Trazodone HCl (Desyrel) 50 mg PO HS [facility]; Protocol Stop: 03/15/18 20:59 Last Admin: 01/19/18 20:51 Dose: Not Given Zolpidem Tartrate (Ambien) 5 mg PO HS PRN PRN Reason: Insomnia Stop: 03/14/18 20:23 General: alert, thin HEENT: NC/AT, PERRLA, EOMI, anicteric sclerae, throat clear Neck: Supple, No JVD, No thyromegaly, +2 carotid pulse wo bruit, No LAD Cardiovascular: Normal S1, Normal S2, without murmur Abdomen: non-tender, non-distended Neurological: no change Internal Medicine Assmt/Plan - Assessment Assessment: 1.COPD. 2.HTN. 3.DJD. 4.DEMENTIA. - Plan Plan: CONTINUE ON CURRENT MEDICATION AND DIET. Nutritional Asmnt/Malnutr-PDOC - Dietary Evaluation Malnutrition Findings (Please click <Entered> for more info): Nutritional Asmnt/Malnutrition Start: 01/17/18 09: 47 Text: Status: Complete Freq: Protocol: Document 01/17/18 09:47 NICOL (Rec: 01/17/18 09:51 NICOL NOMI- FNS1) Nutritional Asmnt/Malnutrition Patient General Information Diagnosis psychosis Pertinent Medical Hx/Surgical Hx HTN, COPD, hyperlipidemia, dementia, DJD Subjective Information pt sitting rec room at time of visit would not speak to RD at time of visit. Current Diet Order/ Nutrition Support regular pureed Pertinent Medications maalox, kale lipitor, colace, lactulose, MOM, theragran, deltasone Pertinent Labs reviewed Nutritional Hx/Data Height 1.5 m Height (Calculated Centimeters) 149.9 Current Weight (lbs) 43.998 kg Weight (Calculated Kilograms) 44.0 Weight (Calculated Grams) 38089.5 Body Mass Index (BMI) 19.5 Weight Status Approriate GI Symptoms GI Symptoms None Last BM 01/16 Cultural/Ethnic/Sikhism Belief unknown Usual diet at home pureed Skin Integrity/Comment: phylicia score 16, intact Current %PO Fair (50-74%) Estimated Nutritional Goals BEE in Kcals: Using Current wt Calories/Kcals/Kg 25-30kcals/day Kcals Calculated 1100-1320kcals/day Protein: Using Current wt Protein g/kg: ~1g/kg Protein Calculated ~44g/day Fluid: ml 1100-1320ml/day (1ml/kcal) Nutritional Problem 1. Problem Problem No nutrition diagnosis at this time Intervention/Recommendation Comments Recommend continuing regular diet with texture per LICENSED PHARMACIST Expected Outcomes/Goals Expected Outcomes/Goals PO intake >75% of meals
[2018-01-20] MEDS: Lactulose 10 Gm/15 mL 30mL UDC PO SCH (21:28)
[2018-01-21] MEDS: Albuterol Nebulizer 2.5mg/3mL HHN SCH ×6 (02:54→22:57)
[2018-01-21] MEDS: Aspirin 81mg Chewable Tab PO SCH (09:37)
[2018-01-21] MEDS: NIFEdipine 30 mg ER Tab PO SCH (09:38)
[2018-01-21] MEDS: Multivitamin Tab PO SCH (09:38)
[2018-01-21] MEDS: Hydrocodone/APAP 5mg/325mg Tab PO PRN ×2 (17:02→20:43)
--- NOTE | 2018-01-21 19:33 | General Progress Note ---
Subjective - Review of Systems Service Date: 01/21/18 Subjective: sitting comfortably confused ambulatory Objective - Physical Exam Vitals and I&O: Vital Signs Temp 99.9 F 01/21/18 14:00 Pulse 74 01/21/18 15:26 Resp 18 01/21/18 15:26 BP 150/85 01/21/18 14:00 Pulse Ox 96 01/21/18 15:26 Intake & Output 01/21/18 01/21/18 01/22/18 06:59 18:59 06:59 Intake Total 120 1200 Balance 120 1200 Intake: Oral 120 1200 Other: # Voids 3 # Bowel Movements 0 1 Active Medications: Current Medications Acetaminophen (Tylenol) 650 mg PO Q4HR PRN PRN Reason: Mild Pain / Temp above 100 Stop: 03/14/18 20:23 Last Admin: 01/20/18 23:33 Dose: 650 mg Acetaminophen/Hydrocodone Bitart ([place] 5mg/325mg) 1 tab PO Q4H PRN PRN Reason: Pain (Severe) (LEVEL 1-3) Stop: 03/14/18 21:31 Last Admin: 01/21/18 17:02 Dose: 1 tab Al Hydrox/Mg Hydrox/Simethicone (Maalox) 30 ml PO Q4HR PRN PRN Reason: GI DISTRESS Stop: 03/14/18 20:23 Last Admin: 01/14/18 12:05 Dose: 30 ml Albuterol Sulfate (Albuterol 2.5mg/3ml Neb Ud) 2.5 mg HHN Q4HRT [facility] Stop: 03/18/18 14:59 Last Admin: 01/21/18 19:29 Dose: 2.5 mg Ascorbic Acid (Vitamin C) 500 mg PO DAILY [facility] Stop: 03/15/18 08:59 Last Admin: 01/21/18 09:37 Dose: Not Given Aspirin (Aspirin Chewable) 81 mg PO DAILY [facility] Stop: 03/15/18 08:59 Last Admin: 01/21/18 09:37 Dose: Not Given Atorvastatin Calcium (Lipitor) 40 mg PO HS [facility]; Protocol Stop: 03/15/18 20:59 Last Admin: 01/20/18 21:28 Dose: Not Given Diphenhydramine HCl (Benadryl) 25 mg PO BID PRN PRN Reason: Itching Stop: 03/21/18 08:59 Last Admin: 01/21/18 00:22 Dose: 25 mg Divalproex Sodium (Depakote Dr) 125 mg PO TID [facility]; Protocol Stop: 03/15/18 00:00 Last Admin: 01/21/18 14:31 Dose: Not Given Docusate Sodium (Colace) 100 mg PO BID [facility] Stop: 03/15/18 08:59 Last Admin: 01/21/18 17:02 Dose: Not Given Donepezil HCl (Aricept) 5 mg PO HS [facility] Stop: 03/15/18 20:59 Last Admin: 01/20/18 21:28 Dose: Not Given Lactulose (Cephulac) 20 gm PO HS [facility] Stop: 03/16/18 20:59 Last Admin: 01/20/18 21:28 Dose: Not Given Lorazepam (Ativan) 0.5 mg PO Q4HR PRN; Protocol PRN Reason: Anxiety Stop: 02/12/18 20:23 Last Admin: 01/19/18 11:41 Dose: 0.5 mg Magnesium Hydroxide (Milk Of Magnesia) 30 ml PO HS PRN PRN Reason: Constipation Stop: 03/14/18 21:31 Last Admin: 01/14/18 21:23 Dose: 30 ml Memantine (Namenda) 5 mg PO DAILY [facility] Stop: 03/15/18 08:59 Last Admin: 01/21/18 09:38 Dose: Not Given Multivitamins/Vitamin C (Theragran) 1 tab PO DAILY [facility] Stop: 03/15/18 08:59 Last Admin: 01/21/18 09:38 Dose: Not Given Nifedipine (Procardia Xl) 60 mg PO DAILY [facility] Stop: 03/15/18 08:59 Last Admin: 01/21/18 09:38 Dose: Not Given Prednisone (Deltasone) 40 mg PO DAILY [facility] Stop: 03/15/18 08:59 Last Admin: 01/21/18 09:39 Dose: Not Given Trazodone HCl (Desyrel) 50 mg PO HS [facility]; Protocol Stop: 03/15/18 20:59 Last Admin: 01/20/18 21:28 Dose: Not Given Zolpidem Tartrate (Ambien) 5 mg PO HS PRN PRN Reason: Insomnia Stop: 03/14/18 20:23 General: No acute distress HEENT: Atraumatic, PERRLA Neck: Supple, JVD, Thyromegaly Cardiovascular: Regular rate, Normal S1 Lungs: Clear to auscultation Abdomen: Bowel sounds, Soft Assessment/Plan - Assessment Assessment: 1.COPD. 2.HTN. 3.DJD. 4.DEMENTIA. - Plan Plan: continue current treatment Nutritional Asmnt/Malnutr-PDOC - Dietary Evaluation Malnutrition Findings (Please click <Entered> for more info): Nutritional Asmnt/Malnutrition Start: 01/17/18 09: 47 Text: Status: Complete Freq: Protocol: Document 01/17/18 09:47 ISIDOROMIKE (Rec: 01/17/18 09:51 ISIDOROMIKE NOMI- FNS1) Nutritional Asmnt/Malnutrition Patient General Information Diagnosis psychosis Pertinent Medical Hx/Surgical Hx HTN, COPD, hyperlipidemia, dementia, DJD Subjective Information pt sitting rec room at time of visit would not speak to RD at time of visit. Current Diet Order/ Nutrition Support regular pureed Pertinent Medications maalox, kale lipitor, colace, lactulose, MOM, theragran, deltasone Pertinent Labs reviewed Nutritional Hx/Data Height 1.5 m Height (Calculated Centimeters) 149.9 Current Weight (lbs) 43.998 kg Weight (Calculated Kilograms) 44.0 Weight (Calculated Grams) 67751.5 Body Mass Index (BMI) 19.5 Weight Status Approriate GI Symptoms GI Symptoms None Last BM 01/16 Cultural/Ethnic/Jain Belief unknown Usual diet at home pureed Skin Integrity/Comment: phylicia score 16, intact Current %PO Fair (50-74%) Estimated Nutritional Goals BEE in Kcals: Using Current wt Calories/Kcals/Kg 25-30kcals/day Kcals Calculated 1100-1320kcals/day Protein: Using Current wt Protein g/kg: ~1g/kg Protein Calculated ~44g/day Fluid: ml 1100-1320ml/day (1ml/kcal) Nutritional Problem 1. Problem Problem No nutrition diagnosis at this time Intervention/Recommendation Comments Recommend continuing regular diet with texture per SOUND ENGINEERING TECHNICIAN Expected Outcomes/Goals Expected Outcomes/Goals PO intake >75% of meals
--- NOTE | 2018-01-21 20:10 | Progress Notes ---
DATE: 01/21/2018 SUBJECTIVE: The patient remains unkempt, poorly oriented, still talking about [place], demanding, suspicious, paranoid, argumentative, refusing nursing care, poor med compliance, unruly behaviors, still remains agitated and verbally accosting staff at times. It is unclear where he is going to go when he leaves the hospital. He has nowhere to go and we are concerned about his ability to care for his basic needs. The patient is highly oppositional. ASSESSMENT: The patient is confused, disoriented, unruly, ongoing safety concerns in regards to his ability to care for himself. He has also been pretty aggressive at times in the hospital, agitated in the hospital. PLAN: We will continue to monitor given his ongoing symptoms, ongoing safety concerns, concerns about his ability to fend for himself, concerns about the safety of others. [facility]# [id number]
[2018-01-21] MEDS: Lactulose 10 Gm/15 mL 30mL UDC PO SCH (20:43)
[2018-01-22] MEDS: Albuterol Nebulizer 2.5mg/3mL HHN SCH ×6 (03:05→22:59)
[2018-01-22] MEDS: Magnesium Hydroxide (MOM) 30 mL UDC PO PRN (03:31)
[2018-01-22] MEDS: Hydrocodone/APAP 5mg/325mg Tab PO PRN (03:31)
--- NOTE | 2018-01-22 04:29 | Progress Notes ---
DATE: 01/19/2018 SUBJECTIVE: The patient is currently in the hospital, slept fairly well seen. Remains somewhat unruly, agitated, gets upset very quickly, generally confused, does not want to take medications, only wants to get medications from daughter. The patient still with impulse control issues, anger outbursts, hostility towards staff, talking very loudly, yelling at times, verbally inappropriate towards staff and peers. I do ask him to please calm down to take his medications, but he states that he does not want to take his medications. Generally confused as to why he is here, requiring prompting, redirection. He is pretty unkempt. ASSESSMENT: The patient is confused, disoriented, still agitated, verbally aggressive, posturing at times, highly impulsive, and unpredictable. PLAN: We will continue to monitor their ongoing safety concerns. The patient has been pretty aggressive over the [facility] and remains pretty hostile towards staff. JOB# [id number]
--- NOTE | 2018-01-22 04:32 | Progress Notes ---
DATE: 01/20/2018 SUBJECTIVE: The patient was seen, noted to be very upset, intrusive at times, very unkempt, poor ADLs, not really taking care of himself. Believes he is in [place]. Does not know the year or the month, ongoing angry outbursts, delusions, believing staff is trying to kill him, resistive to care. The patient states that he is talking to some people in [facility]. The patient continues to refuse medications, noted to be unruly, gets very upset, very impulsive, unpredictable, continues to refuse medications. ASSESSMENT: The patient remains symptomatic, still unruly verbally accosting towards staff, disheveled, very impulsive, and unpredictable. PLAN: We will continue to monitor. We will continue to adjust and titrate medications. Encourage better med compliance. JOB# [id number]
[2018-01-22] MEDS: Aspirin 81mg Chewable Tab PO SCH (09:02)
[2018-01-22] MEDS: Multivitamin Tab PO SCH (09:02)
[2018-01-22] MEDS: NIFEdipine 30 mg ER Tab PO SCH (09:02)
[2018-01-22] MEDS: Maalox 30 mL Cup PO PRN (12:37)
--- NOTE | 2018-01-22 13:32 | Progress Notes ---
DATE: 01/22/[address] Shelley. Case was discussed with staff of the patient, reviewed records. This is an 87-year-old male who was admitted on 01/13/2018 because of agitation, unruly behavior, had to be given emergency medication. The patient has been on it. I talked to him today, he was confused, unable to tell me the date, where he is, why he is here, unpredictable and impulsive, needing redirection. He is on Depakote 125 mg 3 times a day and Aricept 5 mg at bedtime and Namenda 5 mg daily, which I will be increasing to twice a day and trazodone 50 mg at bedtime. No side effects with the medication, no sedation, no nausea and will continue outpatient group therapy, milieu therapy, and adjust the medication as needed. JOB# [id number]
--- NOTE | 2018-01-22 20:22 | General Progress Note ---
Subjective - Review of Systems Service Date: 01/22/18 Subjective: sitting comfortably confused ambulatory Objective - Physical Exam Vitals and I&O: Vital Signs Temp 98.0 F 01/22/18 14:00 Pulse 75 01/22/18 19:23 Resp 20 01/22/18 19:23 BP 132/79 01/22/18 14:00 Pulse Ox 98 01/22/18 19:23 Intake & Output 01/22/18 01/22/18 01/23/18 06:59 18:59 06:59 Intake Total 120 1000 Balance 120 1000 Intake: Oral 120 1000 Other: # Voids 3 3 # Bowel Movements 1 Active Medications: Current Medications Acetaminophen (Tylenol) 650 mg PO Q4HR PRN PRN Reason: Mild Pain / Temp above 100 Stop: 03/14/18 20:23 Last Admin: 01/22/18 12:36 Dose: 650 mg Acetaminophen/Hydrocodone Bitart ([place] 5mg/325mg) 1 tab PO Q4H PRN PRN Reason: Pain (Severe) (LEVEL 1-3) Stop: 03/14/18 21:31 Last Admin: 01/22/18 03:31 Dose: 1 tab Al Hydrox/Mg Hydrox/Simethicone (Maalox) 30 ml PO Q4HR PRN PRN Reason: GI DISTRESS Stop: 03/14/18 20:23 Last Admin: 01/22/18 12:37 Dose: 30 ml Albuterol Sulfate (Albuterol 2.5mg/3ml Neb Ud) 2.5 mg HHN Q4HRT [facility] Stop: 03/18/18 14:59 Last Admin: 01/22/18 19:23 Dose: 2.5 mg Ascorbic Acid (Vitamin C) 500 mg PO DAILY [facility] Stop: 03/15/18 08:59 Last Admin: 01/22/18 09:02 Dose: Not Given Aspirin (Aspirin Chewable) 81 mg PO DAILY [facility] Stop: 03/15/18 08:59 Last Admin: 01/22/18 09:02 Dose: Not Given Atorvastatin Calcium (Lipitor) 40 mg PO HS [facility]; Protocol Stop: 03/15/18 20:59 Last Admin: 01/21/18 20:46 Dose: Not Given Diphenhydramine HCl (Benadryl) 25 mg PO BID PRN PRN Reason: Itching Stop: 03/21/18 08:59 Last Admin: 01/22/18 14:37 Dose: 25 mg Divalproex Sodium (Depakote Dr) 125 mg PO TID [facility]; Protocol Stop: 03/15/18 00:00 Last Admin: 01/22/18 14:34 Dose: Not Given Docusate Sodium (Colace) 100 mg PO BID [facility] Stop: 03/15/18 08:59 Last Admin: 01/22/18 09:02 Dose: Not Given Donepezil HCl (Aricept) 5 mg PO HS [facility] Stop: 03/15/18 20:59 Last Admin: 01/21/18 20:46 Dose: Not Given Lactulose (Cephulac) 20 gm PO HS [facility] Stop: 03/16/18 20:59 Last Admin: 01/21/18 20:43 Dose: 20 gm Lorazepam (Ativan) 0.5 mg PO Q4HR PRN; Protocol PRN Reason: Anxiety Stop: 02/12/18 20:23 Last Admin: 01/19/18 11:41 Dose: 0.5 mg Magnesium Hydroxide (Milk Of Magnesia) 30 ml PO HS PRN PRN Reason: Constipation Stop: 03/14/18 21:31 Last Admin: 01/22/18 03:31 Dose: 30 ml Memantine (Namenda) 5 mg PO BID [facility] Stop: 03/23/18 16:59 Multivitamins/Vitamin C (Theragran) 1 tab PO DAILY [facility] Stop: 03/15/18 08:59 Last Admin: 01/22/18 09:02 Dose: Not Given Nifedipine (Procardia Xl) 60 mg PO DAILY [facility] Stop: 03/15/18 08:59 Last Admin: 01/22/18 09:02 Dose: Not Given Prednisone (Deltasone) 40 mg PO DAILY [facility] Stop: 03/15/18 08:59 Last Admin: 01/22/18 09:02 Dose: Not Given Trazodone HCl (Desyrel) 50 mg PO HS [facility]; Protocol Stop: 03/15/18 20:59 Last Admin: 01/21/18 20:46 Dose: Not Given Zolpidem Tartrate (Ambien) 5 mg PO HS PRN PRN Reason: Insomnia Stop: 03/14/18 20:23 General: No acute distress HEENT: Atraumatic, PERRLA Neck: Supple, JVD, Thyromegaly Cardiovascular: Regular rate, Normal S1 Lungs: Clear to auscultation Abdomen: Bowel sounds, Soft Assessment/Plan - Assessment Assessment: 1.COPD. 2.HTN. 3.DJD. 4.DEMENTIA. - Plan Plan: continue current treatment Nutritional Asmnt/Malnutr-PDOC - Dietary Evaluation Malnutrition Findings (Please click <Entered> for more info): Nutritional Asmnt/Malnutrition Start: 01/17/18 09: 47 Text: Status: Complete Freq: Protocol: Document 01/17/18 09:47 NICOL (Rec: 01/17/18 09:51 NICOL MANUELN- FNS1) Nutritional Asmnt/Malnutrition Patient General Information Diagnosis psychosis Pertinent Medical Hx/Surgical Hx HTN, COPD, hyperlipidemia, dementia, DJD Subjective Information pt sitting rec room at time of visit would not speak to RD at time of visit. Current Diet Order/ Nutrition Support regular pureed Pertinent Medications maalox, kale lipitor, colace, lactulose, MOM, theragran, deltasone Pertinent Labs reviewed Nutritional Hx/Data Height 1.5 m Height (Calculated Centimeters) 149.9 Current Weight (lbs) 43.998 kg Weight (Calculated Kilograms) 44.0 Weight (Calculated Grams) 96482.5 Body Mass Index (BMI) 19.5 Weight Status Approriate GI Symptoms GI Symptoms None Last BM 01/16 Cultural/Ethnic/Confucianism Belief unknown Usual diet at home pureed Skin Integrity/Comment: phylicia score 16, intact Current %PO Fair (50-74%) Estimated Nutritional Goals BEE in Kcals: Using Current wt Calories/Kcals/Kg 25-30kcals/day Kcals Calculated 1100-1320kcals/day Protein: Using Current wt Protein g/kg: ~1g/kg Protein Calculated ~44g/day Fluid: ml 1100-1320ml/day (1ml/kcal) Nutritional Problem 1. Problem Problem No nutrition diagnosis at this time Intervention/Recommendation Comments Recommend continuing regular diet with texture per SUPPLY CHAIN PROJECT MANAGER Expected Outcomes/Goals Expected Outcomes/Goals PO intake >75% of meals
[2018-01-22] MEDS: Lactulose 10 Gm/15 mL 30mL UDC PO SCH (20:31)
[2018-01-22] MEDS ORDERED: Polyvinyl Alcohol Ophth Soln 15 mL Bottle EACH EYE PRN (20:42)
[2018-01-23] MEDS: Albuterol Nebulizer 2.5mg/3mL HHN SCH ×6 (02:49→22:26)
[2018-01-23] MEDS: Multivitamin Tab PO SCH (09:20)
[2018-01-23] MEDS: Aspirin 81mg Chewable Tab PO SCH (09:20)
[2018-01-23] MEDS: NIFEdipine 30 mg ER Tab PO SCH (09:29)
[2018-01-23] MEDS: Hydrocodone/APAP 5mg/325mg Tab PO PRN ×2 (16:13→20:55)
[2018-01-23] MEDS: Docusate Sodium 100 mg/10 mL UD PO SCH (16:14)
[2018-01-23] MEDS: Lactulose 10 Gm/15 mL 30mL UDC PO SCH (20:18)
--- NOTE | 2018-01-23 20:31 | General Progress Note ---
Subjective - Review of Systems Service Date: 01/23/18 Subjective: sitting comfortably confused ambulatory Objective - Physical Exam Vitals and I&O: Vital Signs Temp 98.3 F 01/23/18 14:00 Pulse 84 01/23/18 19:08 Resp 22 01/23/18 19:08 BP 148/78 01/23/18 14:00 Pulse Ox 97 01/23/18 19:08 Intake & Output 01/23/18 01/23/18 01/24/18 06:59 18:59 06:59 Intake Total 500 1200 Balance 500 1200 Intake: Oral 500 1200 Other: # Voids 4 # Bowel Movements 0 Active Medications: Current Medications Acetaminophen (Tylenol) 650 mg PO Q4HR PRN PRN Reason: Mild Pain / Temp above 100 Stop: 03/14/18 20:23 Last Admin: 01/22/18 22:08 Dose: 650 mg Acetaminophen/Hydrocodone Bitart ([place] 5mg/325mg) 1 tab PO Q4H PRN PRN Reason: Pain (Severe) (LEVEL 1-3) Stop: 03/14/18 21:31 Last Admin: 01/23/18 16:13 Dose: 1 tab Al Hydrox/Mg Hydrox/Simethicone (Maalox) 30 ml PO Q4HR PRN PRN Reason: GI DISTRESS Stop: 03/14/18 20:23 Last Admin: 01/22/18 12:37 Dose: 30 ml Albuterol Sulfate (Albuterol 2.5mg/3ml Neb Ud) 2.5 mg HHN Q4HRT [facility] Stop: 03/18/18 14:59 Last Admin: 01/23/18 19:07 Dose: 2.5 mg Artificial Tears (Artificial Tears Ophth Soln) 1 drop EACH EYE HS PRN PRN Reason: Dry Eye Stop: 03/23/18 20:41 Ascorbic Acid (Vitamin C) 500 mg PO DAILY [facility] Stop: 03/15/18 08:59 Last Admin: 01/23/18 09:20 Dose: Not Given Aspirin (Aspirin Chewable) 81 mg PO DAILY [facility] Stop: 03/15/18 08:59 Last Admin: 01/23/18 09:20 Dose: Not Given Atorvastatin Calcium (Lipitor) 40 mg PO HS [facility]; Protocol Stop: 03/15/18 20:59 Last Admin: 01/23/18 20:16 Dose: Not Given Diphenhydramine HCl (Benadryl) 25 mg PO BID PRN PRN Reason: Itching Stop: 03/21/18 08:59 Last Admin: 01/23/18 20:16 Dose: 25 mg Divalproex Sodium (Depakote Dr) 125 mg PO TID [facility]; Protocol Stop: 03/15/18 00:00 Last Admin: 01/23/18 20:16 Dose: 125 mg Docusate Sodium (Colace) 100 mg PO BID [facility] Stop: 03/15/18 08:59 Last Admin: 01/23/18 16:14 Dose: 100 mg Donepezil HCl (Aricept) 5 mg PO HS [facility] Stop: 03/15/18 20:59 Last Admin: 01/23/18 20:17 Dose: Not Given Lactulose (Cephulac) 20 gm PO HS [facility] Stop: 03/16/18 20:59 Last Admin: 01/23/18 20:18 Dose: 20 gm Lorazepam (Ativan) 0.5 mg PO Q4HR PRN; Protocol PRN Reason: Anxiety Stop: 02/12/18 20:23 Last Admin: 01/19/18 11:41 Dose: 0.5 mg Magnesium Hydroxide (Milk Of Magnesia) 30 ml PO HS PRN PRN Reason: Constipation Stop: 03/14/18 21:31 Last Admin: 01/22/18 03:31 Dose: 30 ml Memantine (Namenda) 5 mg PO BID [facility] Stop: 03/23/18 16:59 Last Admin: 01/23/18 16:14 Dose: Not Given Multivitamins/Vitamin C (Theragran) 1 tab PO DAILY [facility] Stop: 03/15/18 08:59 Last Admin: 01/23/18 09:20 Dose: Not Given Nifedipine (Procardia Xl) 60 mg PO DAILY [facility] Stop: 03/15/18 08:59 Last Admin: 01/23/18 09:29 Dose: Not Given Prednisone (Deltasone) 40 mg PO DAILY [facility] Stop: 03/15/18 08:59 Last Admin: 01/23/18 09:22 Dose: Not Given Trazodone HCl (Desyrel) 50 mg PO HS [facility]; Protocol Stop: 03/15/18 20:59 Last Admin: 01/23/18 20:16 Dose: Not Given Zolpidem Tartrate (Ambien) 5 mg PO HS PRN PRN Reason: Insomnia Stop: 03/14/18 20:23 Last Admin: 01/22/18 22:08 Dose: 5 mg General: No acute distress HEENT: Atraumatic, PERRLA Neck: Supple, JVD, Thyromegaly Cardiovascular: Regular rate, Normal S1 Lungs: Clear to auscultation Abdomen: Bowel sounds, Soft Assessment/Plan - Assessment Assessment: 1.COPD. 2.HTN. 3.DJD. 4.DEMENTIA. - Plan Plan: continue current treatment Nutritional Asmnt/Malnutr-PDOC - Dietary Evaluation Malnutrition Findings (Please click <Entered> for more info): Nutritional Asmnt/Malnutrition Start: 01/17/18 09: 47 Text: Status: Complete Freq: Protocol: Document 01/17/18 09:47 NICOL (Rec: 01/17/18 09:51 NICOL MOSHER- FNS1) Nutritional Asmnt/Malnutrition Patient General Information Diagnosis psychosis Pertinent Medical Hx/Surgical Hx HTN, COPD, hyperlipidemia, dementia, DJD Subjective Information pt sitting rec room at time of visit would not speak to RD at time of visit. Current Diet Order/ Nutrition Support regular pureed Pertinent Medications maalox, kale lipitor, colace, lactulose, MOM, theragran, deltasone Pertinent Labs reviewed Nutritional Hx/Data Height 1.5 m Height (Calculated Centimeters) 149.9 Current Weight (lbs) 43.998 kg Weight (Calculated Kilograms) 44.0 Weight (Calculated Grams) 95489.5 Body Mass Index (BMI) 19.5 Weight Status Approriate GI Symptoms GI Symptoms None Last 01/16 Cultural/Ethnic/Mandaeism Belief unknown Usual diet at home pureed Skin Integrity/Comment: phylicia score 16, intact Current %PO Fair (50-74%) Estimated Nutritional Goals BEE in Kcals: Using Current wt Calories/Kcals/Kg 25-30kcals/day Kcals Calculated 1100-1320kcals/day Protein: Using Current wt Protein g/kg: ~1g/kg Protein Calculated ~44g/day Fluid: ml 1100-1320ml/day (1ml/kcal) Nutritional Problem 1. Problem Problem No nutrition diagnosis at this time Intervention/Recommendation Comments Recommend continuing regular diet with texture per WARE [employer]RIER Expected Outcomes/Goals Expected Outcomes/Goals PO intake >75% of meals
--- NOTE | 2018-01-23 21:35 | Progress Notes ---
DATE: 01/23/2018 SUBJECTIVE: Case was discussed with staff of the patient and reviewed records. The patient continues to be unpredictable, impulsive, irritable, easily agitated, continues to have poor insight, confused, unable to participate in meaningful conversation or make safe plan for self-care. He is compliant with the medication with no side effects, no sedation, no nausea, no extrapyramidal symptoms. Acting bizarre, confused, demented and we will continue to work the patient in group therapy, milieu therapy, adjust medication as needed. JOB# [id number]
[2018-01-23] MEDS: Maalox 30 mL Cup PO PRN (23:25)
[2018-01-24] MEDS: Albuterol Nebulizer 2.5mg/3mL HHN SCH ×6 (02:26→22:37)
[2018-01-24] MEDS ORDERED: Racepinephrine HCl 0.5 mL AERS HHN ONE ×2 (04:26→04:30)
[2018-01-24] MEDS: NIFEdipine 30 mg ER Tab PO SCH (09:16)
[2018-01-24] MEDS: Aspirin 81mg Chewable Tab PO SCH (09:16)
[2018-01-24] MEDS: Docusate Sodium 100 mg/10 mL UD PO SCH ×2 (09:16→16:50)
[2018-01-24] MEDS: Multivitamin Tab PO SCH (09:16)
--- NOTE | 2018-01-24 09:36 | Progress Notes ---
DATE: 01/24/[address] Hardy covering for Dr. Shelley. SUBJECTIVE: Chart reviewed and the patient interviewed. Also discussed the patient's condition with the staff and reviewed records and labs. The patient continued to be argumentative and is still hyperverbal. The patient also is still demanding and wants his needs to be met immediately. Also, is still restless and he is still easily agitated. Also he is paranoid. He is accusing staff with things that is not happening. On the other hand, the patient started to be more compliant with taking his medications and he has been taking his medications with no side effects. ASSESSMENT: The patient is less agitated, but is still paranoid and psychotic. TREATMENT PLAN: Continue to monitor his behavior and his condition closely. Also, continue to work on his irritability and anger and adjusting psychotropic medications. JOB# [id number]
--- NOTE | 2018-01-24 13:43 | General Progress Note ---
Subjective - Review of Systems Service Date: 01/24/18 Subjective: sitting comfortably confused ambulatory had episode of SOB this morning, now feels OK refuses medicine at times Objective - Physical Exam Vitals and I&O: Vital Signs Temp 97.6 F 01/24/18 06:04 Pulse 80 01/24/18 10:50 Resp 22 01/24/18 10:50 BP 151/74 01/24/18 06:04 Pulse Ox 95 01/24/18 10:50 Intake & Output 01/23/18 01/24/18 01/24/18 18:59 06:59 18:59 Intake Total 1200 Balance 1200 Intake: Oral 1200 Active Medications: Current Medications Acetaminophen (Tylenol) 650 mg PO Q4HR PRN PRN Reason: Mild Pain / Temp above 100 Stop: 03/14/18 20:23 Last Admin: 01/22/18 22:08 Dose: 650 mg Acetaminophen/Hydrocodone Bitart ([place] 5mg/325mg) 1 tab PO Q4H PRN PRN Reason: Pain (Severe) (LEVEL 1-3) Stop: 03/14/18 21:31 Last Admin: 01/23/18 20:55 Dose: 1 tab Al Hydrox/Mg Hydrox/Simethicone (Maalox) 30 ml PO Q4HR PRN PRN Reason: GI DISTRESS Stop: 03/14/18 20:23 Last Admin: 01/23/18 23:25 Dose: 30 ml Albuterol Sulfate (Albuterol 2.5mg/3ml Neb Ud) 2.5 mg HHN Q4HRT [facility] Stop: 03/18/18 14:59 Last Admin: 01/24/18 10:50 Dose: 2.5 mg Albuterol Sulfate (Albuterol 2.5mg/3ml Neb Ud) 2.5 mg HHN Q2H PRN PRN Reason: sob Stop: 03/25/18 04:12 Artificial Tears (Artificial Tears Ophth Soln) 1 drop EACH EYE HS PRN PRN Reason: Dry Eye Stop: 03/23/18 20:41 Ascorbic Acid (Vitamin C) 500 mg PO DAILY [facility] Stop: 03/15/18 08:59 Last Admin: 01/24/18 09:16 Dose: Not Given Aspirin (Aspirin Chewable) 81 mg PO DAILY [facility] Stop: 03/15/18 08:59 Last Admin: 01/24/18 09:16 Dose: Not Given Atorvastatin Calcium (Lipitor) 40 mg PO HS [facility]; Protocol Stop: 03/15/18 20:59 Last Admin: 01/23/18 20:16 Dose: Not Given Diphenhydramine HCl (Benadryl) 25 mg PO BID PRN PRN Reason: Itching Stop: 03/21/18 08:59 Last Admin: 01/24/18 06:50 Dose: 25 mg Divalproex Sodium (Depakote Dr) 125 mg PO TID [facility]; Protocol Stop: 03/15/18 00:00 Last Admin: 01/24/18 09:16 Dose: Not Given Docusate Sodium (Colace) 100 mg PO BID [facility] Stop: 03/15/18 08:59 Last Admin: 01/24/18 09:16 Dose: Not Given Donepezil HCl (Aricept) 5 mg PO HS [facility] Stop: 03/15/18 20:59 Last Admin: 01/23/18 20:17 Dose: Not Given Lactulose (Cephulac) 20 gm PO HS [facility] Stop: 03/16/18 20:59 Last Admin: 01/23/18 20:18 Dose: 20 gm Lorazepam (Ativan) 0.5 mg PO Q4HR PRN; Protocol PRN Reason: Anxiety Stop: 02/12/18 20:23 Last Admin: 01/24/18 03:27 Dose: 0.5 mg Magnesium Hydroxide (Milk Of Magnesia) 30 ml PO HS PRN PRN Reason: Constipation Stop: 03/14/18 21:31 Last Admin: 01/22/18 03:31 Dose: 30 ml Memantine (Namenda) 5 mg PO BID [facility] Stop: 03/23/18 16:59 Last Admin: 01/24/18 09:16 Dose: Not Given Multivitamins/Vitamin C (Theragran) 1 tab PO DAILY [facility] Stop: 03/15/18 08:59 Last Admin: 01/24/18 09:16 Dose: Not Given Nifedipine (Procardia Xl) 60 mg PO DAILY [facility] Stop: 03/15/18 08:59 Last Admin: 01/24/18 09:16 Dose: Not Given Prednisone (Deltasone) 40 mg PO DAILY [facility] Stop: 03/15/18 08:59 Last Admin: 01/24/18 09:17 Dose: Not Given Trazodone HCl (Desyrel) 50 mg PO HS [facility]; Protocol Stop: 03/15/18 20:59 Last Admin: 01/23/18 20:16 Dose: Not Given Zolpidem Tartrate (Ambien) 5 mg PO HS PRN PRN Reason: Insomnia Stop: 03/14/18 20:23 Last Admin: 01/22/18 22:08 Dose: 5 mg General: No acute distress HEENT: Atraumatic, PERRLA Neck: Supple, JVD, Thyromegaly Cardiovascular: Regular rate, Normal S1 Lungs: Clear to auscultation Abdomen: Bowel sounds, Soft Assessment/Plan - Assessment Assessment: 1.COPD. 2.HTN. 3.DJD. 4.DEMENTIA. - Plan Plan: continue current treatment Nutritional Asmnt/Malnutr-PDOC - Dietary Evaluation Malnutrition Findings (Please click <Entered> for more info): Nutritional Asmnt/Malnutrition Start: 01/17/18 09: 47 Text: Status: Complete Freq: Protocol: Document 01/17/18 09:47 NICOL (Rec: 01/17/18 09:51 NICOL NOMI- FNS1) Nutritional Asmnt/Malnutrition Patient General Information Diagnosis psychosis Pertinent Medical Hx/Surgical Hx HTN, COPD, hyperlipidemia, dementia, DJD Subjective Information pt sitting rec room at time of visit would not speak to RD at time of visit. Current Diet Order/ Nutrition Support regular pureed Pertinent Medications maalox, kale lipitor, colace, lactulose, MOM, theragran, deltasone Pertinent Labs reviewed Nutritional Hx/Data Height 1.5 m Height (Calculated Centimeters) 149.9 Current Weight (lbs) 43.998 kg Weight (Calculated Kilograms) 44.0 Weight (Calculated Grams) 22318.5 Body Mass Index (BMI) 19.5 Weight Status Approriate GI Symptoms GI Symptoms None Last BM 01/16 Cultural/Ethnic/Pentecostal Belief unknown Usual diet at home pureed Skin Integrity/Comment: phylicia score 16, intact Current %PO Fair (50-74%) Estimated Nutritional Goals BEE in Kcals: Using Current wt Calories/Kcals/Kg 25-30kcals/day Kcals Calculated 1100-1320kcals/day Protein: Using Current wt Protein g/kg: ~1g/kg Protein Calculated ~44g/day Fluid: ml 1100-1320ml/day (1ml/kcal) Nutritional Problem 1. Problem Problem No nutrition diagnosis at this time Intervention/Recommendation Comments Recommend continuing regular diet with texture per [employer] Expected Outcomes/Goals Expected Outcomes/Goals PO intake >75% of meals
[2018-01-24] MEDS: Lactulose 10 Gm/15 mL 30mL UDC PO SCH (20:26)
[2018-01-24] MEDS: Hydrocodone/APAP 5mg/325mg Tab PO PRN (23:00)
[2018-01-25] MEDS: Albuterol Nebulizer 2.5mg/3mL HHN SCH ×5 (02:36→22:19)
[2018-01-25] MEDS: Albuterol Nebulizer 2.5mg/3mL HHN PRN ×2 (05:56→13:03)
[2018-01-25] MEDS: Aspirin 81mg Chewable Tab PO SCH ×2 (09:07→09:52)
[2018-01-25] MEDS: NIFEdipine 30 mg ER Tab PO SCH ×2 (09:08→09:51)
[2018-01-25] MEDS: Multivitamin Tab PO SCH (09:50)
[2018-01-25] MEDS: Docusate Sodium 100 mg/10 mL UD PO SCH ×2 (09:50→18:09)
[2018-01-25] MEDS: Hydrocodone/APAP 5mg/325mg Tab PO PRN ×2 (14:15→21:30)
--- NOTE | 2018-01-25 17:28 | General Progress Note ---
Subjective - Review of Systems Service Date: 01/25/18 Subjective: sitting comfortably confused Objective - Physical Exam Vitals and I&O: Vital Signs Temp 98.2 F 01/24/18 14:00 Pulse 85 01/25/18 16:07 Resp 16 01/25/18 16:07 BP 141/78 01/25/18 14:00 Pulse Ox 95 01/25/18 16:07 Intake & Output 01/24/18 01/25/18 01/25/18 18:59 06:59 18:59 Intake Total 950 Balance 950 Intake: Oral 950 Active Medications: Current Medications Acetaminophen (Tylenol) 650 mg PO Q4HR PRN PRN Reason: Mild Pain / Temp above 100 Stop: 03/14/18 20:23 Last Admin: 01/22/18 22:08 Dose: 650 mg Acetaminophen/Hydrocodone Bitart ([place] 5mg/325mg) 1 tab PO Q4H PRN PRN Reason: Pain (Severe) (LEVEL 1-3) Stop: 03/14/18 21:31 Last Admin: 01/25/18 14:15 Dose: 1 tab Al Hydrox/Mg Hydrox/Simethicone (Maalox) 30 ml PO Q4HR PRN PRN Reason: GI DISTRESS Stop: 03/14/18 20:23 Last Admin: 01/23/18 23:25 Dose: 30 ml Albuterol Sulfate (Albuterol 2.5mg/3ml Neb Ud) 2.5 mg HHN Q4HRT [facility] Stop: 03/18/18 14:59 Last Admin: 01/25/18 16:07 Dose: 2.5 mg Albuterol Sulfate (Albuterol 2.5mg/3ml Neb Ud) 2.5 mg HHN Q2H PRN PRN Reason: sob Stop: 03/25/18 04:12 Last Admin: 01/25/18 13:03 Dose: 2.5 mg Artificial Tears (Artificial Tears Ophth Soln) 1 drop EACH EYE HS PRN PRN Reason: Dry Eye Stop: 03/23/18 20:41 Ascorbic Acid (Vitamin C) 500 mg PO DAILY [facility] [place] Stop: 03/15/18 08:59 Last Admin: 01/25/18 09:50 Dose: Not Given Aspirin (Aspirin Chewable) 81 mg PO DAILY [facility] [place] Stop: 03/15/18 08:59 Last Admin: 01/25/18 09:52 Dose: Not Given Atorvastatin Calcium (Lipitor) 40 mg PO HS [facility]; Protocol Stop: 03/15/18 20:59 Last Admin: 01/24/18 20:26 Dose: 40 mg Clonazepam (Klonopin) 0.5 mg PO BID [facility] [place]; Protocol Stop: 03/26/18 08:59 Last Admin: 01/25/18 09:51 Dose: Not Given Diphenhydramine HCl (Benadryl) 25 mg PO BID PRN PRN Reason: Itching Stop: 03/21/18 08:59 Last Admin: 01/25/18 14:15 Dose: 25 mg Divalproex Sodium (Depakote Dr) 500 mg PO BID [facility] [place]; Protocol Stop: 03/26/18 08:59 Last Admin: 01/25/18 09:51 Dose: Not Given Docusate Sodium (Colace) 100 mg PO BID [facility] Stop: 03/15/18 08:59 Last Admin: 01/25/18 09:50 Dose: Not Given Donepezil HCl (Aricept) 5 mg PO HS [facility] Stop: 03/15/18 20:59 Last Admin: 01/24/18 20:27 Dose: 5 mg Lactulose (Cephulac) 20 gm PO HS [facility] Stop: 03/16/18 20:59 Last Admin: 01/24/18 20:26 Dose: 20 gm Lorazepam (Ativan) 0.5 mg PO Q4HR PRN; Protocol PRN Reason: Anxiety Stop: 02/12/18 20:23 Last Admin: 01/24/18 03:27 Dose: 0.5 mg Magnesium Hydroxide (Milk Of Magnesia) 30 ml PO HS PRN PRN Reason: Constipation Stop: 03/14/18 21:31 Last Admin: 01/22/18 03:31 Dose: 30 ml Memantine (Namenda) 5 mg PO BID [facility] Stop: 03/23/18 16:59 Last Admin: 01/25/18 09:50 Dose: Not Given Multivitamins/Vitamin C (Theragran) 1 tab PO DAILY [facility] [place] Stop: 03/15/18 08:59 Last Admin: 01/25/18 09:50 Dose: Not Given Nifedipine (Procardia Xl) 60 mg PO DAILY [facility] [place] Stop: 03/15/18 08:59 Last Admin: 01/25/18 09:51 Dose: Not Given Prednisone (Deltasone) 40 mg PO DAILY [facility] Stop: 03/15/18 08:59 Last Admin: 01/25/18 09:07 Dose: 40 mg Trazodone HCl (Desyrel) 50 mg PO HS [facility]; Protocol Stop: 03/15/18 20:59 Last Admin: 01/24/18 20:27 Dose: 50 mg Zolpidem Tartrate (Ambien) 5 mg PO HS PRN PRN Reason: Insomnia Stop: 03/14/18 20:23 Last Admin: 01/22/18 22:08 Dose: 5 mg General: No acute distress HEENT: Atraumatic, PERRLA Neck: Supple, JVD, Thyromegaly Cardiovascular: Regular rate, Normal S1 Lungs: Clear to auscultation Abdomen: Bowel sounds, Soft Assessment/Plan - Assessment Assessment: 1.COPD. 2.HTN. 3.DJD. 4.DEMENTIA. - Plan Plan: continue current treatment Nutritional Asmnt/Malnutr-PDOC - Dietary Evaluation Malnutrition Findings (Please click <Entered> for more info): Nutritional Asmnt/Malnutrition Start: 01/17/18 09: 47 Text: Status: Complete Freq: Protocol: Document 01/17/18 09:47 NICOL (Rec: 01/17/18 09:51 NICOL MOSHER- FNS1) Nutritional Asmnt/Malnutrition Patient General Information Diagnosis psychosis Pertinent Medical Hx/Surgical Hx HTN, COPD, hyperlipidemia, dementia, DJD Subjective Information pt sitting rec room at time of visit would not speak to RD at time of visit. Current Diet Order/ Nutrition Support regular pureed Pertinent Medications maalox, kale lipitor, colace, lactulose, MOM, theragran, deltasone Pertinent Labs reviewed Nutritional Hx/Data Height 1.5 m Height (Calculated Centimeters) 149.9 Current Weight (lbs) 43.998 kg Weight (Calculated Kilograms) 44.0 Weight (Calculated Grams) 48438.5 Body Mass Index (BMI) 19.5 Weight Status Approriate GI Symptoms GI Symptoms None Last BM 01/16 Cultural/Ethnic/Cheondoism Belief unknown Usual diet at home pureed Skin Integrity/Comment: phylicia score 16, intact Current %PO Fair (50-74%) Estimated Nutritional Goals BEE in Kcals: Using Current wt Calories/Kcals/Kg 25-30kcals/day Kcals Calculated 1100-1320kcals/day Protein: Using Current wt Protein g/kg: ~1g/kg Protein Calculated ~44g/day Fluid: ml 1100-1320ml/day (1ml/kcal) Nutritional Problem 1. Problem Problem No nutrition diagnosis at this time Intervention/Recommendation Comments Recommend continuing regular diet with texture per N[employer]SE RESEARCH[employer] Expected Outcomes/Goals Expected Outcomes/Goals PO intake >75% of meals
[2018-01-25] MEDS: Lactulose 10 Gm/15 mL 30mL UDC PO SCH (21:35)
[2018-01-26] MEDS: Albuterol Nebulizer 2.5mg/3mL HHN SCH ×6 (03:10→22:51)
--- NOTE | 2018-01-26 03:21 | Progress Notes ---
DATE: 01/25/2018 Chart reviewed and the patient interviewed. Also, discussed the patient's condition with the staff and reviewed records and labs. The patient continued to be extremely irritable and extremely agitated. The patient also is aggressive and verbally abusive to staff. The patient also is still suspicious and severely paranoid. Also, thought processes are circumstantial with flight of ideas and disorganized. The patient is still unable to provide any safe plan for self-care. ASSESSMENT: The patient is still ____ and agitated. TREATMENT PLAN: Continue to monitor behavior and condition closely. Also continue adjusting psychotropic medications. Also, we will place the patient on 30 days' significant for grave disability and will continue to follow up. [facility]# [id number]
[2018-01-26] MEDS: Aspirin 81mg Chewable Tab PO SCH (09:19)
[2018-01-26] MEDS: Multivitamin Tab PO SCH (09:20)
[2018-01-26] MEDS: NIFEdipine 30 mg ER Tab PO SCH (09:20)
[2018-01-26] MEDS: Docusate Sodium 100 mg/10 mL UD PO SCH ×2 (09:20→17:56)
--- NOTE | 2018-01-26 17:19 | General Progress Note ---
Subjective - Review of Systems Service Date: 01/26/18 Subjective: sitting comfortably confused Objective - Physical Exam Vitals and I&O: Vital Signs Temp 97.6 F 01/26/18 14:00 Pulse 89 01/26/18 14:13 Resp 18 01/26/18 14:13 BP 120/73 01/26/18 14:00 Pulse Ox 95 01/26/18 14:13 Intake & Output 01/25/18 01/26/18 01/26/18 18:59 06:59 18:59 Intake Total 120 Balance 120 Intake: Oral 120 Other: # Voids 3 3 # Bowel Movements 0 Active Medications: Current Medications Acetaminophen (Tylenol) 650 mg PO Q4HR PRN PRN Reason: Mild Pain / Temp above 100 Stop: 03/14/18 20:23 Last Admin: 01/22/18 22:08 Dose: 650 mg Acetaminophen/Hydrocodone Bitart ([place] 5mg/325mg) 1 tab PO Q4H PRN PRN Reason: Pain (Severe) (LEVEL 1-3) Stop: 03/14/18 21:31 Last Admin: 01/25/18 21:30 Dose: 1 tab Al Hydrox/Mg Hydrox/Simethicone (Maalox) 30 ml PO Q4HR PRN PRN Reason: GI DISTRESS Stop: 03/14/18 20:23 Last Admin: 01/23/18 23:25 Dose: 30 ml Albuterol Sulfate (Albuterol 2.5mg/3ml Neb Ud) 2.5 mg HHN Q4HRT [facility] Stop: 03/18/18 14:59 Last Admin: 01/26/18 14:13 Dose: 2.5 mg Albuterol Sulfate (Albuterol 2.5mg/3ml Neb Ud) 2.5 mg HHN Q2H PRN PRN Reason: sob Stop: 03/25/18 04:12 Last Admin: 01/25/18 13:03 Dose: 2.5 mg Artificial Tears (Artificial Tears Ophth Soln) 1 drop EACH EYE HS PRN PRN Reason: Dry Eye Stop: 03/23/18 20:41 Ascorbic Acid (Vitamin C) 500 mg PO DAILY [facility] Stop: 03/15/18 08:59 Last Admin: 01/26/18 09:19 Dose: Not Given Aspirin (Aspirin Chewable) 81 mg PO DAILY [facility] Stop: 03/15/18 08:59 Last Admin: 01/26/18 09:19 Dose: Not Given Atorvastatin Calcium (Lipitor) 40 mg PO HS [facility]; Protocol Stop: 03/15/18 20:59 Last Admin: 01/25/18 21:36 Dose: Not Given Clonazepam (Klonopin) 0.5 mg PO BID [facility]; Protocol Stop: 03/26/18 08:59 Last Admin: 01/26/18 09:08 Dose: 0.5 mg Diphenhydramine HCl (Benadryl) 25 mg PO BID PRN PRN Reason: Itching Stop: 03/21/18 08:59 Last Admin: 01/25/18 21:30 Dose: 25 mg Divalproex Sodium (Depakote Dr) 500 mg PO BID [facility]; Protocol Stop: 03/26/18 08:59 Last Admin: 01/26/18 09:08 Dose: 500 mg Docusate Sodium (Colace) 100 mg PO BID [facility] Stop: 03/15/18 08:59 Last Admin: 01/26/18 09:20 Dose: Not Given Donepezil HCl (Aricept) 5 mg PO HS [facility] Stop: 03/15/18 20:59 Last Admin: 01/25/18 21:35 Dose: 5 mg Lactulose (Cephulac) 20 gm PO HS [facility] Stop: 03/16/18 20:59 Last Admin: 01/25/18 21:35 Dose: 20 gm Lorazepam (Ativan) 0.5 mg PO Q4HR PRN; Protocol PRN Reason: Anxiety Stop: 02/12/18 20:23 Last Admin: 01/24/18 03:27 Dose: 0.5 mg Magnesium Hydroxide (Milk Of Magnesia) 30 ml PO HS PRN PRN Reason: Constipation Stop: 03/14/18 21:31 Last Admin: 01/22/18 03:31 Dose: 30 ml Memantine (Namenda) 5 mg PO BID [facility] Stop: 03/23/18 16:59 Last Admin: 01/26/18 09:20 Dose: Not Given Multivitamins/Vitamin C (Theragran) 1 tab PO DAILY [facility] Stop: 03/15/18 08:59 Last Admin: 01/26/18 09:20 Dose: Not Given Nifedipine (Procardia Xl) 60 mg PO DAILY [facility] Stop: 03/15/18 08:59 Last Admin: 01/26/18 09:20 Dose: Not Given Prednisone (Deltasone) 40 mg PO DAILY [facility] Stop: 03/15/18 08:59 Last Admin: 01/26/18 09:08 Dose: 40 mg Trazodone HCl (Desyrel) 50 mg PO HS [facility]; Protocol Stop: 03/15/18 20:59 Last Admin: 01/25/18 21:36 Dose: 50 mg Zolpidem Tartrate (Ambien) 5 mg PO HS PRN PRN Reason: Insomnia Stop: 03/14/18 20:23 Last Admin: 01/22/18 22:08 Dose: 5 mg General: No acute distress HEENT: Atraumatic, PERRLA Neck: Supple, JVD, Thyromegaly Cardiovascular: Regular rate, Normal S1 Lungs: Clear to auscultation Abdomen: Bowel sounds, Soft Assessment/Plan - Assessment Assessment: 1.COPD. 2.HTN. 3.DJD. 4.DEMENTIA. - Plan Plan: continue current treatment Nutritional Asmnt/Malnutr-PDOC - Dietary Evaluation Malnutrition Findings (Please click <Entered> for more info): Nutritional Asmnt/Malnutrition Start: 01/17/18 09: 47 Text: Status: Complete Freq: Protocol: Document 01/17/18 09:47 NICOL (Rec: 01/17/18 09:51 NICOL MOSHER- FNS1) Nutritional Asmnt/Malnutrition Patient General Information Diagnosis psychosis Pertinent Medical Hx/Surgical Hx HTN, COPD, hyperlipidemia, dementia, DJD Subjective Information pt sitting rec room at time of visit would not speak to RD at time of visit. Current Diet Order/ Nutrition Support regular pureed Pertinent Medications maalox, kale lipitor, colace, lactulose, MOM, theragran, deltasone Pertinent Labs reviewed Nutritional Hx/Data Height 1.5 m Height (Calculated Centimeters) 149.9 Current Weight (lbs) 43.998 kg Weight (Calculated Kilograms) 44.0 Weight (Calculated Grams) 42025.5 Body Mass Index (BMI) 19.5 Weight Status Approriate GI Symptoms GI Symptoms None Last BM 01/16 Cultural/Ethnic/Religion Belief unknown Usual diet at home pureed Skin Integrity/Comment: phylicia score 16, intact Current %PO Fair (50-74%) Estimated Nutritional Goals BEE in Kcals: Using Current wt Calories/Kcals/Kg 25-30kcals/day Kcals Calculated 1100-1320kcals/day Protein: Using Current wt Protein g/kg: ~1g/kg Protein Calculated ~44g/day Fluid: ml 1100-1320ml/day (1ml/kcal) Nutritional Problem 1. Problem Problem No nutrition diagnosis at this time Intervention/Recommendation Comments Recommend continuing regular diet with texture per ONCOLOGY REP Expected Outcomes/Goals Expected Outcomes/Goals PO intake >75% of meals
[2018-01-26] MEDS: Hydrocodone/APAP 5mg/325mg Tab PO PRN ×2 (17:27→21:36)
[2018-01-26] MEDS: Maalox 30 mL Cup PO PRN (19:48)
[2018-01-26] MEDS: Lactulose 10 Gm/15 mL 30mL UDC PO SCH (21:34)
[2018-01-27] MEDS: Albuterol Nebulizer 2.5mg/3mL HHN SCH ×6 (03:11→22:23)
[2018-01-27] MEDS: Multivitamin Tab PO SCH (08:51)
[2018-01-27] MEDS: Docusate Sodium 100 mg/10 mL UD PO SCH ×2 (08:52→16:07)
[2018-01-27] MEDS: Hydrocodone/APAP 5mg/325mg Tab PO PRN ×3 (08:53→20:11)
[2018-01-27] MEDS: Aspirin 81mg Chewable Tab PO SCH (11:59)
[2018-01-27] MEDS: NIFEdipine 30 mg ER Tab PO SCH (12:00)
--- NOTE | 2018-01-27 16:22 | Discharge Summary ---
DATE OF DISCHARGE: 01/27/2018 JUSTIFICATION FOR HOSPITALIZATION: The patient combative, aggressive. HISTORY OF PRESENT ILLNESS: An 87-year-old male, confused, likely with dementia, combative, agitated, aggressive, requiring a code, multiple staff members had to redirect him. He remained agitated, irritable, transferred to the Geropsych Unit. The patient was quite confused, disoriented, remained aggressive, agitated, angry, forgetful; however, as the hospitalization course progressed, his mood improved, affect improved. He remained angry, irritable, but was no longer combative, no longer requiring any redirection. No overt psychotic symptoms, no SI, no HI, no hitting behaviors. He did not want to take medications, erratic and med compliance. However, he did slowly calm down over time. No riese hearing was pursued. CONDITION UPON DISCHARGE: Improved, better ADLs, good eye contact, allowing ADLs. Mood "okay." Affect flat. Thought processes were confused. No SI, no HI. No psychotic symptoms. Insight and judgment more reasonable, impulse control, more reasonable. PROVISIONAL DIAGNOSES: Dementia, dementia with behaviors, anxiety, unspecified; mood, unspecified. Under medical, please see full H and P. PROGNOSIS: The patient follows up with outpatient mental health services and remains compliant with treatment. Prognosis will improve, otherwise guarded. [facility]# [id number]
--- NOTE | 2018-01-27 16:48 | General Progress Note ---
Subjective - Review of Systems Service Date: 01/27/18 Subjective: sitting comfortably confused Objective - Physical Exam Vitals and I&O: Vital Signs Temp 98.6 F 01/27/18 14:54 Pulse 97 01/27/18 14:54 Resp 22 01/27/18 14:54 BP 177/108 01/27/18 14:54 Pulse Ox 98 01/27/18 14:54 Intake & Output 01/26/18 01/27/18 01/27/18 18:59 06:59 18:59 Intake Total 1600 600 Balance 1600 600 Intake: Oral 1600 600 Other: # Voids 4 2 # Bowel Movements 1 0 Active Medications: Current Medications Acetaminophen (Tylenol) 650 mg PO Q4HR PRN PRN Reason: Mild Pain / Temp above 100 Stop: 03/14/18 20:23 Last Admin: 01/26/18 19:37 Dose: 650 mg Acetaminophen/Hydrocodone Bitart ([place] 5mg/325mg) 1 tab PO Q4H PRN PRN Reason: Pain (Severe) (LEVEL 1-3) Stop: 03/14/18 21:31 Last Admin: 01/27/18 14:30 Dose: 1 tab Al Hydrox/Mg Hydrox/Simethicone (Maalox) 30 ml PO Q4HR PRN PRN Reason: GI DISTRESS Stop: 03/14/18 20:23 Last Admin: 01/26/18 19:48 Dose: 30 ml Albuterol Sulfate (Albuterol 2.5mg/3ml Neb Ud) 2.5 mg HHN Q4HRT [facility] Stop: 03/18/18 14:59 Last Admin: 01/27/18 14:01 Dose: 2.5 mg Albuterol Sulfate (Albuterol 2.5mg/3ml Neb Ud) 2.5 mg HHN Q2H PRN PRN Reason: sob Stop: 03/25/18 04:12 Last Admin: 01/25/18 13:03 Dose: 2.5 mg Artificial Tears (Artificial Tears Ophth Soln) 1 drop EACH EYE HS PRN PRN Reason: Dry Eye Stop: 03/23/18 20:41 Ascorbic Acid (Vitamin C) 500 mg PO DAILY [facility] Stop: 03/15/18 08:59 Last Admin: 01/27/18 11:59 Dose: Not Given Aspirin (Aspirin Chewable) 81 mg PO DAILY [facility] Stop: 03/15/18 08:59 Last Admin: 01/27/18 11:59 Dose: Not Given Atorvastatin Calcium (Lipitor) 40 mg PO HS [facility]; Protocol Stop: 03/15/18 20:59 Last Admin: 01/26/18 21:37 Dose: Not Given Clonazepam (Klonopin) 0.5 mg PO BID [facility]; Protocol Stop: 03/26/18 08:59 Last Admin: 01/27/18 11:59 Dose: Not Given Diphenhydramine HCl (Benadryl) 25 mg PO BID PRN PRN Reason: Itching Stop: 03/21/18 08:59 Last Admin: 01/27/18 16:07 Dose: 25 mg Divalproex Sodium (Depakote Dr) 500 mg PO BID [facility]; Protocol Stop: 03/26/18 08:59 Docusate Sodium (Colace) 100 mg PO BID [facility] Stop: 03/15/18 08:59 Last Admin: 01/27/18 16:07 Dose: 100 mg Donepezil HCl (Aricept) 5 mg PO HS [facility] Stop: 03/15/18 20:59 Last Admin: 01/26/18 21:36 Dose: 5 mg Lactulose (Cephulac) 20 gm PO HS [facility] Stop: 03/16/18 20:59 Last Admin: 01/26/18 21:34 Dose: 20 gm Lorazepam (Ativan) 0.5 mg PO Q4HR PRN; Protocol PRN Reason: Anxiety Stop: 02/12/18 20:23 Last Admin: 01/24/18 03:27 Dose: 0.5 mg Magnesium Hydroxide (Milk Of Magnesia) 30 ml PO HS PRN PRN Reason: Constipation Stop: 03/14/18 21:31 Last Admin: 01/22/18 03:31 Dose: 30 ml Memantine (Namenda) 5 mg PO BID [facility] Stop: 03/23/18 16:59 Last Admin: 01/27/18 12:00 Dose: Not Given Multivitamins/Vitamin C (Theragran) 1 tab PO DAILY [facility] Stop: 03/15/18 08:59 Last Admin: 01/27/18 08:51 Dose: 1 tab Nifedipine (Procardia Xl) 60 mg PO DAILY [facility] Stop: 03/15/18 08:59 Last Admin: 01/27/18 12:00 Dose: Not Given Prednisone (Deltasone) 40 mg PO DAILY [facility] Stop: 03/15/18 08:59 Last Admin: 01/27/18 08:51 Dose: 40 mg Trazodone HCl (Desyrel) 50 mg PO HS [facility]; Protocol Stop: 03/15/18 20:59 Last Admin: 01/26/18 21:36 Dose: 50 mg Zolpidem Tartrate (Ambien) 5 mg PO HS PRN PRN Reason: Insomnia Stop: 03/14/18 20:23 Last Admin: 01/22/18 22:08 Dose: 5 mg General: No acute distress HEENT: Atraumatic, PERRLA Neck: Supple, JVD, Thyromegaly Cardiovascular: Regular rate, Normal S1 Lungs: Clear to auscultation Abdomen: Bowel sounds, Soft Assessment/Plan - Assessment Assessment: 1.COPD. 2.HTN. 3.DJD. 4.DEMENTIA. - Plan Plan: continue current treatment Nutritional Asmnt/Malnutr-PDOC - Dietary Evaluation Malnutrition Findings (Please click <Entered> for more info): Nutritional Asmnt/Malnutrition Start: 01/17/18 09: 47 Text: Status: Complete Freq: Protocol: Document 01/17/18 09:47 NICOL (Rec: 01/17/18 09:51 NICOL MOSHER- [id number]) Nutritional Asmnt/Malnutrition Patient General Information Diagnosis psychosis Pertinent Medical Hx/Surgical Hx HTN, COPD, hyperlipidemia, dementia, DJD Subjective Information pt sitting rec room at time of visit would not speak to RD at time of visit. Current Diet Order/ Nutrition Support regular pureed Pertinent Medications maalox, kale lipitor, colace, lactulose, MOM, theragran, deltasone Pertinent Labs reviewed Nutritional Hx/Data Height 1.5 m Height (Calculated Centimeters) 149.9 Current Weight (lbs) 43.998 kg Weight (Calculated Kilograms) 44.0 Weight (Calculated Grams) 99922.5 Body Mass Index (BMI) 19.5 Weight Status Approriate GI Symptoms GI Symptoms None Last BM 01/16 Cultural/Ethnic/Sabianism Belief unknown Usual diet at home pureed Skin Integrity/Comment: phylicia score 16, intact Current %PO Fair (50-74%) Estimated Nutritional Goals BEE in Kcals: Using Current wt Calories/Kcals/Kg 25-30kcals/day Kcals Calculated 1100-1320kcals/day Protein: Using Current wt Protein g/kg: ~1g/kg Protein Calculated ~44g/day Fluid: ml 1100-1320ml/day (1ml/kcal) Nutritional Problem 1. Problem Problem No nutrition diagnosis at this time Intervention/Recommendation Comments Recommend continuing regular diet with texture per [employer]SE SEINER Expected Outcomes/Goals Expected Outcomes/Goals PO intake >75% of meals
[2018-01-27] MEDS: Albuterol Nebulizer 2.5mg/3mL HHN PRN (17:50)
--- NOTE | 2018-01-27 18:17 | Progress Notes ---
DATE: 01/26/2018 SUBJECTIVE: The patient in hospital, calmer, more cooperative, still does not want to take medications, but is not unruly any more, he is much calmer, no longer aggressive, no longer combative, no longer trying to hurt others, more reasonable on exam, sleeping well, eating well. ASSESSMENT: The patient calmer, more cooperative, seems to be making an improvement, showing signs of improvement. PLAN: We will continue to monitor. We will monitor for another 24 hours to make sure the patient is devoid of any aggressive symptoms. Medications were reviewed. He is quite selective with medications. JOB# [id number]
[2018-01-27] MEDS: Lactulose 10 Gm/15 mL 30mL UDC PO SCH (20:12)
[2018-01-27] MEDS: Maalox 30 mL Cup PO PRN (22:05)
[2018-01-28] MEDS: Albuterol Nebulizer 2.5mg/3mL HHN SCH (02:44)
[2018-01-28] MEDS ORDERED: Racepinephrine HCl 0.5 mL AERS HHN STA (03:20)
[2018-01-28] MEDS ORDERED: Racepinephrine HCl 0.5 mL AERS HHN ONE (03:33)
== END 2018-01-28 04:26 | disposition short-term general hospital (02) | DRG 885 ==
LOC: GERO 18:57
PROVIDERS: ADMIT Psychiatry & Neurology Psychiatry; ATTEND Psychiatry & Neurology Psychiatry
DX: F39 Unspecified mood [affective] disorder (principal); F03.91 Unspecified dementia, unspecified severity, with behavioral disturbance; I10 Essential (primary) hypertension; J44.9 Chronic obstructive pulmonary disease, unspecified; E78.5 Hyperlipidemia, unspecified; M19.90 Unspecified osteoarthritis, unspecified site; F41.9 Anxiety disorder, unspecified
CPT/HCPCS: 83036-90; 94640; 94760; G0410; J7613; Z7610

== ENCOUNTER 2018-01-28 04:26 | Inpatient (IN) | payer MEDICARE, OTHER ==
[2018-01-28 05:49] VITALS: BP 158/85
[2018-01-28] MEDS ORDERED: Magnesium Hydroxide (MOM) 30 mL UDC PO PRN (10:30)
[2018-01-28] MEDS ORDERED: Albuterol Nebulizer 2.5mg/3mL HHN PRN (10:30)
[2018-01-28] MEDS ORDERED: Polyvinyl Alcohol Ophth Soln 15 mL Bottle EACH EYE PRN (10:30)
[2018-01-28] MEDS ORDERED: Albuterol 2 mg/5 mL UDC PO PRN (11:01)
[2018-01-28 11:17] LABS: HEMATOCRIT 35.1 % (41.0-60); HEMOGLOBIN 11.7 gm/dL (12-16); MEAN CELL VOLUME 86.3 fl (80-99); MEAN CORPUSCULAR HEMOGLOBIN 28.8 pg (27.0-31.0); MEAN CORPUSCULAR HGB CONC 33.3 pg (28.0-36.0); MEAN PLATELET VOLUME 8.1 fl; PLATELET COUNT 314 Th/cmm (150-400); RED BLOOD COUNT 4.07 Mil/cmm (3.80-5.80); RED CELL DISTRIBUTION WIDTH 12.8 % (11.5-20.0); WHITE BLOOD COUNT 7.6 Th/cmm (4.8-10.8)
--- NOTE | 2018-01-28 11:19 | Diagnostic Imaging Report ---
CHEST X-RAY: AP view INDICATION: Shortness of breath, COPD COMPARISON: Chest x-ray 01/06/2018 FINDINGS: Chronic lung changes are noted with no focal consolidation or effusions. Multiple left rib costochondral calcifications noted. Faint density right lower lung zones also noted probably due to costochondral calcifications. No focal consolidation or effusion. Heart size is normal. Atherosclerosis is noted with tortuous aorta. IMPRESSION: Chronic lung changes and probable COPD Faint density along the right lower lung zone likely due to costochondral calcifications. Otherwise no focal consolidation identified. Atherosclerotic vascular disease.
[2018-01-28 11:22] LABS: ALB/GLOB RATIO 2.1 (1.0-1.8); ALBUMIN 4.1 gm/dL (4.2-5.5); ALKALINE PHOSPHATASE 55 U/L (34-104); ANION GAP 10.7 (7.0-16.0); BILIRUBIN,TOTAL 0.3 mg/dL (0.3-1.0); BUN - UREA NITROGEN 36 mg/dL (7-25); CALCIUM SERUM 9.6 mg/dL (8.6-10.3); CHLORIDE 104 mEq/L (98-107); CREATININE - SERUM 1.2 mg/dL (0.7-1.3); GLUCOSE 143 mg/dL (70-105); POTASSIUM SERUM 4.7 mEq/L (3.5-5.1); SGOT 18 U/L (13-39); SGPT/ALT 16 U/L (7-52); SODIUM SERUM 135 mEq/L (136-145); TOTAL PROTEIN,SERUM 6.1 gm/dL (6.0-8.3)
[2018-01-28] MEDS: NIFEdipine 30 mg ER Tab PO SCH (11:44)
[2018-01-28 11:52] LABS: BAND NEUTROPHILE 1 % (0-10); EOSINOPHIL 1 % (0-5); LYMPHOCYTE 7 % (20-50); MONOCYTE 2 % (2-10); NEUTROPHILS 89 % (40-80)
[2018-01-28 11:53] LABS: PLATELET ESTIMATE ADEQUATE (NORMAL)
[2018-01-28] MEDS ORDERED: methylPREDNISolone SS 40 mg Vial IVP SCH (13:00)
--- NOTE | 2018-01-28 15:55 | History & Physical ---
ADMIT DATE: 01/28/2018 CHIEF COMPLAINT: Shortness of breath. HISTORY OF PRESENT ILLNESS: This is an 87-year-old male with past medical history significant for COPD and psychotic disorder, transferred from the psychiatric unit after he was found to have persistent wheezing and shortness of breath. The patient has been transferred to ICU for close monitoring. He has been given IV steroids and Ativan. He is now resting comfortably without any respiratory distress or wheezing. The patient is well known to me from a psychiatric unit where I have been following him from a medical point of view. The patient has been noncompliant with taking his medications. He has received his steroids inconsistently and oftentimes refuses his nebulizer treatment. In the early hours of today, the patient became short of breath. He was given several doses of breathing treatments as well as racemic epinephrine without relief to his shortness of breath or wheezing. I spoke with the charge nurse and psychiatric unit as well as the nurse parachute supervisor. It was decided to bring the patient to the Medical Unit for close monitoring. The patient has been admitted to ICU for respiratory distress. He has; however, responded well to treatment and is in no distress at this time. PAST MEDICAL HISTORY: The patient has history of COPD, hypertension, psychiatric unit, hyperlipidemia, dementia. ALLERGIES: No known drug allergies. SOCIAL HISTORY: The patient continues to smoke. No known history of alcohol or drugs. FAMILY HISTORY: Noncontributory. REVIEW OF SYSTEMS: IMMUNOLOGIC: No recurrent infection. CARDIOVASCULAR: No heart disease. The patient does have hypertension. GASTROINTESTINAL: No nausea, vomiting or diarrhea. ENDOCRINE: No diabetes or thyroid disorder. NEUROLOGIC: No seizures or stroke. HEMATOLOGIC: No bleeding or clotting disorder. PHYSICAL EXAMINATION: GENERAL: The patient is resting comfortably in bed, is in no distress or pain. VITAL SIGNS: Temperature 97.3, pulse 98, respiration 19, blood pressure 149/73, pulse ox is 100% on 2 liters. HEENT: Pupils equally round, anicteric sclerae. NECK: Supple, no JVD, no mass or bruit auscultation. LUNGS: Clear to auscultation. HEART: S1, S2, regular rate and rhythm. ABDOMEN: Soft, nontender, positive bowel sounds. EXTREMITIES: No clubbing, cyanosis, or edema. NEUROLOGIC: Moves all extremities equally. LABORATORY DATA: Pending. IMPRESSION: 1. Chronic obstructive pulmonary disease exacerbation. 2. Psychiatric disorder. 3. Hypertension. 4. Hyperlipidemia. 5. Dementia. PLAN: We will continue IV steroids and get a pulmonary consult with Dr. Vargas. I spoke with the daughter and notified her of the transfer and the patient is stable at this time. He will continue to need a sitter because of his continuous agitation. We will continue to work with insurance case manager for placement. JOB# [id number]
[2018-01-28] MEDS: Albuterol/Ipratropium Neb 3 ML AERS HHN SCH ×2 (19:35→22:00)
[2018-01-28] MEDS: methylPREDNISolone SS 40 mg Vial IVP SCH (19:51)
[2018-01-28] MEDS: Hydrocodone/APAP 5mg/325mg Tab PO PRN (20:08)
[2018-01-28] MEDS ORDERED: Non-Formulary Item 1 EA (Melatonin [Melatonin] 6 MG) PO SCH (21:00)
--- NOTE | 2018-01-29 00:31 | Consultation ---
DATE OF CONSULTATION: HISTORY OF PRESENT ILLNESS: An 87-year-old male with history for COPD, transferred from the psych unit, persistent wheezing, shortness of breath, transferred to ICU for close monitoring and out of the ICU on IV steroids, Ativan, resting more comfortably, remains confused, disoriented, poor medication compliance, and consistent use of his medications including for respiration. The patient was combative this morning, agitated, received racemic epinephrine, pain medications. He did eventually calm down. PAST MEDICAL HISTORY: COPD, hypertension, hyperlipidemia, and dementia. PAST PSYCHIATRIC HISTORY: Multiple ____ at the Geropsych Unit. ALLERGIES: No known drug allergies. SOCIAL HISTORY: The patient continues to smoke. Please see full psych eval for details. He does have a daughter who is involved. MENTAL STATUS EXAMINATION: Small statured male, sleeping, but arousable, confused, disoriented. No overt SI or HI. No current psychotic symptoms. Poor impulse control, combative earlier today, but was redirectable. PROVISIONAL DIAGNOSES: Dementia, dementia with behaviors; psychosis, unspecified; mood, unspecified; and anxiety, unspecified. MEDICAL: Please see full H and P. RECOMMENDATIONS AND PLAN: We will continue to monitor. Continue to monitor for any behavioral disturbances. Continue Depakote. Consider re-addition of Seroquel. JOB# [id number]
[2018-01-29] MEDS: methylPREDNISolone SS 40 mg Vial IVP SCH ×4 (00:38→21:13)
[2018-01-29] MEDS: Albuterol/Ipratropium Neb 3 ML AERS HHN SCH ×6 (02:30→22:35)
[2018-01-29] MEDS: Hydrocodone/APAP 5mg/325mg Tab PO PRN ×2 (08:48→21:13)
[2018-01-29] MEDS: Aspirin 81mg Chewable Tab PO SCH (08:49)
[2018-01-29] MEDS: Multivitamin Tab PO SCH (08:49)
[2018-01-29] MEDS: NIFEdipine 30 mg ER Tab PO SCH (08:49)
--- NOTE | 2018-01-29 15:19 | Consultation ---
DATE OF CONSULTATION: 01/28/2018 REFERRING PHYSICIAN: Dr. Milligan. Thank you very much for this consultation. HISTORY OF PRESENT ILLNESS: This is an 87-year-old male with history of COPD, multiple admissions for COPD exacerbation, history of some psychiatric illness as well and Psych Unit was following up, shortness of breath and acute wheezing, was then admitted to ICU initially, now transferred to the floor, started on nebulizer treatment. The patient is improved so far, gets agitated at times, but he is okay now. He said his breathing has improved and he has been using inhalers ____. SOCIAL HISTORY: Smoking for many years, quit 3-4 years ago. REVIEW OF SYSTEMS: GENERAL: Weakness, fatigue. CARDIOVASCULAR: No chest pain or palpation. RESPIRATORY: Shortness of breath and wheezing. GASTROINTESTINAL: No nausea or vomiting. PHYSICAL EXAMINATION: GENERAL: Awake, alert, not in acute distress. VITAL SIGNS: Temperature 97.4, pulse 81, respiration is 21, blood pressure 135/60, saturation 100%. HEENT: Head is atraumatic, normocephalic. Pupils react to light and accommodation. Ears, nose and throat normal. NECK: Supple. No JVD. CHEST: There are scattered, diffuse wheezing and rhonchi bilaterally. HEART: Regular rate and rhythm. ABDOMEN: Soft. EXTREMITIES: No edema. LABORATORY DATA: WBC 7.6, hemoglobin 11.7, hematocrit 35.1, platelets 314. Sodium 135, potassium 4.7, BUN 36, creatinine 1.2, albumin 4.1. Chest x-ray: COPD changes, chronic changes. IMPRESSION: 1. This 87-year-old male with acute respiratory failure. 2. Acute chronic obstructive pulmonary disease exacerbation. 3. Psychiatric illness. PLAN: 1. IV antibiotics. 2. IV Solu-Medrol. 3. Nebulizer treatment around the clock and continue supportive care. Will follow the patient with you. Thank you very much for this consultation. JOB# [id number]
--- NOTE | 2018-01-29 15:37 | General Progress Note ---
Subjective - Review of Systems Service Date: 01/29/18 Subjective: resting comfortably in bed calm and cooperative mild cough Objective - Results Result Diagrams: 01/28/18 10:40 01/28/18 10:40 Recent Labs: Laboratory Last Values WBC 7.6 Th/cmm (4.8-10.8) 01/28/18 10:40 RBC 4.07 Mil/cmm (3.80-5.80) 01/28/18 10:40 Hgb 11.7 gm/dL (12-16) L 01/28/18 10:40 Hct 35.1 % (41.0-60) L 01/28/18 10:40 MCV 86.3 fl (80-99) 01/28/18 10:40 MCH 28.8 pg (27.0-31.0) 01/28/18 10:40 MCHC Differential 33.3 pg (28.0-36.0) 01/28/18 10:40 RDW 12.8 % (11.5-20.0) 01/28/18 10:40 Plt Count 314 Th/cmm (150-400) 01/28/18 10:40 MPV 8.1 fl 01/28/18 10:40 Add Manual Diff YES 01/28/18 10:40 Band Neutrophils % 1 % (0-10) 01/28/18 10:40 Neutrophils (Manual) 89 % (40-80) H 01/28/18 10:40 Lymphocytes 7 % (20-50) L 01/28/18 10:40 Monocytes 2 % (2-10) 01/28/18 10:40 Eosinophils 1 % (0-5) 01/28/18 10:40 Platelet Estimate ADEQUATE (NORMAL) 01/28/18 10:40 Sodium 135 mEq/L (136-145) L 01/28/18 10:40 Potassium 4.7 mEq/L (3.5-5.1) 01/28/18 10:40 Chloride 104 mEq/L (98-107) 01/28/18 10:40 Carbon Dioxide 25.0 mEq/L (21.0-31.0) 01/28/18 10:40 Anion Gap 10.7 (7.0-16.0) 01/28/18 10:40 BUN 36 mg/dL (7-25) H 01/28/18 10:40 Creatinine 1.2 mg/dL (0.7-1.3) 01/28/18 10:40 Est GFR ( Amer) TNP 01/28/18 10:40 Est GFR (Non-Af Amer) TNP 01/28/18 10:40 BUN/Creatinine Ratio 30.0 01/28/18 10:40 Glucose 143 mg/dL (70-105) H 01/28/18 10:40 POC Glucose 114 MG/DL (70 - 105) H 01/28/18 05:26 Calcium 9.6 mg/dL (8.6-10.3) 01/28/18 10:40 Total Bilirubin 0.3 mg/dL (0.3-1.0) 01/28/18 10:40 AST 18 U/L (13-39) 01/28/18 10:40 ALT 16 U/L (7-52) 01/28/18 10:40 Alkaline Phosphatase 55 U/L (34-104) 01/28/18 10:40 Total Protein 6.1 gm/dL (6.0-8.3) 01/28/18 10:40 Albumin 4.1 gm/dL (4.2-5.5) L 01/28/18 10:40 Globulin 2.0 gm/dL 01/28/18 10:40 Albumin/Globulin Ratio 2.1 (1.0-1.8) H 01/28/18 10:40 - Physical Exam Vitals and I&O: Vital Signs Temp 98.1 F 01/29/18 08:00 Pulse 89 01/29/18 14:58 Resp 20 01/29/18 14:58 BP 130/70 01/29/18 08:49 Pulse Ox 98 01/29/18 14:58 Intake & Output 01/28/18 01/29/18 01/29/18 18:59 06:59 18:59 Intake Total 500 240 Balance 500 240 Weight (lbs) 43.545 kg 44.996 kg Intake: Oral 500 240 Other: # Voids 2 3 # Bowel Movements 0 Weight Source Bedscale Bedscale Active Medications: Current Medications Acetaminophen (Tylenol) 650 mg PO Q6H PRN PRN Reason: Moderate Pain or Fever >101 Acetaminophen/Hydrocodone Bitart ([place] 5mg/325mg) 1 tab PO Q4H PRN PRN Reason: Pain (Severe) Stop: 03/29/18 10:29 Last Admin: 01/29/18 08:48 Dose: 1 tab Albuterol/Ipratropium (Duoneb Neb) 3 ml HHN Q4HRT [facility] Stop: 03/29/18 19:14 Last Admin: 01/29/18 14:57 Dose: 3 ml Artificial Tears (Artificial Tears Ophth Soln) 1 drop EACH EYE HS PRN PRN Reason: Dry Eye Stop: 03/29/18 10:29 Ascorbic Acid (Vitamin C) 500 mg PO DAILY [facility] Stop: 03/30/18 08:59 Last Admin: 01/29/18 08:48 Dose: 500 mg Aspirin (Aspirin Chewable) 81 mg PO DAILY [facility] Stop: 03/30/18 08:59 Last Admin: 01/29/18 08:49 Dose: 81 mg Atorvastatin Calcium (Lipitor) 40 mg PO HS [facility] Stop: 03/29/18 20:59 Last Admin: 01/28/18 20:11 Dose: Not Given Clonazepam (Klonopin) 0.5 mg PO BID [facility]; Protocol Stop: 03/29/18 16:59 Last Admin: 01/29/18 08:49 Dose: 0.5 mg Diphenhydramine HCl (Benadryl) 25 mg PO BID PRN PRN Reason: Itching Stop: 03/29/18 10:29 Last Admin: 01/29/18 08:49 Dose: 25 mg Divalproex Sodium (Depakote Dr) 500 mg PO BID [facility]; Protocol Stop: 03/29/18 10:44 Last Admin: 01/29/18 08:48 Dose: 500 mg Docusate Sodium (Colace) 100 mg PO BID [facility] Stop: 03/29/18 10:44 Last Admin: 01/29/18 08:49 Dose: 100 mg Donepezil HCl (Aricept) 5 mg PO HS [facility] Stop: 03/29/18 20:59 Last Admin: 01/28/18 20:12 Dose: Not Given Lorazepam (Ativan) 0.5 mg PO Q4HR PRN; Protocol PRN Reason: Agitation Stop: 03/29/18 07:26 Last Admin: 01/29/18 08:49 Dose: 0.5 mg Lorazepam (Ativan) 0.5 mg PO Q4HR PRN; Protocol PRN Reason: Anxiety Stop: 03/29/18 10:29 Magnesium Hydroxide (Milk Of Magnesia) 30 ml PO HS PRN PRN Reason: Constipation Stop: 03/29/18 10:29 Memantine (Namenda) 5 mg PO BID [facility] Stop: 03/29/18 10:44 Last Admin: 01/29/18 08:48 Dose: 5 mg Methylprednisolone Sodium Succinate (Solu-Medrol) 40 mg IVP Q12HR [facility] Stop: 03/30/18 20:59 Multivitamins/Vitamin C (Theragran) 1 tab PO DAILY [facility] Stop: 03/30/18 08:59 Last Admin: 01/29/18 08:49 Dose: 1 tab Nifedipine (Procardia Xl) 60 mg PO DAILY [facility] Stop: 03/29/18 10:44 Last Admin: 01/29/18 08:49 Dose: 60 mg Trazodone HCl (Desyrel) 50 mg PO HS [facility]; Protocol Stop: 03/29/18 20:59 Last Admin: 01/28/18 20:12 Dose: Not Given Zolpidem Tartrate (Ambien) 5 mg PO HS PRN PRN Reason: insomnia Stop: 03/29/18 10:29 General: Alert, No acute distress HEENT: Atraumatic, PERRLA Neck: Supple, JVD, Thyromegaly Cardiovascular: Regular rate, Normal S1, Normal S2 Lungs: Clear to auscultation Abdomen: Bowel sounds, Soft Assessment/Plan - Assessment Assessment: COPD exacerbation dementia HTN protein malnutrition - Plan Plan: cont current treatment d/w Dr Vargas and sample case porter
[2018-01-29] MEDS: guaiFENesin 200 MG/10 ML UDC PO PRN (16:11)
[2018-01-30] MEDS: Albuterol/Ipratropium Neb 3 ML AERS HHN SCH ×4 (03:00→14:00)
[2018-01-30] MEDS: Hydrocodone/APAP 5mg/325mg Tab PO PRN ×2 (07:33→13:41)
[2018-01-30] MEDS: guaiFENesin 200 MG/10 ML UDC PO PRN ×2 (08:50→13:41)
[2018-01-30] MEDS: NIFEdipine 30 mg ER Tab PO SCH (09:37)
[2018-01-30] MEDS: Aspirin 81mg Chewable Tab PO SCH (09:37)
[2018-01-30] MEDS: Multivitamin Tab PO SCH (09:39)
[2018-01-30] MEDS: methylPREDNISolone SS 40 mg Vial IVP SCH (09:41)
[2018-01-30] MEDS ORDERED: Albuterol/Ipratropium Neb 3 ML AERS HHN PRN (13:28)
[2018-01-30] MEDS ORDERED: Albuterol Nebulizer 2.5mg/3mL HHN SCH (13:30)
--- NOTE | 2018-01-30 15:28 | General Progress Note ---
Subjective - Review of Systems Service Date: 01/30/18 Subjective: resting comfortably in bed calm and cooperative no distress Objective - Results Result Diagrams: 01/28/18 10:40 01/28/18 10:40 Recent Labs: Laboratory Last Values WBC 7.6 Th/cmm (4.8-10.8) 01/28/18 10:40 RBC 4.07 Mil/cmm (3.80-5.80) 01/28/18 10:40 Hgb 11.7 gm/dL (12-16) L 01/28/18 10:40 Hct 35.1 % (41.0-60) L 01/28/18 10:40 MCV 86.3 fl (80-99) 01/28/18 10:40 MCH 28.8 pg (27.0-31.0) 01/28/18 10:40 MCHC Differential 33.3 pg (28.0-36.0) 01/28/18 10:40 RDW 12.8 % (11.5-20.0) 01/28/18 10:40 Plt Count 314 Th/cmm (150-400) 01/28/18 10:40 MPV 8.1 fl 01/28/18 10:40 Add Manual Diff YES 01/28/18 10:40 Band Neutrophils % 1 % (0-10) 01/28/18 10:40 Neutrophils (Manual) 89 % (40-80) H 01/28/18 10:40 Lymphocytes 7 % (20-50) L 01/28/18 10:40 Monocytes 2 % (2-10) 01/28/18 10:40 Eosinophils 1 % (0-5) 01/28/18 10:40 Platelet Estimate ADEQUATE (NORMAL) 01/28/18 10:40 Sodium 135 mEq/L (136-145) L 01/28/18 10:40 Potassium 4.7 mEq/L (3.5-5.1) 01/28/18 10:40 Chloride 104 mEq/L (98-107) 01/28/18 10:40 Carbon Dioxide 25.0 mEq/L (21.0-31.0) 01/28/18 10:40 Anion Gap 10.7 (7.0-16.0) 01/28/18 10:40 BUN 36 mg/dL (7-25) H 01/28/18 10:40 Creatinine 1.2 mg/dL (0.7-1.3) 01/28/18 10:40 Est GFR ( Amer) TNP 01/28/18 10:40 Est GFR (Non-Af Amer) TNP 01/28/18 10:40 BUN/Creatinine Ratio 30.0 01/28/18 10:40 Glucose 143 mg/dL (70-105) H 01/28/18 10:40 POC Glucose 114 MG/DL (70 - 105) H 01/28/18 05:26 Calcium 9.6 mg/dL (8.6-10.3) 01/28/18 10:40 Total Bilirubin 0.3 mg/dL (0.3-1.0) 01/28/18 10:40 AST 18 U/L (13-39) 01/28/18 10:40 ALT 16 U/L (7-52) 01/28/18 10:40 Alkaline Phosphatase 55 U/L (34-104) 01/28/18 10:40 Total Protein 6.1 gm/dL (6.0-8.3) 01/28/18 10:40 Albumin 4.1 gm/dL (4.2-5.5) L 01/28/18 10:40 Globulin 2.0 gm/dL 01/28/18 10:40 Albumin/Globulin Ratio 2.1 (1.0-1.8) H 01/28/18 10:40 - Physical Exam Vitals and I&O: Vital Signs Temp 97.7 F 01/30/18 04:00 Pulse 89 01/30/18 13:41 Resp 20 01/30/18 13:41 BP 154/72 01/30/18 09:37 Pulse Ox 94 01/30/18 13:41 Intake & Output 01/29/18 01/30/18 01/30/18 18:59 06:59 18:59 Intake Total 500 Balance 500 Weight (lbs) 44.996 kg Intake: Oral 500 Other: # Voids 2 # Bowel Movements 0 Weight Source Bedscale Active Medications: Current Medications Acetaminophen (Tylenol) 650 mg PO Q6H PRN PRN Reason: Moderate Pain or Fever >101 Acetaminophen/Hydrocodone Bitart ([place] 5mg/325mg) 1 tab PO Q4H PRN PRN Reason: Pain (Severe) Stop: 03/29/18 10:29 Last Admin: 01/30/18 13:41 Dose: 1 tab Albuterol/Ipratropium (Duoneb Neb) 3 ml HHN Q4HRT [facility]KI Stop: 03/29/18 19:14 Last Admin: 01/30/18 14:00 Dose: Not Given Albuterol/Ipratropium (Duoneb Neb) 3 ml HHN Q4H PRN PRN Reason: Wheezing Stop: 03/31/18 13:27 Last Admin: 01/30/18 13:41 Dose: 3 ml Artificial Tears (Artificial Tears Ophth Soln) 1 drop EACH EYE HS PRN PRN Reason: Dry Eye Stop: 03/29/18 10:29 Ascorbic Acid (Vitamin C) 500 mg PO DAILY [facility] Stop: 03/30/18 08:59 Last Admin: 01/30/18 09:39 Dose: 500 mg Aspirin (Aspirin Chewable) 81 mg PO DAILY [facility] Stop: 03/30/18 08:59 Last Admin: 01/30/18 09:37 Dose: 81 mg Atorvastatin Calcium (Lipitor) 40 mg PO HS [facility] Stop: 03/29/18 20:59 Last Admin: 01/29/18 21:13 Dose: 40 mg Clonazepam (Klonopin) 0.5 mg PO BID [facility]; Protocol Stop: 03/29/18 16:59 Last Admin: 01/30/18 09:39 Dose: 0.5 mg Diphenhydramine HCl (Benadryl) 25 mg PO BID PRN PRN Reason: Itching Stop: 03/29/18 10:29 Last Admin: 01/30/18 07:33 Dose: 25 mg Divalproex Sodium (Depakote Dr) 500 mg PO BID [facility]; Protocol Stop: 03/29/18 10:44 Last Admin: 01/30/18 09:37 Dose: 500 mg Docusate Sodium (Colace) 100 mg PO BID [facility] Stop: 03/29/18 10:44 Last Admin: 01/30/18 09:37 Dose: 100 mg Donepezil HCl (Aricept) 5 mg PO HS [facility] Stop: 03/29/18 20:59 Last Admin: 01/29/18 21:14 Dose: 5 mg Guaifenesin (Robitussin) 200 mg PO Q4HR PRN PRN Reason: Cough or Congestion Stop: 03/30/18 15:50 Last Admin: 01/30/18 13:41 Dose: 200 mg Lorazepam (Ativan) 0.5 mg PO Q4HR PRN; Protocol PRN Reason: Agitation Stop: 03/29/18 07:26 Last Admin: 01/30/18 09:37 Dose: 0.5 mg Lorazepam (Ativan) 0.5 mg PO Q4HR PRN; Protocol PRN Reason: Anxiety Stop: 03/29/18 10:29 Magnesium Hydroxide (Milk Of Magnesia) 30 ml PO HS PRN PRN Reason: Constipation Stop: 03/29/18 10:29 Memantine (Namenda) 5 mg PO BID [facility] Stop: 03/29/18 10:44 Last Admin: 01/30/18 09:39 Dose: 5 mg Methylprednisolone Sodium Succinate (Solu-Medrol) 40 mg IVP Q12HR [facility] Stop: 03/30/18 20:59 Last Admin: 01/30/18 09:41 Dose: 40 mg Multivitamins/Vitamin C (Theragran) 1 tab PO DAILY [facility] Stop: 03/30/18 08:59 Last Admin: 01/30/18 09:39 Dose: 1 tab Nifedipine (Procardia Xl) 60 mg PO DAILY [facility] Stop: 03/29/18 10:44 Last Admin: 01/30/18 09:37 Dose: 60 mg Trazodone HCl (Desyrel) 50 mg PO HS [facility]KI; Protocol Stop: 03/29/18 20:59 Last Admin: 01/29/18 21:14 Dose: 50 mg Zolpidem Tartrate (Ambien) 5 mg PO HS PRN PRN Reason: insomnia Stop: 03/29/18 10:29 General: Alert, No acute distress HEENT: Atraumatic, PERRLA Neck: Supple, JVD, Thyromegaly Cardiovascular: Regular rate, Normal S1, Normal S2 Lungs: Clear to auscultation Abdomen: Bowel sounds, Soft Assessment/Plan - Assessment Assessment: COPD exacerbation dementia HTN protein malnutrition - Plan Plan: cont current treatment awaiting placement
== END 2018-01-30 17:05 | DRG 189 ==
LOC: ICU 04:26 → TELE 15:15
PROVIDERS: ADMIT Family Medicine; ATTEND Family Medicine
DX: J96.00 Acute respiratory failure, unspecified whether with hypoxia or hypercapnia (principal); J44.1 Chronic obstructive pulmonary disease with (acute) exacerbation; F03.91 Unspecified dementia, unspecified severity, with behavioral disturbance; E46 Unspecified protein-calorie malnutrition; E78.5 Hyperlipidemia, unspecified; I10 Essential (primary) hypertension; F29 Unspecified psychosis not due to a substance or known physiological condition; F39 Unspecified mood [affective] disorder; F41.9 Anxiety disorder, unspecified; Z91.14 Patient's other noncompliance with medication regimen; Z68.20 Body mass index [BMI] 20.0-20.9, adult
CPT/HCPCS: 36415-UA; 71045-TC; 80053-TC; 82948-90; 85007-TC; 85025-TC; 94760; J2920; J2930; J7613; Z7610